=== PATIENT | female | born 1970 | race Caucasian/White ===

== ENCOUNTER → 2020-01-30 10:55 | Outpatient (BNVA) | payer OTHER, SELFPAY | PROVIDERS: PCP Internal Medicine; Visit Provider Nurse Practitioner Family | DX: I27.21 Secondary pulmonary arterial hypertension (principal); K76.6 Portal hypertension; I51.7 Cardiomegaly; I36.1 Nonrheumatic tricuspid (valve) insufficiency; R18.8 Other ascites; K74.60 Unspecified cirrhosis of liver | CPT/HCPCS: 99212 ==

== ENCOUNTER 2020-01-30 13:11 | Inpatient (IN) | payer OTHER, SELFPAY ==
[2020-01-30] VITALS (7 sets, daily range): BP systolic 102–121; BP diastolic 68–83; PULSE 86–96; RESP 16–32; TEMP 36–36.9; O2SAT 2–99; BMI 28.8
--- NOTE | 2020-01-30 13:48 | XR_ITS ---
EXAMINATION: XR CHEST CLINICAL INFORMATION: Shortness of breath. COMPARISON: 09/23/2019 chest radiographs. TECHNIQUE: Frontal view of the chest was obtained. FINDINGS: The lungs are clear. The heart is mildly enlarged. The mediastinal structures are unremarkable. XR/XR chest 1V IMPRESSION: No acute cardiopulmonary process. Mild cardiomegaly without significant change.
--- NOTE | 2020-01-30 13:48 | ECG_ITS ---
Test Reason : SOB Blood Pressure : / mmHG Vent. Rate : 090 BPM Atrial Rate : 090 BPM P-R Int : 176 ms QRS Dur : 104 ms QT Int : 410 ms P-R-T Axes : 025 090 -13 degrees QTc Int : 501 ms Normal sinus rhythm Rightward axis Nonspecific T wave abnormality Inferior leads Prolonged QT Abnormal ECG When compared with ECG of 31-DEC-2018 15:12, ST less depressed in Inferior leads Lateral leads Referred By: Sarah Coulter Electronically Signed By:IMER CHU MD
--- NOTE | 2020-01-30 13:49 | ED.GENADULT ---
HPI - General Adult General Chief complaint: Upper Respiratory Symptoms <KATHRYN Ball - Last Filed: 01/30/20 17:10> Stated complaint: sob, fluid retention <KATHRYN Ball - Last Filed: 01/30/20 17:10> Time Seen by Provider: 01/30/20 13:47 <KATHRYN Ball - Last Filed: 01/30/20 17:10> Source: patient <KATHRYN Ball - Last Filed: 01/30/20 17:10> Mode of arrival: ambulatory <KATHRYN Ball - Last Filed: 01/30/20 17:10> Limitations: no limitations <KATHRYN Ball Last Filed: 01/30/20 17:10> History of Present Illness HPI narrative: 49 y/o female with history of alcoholic cirrhosis with ascites and portal HTN, hx UGIB, hx C diff presents with from Cardiology office with worsening WEI over one month with a 23 pound weight gain. She states she had noticed she developed some mild LE swelling and significant abdominal distention. She denies increase in salt intake and states she hasn't been eating much because it is uncomfortable. She has been compliant with her lasix 40 mg BID and eplerenone 25 mg daily. She has not had any alcohol in 6 weeks. <KATHRYN Ball - Last Filed: 01/30/20 17:10> Related Data Home medications: Home Medications Medication Instructions Recorded Confirmed ambrisentan 5 mg tablet 5 mg PO DAILY 01/30/20 01/30/20 eplerenone 25 mg tablet 25 mg PO DAILY 01/30/20 01/30/20 escitalopram oxalate 10 mg tablet 10 mg PO DAILY 01/30/20 01/30/20 furosemide 40 mg tablet 40 mg PO BID 01/30/20 01/30/20 nadolol 20 mg tablet 20 mg PO DAILY 01/30/20 01/30/20 Previous Rx's Medication Instructions Recorded pantoprazole 40 mg tablet,delayed 40 mg PO DAILY #30 ea 12/30/19 release lorazepam 0.5 mg tablet 0.5 mg PO BEDTIME PRN #7 tab 01/19/20 <KATHRYN Ball Last Filed: 01/30/20 17:10> Allergies/adverse reactions: Allergies Allergy/AdvReac Type Severity Reaction Status Date / Time No Known Allergies Allergy Verified 01/30/20 16:39 [No Known Allergies*] <KATHRYN Ball - Last Filed: 01/30/20 17:10> Review of Systems Review of Systems: Constitutional: No Fever, No Chills ENT/Mouth: No sore throat, No Rhinorrhea, No Swallowing Difficulty Eyes: No Eye Pain, No Swelling, No Redness Cardiovascular: + Chest Pain, + SOB, + Orthopnea, + Edema Respiratory: No Cough, No Sputum, No Wheezing, No dyspnea Gastrointestinal: No Nausea, No Vomiting, No Diarrhea, No abdominal Pain, No Hematochezia, No Melena, +decreased appetite Genitourinary: No Dysuria, No Urinary Frequency, No Hematuria Musculoskeletal: No joint pain, No Myalgias Skin: No Skin Lesions, No rash Neuro: No Weakness, No Numbness, No Dizziness, No Headache Psych: No Anxiety/Panic, No Depression Heme/Lymph: No Bruising, No Lymphadenopathy Endocrine: No Polyuria, No Polydipsia <KATHRYN Ball - Last Filed: 01/30/20 17:10> [facility] Past Medical History Attestation statement: The following information was validated with the patient. <KATHRYN Ball - Last Filed: 01/30/20 17:10> Medical History: Medical History (Updated 01/30/20 @ 21:30 by KATHRYN Parikh) Abdominal ascites Alcoholic cirrhosis of liver Anemia Enlarged RV (right ventricle) Esophageal varices in alcoholic cirrhosis Nonrheumatic tricuspid (valve) insufficiency Pulmonary hypertensive arterial disease associated with portal hypertension <KATHRYN Ball - Last Filed: 01/30/20 17:10> Surgical History: Surgical History Hx of cardiac cath <KATHRYN Ball - Last Filed: 01/30/20 17:10> Family History Family History: Family History Father HTN (hypertension) Mother HTN (hypertension) <KATHRYN Ball - Last Filed: 01/30/20 17:10> Social History Social History: Social History Alcohol intake: former Smoking Status: Current some day smoker Smoked in Last 30 Days: Yes Use of substances other than those prescribed or required for medical reasons: No Advance Directives: Yes Advance Directives Information Provided: Yes Advance Directives on File: No <KATHRYN Ball - Last Filed: 01/30/20 17:10> Physical Exam Vital Signs: Vital Signs: Last Vital Signs Temp 98.4 F 01/30/20 21:32 Pulse 93 01/30/20 21:32 Resp 16 01/30/20 21:32 BP 110/72 01/30/20 21:32 Pulse Ox 2 L 01/30/20 21:32 Body Mass Index 28.8 Appearance: Alert. Oriented X3. No acute distress. Eyes: Pupils equal, round and reactive to light. ENT: Pharynx normal. Neck: Normal inspection. Neck supple. +JVD CVS: Normal heart rate and rhythm. distant S1/S2. Pulses normal. Respiratory: No respiratory distress. Breath sounds normal. Abdomen: Softly distended and nontender. +BS x4 Skin: Skin warm and dry. Normal skin color. Normal skin turgor. No rashes. Extremities: 1+ LE edema Neuro: Oriented X 3. No motor deficit. No sensory deficit. <KATHRYN Ball - Last Filed: 01/30/20 17:10> Vital Signs: Last Vital Signs Temp 98.4 F 01/30/20 21:32 Pulse 93 01/30/20 21:32 Resp 16 01/30/20 21:32 BP 110/72 01/30/20 21:32 Pulse Ox 2 L 01/30/20 21:32 Body Mass Index 28.8 <Soco Garber NP - Last Filed: 01/30/20 23:37> Course Course Course Narrative: 49 y/o female presenting with WEI and 23 lb weight gain over 1 month despite compliance with dual diuretics. VSS on arrival without SOB at rest. Will check CXR, labs, and abd u/s for fluid check, may be amenable to therapeutic paracentesis. <KATHRYN Ball - Last Filed: 01/30/20 17:10> Sign-out from Sarah PERALTA. Discussion with Dr.Edmund at 6:50 p.m.. Plan of care is to admit to Medicine with plan to diurese with IV Bumex. Patient does have pulmonary hypertension but no indication of tamponade. Discussion with hospitalist with plan to admit. Discussion with patient regarding plan of care, patient verbalized understanding of and agrees to plan of care to admit for further care. <Soco Garber NP - Last Filed: 01/30/20 23:37> Reevaluation(s) Reevaluation #1: Hypoxic to 89% on RA - placed on 2L NC with improvement to 98%. Bedside cardiac U/S showing pericardial effusion. No clinical signs of tamponade - will get ECHO stat as well as CTA to assess for PE. Dddimer 700's. Abd U/S showing only small ascites, no role for therapeutic paracentesis. <KATHRYN Ball - Last Filed: 01/30/20 17:10> Consultations Consultation #1: Edmund <Soco Garber NP - Last Filed: 01/30/20 23:37> Time: 18:42 <Soco Garber NP - Last Filed: 01/30/20 23:37> Consultation #2: Manuel <Soco Garber NP - Last Filed: 01/30/20 23:37> Time: 18:50 <Soco Garber NP - Last Filed: 01/30/20 23:37> Medical Decision Making Lab Data Result diagrams: : 01/30/20 14:23 01/30/20 14:23 <KATHRYN Ball - Last Filed: 01/30/20 17:10> Labs: Lab Results 01/30/20 01/30/20 01/30/20 Range/Units 14:23 14:23 14:23 WBC 4.0 L (4.8-10.8) X10*3/uL RBC 3.68 L (4.20-5.50) X10*6/uL Hgb 8.7 L (12.0-16.0) g/dl Hct 28.7 L (37-47) % MCV 78.0 L (80-98) fL MCH 23.6 L (27.0-33.0) pg MCHC 30.3 L (31.0-35.0) g/dl RDW 23.7 H (11.0-16.0) % Plt Count 101 L (160-400) X10*3/uL MPV Not Reportable Immature Gran % (Auto) 0.3 (0.0-0.4) % Neut % (Auto) 55.1 (45-73) % Lymph % (Auto) 36.0 (20-40) % [place]cd[place] % (Auto) 7.6 (2-11) % Eos % (Auto) 0.5 (0-4) % Baso % (Auto) 0.5 (0-2) % Lymph # (Auto) 1.4 (1.2-4.9) X10*3/uL [place] # (Auto) 0.3 (0.1-1.2) X10*3/uL Eos # (Auto) 0.0 (0.0-0.4) X10*3/uL Baso # (Auto) 0.0 (0.0-0.2) X10*3/uL Abs Immat Gran (auto) 0.01 (0.00-0.03) X10*3/uL Absolute Neuts (auto) 2.2 (2.0-8.3) X10*3/uL Absolute Nucleated RBC 0.000 (0.0-0.012) X10*3/uL Nucleated RBC % (auto) 0.0 (0.0-0.2) /100WBC PT (10.8-13.0) SEC INR (0.9-1.1) D-Dimer NG/ML Sodium 138 (135-145) mmol/L Potassium 2.7 L (3.3-5.1) mmol/l Chloride 97 (96-108) mmol/L Carbon Dioxide 31 H (22-29) mmol/L Anion Gap 13 (12-20) BUN 11 (9-16) mg/dL Creatinine 0.57 (0.5-1.4) mg/dL Estim Creat Clear Calc 126.3 Estimated GFR > 60 Random Glucose 113 (60-115) mg/dL Calcium 8.1 L (8.4-10.2) mg/dL Magnesium 1.2 L* (1.6-2.6) mg/dL Total Bilirubin 1.8 H (0.0-1.0) mg/dL Direct Bilirubin 0.9 H (0.0-0.5) mg/dL AST 60 H (5-31) U/L ALT 28 (0-31) U/L Alkaline Phosphatase 232 H (39-117) U/L Troponin I High Sens 8.4 (<3.5-17.0) ng/L B-Natriuretic Peptide 173 H (<100) pg/mL Total Protein 6.8 (6.5-8.0) g/dL Albumin 3.4 L (3.5-5.0) g/dL Urine Color Urine Appearance Urine pH (5.0-8.0) Ur Specific [place] (1.005-1.025) Urine Protein (NEG-TRACE) MG/DL Urine Glucose (UA) (NEG) MG/DL Urine Ketones (NEG) MG/DL Urine Blood (NEG) Urine Nitrite (NEG) Ur Leukocyte Esterase (NEG) Ethyl Alcohol mg/dL COVID-19 (KATLIN) (Negative) COVID-19 Clin Com 01/30/20 01/30/20 01/30/20 Range/Units 14:23 18:20 18:20 WBC (4.8-10.8) X10*3/uL RBC (4.20-5.50) X10*6/uL Hgb (12.0-16.0) g/dl Hct (37-47) % MCV (80-98) fL MCH (27.0-33.0) pg MCHC (31.0-35.0) g/dl RDW (11.0-16.0) % Plt Count (160-400) X10*3/uL MPV Immature Gran % (Auto) (0.0-0.4) % Neut % (Auto) (45-73) % Lymph % (Auto) (20-40) % Mcdowell % (Auto) (2-11) % Eos % (Auto) (0-4) % Baso % (Auto) (0-2) % Lymph # (Auto) (1.2-4.9) X10*3/uL [place] # (Auto) (0.1-1.2) X10*3/uL Eos # (Auto) (0.0-0.4) X10*3/uL Baso # (Auto) (0.0-0.2) X10*3/uL Abs Immat Gran (auto) (0.00-0.03) X10*3/uL Absolute Neuts (auto) (2.0-8.3) X10*3/uL Absolute Nucleated RBC (0.0-0.012) X10*3/uL Nucleated RBC % (auto) (0.0-0.2) /100WBC PT 14.0 H (10.8-13.0) SEC INR 1.2 H (0.9-1.1) D-Dimer 796 NG/ML Sodium (135-145) mmol/L Potassium (3.3-5.1) mmol/l Chloride (96-108) mmol/L Carbon Dioxide (22-29) mmol/L Anion Gap (12-20) BUN (9-16) mg/dL Creatinine (0.5-1.4) mg/dL Estim Creat Clear Calc Estimated GFR Random Glucose (60-115) mg/dL Calcium (8.4-10.2) mg/dL Magnesium (1.6-2.6) mg/dL Total Bilirubin (0.0-1.0) mg/dL Direct Bilirubin (0.0-0.5) mg/dL AST (5-31) U/L ALT (0-31) U/L Alkaline Phosphatase (39-117) U/L Troponin I High Sens (<3.5-17.0) ng/L B-Natriuretic Peptide (<100) pg/mL Total Protein (6.5-8.0) g/dL Albumin (3.5-5.0) g/dL Urine Color YELLOW Urine Appearance CLEAR Urine pH 7.0 (5.0-8.0) Ur Specific [place] <= 1.005 (1.005-1.025) Urine Protein NEG (NEG-TRACE) MG/DL Urine Glucose (UA) NEG (NEG) MG/DL Urine Ketones NEG (NEG) MG/DL Urine Blood NEG (NEG) Urine Nitrite NEG (NEG) Ur Leukocyte Esterase NEG (NEG) Ethyl Alcohol mg/dL COVID-19 (KATLIN) Negative (Negative) COVID-19 Clin Com See Note 01/30/20 01/30/20 Range/Units 18:54 18:54 WBC (4.8-10.8) X10*3/uL RBC (4.20-5.50) X10*6/uL Hgb (12.0-16.0) g/dl Hct (37-47) % MCV (80-98) fL MCH (27.0-33.0) pg MCHC (31.0-35.0) g/dl RDW (11.0-16.0) % Plt Count (160-400) X10*3/uL MPV Immature Gran % (Auto) (0.0-0.4) % Neut % (Auto) (45-73) % Lymph % (Auto) (20-40) % [place]cd[place] % (Auto) (2-11) % Eos % (Auto) (0-4) % Baso % (Auto) (0-2) % Lymph # (Auto) (1.2-4.9) X10*3/uL [place] # (Auto) (0.1-1.2) X10*3/uL Eos # (Auto) (0.0-0.4) X10*3/uL Baso # (Auto) (0.0-0.2) X10*3/uL Abs Immat Gran (auto) (0.00-0.03) X10*3/uL Absolute Neuts (auto) (2.0-8.3) X10*3/uL Absolute Nucleated RBC (0.0-0.012) X10*3/uL Nucleated RBC % (auto) (0.0-0.2) /100WBC PT (10.8-13.0) SEC INR (0.9-1.1) D-Dimer NG/ML Sodium (135-145) mmol/L Potassium (3.3-5.1) mmol/l Chloride (96-108) mmol/L Carbon Dioxide (22-29) mmol/L Anion Gap (12-20) BUN (9-16) mg/dL Creatinine (0.5-1.4) mg/dL Estim Creat Clear Calc Estimated GFR Random Glucose (60-115) mg/dL Calcium (8.4-10.2) mg/dL Magnesium (1.6-2.6) mg/dL Total Bilirubin (0.0-1.0) mg/dL Direct Bilirubin (0.0-0.5) mg/dL AST (5-31) U/L ALT (0-31) U/L Alkaline Phosphatase (39-117) U/L Troponin I High Sens 10.4 (<3.5-17.0) ng/L B-Natriuretic Peptide (<100) pg/mL Total Protein (6.5-8.0) g/dL Albumin (3.5-5.0) g/dL Urine Color Urine Appearance Urine pH (5.0-8.0) Ur Specific [place] (1.005-1.025) Urine Protein (NEG-TRACE) MG/DL Urine Glucose (UA) (NEG) MG/DL Urine Ketones (NEG) MG/DL Urine Blood (NEG) Urine Nitrite (NEG) Ur Leukocyte Esterase (NEG) Ethyl Alcohol < 10 mg/dL COVID-19 (KATLIN) (Negative) COVID-19 Clin Com <KATHRYN Ball - Last Filed: 01/30/20 17:10> Lab Results 01/30/20 01/30/20 01/30/20 Range/Units 14:23 14:23 14:23 WBC 4.0 L (4.8-10.8) X10*3/uL RBC 3.68 L (4.20-5.50) X10*6/uL Hgb 8.7 L (12.0-16.0) g/dl Hct 28.7 L (37-47) % MCV 78.0 L (80-98) fL MCH 23.6 L (27.0-33.0) pg MCHC 30.3 L (31.0-35.0) g/dl RDW 23.7 H (11.0-16.0) % Plt Count 101 L (160-400) X10*3/uL MPV Not Reportable Immature Gran % (Auto) 0.3 (0.0-0.4) % Neut % (Auto) 55.1 (45-73) % Lymph % (Auto) 36.0 (20-40) % [place] % (Auto) 7.6 (2-11) % Eos % (Auto) 0.5 (0-4) % Baso % (Auto) 0.5 (0-2) % Lymph # (Auto) 1.4 (1.2-4.9) X10*3/uL [place] # (Auto) 0.3 (0.1-1.2) X10*3/uL Eos # (Auto) 0.0 (0.0-0.4) X10*3/uL Baso # (Auto) 0.0 (0.0-0.2) X10*3/uL Abs Immat Gran (auto) 0.01 (0.00-0.03) X10*3/uL Absolute Neuts (auto) 2.2 (2.0-8.3) X10*3/uL Absolute Nucleated RBC 0.000 (0.0-0.012) X10*3/uL Nucleated RBC % (auto) 0.0 (0.0-0.2) /100WBC PT (10.8-13.0) SEC INR (0.9-1.1) D-Dimer NG/ML Sodium 138 (135-145) mmol/L Potassium 2.7 L (3.3-5.1) mmol/l Chloride 97 (96-108) mmol/L Carbon Dioxide 31 H (22-29) mmol/L Anion Gap 13 (12-20) BUN 11 (9-16) mg/dL Creatinine 0.57 (0.5-1.4) mg/dL Estim Creat Clear Calc 126.3 Estimated GFR > 60 Random Glucose 113 (60-115) mg/dL Calcium 8.1 L (8.4-10.2) mg/dL Magnesium 1.2 L* (1.6-2.6) mg/dL Total Bilirubin 1.8 H (0.0-1.0) mg/dL Direct Bilirubin 0.9 H (0.0-0.5) mg/dL AST 60 H (5-31) U/L ALT 28 (0-31) U/L Alkaline Phosphatase 232 H (39-117) U/L Troponin I High Sens 8.4 (<3.5-17.0) ng/L B-Natriuretic Peptide 173 H (<100) pg/mL Total Protein 6.8 (6.5-8.0) g/dL Albumin 3.4 L (3.5-5.0) g/dL Urine Color Urine Appearance Urine pH (5.0-8.0) Ur Specific [place] (1.005-1.025) Urine Protein (NEG-TRACE) MG/DL Urine Glucose (UA) (NEG) MG/DL Urine Ketones (NEG) MG/DL Urine Blood (NEG) Urine Nitrite (NEG) Ur Leukocyte Esterase (NEG) Ethyl Alcohol mg/dL COVID-19 (KATLIN) (Negative) COVID-19 Clin Com 01/30/20 01/30/20 01/30/20 Range/Units 14:23 18:20 18:20 WBC (4.8-10.8) X10*3/uL RBC (4.20-5.50) X10*6/uL Hgb (12.0-16.0) g/dl Hct (37-47) % MCV (80-98) fL MCH (27.0-33.0) pg MCHC (31.0-35.0) g/dl RDW (11.0-16.0) % Plt Count (160-400) X10*3/uL MPV Immature Gran % (Auto) (0.0-0.4) % Neut % (Auto) (45-73) % Lymph % (Auto) (20-40) % [place] % (Auto) (2-11) % Eos % (Auto) (0-4) % Baso % (Auto) (0-2) % Lymph # (Auto) (1.2-4.9) X10*3/uL [place] # (Auto) (0.1-1.2) X10*3/uL Eos # (Auto) (0.0-0.4) X10*3/uL Baso # (Auto) (0.0-0.2) X10*3/uL Abs Immat Gran (auto) (0.00-0.03) X10*3/uL Absolute Neuts (auto) (2.0-8.3) X10*3/uL Absolute Nucleated RBC (0.0-0.012) X10*3/uL Nucleated RBC % (auto) (0.0-0.2) /100WBC PT 14.0 H (10.8-13.0) SEC INR 1.2 H (0.9-1.1) D-Dimer 796 NG/ML Sodium (135-145) mmol/L Potassium (3.3-5.1) mmol/l Chloride (96-108) mmol/L Carbon Dioxide (22-29) mmol/L Anion Gap (12-20) BUN (9-16) mg/dL Creatinine (0.5-1.4) mg/dL Estim Creat Clear Calc Estimated GFR Random Glucose (60-115) mg/dL Calcium (8.4-10.2) mg/dL Magnesium (1.6-2.6) mg/dL Total Bilirubin (0.0-1.0) mg/dL Direct Bilirubin (0.0-0.5) mg/dL AST (5-31) U/L ALT (0-31) U/L Alkaline Phosphatase (39-117) U/L Troponin I High Sens (<3.5-17.0) ng/L B-Natriuretic Peptide (<100) pg/mL Total Protein (6.5-8.0) g/dL Albumin (3.5-5.0) g/dL Urine Color YELLOW Urine Appearance CLEAR Urine pH 7.0 (5.0-8.0) Ur Specific [place] <= 1.005 (1.005-1.025) Urine Protein NEG (NEG-TRACE) MG/DL Urine Glucose (UA) NEG (NEG) MG/DL Urine Ketones NEG (NEG) MG/DL Urine Blood NEG (NEG) Urine Nitrite NEG (NEG) Ur Leukocyte Esterase NEG (NEG) Ethyl Alcohol mg/dL COVID-19 (KATLIN) Negative (Negative) COVID-19 Clin Com See Note 01/30/20 01/30/20 Range/Units 18:54 18:54 WBC (4.8-10.8) X10*3/uL RBC (4.20-5.50) X10*6/uL Hgb (12.0-16.0) g/dl Hct (37-47) % MCV (80-98) fL MCH (27.0-33.0) pg MCHC (31.0-35.0) g/dl RDW (11.0-16.0) % Plt Count (160-400) X10*3/uL MPV Immature Gran % (Auto) (0.0-0.4) % Neut % (Auto) (45-73) % Lymph % (Auto) (20-40) % [place] % (Auto) (2-11) % Eos % (Auto) (0-4) % Baso % (Auto) (0-2) % Lymph # (Auto) (1.2-4.9) X10*3/uL [place] # (Auto) (0.1-1.2) X10*3/uL Eos # (Auto) (0.0-0.4) X10*3/uL Baso # (Auto) (0.0-0.2) X10*3/uL Abs Immat Gran (auto) (0.00-0.03) X10*3/uL Absolute Neuts (auto) (2.0-8.3) X10*3/uL Absolute Nucleated RBC (0.0-0.012) X10*3/uL Nucleated RBC % (auto) (0.0-0.2) /100WBC PT (10.8-13.0) SEC INR (0.9-1.1) D-Dimer NG/ML Sodium (135-145) mmol/L Potassium (3.3-5.1) mmol/l Chloride (96-108) mmol/L Carbon Dioxide (22-29) mmol/L Anion Gap (12-20) BUN (9-16) mg/dL Creatinine (0.5-1.4) mg/dL Estim Creat Clear Calc Estimated GFR Random Glucose (60-115) mg/dL Calcium (8.4-10.2) mg/dL Magnesium (1.6-2.6) mg/dL Total Bilirubin (0.0-1.0) mg/dL Direct Bilirubin (0.0-0.5) mg/dL AST (5-31) U/L ALT (0-31) U/L Alkaline Phosphatase (39-117) U/L Troponin I High Sens 10.4 (<3.5-17.0) ng/L B-Natriuretic Peptide (<100) pg/mL Total Protein (6.5-8.0) g/dL Albumin (3.5-5.0) g/dL Urine Color Urine Appearance Urine pH (5.0-8.0) Ur Specific [place] (1.005-1.025) Urine Protein (NEG-TRACE) MG/DL Urine Glucose (UA) (NEG) MG/DL Urine Ketones (NEG) MG/DL Urine Blood (NEG) Urine Nitrite (NEG) Ur Leukocyte Esterase (NEG) Ethyl Alcohol < 10 mg/dL COVID-19 (KATLIN) (Negative) COVID-19 Clin Com <Soco Garber NP - Last Filed: 01/30/20 23:37> ECG Data Attestation: I personally reviewed and interpreted this ECG as follows: <KATHRYN Ball - Last Filed: 01/30/20 17:10> Interpretation: normal sinus rhythm, HR 90, prolonged QTc 501 ms, <KATHRYN Ball - Last Filed: 01/30/20 17:10> Critical Care Time Critical Care Time Critical Care Time: Yes <Soco Garber NP - Last Filed: 01/30/20 23:37> Total Critical Care Time: 60 <Soco Garber NP - Last Filed: 01/30/20 23:37> Attestation: I have personally provided critical care time exclusive of time spent on separately billable procedures. Time includes review of laboratory data, radiology results, discussion with consultants, and monitoring for potential decompensation. Interventions were performed as documented. <Soco Garber NP - Last Filed: 01/30/20 23:37> Discharge Plan Discharge Clinical Impression: Acute pericardial effusion <KATHRYN Ball - Last Filed: 01/30/20 17:10> Patient Disposition: Admitted As Inpatient <KATHRYN Ball - Last Filed: 01/30/20 17:10>
--- NOTE | 2020-01-30 13:55 | US_ITS ---
EXAMINATION: US ABDOMEN LIMITED CLINICAL INFORMATION: Check for ascites. COMPARISON: Previous MR of the abdomen June 2019, paracentesis May [address] of the abdomen and pelvis December 2018 TECHNIQUE: Limited 4 quadrant abdominal ultrasound FINDINGS: There is a small amount of ascites. US/US abdomen limited IMPRESSION: Small amount of ascites.
[2020-01-30 14:31] LABS: MANUAL DIFF FLAG NO
[2020-01-30 14:32] LABS: Basophils Percent Auto 0.5 % (0-2); Eosinophils Percent Auto 0.5 % (0-4); Hematocrit 28.7 % (37-47); Hemoglobin 8.7 g/dl (12.0-16.0); Imm Gran Abs Auto 0.01 X10*3/uL (0.00-0.03); Imm Gran Pct Auto 0.3 % (0.0-0.4); Lymphocytes Absolute Auto 1.4 X10*3/uL (1.2-4.9); Mean Corpuscular HGB Conc 30.3 g/dl (31.0-35.0); Mean Corpuscular Hemoglobin 23.6 pg (27.0-33.0); Monocytes Absolute Auto 0.3 X10*3/uL (0.1-1.2); Monocytes Percent Auto 7.6 % (2-11); Neutrophils Absolute Auto 2.2 X10*3/uL (2.0-8.3); Neutrophils Percent Auto 55.1 % (45-73); Platelet Count 101 X10*3/uL (160-400); Red Blood Count 3.68 X10*6/uL (4.20-5.50); Red Cell Distribution Width 23.7 % (11.0-16.0)
[2020-01-30 14:38] LABS: INTERNATIONAL NORM RATIO 1.2 (0.9-1.1)
[2020-01-30 14:53] LABS: Blood Urea Nitrogen 11 mg/dL (9-16); Calcium 8.1 mg/dL (8.4-10.2); Creatinine Clr Calc Pharmacy 126.3; Estimated Glomerular Filt Rate > 60; Glucose Random 113 mg/dL (60-115)
[2020-01-30 15:02] LABS: B Type Natriuretic Peptide 173 pg/mL (<100)
[2020-01-30 15:07] LABS: Anion Gap 13 (12-20); Carbon Dioxide 31 mmol/L (22-29); Chloride 97 mmol/L (96-108); Potassium 2.7 mmol/l (3.3-5.1); Sodium 138 mmol/L (135-145)
--- NOTE | 2020-01-30 15:18 | CA_ITS ---
Transthoracic Echocardiogram Patient (Last, First, Middle): Samanta Nicole, Gender: Female Date of : 1970 Age: 49 Procedure Date: 01/30/2020 Procedure Type: Transthoracic Echocardiogram Location: [facility] [place] Height: 165.1 cm Weight: 78.47 kg BSA: 1.86 m2 Heart Rate: bpm BP: 109 / 78 mmHg Cash Register Operator: AMANDA Referring MD: Sarah PERALTA Kickboxing Instructor: Sander Shaffer MD Symptoms: pericardial effusion Study Quality: Fair ECG Rhythm: Sinus Conclusions: - 1. Moderate pericardial effusion without evidence of tamponade 2. Severely dilated right-sided chambers with reduced RV systolic function 3. Severely increased RV systolic pressure 4. Normal LV systolic function Findings Left Ventricle Normal left ventricular size, thickness, and systolic function. The visually estimated ejection fraction is between 60-65%. There is a flattened septum in systole consistent with right ventricular pressure overload. Spectral Doppler is indicative of an impaired relaxation filling pattern. Right Ventricle Severely increased right ventricular cavity size. There is moderately decreased right ventricular systolic function. Atria The right atrium is severely dilated. Tricuspid Valve There is severe tricuspid valve regurgitation. Severe pulmonary hypertension is present. Pericardium/Pleural There is a moderate circumferential pericardial effusion. There are no definitive echocardiographic findings of tamponade physiology. There are no definitive echocardiographic findings of constrictive physiology. Prior Study Comparison Changes noted compared to prior study dated: 09/08/2019. RV systolic pressure is further increased. Compared to prior limited echocardiogram severity of pericardial effusion is increased, without evidence of tamponade Measurements 2D Linear Measurements IVSd: 1.37 0.6-0.9/0.6-1.0 cm LVIDd: 3.89 3.9-5.3/4.2-5.9 cm LVIDd Index: 2.09 2.4-3.2/2.2-3.1 cm/m2 LVIDs: 2.34 2.0-3.6 cm LVPWd: 1.30 0.7-1.1 cm LV Mass: 232.37 67-162/88-224 g LV Mass Index: 124.93 43-95/49-115 g/m2 Mitral Valve MV Pk E: 0.68 MV PK A: 0.93 MV Decel Time: 120.00 E/A: 0.70 E'Lateral: 8.90 E'Medial: 7.06 E/E' Med: 9.60 E/E' Lat: 7.60 PHT: 35.00 MVA PHT: 6.29 Decel Luna: 5.67 Diastolic Function MV Pk E: 0.68 MV Pk A: 0.93 E/A: 0.70 E'Medial: 7.06 E/E' Med: 9.60 E' Laterial: 8.90 E/E' Lat: 7.60 Tricuspid Valve TR Pk Eugenio: 3.99 TR Pk Grad: 64.00 RA Press: 15.00 RVSP: 85.00 Updated in Other Vendor System with Status of Final Sander Shaffer MD electronically signed on 01/31/2020 10:28:42 AM with status of Final
[2020-01-30 15:30] LABS: D Dimer 796 NG/ML
--- NOTE | 2020-01-30 15:38 | CT_ITS ---
EXAMINATION: CT ANGIOGRAM OF THE CHEST WITH AND WITHOUT CONTRAST (CT PULMONARY ANGIOGRAM FOR PE) CLINICAL INFORMATION: Reason for Exam SOB, hypoxia, chest pain, elevated D-DIMER COMPARISON: Chest x-ray 01/30/2020 TECHNIQUE: Prior to contrast administration, noncontrast localization images were obtained. Subsequently, multidetector volumetric imaging was performed from the thoracic inlet to below the diaphragms following the administration of 61 mLOmnipaque 350 intravenous contrast. No contrast reaction reported Sagittal, coronal, and MIP oblique sagittal reformatted images were obtained on the CT workstation, uploaded to PACS, and reviewed. This CT examination was performed using dose optimization techniques as appropriate, variously including the following: *Automated exposure control *Adjustment of mA and/or kV according to patient size (this includes techniques or standardized protocols for targeted exams where dose is matched to indication/reason for exam; i.e. extremities or head) *Use of iterative reconstruction technique Total exam dose-length product 277 mGy-cm FINDINGS: QUALITY OF STUDY/CONTRAST BOLUS: Satisfactory. PULMONARY ARTERIES: No central or segmental pulmonary emboli. THORACIC AORTA: No aneurysm or dissection. LUNG: No focal consolidation, nodules or masses. PLEURA: No pleural effusion or pneumothorax. MEDIASTINUM: Heart size is enlarged. There is pericardial effusion. This measures about 2.5 cm transverse. No evidence of septal bowing or right heart strain. No significant lymphadenopathy. CHEST WALL/AXILLA: No axillary or internal mammary lymphadenopathy. OSSEOUS STRUCTURES: No acute or suspicious osseous abnormality. UPPER ABDOMEN: Nodular contour of the liver consistent with cirrhosis. There is abdominal ascites present. No reflux of contrast into the hepatic veins to suggest elevated right heart pressures. CT/CT angio chest PE protocol IMPRESSION: 1. No evidence of pulmonary embolism. 2. Cardiomegaly. 3. Pericardial effusion. 4. Stress of liver. 5. Abdominal ascites. VTE: negative
[2020-01-30] MEDS: Potassium Chloride ER 20 MEQ TAB.ER.PRT 60 MEQ PO (16:36)
[2020-01-30] MEDS: iohexoL 350 MG/ML 100 ML INFUS..BTL IV (17:04)
[2020-01-30 17:47] LABS: Troponin-I High Sensitivity 8.4 ng/L (<3.5-17.0)
[2020-01-30 18:36] LABS: Glucose Urine UA NEG (NEG); Leukocyte Esterase Urine NEG (NEG); Nitrite Urine NEG (NEG); Specific Gravity - Urine <= 1.005 (1.005-1.025); Urine Blood NEG (NEG); Urine Ketones NEG (NEG); Urine Protein NEG (NEG-TRACE)
[2020-01-30 18:43] LABS: Appearance Urine CLEAR; Color Urine YELLOW
[2020-01-30 18:53] LABS: COVID-19 Test Negative (Negative)
[2020-01-30 19:28] LABS: Troponin-I High Sensitivity 10.4 ng/L (<3.5-17.0)
[2020-01-30 21:07] LABS: Ethanol < 10 mg/dL
[2020-01-30 21:10] LABS: Alanine Aminotransferase 28 U/L (0-31); Albumin Level 3.4 g/dL (3.5-5.0); Alkaline Phosphatase 232 U/L (39-117); Aspartate Amino Transferase 60 U/L (5-31); Bilirubin Direct 0.9 mg/dL (0.0-0.5); Bilirubin Total 1.8 mg/dL (0.0-1.0); Magnesium 1.2 mg/dL (1.6-2.6); Total Protein 6.8 g/dL (6.5-8.0)
--- NOTE | 2020-01-30 21:23 | P.HPHOSP_ITS ---
History of Present Illness Date of Service: 01/30/20 <KATHRYN Parikh - Last Filed: 01/31/20 15:07> Chief Complaint: shortness of breath <KATHRYN Parikh - Last Filed: 01/31/20 15:07> this is a 49-year-old female with history of alcoholic liver cirrhosis, severe TR, pulmonary hypertension who presents to the emergency department with shortness of breath. She had a routine followup appointment in the Cardiology office today. She reported 25 lb weight gain, dyspnea on exertion, orthopnea. She was directed to come to the emergency department for evaluation likely admission. She reports drinking a lot of fluid in hopes of flushing everything out of her system. In the emergency department her workup revealed multiple abnormalities including potassium of 2.7, magnesium of 1.2. Chest x-ray and abdominal ultrasound were unremarkable BNP was 173, CTA revealed pericardial effusion which has been present in the past. she has a history of alcohol abuse but denies drinking any alcohol in the past 1 month. Her QTC was prolonged at 501 milliseconds. She was given oral potassium replacement in the decision was made to admit her for further management of fluid overload. <KATHRYN Parikh - Last Filed: 01/31/20 15:07> Review of Systems Review of Systems: Yes all other systems are reviewed and are negative <KATHRYN Parikh - Last Filed: 01/31/20 15:07> Cardiovascular: Cardiovascular: Denies chest pain, Reports dyspnea, Reports dyspnea on exertion and Reports orthopnea <KATHRYN Parikh - Last Filed: 01/31/20 15:07> Respiratory: Respiratory: Denies cough, Reports dyspnea and Reports dyspnea on exertion <KATHRYN Parikh - Last Filed: 01/31/20 15:07> Gastrointestinal: Gastrointestinal: Denies vomiting and Denies hematemesis <KATHRYN Parikh - Last Filed: 01/31/20 15:07> PMFSH Medical History: Medical History Abdominal ascites Alcoholic cirrhosis of liver Anemia Enlarged RV (right ventricle) Esophageal varices in alcoholic cirrhosis Nonrheumatic tricuspid (valve) insufficiency Pulmonary hypertensive arterial disease associated with portal hypertension <KATHRYN Parikh - Last Filed: 01/31/20 15:07> Functional capacity: independent ambulation <KATHRYN Parikh - Last Filed: 01/31/20 15:07> Family History: Family History Father HTN (hypertension) Mother HTN (hypertension) <KATHRYN Parikh - Last Filed: 01/31/20 15:07> Surgical History: Surgical History Hx of cardiac cath <KATHRYN Parikh - Last Filed: 01/31/20 15:07> Social History: Social History Household Members: Family Housing: House Alcohol intake: former Smoking Status: Former smoker Tobacco Type: Cigarette Advance Directives Date on File: 01/30/20 service: No Current occupational status: employed <KATHRYN Parikh - Last Filed: 01/31/20 15:07> Meds Allergies/Adverse reactions: Allergies Allergy/AdvReac Type Severity Reaction Status Date / Time No Known Allergies Allergy Verified 01/30/20 16:39 [No Known Allergies*] <KATHRYN Parikh - Last Filed: 01/31/20 15:07> Home medications: Home Medications Medication Instructions Recorded Confirmed Type ambrisentan 5 mg tablet 5 mg PO DAILY 01/30/20 01/30/20 History escitalopram oxalate 10 mg tablet 10 mg PO DAILY 01/30/20 01/30/20 History nadolol 20 mg tablet 20 mg PO DAILY 01/30/20 01/30/20 History <KATHRYN Parikh - Last Filed: 01/31/20 15:07> Physical Exam Vital Signs and Narrative: Vital Signs: Last Vital Signs Temp 98.3 F 01/30/20 16:00 Pulse 90 01/30/20 20:15 Resp 32 H 01/30/20 20:15 BP 113/73 01/30/20 20:15 Pulse Ox 98 01/30/20 20:15 Body Mass Index 28.8 <KATHRYN Parikh - Last Filed: 01/31/20 15:07> Const: Nutritional Appearance: well nourished <KATHRYN Parikh - Last Filed: 01/31/20 15:07> Orientation/consciousness: patient oriented x3 <KATHRYN Parikh - Last Filed: 01/31/20 15:07> HENMT: Head: Yes normocephalic and Yes atraumatic <KATHRYN Parikh - Last Filed: 01/31/20 15:07> Eyes: Sclerae: sclerae normal <KATHRYN Parikh - Last Filed: 01/31/20 15:07> Chest: Chest palpation & inspection: normal inspection of the chest <KATHRYN Parikh - Last Filed: 01/31/20 15:07> Resp: Effort & Inspection: normal respiratory effort and no respiratory distress <KATHRYN Parikh - Last Filed: 01/31/20 15:07> Auscultation: diminished lung sounds bilateral (bases) <KATHRYN Parikh - Last Filed: 01/31/20 15:07> Cardio: Jugular venous distension: JVD <KATHRYN Parikh - Last Filed: 01/31/20 15:07> Rate: regular rate <KATHRYN Parikh - Last Filed: 01/31/20 15:07> Rhythm: regular rhythm <KATHRYN Parikh - Last Filed: 01/31/20 15:07> GI: Palpation (GI): Soft to palpation and nontender <KATHRYN Parikh - Last Filed: 01/31/20 15:07> Skin: General skin exam: no rashes or lesions noted <KATHRYN Parikh - Last Filed: 01/31/20 15:07> Neuro: General: patient oriented x3 <KATHRYN Parikh - Last Filed: 01/31/20 15:07> Cranial nerves: Yes CN's II-XII intact bilaterally and Yes Bilaterally intact EOM present <KATHRYN Parikh - Last Filed: 01/31/20 15:07> Extrem: General: Yes normal to inspection and Yes pedal edema <KATHRYN Parikh - Last Filed: 01/31/20 15:07> Results Labs CBC and Chem 7: : 02/02/20 05:51 02/02/20 05:51 <KATHRYN Parikh - Last Filed: 01/31/20 15:07> Labs: Laboratory Results - last 24 hr 01/30/20 01/30/20 01/30/20 14:23 14:23 14:23 MCV 78.0 L MCH 23.6 L MCHC 30.3 L RDW 23.7 H Plt Count 101 L MPV Not Reportable Immature Gran % (Auto) 0.3 Neut % (Auto) 55.1 Lymph % (Auto) 36.0 [place] % (Auto) 7.6 Eos % (Auto) 0.5 Baso % (Auto) 0.5 Lymph # (Auto) 1.4 [place] # (Auto) 0.3 Eos # (Auto) 0.0 Baso # (Auto) 0.0 Abs Immat Gran (auto) 0.01 Absolute Neuts (auto) 2.2 Absolute Nucleated RBC 0.000 Nucleated RBC % (auto) 0.0 PT INR D-Dimer Anion Gap 13 Estim Creat Clear Calc 126.3 Estimated GFR > 60 Random Glucose 113 Calcium 8.1 L Magnesium 1.2 L* Total Bilirubin 1.8 H Direct Bilirubin 0.9 H AST 60 H ALT 28 Alkaline Phosphatase 232 H Troponin I High Sens 8.4 B-Natriuretic Peptide 173 H Total Protein 6.8 Albumin 3.4 L Urine Color Urine Appearance Urine pH Ur Specific [place] Urine Protein Urine Glucose (UA) Urine Ketones Urine Blood Urine Nitrite Ur Leukocyte Esterase Ethyl Alcohol COVID-19 ([facility]) COVID-19 Clin Com 01/30/20 01/30/20 01/30/20 14:23 18:20 18:20 MCV MCH MCHC RDW Plt Count MPV Immature Gran % (Auto) Neut % (Auto) Lymph % (Auto) [place] % (Auto) Eos % (Auto) Baso % (Auto) Lymph # (Auto) [place] # (Auto) Eos # (Auto) Baso # (Auto) Abs Immat Gran (auto) Absolute Neuts (auto) Absolute Nucleated RBC Nucleated RBC % (auto) PT 14.0 H INR 1.2 H D-Dimer 796 Anion Gap Estim Creat Clear Calc Estimated GFR Random Glucose Calcium Magnesium Total Bilirubin Direct Bilirubin AST ALT Alkaline Phosphatase Troponin I High Sens B-Natriuretic Peptide Total Protein Albumin Urine Color YELLOW Urine Appearance CLEAR Urine pH 7.0 Ur Specific [place] <= 1.005 Urine Protein NEG Urine Glucose (UA) NEG Urine Ketones NEG Urine Blood NEG Urine Nitrite NEG Ur Leukocyte Esterase NEG Ethyl Alcohol COVID-19 ([facility]ATLIN) Negative COVID-19 Clin Com See Note 01/30/20 01/30/20 18:54 18:54 MCV MCH MCHC RDW Plt Count MPV Immature Gran % (Auto) Neut % (Auto) Lymph % (Auto) [place] % (Auto) Eos % (Auto) Baso % (Auto) Lymph # (Auto) [place] # (Auto) Eos # (Auto) Baso # (Auto) Abs Immat Gran (auto) Absolute Neuts (auto) Absolute Nucleated RBC Nucleated RBC % (auto) PT INR D-Dimer Anion Gap Estim Creat Clear Calc Estimated GFR Random Glucose Calcium Magnesium Total Bilirubin Direct Bilirubin AST ALT Alkaline Phosphatase Troponin I High Sens 10.4 B-Natriuretic Peptide Total Protein Albumin Urine Color Urine Appearance Urine pH Ur Specific [place] Urine Protein Urine Glucose (UA) Urine Ketones Urine Blood Urine Nitrite Ur Leukocyte Esterase Ethyl Alcohol < 10 COVID-19 ([facility]LIN) COVID-19 Clin Com <KATHRYN Parikh - Last Filed: 01/31/20 15:07> Imaging Radiologist's Impressions: Impressions Chest X-Ray 01/30/20 13:48 IMPRESSION: No acute cardiopulmonary process. Mild cardiomegaly without significant change. Abdomen Ultrasound 01/30/20 13:55 IMPRESSION: Small amount of ascites. Chest CTA 01/30/20 15:38 IMPRESSION: 1. No evidence of pulmonary embolism. 2. Cardiomegaly. 3. Pericardial effusion. 4. Stress of liver. 5. Abdominal ascites. VTE: negative <KATHRYN Parikh - Last Filed: 01/31/20 15:07> Assessment and Plan (1) Hypokalemia: Status: Acute <KATHRYN Parikh - Last Filed: 01/31/20 15:07> (2) Acute pericardial effusion: Status: Inactive <KATHRYN Parikh - Last Filed: 01/31/20 15:07> (3) Nonrheumatic tricuspid (valve) insufficiency: Status: Acute <KATHRYN Parikh - Last Filed: 01/31/20 15:07> (4) Cirrhosis: Status: Acute <KATHRYN Parikh - Last Filed: 01/31/20 15:07> This is a 49-year-old female with a history of alcoholic liver cirrhosis with associated varices, pulmonary hypertension, severe TR sent from Cardiology Clinic for fluid overload fluid overload in the setting of right heart failure, liver cirrhosis, severe TR, pulmonary hypertension known pericardial effusion -iS& OS, fluid restriction -iv bumex -cardiology consult -eplerenone is non formulary and will need to be brought from home liver cirrhosis with varices LFTs near baseline. INR 1.2 continue nadolol electrolyte abnormalities prolonged QT - tele monitoring - replace and follow pulmonary hypertensio ambristentan is NF - will need to be brought from home h/o etoh abuse denies etoh use in past month no evidence of etoh withdrawal at this time. etoh level negative anemia h/h at baseline mood SSRI on hold for prolonged qt dvt ppx - boots <KATHRYN Parikh - Last Filed: 01/31/20 15:07>
[2020-01-30] MEDS: Magnesium Sulfate/H2O 2 GM/50 ML PIGGYBACK IV (21:37)
[2020-01-30] MEDS: Bumetanide 1 MG/4 ML VIAL IVPUSH (21:38)
--- NOTE | 2020-01-30 23:09 | PC.NURSE ---
Report given and patient is ready for transport to floor.
[2020-01-30] MEDS: Potassium Chloride/H20 10 MEQ/100 ML PIGGYBACK 100 MEQ IV (23:44)
[2020-01-30] MEDS: 0.9 % Sodium Chloride Flush 3 ML SYRINGE IVFLUSH (23:45)
[2020-01-31] MEDS: LORazepam 0.5 MG TABLET PO ×2 (00:22→22:24)
[2020-01-31 00:50] VITALS: BMI 28.4
[2020-01-31] MEDS: Potassium Chloride/H20 10 MEQ/100 ML PIGGYBACK 100 MEQ IV (01:50)
[2020-01-31 03:15] VITALS: PULSE 82; RESP 19; TEMP 36.1; O2SAT 95
--- NOTE | 2020-01-31 05:12 | P.EN_ITS ---
Event Note Date of Service: 01/31/20 Event Note: patient seen and examined independently. I agree with ALICIA note assessment and plan. Patient is a 49-year-old female with history of right- sided heart failure due to arterial pulmonary hypertension who presents to the hospital with abdominal distension, and swelling all over her body. patient was discussed with Cardiology, patient will be placed on Bumex IV b.i.d., echocardiograms ordered and cardiology is consulted
[2020-01-31 05:18] VITALS: BMI 28.4
[2020-01-31] MEDS: Omeprazole 20 MG CAPSULE.DR PO (05:30)
[2020-01-31 05:36] LABS: Basophils Percent Auto 0.5 % (0-2); Eosinophils Absolute Auto 0.1 X10*3/uL (0.0-0.4); Eosinophils Percent Auto 1.7 % (0-4); Hematocrit 27.2 % (37-47); Hemoglobin 8.1 g/dl (12.0-16.0); Lymphocytes Absolute Auto 1.5 X10*3/uL (1.2-4.9); Lymphocytes Percent Auto 37.9 % (20-40); MANUAL DIFF FLAG SCAN; Mean Corpuscular HGB Conc 29.8 g/dl (31.0-35.0); Mean Corpuscular Hemoglobin 23.1 pg (27.0-33.0); Mean Corpuscular Volume 77.5 fL (80-98); Monocytes Absolute Auto 0.4 X10*3/uL (0.1-1.2); Neutrophils Percent Auto 49.9 % (45-73); PLT ABN DIST 1; Red Blood Count 3.51 X10*6/uL (4.20-5.50); Red Cell Distribution Width 23.7 % (11.0-16.0); SCAN SMEAR FLAG 1
[2020-01-31 05:59] LABS: Platelet Count 78 X10*3/uL (160-400)
[2020-01-31 06:00] LABS: Anion Gap 12 (12-20); Blood Urea Nitrogen 10 mg/dL (9-16); Calcium 7.8 mg/dL (8.4-10.2); Carbon Dioxide 28 mmol/L (22-29); Chloride 98 mmol/L (96-108); Creatinine Clr Calc Pharmacy 127.8; Estimated Glomerular Filt Rate > 60; Glucose Random 103 mg/dL (60-115); Magnesium 1.7 mg/dL (1.6-2.6); Potassium 3.3 mmol/l (3.3-5.1); SLIDE REVIEW VERIFIED; Sodium 135 mmol/L (135-145)
[2020-01-31 06:02] LABS: B Type Natriuretic Peptide 123 pg/mL (<100)
[2020-01-31 07:31] VITALS: BP 118/76; PULSE 86; RESP 20; TEMP 36.3; O2SAT 95
[2020-01-31 09:00] VITALS: BP 118/76; PULSE 86
[2020-01-31] MEDS: nadoloL 20 MG TABLET PO (09:00)
[2020-01-31] MEDS: Bumetanide 1 MG/4 ML VIAL IVPUSH (09:00)
[2020-01-31] MEDS: 0.9 % Sodium Chloride Flush 3 ML SYRINGE IVFLUSH ×2 (09:01→21:08)
--- NOTE | 2020-01-31 10:49 | P.PNIM_ITS ---
Subjective Subjective Date of Service: 01/31/20 Interval History: some improvement in abd pain, but not putting out too much urine Cardiovascular Cardiovascular: Reports no additional cardiovascular complaints Respiratory Respiratory: Reports no additional respiratory complaints Physical Exam Vital Signs: Vital Signs: Last Vital Signs Temp 97.3 F 01/31/20 07:31 Pulse 86 01/31/20 09:00 Resp 20 01/31/20 07:31 BP 118/76 01/31/20 09:00 Pulse Ox 95 01/31/20 07:31 Body Mass Index 28.4 General: AO X 3, no acute distress Resp: CTA bilateral CVS: S1,S2,RRR, le edema GI: soft, non tender, non distended Neuro: motor grossly intact Psych: appropriate affect Objective Data Current Medications Generic Name Dose Route Start Last Admin Trade Name Freq PRN Reason Stop Dose Admin Bumetanide 1 mg 01/30/20 21:30 01/31/20 09:00 Bumetanide 1 Mg/4 Ml Vial IVPUSH 1 mg BID [facility] Administration Protocol Lorazepam 0.5 mg 01/30/20 23:14 01/31/20 00:22 Lorazepam 0.5 Mg Tablet PO 0.5 mg BEDTIME PRN Administration anxiety Nadolol 20 mg 01/31/20 09:00 01/31/20 09:00 Nadolol 20 Mg Tablet PO 20 mg DAILY [facility] Administration Protocol Non-Formulary Medication 5 mg 01/31/20 09:00 Ambrisentan PO DAILY [facility] Non-Formulary Medication 25 mg 01/31/20 09:00 Eplerenone PO DAILY [facility] Omeprazole 20 mg 01/31/20 06:30 01/31/20 05:30 Omeprazole 20 Mg Capsule. PO 20 mg DAILY@0630 [facility] Administration Pharmacy Consult 1 each 01/30/20 21:41 Consult Rx Perform Med Rec MISCELLANE ONCE PRN Consult order Sodium Chloride 3 ml 01/31/20 00:00 01/31/20 09:01 0.9 % Sodium Chloride Flush 3 Ml Syringe IVFLUSH 3 ml QSHIFT [facility] Administration Labs CBC & Chem 7: 01/31/20 05:10 01/31/20 05:10 Assessment and Plan (1) Hypokalemia: Status: Acute (2) Acute pericardial effusion: Status: Acute (3) Nonrheumatic tricuspid (valve) insufficiency: Status: Acute (4) Cirrhosis: Status: Acute Assessment and Plan: 49-year-old female with a history of alcoholic liver cirrhosis with associated varices, pulmonary hypertension, severe TR sent from Cardiology Clinic for fluid overload fluid overload in the setting of liver cirrhosis, severe TR, pulmonary hypertension known pericardial effusion change to bumex drip cardiology consult continue nadolol electrolyte abnormalities prolonged QT - tele monitoring - replace and follow pulmonary hypertension ambristentan is NF - will need to be brought from home h/o etoh abuse denies etoh use in past month no evidence of etoh withdrawal at this time. etoh level negative anemia h/h at baseline mood SSRI on hold for prolonged qt dvt ppx - boots
[2020-01-31 11:10] VITALS: BP 103/76; PULSE 85; RESP 20; TEMP 36.2; O2SAT 91
--- NOTE | 2020-01-31 12:46 | PM.CNCAR ---
History of Present Illness History of Present Illness Date of Consult: January 31, 2020 Consult reason: congestive heart failure Chief complaint: Fluid overload Narrative: Thank you for inviting us the consult on Joseph for right heart failure and concern for pericardial effusion. She has 49-year-old woman with prior history of cirrhosis and portal hypertension subsequently complicated by developing pulmonary hypertension secondary to hypertension and eventually right heart failure with significant right ventricular enlargement. She was diuresed as outpatient with Lasix and Aldactone and was doing adequately. About a month and a half ago she then and relapsed and started drinking alcohol. She then started noticing that she was getting more short of breath and a belly was getting distended with leg edema. She then continued to gain weight and as per she has gained about 23 lb at home with abdominal distension worsening shortness of breath. She then came to the Cardiology office and was referred to the emergency room for admission. In the emergency room echocardiogram shows further enlargement of the right ventricle with moderate pericardial effusion without evidence of tamponade. Her BNP actually is in the 100 range. She was given IV diuretics with some diuresis but says continues to be short of breath with minimal exertion.she is very emotional about it. She has seen Dr. Luis for pulmonary hypertension and was started on ambrisentan but was able to only get this medication last week and has been started to take it since last week. She denies any lightheadedness, syncope, palpitations. She does complain of chest pressure. Denies any bleeding issues. Review of Systems Constitutional: Constitutional: Denies chills, Reports fatigue, Denies fever(s), Denies night sweats and Reports weight gain Eyes: Eyes: Reports no additional eye complaints ENT: Reports system reviewed and no additional complaints, except as documented Cardiovascular: Cardiovascular: Reports Abdominal Distension, Reports chest pain (Pressure in the chest), Reports leg edema, Denies palpitations, Reports dyspnea and Reports dyspnea on exertion Respiratory: Respiratory: Denies chest congestion, Denies cough, Denies excessive phlegm production, Reports dyspnea and Reports dyspnea on exertion Gastrointestinal: Gastrointestinal: Reports no additional gastrointestinal complaints Musculoskeletal: Musculoskeletal: Reports no additional musculoskeletal complaints Neurologic: Reports system reviewed and no additional complaints, except as documented Psychiatric: Psychiatric: Reports anxiety Endocrine: Endocrine: Reports fatigue and Denies palpitations Hematologic/Lymphatic: Hematologic/Lymphatic: Reports no additional hematologic/lymphatic complaints Allergic/Immunologic: Allergic/Immunologic: Reports no additional allergic/immunologic complaints [facility] Past Medical History Medical History Abdominal ascites Alcoholic cirrhosis of liver Anemia Enlarged RV (right ventricle) Esophageal varices in alcoholic cirrhosis Nonrheumatic tricuspid (valve) insufficiency Pulmonary hypertensive arterial disease associated with portal hypertension Functional capacity: independent ambulation Family History Family History Father HTN (hypertension) Mother HTN (hypertension) Surgical History Surgical History Hx of cardiac cath Social History Social History Household Members: Family Housing: House Do you presently have visiting nurse or other home services: No Alcohol intake: former Smoking Status: Former smoker Tobacco Type: Cigarette Smoked in Last 30 Days: Yes Use of substances other than those prescribed or required for medical reasons: No Currently Displaying Signs/Symptoms of Drug Intoxication Withdrawal: No Advance Directives: Yes Advance Directives Information Provided: Yes Advance Directives on File: No Advance Directives Date on File: 01/30/20 Do you have thoughts of harming others: None Do you have a plan to hurt others: No Plan Recently lost weight without trying: No Meds Allergies Allergy/AdvReac Type Severity Reaction Status Date / Time No Known Allergies Allergy Verified 01/30/20 16:39 [No Known Allergies*] Home Medications Medication Instructions Recorded Confirmed Type ambrisentan 5 mg tablet 5 mg PO DAILY 01/30/20 01/30/20 History eplerenone 25 mg tablet 25 mg PO DAILY 01/30/20 01/30/20 History escitalopram oxalate 10 mg tablet 10 mg PO DAILY 01/30/20 01/30/20 History furosemide 40 mg tablet 40 mg PO BID 01/30/20 01/30/20 History nadolol 20 mg tablet 20 mg PO DAILY 01/30/20 01/30/20 History Physical Exam Vital Signs: Vital Signs: Last Vital Signs Temp 97.2 F 01/31/20 11:10 Pulse 85 01/31/20 11:10 Resp 20 01/31/20 11:10 BP 103/76 01/31/20 11:10 Pulse Ox 91 L 01/31/20 11:10 Body Mass Index 28.4 Const: General: cooperative, no acute distress, alert and awake Nutritional Appearance: overweight Orientation/consciousness: patient oriented x3 HENMT: Head: Yes normal to inspection, Yes normocephalic and Yes atraumatic Neck: Neck: Yes trachea midline, Yes supple and Yes JVD (Prominent V-wave with mildly elevated JVD in semi reclining position) Chest: Chest palpation & inspection: normal inspection of the chest Resp: Effort & Inspection: normal respiratory effort Cardio: Palpation: abnormal PMI displaced PMI and heave (RV heave) Rate: regular rate Rhythm: regular rhythm Heart sounds: S1 normal heart sound present and Other heart sounds present (Loud S2) Peripheral pulses: Peripheral pulses 2+ throughout GI: Inspection: Yes distended Auscultation: normal bowel sounds Skin: General skin exam: no rashes or lesions noted, elasticity normal and turgor normal Neuro: General: patient oriented x3 and no focal motor deficits Extrem: General: No clubbing, No cyanosis and Yes pedal edema Psych: Mental Status: mental status grossly normal Affect: Anxious affect present Results Labs and Meds Result diagrams: 01/31/20 05:10 01/31/20 05:10 Lab results: Laboratory Results - last 24 hr 01/30/20 01/30/20 01/30/20 14:23 14:23 14:23 WBC 4.0 L RBC 3.68 L Hgb 8.7 L Hct 28.7 L MCV 78.0 L MCH 23.6 L MCHC 30.3 L RDW 23.7 H Plt Count 101 L MPV Not Reportable Immature Gran % (Auto) 0.3 Neut % (Auto) 55.1 Lymph % (Auto) 36.0 [place] % (Auto) 7.6 Eos % (Auto) 0.5 Baso % (Auto) 0.5 Lymph # (Auto) 1.4 [place] # (Auto) 0.3 Eos # (Auto) 0.0 Baso # (Auto) 0.0 Abs Immat Gran (auto) 0.01 Absolute Neuts (auto) 2.2 Absolute Nucleated RBC 0.000 Nucleated RBC % (auto) 0.0 Smear Tech's Comments PT INR D-Dimer Sodium 138 Potassium 2.7 L Chloride 97 Carbon Dioxide 31 H Anion Gap 13 BUN 11 Creatinine 0.57 Estim Creat Clear Calc 126.3 Estimated GFR > 60 Random Glucose 113 Calcium 8.1 L Magnesium 1.2 L* Total Bilirubin 1.8 H Direct Bilirubin 0.9 H AST 60 H ALT 28 Alkaline Phosphatase 232 H Troponin I High Sens 8.4 B-Natriuretic Peptide 173 H Total Protein 6.8 Albumin 3.4 L Urine Color Urine Appearance Urine pH Ur Specific [place] Urine Protein Urine Glucose (UA) Urine Ketones Urine Blood Urine Nitrite Ur Leukocyte Esterase Ethyl Alcohol COVID-19 ([facility]ATLIN) COVID-19 Clin Com 01/30/20 01/30/20 01/30/20 14:23 18:20 18:20 WBC RBC Hgb Hct MCV MCH MCHC RDW Plt Count MPV Immature Gran % (Auto) Neut % (Auto) Lymph % (Auto) [place] % (Auto) Eos % (Auto) Baso % (Auto) Lymph # (Auto) [place] # (Auto) Eos # (Auto) Baso # (Auto) Abs Immat Gran (auto) Absolute Neuts (auto) Absolute Nucleated RBC Nucleated RBC % (auto) Smear Tech's Comments PT 14.0 H INR 1.2 H D-Dimer 796 Sodium Potassium Chloride Carbon Dioxide Anion Gap BUN Creatinine Estim Creat Clear Calc Estimated GFR Random Glucose Calcium Magnesium Total Bilirubin Direct Bilirubin AST ALT Alkaline Phosphatase Troponin I High Sens B-Natriuretic Peptide Total Protein Albumin Urine Color YELLOW Urine Appearance CLEAR Urine pH 7.0 Ur Specific [place] <= 1.005 Urine Protein NEG Urine Glucose (UA) NEG Urine Ketones NEG Urine Blood NEG Urine Nitrite NEG Ur Leukocyte Esterase NEG Ethyl Alcohol COVID-19 (KATLIN) Negative COVID-19 [employer] Com See Note 01/30/20 01/30/20 01/31/20 18:54 18:54 05:10 WBC RBC Hgb Hct MCV MCH MCHC RDW Plt Count MPV Immature Gran % (Auto) Neut % (Auto) Lymph % (Auto) [place] % (Auto) Eos % (Auto) Baso % (Auto) Lymph # (Auto) [place] # (Auto) Eos # (Auto) Baso # (Auto) Abs Immat Gran (auto) Absolute Neuts (auto) Absolute Nucleated RBC Nucleated RBC % (auto) Smear Tech's Comments PT INR D-Dimer Sodium Potassium Chloride Carbon Dioxide Anion Gap BUN Creatinine Estim Creat Clear Calc Estimated GFR Random Glucose Calcium Magnesium 1.7 Total Bilirubin Direct Bilirubin AST ALT Alkaline Phosphatase Troponin I High Sens 10.4 B-Natriuretic Peptide Total Protein Albumin Urine Color Urine Appearance Urine pH Ur Specific [place] Urine Protein Urine Glucose (UA) Urine Ketones Urine Blood Urine Nitrite Ur Leukocyte Esterase Ethyl Alcohol < 10 COVID-19 ([facility]ATLIN) COVID-19 Clin Com 01/31/20 01/31/20 01/31/20 05:10 05:10 05:10 WBC 4.0 L RBC 3.51 L Hgb 8.1 L Hct 27.2 L MCV 77.5 L MCH 23.1 L MCHC 29.8 L RDW 23.7 H Plt Count 78 L MPV Not Reportable Immature Gran % (Auto) 0.0 Neut % (Auto) 49.9 Lymph % (Auto) 37.9 [place] % (Auto) 10.0 Eos % (Auto) 1.7 Baso % (Auto) 0.5 Lymph # (Auto) 1.5 [place] # (Auto) 0.4 Eos # (Auto) 0.1 Baso # (Auto) 0.0 Abs Immat Gran (auto) 0.00 Absolute Neuts (auto) 2.0 Absolute Nucleated RBC 0.000 Nucleated RBC % (auto) 0.0 Smear Tech's Comments VERIFIED PT INR D-Dimer Sodium 135 Potassium 3.3 D Chloride 98 Carbon Dioxide 28 Anion Gap 12 BUN 10 Creatinine 0.56 Estim Creat Clear Calc 127.8 Estimated GFR > 60 Random Glucose 103 Calcium 7.8 L Magnesium Total Bilirubin Direct Bilirubin AST ALT Alkaline Phosphatase Troponin I High Sens B-Natriuretic Peptide 123 H Total Protein Albumin Urine Color Urine Appearance Urine pH Ur Specific [place] Urine Protein Urine Glucose (UA) Urine Ketones Urine Blood Urine Nitrite Ur Leukocyte Esterase Ethyl Alcohol COVID-19 ([facility]ATLIN) COVID-19 Clin Com Echo Conclusions: - 1. Moderate pericardial effusion without evidence of tamponade 2. Severely dilated right-sided chambers with reduced RV systolic function 3. Severely increased RV systolic pressure 4. Normal LV systolic function EKG shows normal sinus rhythm with rightward axis Assessment and Plan (1) Pericardial effusion: Status: Acute Pericardial effusion secondary to right heart failure. This usually carries a poor prognosis. There is no tamponade physiology at current time. No need for pericardial drainage. Continue to monitor clinically. (2) Right heart failure due to pulmonary hypertension: Status: Acute Progressive right heart failure symptoms with further enlargement of the right ventricular patient with prior severe pulmonary hypertension. By echocardiogram there appears to be sequential increasing right ventricular size, responsible for a lot of her symptoms with progressive shortness of breath. Clinically today does not appear to be significantly hypervolemic. However will give her IV Bumex for further D congestion to improve RV size and reduce pericardial constraint. Strict intake and output chart needs to be pursued. She is currently getting pulmonary hypertension therapy as outpatient, only recently started. Can hold off on this therapy for 1 day, hopefully can be discharged home tomorrow. Resume pulmonary hypertension disease modifying therapy starting tomorrow when she is home. As outpatient may require consultation in [place] for further management of her pulmonary hypertension may require continuous IV therapy with prostacyclins. Prognosis is guarded and long-term prognosis appears to be poor. She is recommended to completely avoid and abstain from alcohol as outpatient. Also fluid restriction should be pursued. Strict intake and output chart. Trend BMP and BNP. Continue eplerenone own therapy. Continue nadolol therapy Will follow with the patient. Greater than 40 minutes was spent in managing her complex care. (3) Pulmonary hypertensive arterial disease associated with portal hypertension: Status: Acute See above (4) Enlarged RV (right ventricle): Status: Acute See above (5) Nonrheumatic tricuspid (valve) insufficiency: Status: Acute Secondary to significant RV enlargement. No specific intervention but decongestive therapy. (6) Cirrhosis: Status: Acute Procedures Abscess I/D Date of Service: 01/31/20
[2020-01-31] MEDS: Bumetanide 25 MG in Container,Empty 0 ML IVCONT (13:16)
[2020-01-31] MEDS: Potassium Chloride ER 20 MEQ TAB.ER.PRT PO (13:28)
[2020-01-31] MEDS: Magnesium Oxide 400 MG TABLET 800 MG PO (13:28)
--- NOTE | 2020-01-31 13:38 | MHC.CM.PN ---
PT REPORTS SHE LIVES AT HOME WITH HER SON, DAUGHTER AND GRAND CHILD. PT IS INDEPENDENT WITH ALL CARE AND MOBILITY, SHE DENIES USING ANY DME AND HAS NO SERVICES PT REPORTS HE HAS A HCP COMPLETED ALREADY NAMING HER DAUGHTER HER AGENT. PT CONFIRMS VENANCIO WEEKS HER PCP. PTS CURRENT DC PLAN IS HOME WITH NO SERVICES PT WILL ARRANGE TRANSPORTATION AT DC
[2020-01-31 15:21] VITALS: BP 99/73; PULSE 80; RESP 18; TEMP 36.4; O2SAT 90
[2020-01-31 20:00] VITALS: BP 101/77; PULSE 81; TEMP 36.2; O2SAT 99
[2020-02-01] VITALS (9 sets, daily range): BP systolic 93–105; BP diastolic 42–77; PULSE 73–85; RESP 18–20; TEMP 36.4–37.1; O2SAT 9–96; BMI 28.0
[2020-02-01] MEDS: Omeprazole 20 MG CAPSULE.DR PO (05:05)
[2020-02-01 07:23] LABS: MANUAL DIFF FLAG NO
[2020-02-01 07:49] LABS: Basophils Percent Auto 0.6 % (0-2); Eosinophils Absolute Auto 0.1 X10*3/uL (0.0-0.4); Eosinophils Percent Auto 1.5 % (0-4); Imm Gran Abs Auto 0.01 X10*3/uL (0.00-0.03); Imm Gran Pct Auto 0.3 % (0.0-0.4); Lymphocytes Absolute Auto 1.5 X10*3/uL (1.2-4.9); Lymphocytes Percent Auto 45.2 % (20-40); Mean Corpuscular Hemoglobin 23.3 pg (27.0-33.0); Mean Corpuscular Volume 77.7 fL (80-98); Monocytes Absolute Auto 0.4 X10*3/uL (0.1-1.2); Monocytes Percent Auto 10.8 % (2-11); Neutrophils Absolute Auto 1.4 X10*3/uL (2.0-8.3); Neutrophils Percent Auto 41.6 % (45-73); Platelet Count 105 X10*3/uL (160-400); Red Blood Count 3.86 X10*6/uL (4.20-5.50); Red Cell Distribution Width 24.1 % (11.0-16.0); White Blood Count 3.3 X10*3/uL (4.8-10.8)
[2020-02-01] MEDS: nadoloL 20 MG TABLET PO (08:07)
[2020-02-01 08:13] LABS: Anion Gap 14 (12-20); Blood Urea Nitrogen 9 mg/dL (9-16); Calcium 7.8 mg/dL (8.4-10.2); Carbon Dioxide 30 mmol/L (22-29); Chloride 98 mmol/L (96-108); Creatinine Clr Calc Pharmacy 116.5; Estimated Glomerular Filt Rate > 60; Glucose Fasting 87 mg/dL (60-99); Potassium 2.7 mmol/l (3.3-5.1); Sodium 139 mmol/L (135-145)
[2020-02-01 08:42] LABS: Magnesium 1.3 mg/dL (1.6-2.6)
[2020-02-01] MEDS: Potassium Chloride Packet 20 MEQ PACKET 40 MEQ PO (08:50)
[2020-02-01] MEDS: Potassium Chloride/H20 10 MEQ/100 ML PIGGYBACK 100 MEQ IV ×4 (08:57→15:41)
[2020-02-01] MEDS: Magnesium Oxide 400 MG TABLET 800 MG PO (09:16)
[2020-02-01] MEDS: Magnesium Sulfate/H2O 2 GM/50 ML PIGGYBACK IV (09:17)
--- NOTE | 2020-02-01 09:26 | P.CONPL_ITS ---
History of Present Illness History of Present Illness Consult date: 02/01/20 Requesting physician: Anam Kidd Reason for consult: pulmonary hypertension Chief complaint: Fluid overload Narrative: 49-year-old lady with underlying history of alcoholic liver cirrhosis, severe tricuspid regurgitation with underlying port pulmonary hypertension under care of Dr. Luis recently started on ambrisentan admitted on 01/30/2020 from [facility] office secondary to worsening dyspnea and fluid retention secondary to excessive p.o. fluid intake. Patient has been started on IV diuresis with significant improvement in her dyspnea. Today she states that she is essentially at her baseline. Review of Systems Constitutional: Constitutional: Denies malaise and Reports weakness Cardiovascular: Cardiovascular: Denies chest pain, Reports dyspnea, Reports dyspnea on exertion and Reports orthopnea Respiratory: Respiratory: Reports dyspnea, Reports dyspnea on exertion and Denies wheezing Gastrointestinal: Gastrointestinal: Denies constipation and Denies diarrhea Genitourinary: Genitourinary: Denies urinary incontinence and Denies urinary urgency Musculoskeletal: Musculoskeletal: Denies muscle cramps and Denies numbness Integumentary/Breasts: Skin/Breast: Denies rash Neurologic: Reports system reviewed and no additional complaints, except as documented, Denies focal weakness, Denies numbness and Reports weakness Psychiatric: Psychiatric: Reports depression Endocrine: Endocrine: Denies cold intolerance and Denies heat intolerance Hematologic/Lymphatic: Hematologic/Lymphatic: Denies easy bleeding and Denies easy bruising Allergic/Immunologic: Allergic/Immunologic: Denies wheezing PMFSH Past Medical History Medical History Abdominal ascites Alcoholic cirrhosis of liver Anemia Enlarged RV (right ventricle) Esophageal varices in alcoholic cirrhosis Nonrheumatic tricuspid (valve) insufficiency Pulmonary hypertensive arterial disease associated with portal hypertension Functional capacity: independent ambulation Family History Family History Father HTN (hypertension) Mother HTN (hypertension) Surgical History Surgical History Hx of cardiac cath Social History Social History Household Members: Family Housing: House Do you presently have visiting nurse or other home services: No Alcohol intake: former Smoking Status: Former smoker Tobacco Type: Cigarette Smoked in Last 30 Days: Yes Use of substances other than those prescribed or required for medical reasons: No Currently Displaying Signs/Symptoms of Drug Intoxication Withdrawal: No Advance Directives: Yes Advance Directives Information Provided: Yes Advance Directives on File: No Advance Directives Date on File: 01/30/20 Do you have thoughts of harming others: None Do you have a plan to hurt others: No Plan Recently lost weight without trying: No service: No Current occupational status: employed Meds Allergies Allergy/AdvReac Type Severity Reaction Status Date / Time No Known Allergies Allergy Verified 01/30/20 16:39 [No Known Allergies*] Home Medications Medication Instructions Recorded Confirmed Type ambrisentan 5 mg tablet 5 mg PO DAILY 01/30/20 01/30/20 History eplerenone 25 mg tablet 25 mg PO DAILY 01/30/20 01/30/20 History escitalopram oxalate 10 mg tablet 10 mg PO DAILY 01/30/20 01/30/20 History furosemide 40 mg tablet 40 mg PO BID 01/30/20 01/30/20 History nadolol 20 mg tablet 20 mg PO DAILY 01/30/20 01/30/20 History Physical Exam Vital Signs: Vital Signs: Last Vital Signs Temp 98.7 F 02/01/20 07:37 Pulse 81 02/01/20 08:07 Resp 20 02/01/20 07:37 BP 105/75 02/01/20 08:07 Pulse Ox 90 L 02/01/20 07:37 Body Mass Index 28.0 Const: General: no acute distress, alert and awake Eyes: Sclerae: sclerae normal EOM: EOMs intact bilaterally Neck: Neck: Yes no lymphadenopathy, Yes trachea midline and Yes supple Resp: Effort & Inspection: normal respiratory effort and no respiratory distress Auscultation: clear to auscultation bilaterally Cardio: Rate: regular rate Rhythm: regular rhythm Heart sounds: no gallops, no murmurs and no rubs GI: Palpation (GI): Soft to palpation and Other GI palpation findings present ( Nontender) Auscultation: normal bowel sounds Extrem: General: No clubbing, No cyanosis and Yes edema ( Trace bilateral) Results Laboratory Findings CBC and BMP: 02/01/20 06:28 02/01/20 06:28 ABG, PT/INR, D-dimer: PT/INR, D-dimer PT 14.0 SEC (10.8-13.0) H 01/30/20 14:23 INR 1.2 (0.9-1.1) H 01/30/20 14:23 D-Dimer 796 NG/ML 01/30/20 14:23 Abnormal lab findings: Abnormal Labs 01/30/20 01/30/20 01/30/20 14:23 14:23 14:23 WBC 4.0 L RBC 3.68 L Hgb 8.7 L Hct 28.7 L MCV 78.0 L MCH 23.6 L MCHC 30.3 L RDW 23.7 H Plt Count 101 L Neut % (Auto) Lymph % (Auto) Absolute Neuts (auto) PT INR Potassium 2.7 L Carbon Dioxide 31 H Calcium 8.1 L Magnesium 1.2 L* Total Bilirubin 1.8 H Direct Bilirubin 0.9 H AST 60 H Alkaline Phosphatase 232 H B-Natriuretic Peptide 173 H Albumin 3.4 L 01/30/20 01/31/20 01/31/20 14:23 05:10 05:10 WBC 4.0 L RBC 3.51 L Hgb 8.1 L Hct 27.2 L MCV 77.5 L MCH 23.1 L MCHC 29.8 L RDW 23.7 H Plt Count 78 L Neut % (Auto) Lymph % (Auto) Absolute Neuts (auto) PT 14.0 H INR 1.2 H Potassium Carbon Dioxide Calcium Magnesium Total Bilirubin Direct Bilirubin AST Alkaline Phosphatase B-Natriuretic Peptide 123 H Albumin 01/31/20 02/01/20 02/01/20 05:10 06:28 06:28 WBC 3.3 L RBC 3.86 L Hgb 9.0 L Hct 30.0 L MCV 77.7 L MCH 23.3 L MCHC 30.0 L RDW 24.1 H Plt Count 105 L D Neut % (Auto) 41.6 L Lymph % (Auto) 45.2 H Absolute Neuts (auto) 1.4 L PT INR Potassium 2.7 L Carbon Dioxide 30 H Calcium 7.8 L 7.8 L Magnesium 1.3 L* Total Bilirubin Direct Bilirubin AST Alkaline Phosphatase B-Natriuretic Peptide Albumin Assessment and Plan (1) Pulmonary hypertensive arterial disease associated with portal hypertension: Status: Acute Impression: 49-year-old lady with underlying liver cirrhosis related report pulmonary hypertension admitted secondary to worsening dyspnea secondary to increase p.o. fluid intake, now significantly improved with IV diuresis. Recommendations: Continue IV diuresis. Continue to monitor and replete electrolytes as necessary. Restart ambrisentan as available. (2) Right heart failure due to pulmonary hypertension: Status: Acute Procedures Abscess I/D Date of Service: 02/01/20
--- NOTE | 2020-02-01 10:49 | HO.PM.IMPN ---
Subjective Subjective Date of Service: 02/01/20 Interval History: much improved Cardiovascular Cardiovascular: Reports no additional cardiovascular complaints Respiratory Respiratory: Reports no additional respiratory complaints Physical Exam Vital Signs: Vital Signs: Last Vital Signs Temp 98.7 F 02/01/20 07:37 Pulse 81 02/01/20 08:07 Resp 20 02/01/20 07:37 BP 105/75 02/01/20 08:07 Pulse Ox 90 L 02/01/20 07:37 Body Mass Index 28.0 General: AO X 3, no acute distress Resp: CTA bilateral CVS: S1,S2,RRR, le edema GI: soft, non tender, non distended Neuro: motor grossly intact Psych: appropriate affect Objective Data Current Medications Generic Name Dose Route Start Last Admin Trade Name Freq PRN Reason Stop Dose Admin Bumetanide 2 mg 02/01/20 17:00 Bumetanide 1 Mg Tablet PO BID@0800,1700 [facility] Protocol Potassium Chloride 10 meq in 100 mls @ 100 mls/hr 02/01/20 09:00 02/01/20 10:07 IV 02/01/20 12:59 100 mls/hr Q1H [facility] Administration Lorazepam 0.5 mg 01/30/20 23:14 01/31/20 22:24 Lorazepam 0.5 Mg Tablet PO 0.5 mg BEDTIME PRN Administration anxiety Nadolol 20 mg 01/31/20 09:00 02/01/20 08:07 Nadolol 20 Mg Tablet PO 20 mg DAILY [facility] Administration Protocol Non-Formulary Medication 5 mg 01/31/20 09:00 Ambrisentan PO DAILY [facility] Non-Formulary Medication 25 mg 01/31/20 09:00 Eplerenone PO DAILY [facility] Omeprazole 20 mg 01/31/20 06:30 02/01/20 05:05 Omeprazole 20 Mg Capsule. PO 20 mg DAILY@0630 [facility] Administration Pharmacy Consult 1 each 01/30/20 21:41 Consult Rx Perform Med Rec MISCELLANE ONCE PRN Consult order Sodium Chloride 3 ml 01/31/20 00:00 02/01/20 08:09 0.9 % Sodium Chloride Flush 3 Ml Syringe IVFLUSH Not Given QSHIFT [facility] Labs CBC & Chem 7: 02/01/20 06:28 02/01/20 06:28 Assessment and Plan (1) Hypokalemia: Status: Acute (2) Acute pericardial effusion: Status: Inactive (3) Nonrheumatic tricuspid (valve) insufficiency: Status: Acute (4) Cirrhosis: Status: Acute Assessment and Plan: 49-year-old female with a history of alcoholic liver cirrhosis with associated varices, pulmonary hypertension, severe TR sent from Cardiology Clinic for fluid overload fluid overload in the setting of liver cirrhosis, severe TR, pulmonary hypertension known pericardial effusion diuresing well, change to bumex 2mg po bid cardiology following continue nadolol hypokalemia and hypomagnesemia replace and monitor pulmonary hypertension ambristentan is NF - will need to be brought from home h/o etoh abuse denies etoh use in past month no evidence of etoh withdrawal at this time. etoh level negative anemia h/h at baseline mood SSRI on hold for prolonged qt dvt ppx - boots
--- NOTE | 2020-02-01 11:25 | P.PNCA_ITS ---
Subjective Subjective Principal diagnosis: right heart failure, pulmonary hypertension Interval history: patient feeling a lot better and shortness of breath much improved. She has diuresed well. Her Bumex drip was discontinued this morning. no palpitations or chest pressure today. Leg edema is improved. Abdominal distention is improved. Her magnesium and potassium is noted to be low Review of Systems Constitutional: Reports no additional constitutional complaints Cardiovascular: Denies chest pain, Denies pedal edema, Denies palpitations and Reports dyspnea Respiratory: Reports hemoptysis, Reports excessive phlegm production and Reports dyspnea Gastrointestinal: Reports no additional gastrointestinal complaints Genitourinary: Reports no additional female genitourinary complaints Musculoskeletal: Denies numbness Reports system reviewed and no additional complaints, except as documented, Denies focal weakness and Denies numbness Endocrine: Denies palpitations Hematologic/Lymphatic: Reports no additional hematologic/lymphatic complaints Allergic/Immunologic: Reports no additional allergic/immunologic complaints Physical Exam Vital Signs: Last Vital Signs Temp 98.7 F 02/01/20 07:37 Pulse 81 02/01/20 08:07 Resp 20 02/01/20 07:37 BP 105/75 02/01/20 08:07 Pulse Ox 90 L 02/01/20 07:37 Body Mass Index 28.0 Const General: cooperative, no acute distress, well developed, alert and awake Nutritional Appearance: overweight Orientation/consciousness: patient oriented x3 Limitations: no limitations HENMT Head: Yes normal to inspection, Yes normocephalic and Yes atraumatic Eyes General: appearance normal, both eyes and all related structures Neck Neck: Yes trachea midline, Yes supple and Yes no JVD ( prominent V-waves) Chest Chest palpation & inspection: normal inspection of the chest Resp Effort & Inspection: normal respiratory effort Auscultation: clear to auscultation bilaterally Cardio Palpation: abnormal PMI displaced PMI and heave ( right ventricular) Rate: regular rate Rhythm: regular rhythm Heart sounds: S1 normal heart sound present and S2 normal heart sound present ( loud P2) Peripheral pulses: Peripheral pulses 2+ throughout GI Auscultation: normal bowel sounds Skin General skin exam: no rashes or lesions noted Neuro General: patient oriented x3 Extrem General: Yes no clubbing, cyanosis or edema Psych Appearance: grossly normal Affect: Anxious affect present Results Labs and Meds Result diagrams: 02/01/20 06:28 02/01/20 06:28 Lab results: Laboratory Results - last 24 hr 02/01/20 02/01/20 06:28 06:28 WBC 3.3 L RBC 3.86 L Hgb 9.0 L Hct 30.0 L MCV 77.7 L MCH 23.3 L MCHC 30.0 L RDW 24.1 H Plt Count 105 L D MPV Not Reportable Immature Gran % (Auto) 0.3 Neut % (Auto) 41.6 L Lymph % (Auto) 45.2 H [place] % (Auto) 10.8 Eos % (Auto) 1.5 Baso % (Auto) 0.6 Lymph # (Auto) 1.5 [place] # (Auto) 0.4 Eos # (Auto) 0.1 Baso # (Auto) 0.0 Abs Immat Gran (auto) 0.01 Absolute Neuts (auto) 1.4 L Absolute Nucleated RBC 0.000 Nucleated RBC % (auto) 0.0 Sodium 139 Potassium 2.7 L Chloride 98 Carbon Dioxide 30 H Anion Gap 14 BUN 9 Creatinine 0.61 Estim Creat Clear Calc 116.5 Estimated GFR > 60 Fasting Glucose 87 Calcium 7.8 L Magnesium 1.3 L* Progress Note: A&P Assessment and plan (1) Pericardial effusion: Status: Acute Assessment and Plan: pericardial effusion moderate without tamponade. Will follow with echocardiogram in 2 weeks time to assess for improvement in pericardial effusion. No other interventions required at this time. (2) Right heart failure due to pulmonary hypertension: Status: Acute Assessment and Plan: Right heart failure secondary to pulmonary hypertension secondary to portal pulmonary hypertension with underlying cirrhosis. Fluid status is much improved. Symptoms have significantly improved diuresis. Switch to p.o. Bumex 2 mg b.i.d. as outpatient. Continue eplerenone own. Continue definitive treatment for pulmonary hypertension with ambrisentan. I think she will benefit with referral to [facility] for further more aggressive pulmonary hypertension management. Will discuss with Dr. Luis says outpatient. Replace magnesium and potassium aggressively. Consider discharge tomorrow. Will follow up as ou tpatient 2 weeks Fall Risk Details Current Medications: Current Medications Generic Name Dose Route Start Last Admin Trade Name Freq PRN Reason Stop Dose Admin Bumetanide 2 mg 02/01/20 17:00 Bumetanide 1 Mg Tablet PO BID@0800,1700 [facility] Protocol Potassium Chloride 10 meq in 100 mls @ 100 mls/hr 02/01/20 09:00 02/01/20 11:14 IV 02/01/20 12:59 100 mls/hr Q1H HARPREET Administration Lorazepam 0.5 mg 01/30/20 23:14 01/31/20 22:24 Lorazepam 0.5 Mg Tablet PO 0.5 mg BEDTIME PRN Administration anxiety Nadolol 20 mg 01/31/20 09:00 02/01/20 08:07 Nadolol 20 Mg Tablet PO 20 mg DAILY [facility] Administration Protocol Non-Formulary Medication 5 mg 01/31/20 09:00 Ambrisentan PO DAILY HARPRE[facility] Non-Formulary Medication 25 mg 01/31/20 09:00 Eplerenone PO DAILY HARPREET Omeprazole 20 mg 01/31/20 06:30 02/01/20 05:05 Omeprazole 20 Mg Capsule. PO 20 mg DAILY@0630 [facility] Administration Pharmacy Consult 1 each 01/30/20 21:41 Consult Rx Perform Med Rec MISCELLANE ONCE PRN Consult order Sodium Chloride 3 ml 01/31/20 00:00 02/01/20 08:09 0.9 % Sodium Chloride Flush 3 Ml Syringe IVFLUSH Not Given QSHIFT [facility] Time Spent With Patient Time: Total time spent is greater than 50% in coordination of care (as documented) at patient's floor/unit and/or counseling patient: Time with patient: 15 - 24 minutes Procedures Abscess I/D Date of Service: 02/01/20
--- NOTE | 2020-02-01 17:39 | PC.NURSE ---
Pt c/o of burning when IV k+ running, attempted to slow rate, hang with kvo of NS, and new IV. Pt still continuing of pain/burning for 4th bag of k+, saying it is unbearable. K+ stopped, notified, ok to stop k+
[2020-02-01] MEDS: LORazepam 0.5 MG TABLET PO (22:17)
[2020-02-02] MEDS: 0.9 % Sodium Chloride Flush 3 ML SYRINGE IVFLUSH ×2 (00:06→09:01)
[2020-02-02 03:43] VITALS: BP 108/69; PULSE 82; RESP 18; TEMP 36.6; O2SAT 93
[2020-02-02 06:00] VITALS: BMI 27.8
[2020-02-02] MEDS: Omeprazole 20 MG CAPSULE.DR PO (06:01)
[2020-02-02 06:54] LABS: Basophils Percent Auto 0.7 % (0-2); MANUAL DIFF FLAG SCAN; SCAN SMEAR FLAG 1
[2020-02-02 06:56] LABS: Eosinophils Absolute Auto 0.1 X10*3/uL (0.0-0.4); Eosinophils Percent Auto 1.6 % (0-4); Hematocrit 30.9 % (37-47); Imm Gran Abs Auto 0.01 X10*3/uL (0.00-0.03); Imm Gran Pct Auto 0.2 % (0.0-0.4); Lymphocytes Percent Auto 44.4 % (20-40); Mean Corpuscular HGB Conc 29.1 g/dl (31.0-35.0); Mean Corpuscular Hemoglobin 23.3 pg (27.0-33.0); Mean Corpuscular Volume 79.8 fL (80-98); Monocytes Absolute Auto 0.5 X10*3/uL (0.1-1.2); Neutrophils Absolute Auto 1.9 X10*3/uL (2.0-8.3); Neutrophils Percent Auto 42.1 % (45-73); Platelet Count 126 X10*3/uL (160-400); Red Blood Count 3.87 X10*6/uL (4.20-5.50); Red Cell Distribution Width 25.3 % (11.0-16.0); White Blood Count 4.5 X10*3/uL (4.8-10.8)
[2020-02-02 07:17] LABS: PLT ABN DIST 1
[2020-02-02 07:35] LABS: Anion Gap 16 (12-20); Blood Urea Nitrogen 13 mg/dL (9-16); Calcium 8.2 mg/dL (8.4-10.2); Carbon Dioxide 28 mmol/L (22-29); Chloride 98 mmol/L (96-108); Creatinine Clr Calc Pharmacy 110.7; Estimated Glomerular Filt Rate > 60; Glucose Fasting 97 mg/dL (60-99); Magnesium 1.9 mg/dL (1.6-2.6); Potassium 3.7 mmol/l (3.3-5.1); Sodium 138 mmol/L (135-145)
[2020-02-02 08:00] VITALS: BP 110/81; PULSE 86; RESP 18; TEMP 36.3; O2SAT 100
[2020-02-02 08:04] LABS: SLIDE REVIEW VERIFIED
[2020-02-02 09:00] VITALS: BP 110/81; PULSE 86
[2020-02-02] MEDS: nadoloL 20 MG TABLET PO (09:00)
[2020-02-02] MEDS: Bumetanide 1 MG TABLET 2 MG PO (09:01)
--- NOTE | 2020-02-02 10:28 | PM.DS ---
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: Status: Acute (4) Cirrhosis: Status: Acute (5) Hypokalemia: Status: Acute DS: Medications Discharge Medications Home Medications: Home Medications Medication Instructions Recorded Confirmed ambrisentan 5 mg tablet 5 mg PO DAILY 01/30/20 01/30/20 eplerenone 25 mg tablet 25 mg PO DAILY 01/30/20 01/30/20 escitalopram oxalate 10 mg tablet 10 mg PO DAILY 01/30/20 01/30/20 nadolol 20 mg tablet 20 mg PO DAILY 01/30/20 01/30/20 Previous Rx's Medication Instructions Recorded pantoprazole 40 mg tablet,delayed 40 mg PO DAILY #30 ea 12/30/19 release lorazepam 0.5 mg tablet 0.5 mg PO BEDTIME PRN #7 tab 01/19/20 bumetanide 2 mg PO BID@0800,1700 #120 tab 02/02/20 DS: Summary Hospital Course Hospital Course: Patient was admitted for acute on chronic diastolic CHF with right-sided heart failure and pulmonary hypertension and pericardial effusion due to alcoholic cirrhosis with portal pulmonary Syndrome. she was diuresed and began to feel much better. Her Lasix has been discontinued and she will be started on Bumex 2 mg p.o. b.i.d.. She is going to be following with Pulmonary, Cardiology, and Gastroenterology. She will be discharged home. Time Spent with Patient Time attestation: Total time spent providing and/or coordinating discharge services: Physical Exam Vital Signs: Vital Signs: Last Vital Signs Temp 97.4 F 02/02/20 08:00 Pulse 86 02/02/20 09:00 Resp 18 02/02/20 08:00 BP 110/81 02/02/20 09:00 Pulse Ox 100 02/02/20 08:00 Body Mass Index 27.8 General: AO X 3, no acute distress Resp: CTA bilateral CVS: S1,S2,RRR GI: soft, non tender, non distended Neuro: motor grossly intact Psych: appropriate affect DS: Data Data Completed and Pending Labs on day of discharge: 01/30/20 13:48 ECG 12 lead EKG Stat EKG Documentation DIRECTED XR chest 1V Stat 01/30/20 13:55 US abdomen limited Stat 01/30/20 14:23 B Type Natriuretic Peptide Stat Basic Metabolic Panel Stat Complete Blood Count Auto Diff Stat D Dimer Stat Liver Panel Stat Magnesium Stat Prothrombin Time INR Stat Troponin-I High Sensitivity Stat 01/30/20 15:11 Potassium Chloride ER [Klor-con] 60 meq PO ONCE ONE 01/30/20 15:18 CA echo limited Routine 01/30/20 15:22 Add Laboratory Test Stat 01/30/20 15:38 CT angio chest PE protocol Stat 01/30/20 16:54 Add Laboratory Test Stat 01/30/20 17:04 iohexoL 350 MG/ML [Omnipaque 350 MG/ML] 100 ml IV ONCE ONE 01/30/20 17:57 ED Diet DAILY 01/30/20 18:20 COVID-19 ID NOW (Beautified) Stat UA CC w/rflx Micro + Cult Stat 01/30/20 18:54 Ethanol Stat Troponin-I High Sensitivity Stat 01/30/20 20:53 Add Laboratory Test Stat Add Laboratory Test Stat 01/30/20 21:05 Transfer Order Routine 01/30/20 21:16 Magnesium Sulfate/H2O 2 gm in 50 ml IV ONCE 01/30/20 21:30 Bumetanide [Bumex] 1 mg IVPUSH BID 01/30/20 23:14 Potassium Chloride/H20 10 meq in 100 ml IV Q1H 01/30/20 23:14 Intake and Output QSHIFTE 01/31/20 05:10 B Type Natriuretic Peptide Routine Basic Metabolic Panel DAILY@0600 Complete Blood Count Auto Diff DAILY@0600 Magnesium Routine SLIDE REVIEW Routine 01/31/20 12:00 Container,Empty 0 ml Bumetanide [Bumex] 25 mg IVCONT 0.5 mg/hr 01/31/20 12:49 Potassium Chloride ER [Klor-con] 20 meq PO ONCE ONE 01/31/20 12:50 Magnesium Oxide [Mag-Ox] 800 mg PO ONCE ONE 02/01/20 06:28 BMP [Basic Metabolic Panel Fasting] Routine Complete Blood Count Auto Diff Routine Magnesium Routine 02/01/20 08:18 Potassium Chloride Packet [Klor-Con Packet] 40 meq PO ONCE ONE 02/01/20 08:19 Add Laboratory Test Routine 02/01/20 08:49 Magnesium Oxide [Mag-Ox] 800 mg PO ONCE ONE Magnesium Sulfate/H2O 2 gm in 50 ml IV ONCE 02/01/20 09:00 Potassium Chloride/H20 10 meq in 100 ml IV Q1H 02/02/20 05:51 BMP [Basic Metabolic Panel Fasting] Routine Complete Blood Count Auto Diff Routine Magnesium Routine SLIDE REVIEW Routine Laboratory Last Values WBC 4.5 X10*3/uL (4.8-10.8) L 02/02/20 05:51 RBC 3.87 X10*6/uL (4.20-5.50) L 02/02/20 05:51 Hgb 9.0 g/dl (12.0-16.0) L 02/02/20 05:51 Hct 30.9 % (37-47) L 02/02/20 05:51 MCV 79.8 fL (80-98) L 02/02/20 05:51 MCH 23.3 pg (27.0-33.0) L 02/02/20 05:51 MCHC 29.1 g/dl (31.0-35.0) L 02/02/20 05:51 RDW 25.3 % (11.0-16.0) H 02/02/20 05:51 Plt Count 126 X10*3/uL (160-400) L 02/02/20 05:51 MPV Not Reportable 02/02/20 05:51 Immature Gran % (Auto) 0.2 % (0.0-0.4) 02/02/20 05:51 Neut % (Auto) 42.1 % (45-73) L 02/02/20 05:51 Lymph % (Auto) 44.4 % (20-40) H 02/02/20 05:51 [place] % (Auto) 11.0 % (2-11) 02/02/20 05:51 Eos % (Auto) 1.6 % (0-4) 02/02/20 05:51 Baso % (Auto) 0.7 % (0-2) 02/02/20 05:51 Lymph # (Auto) 2.0 X10*3/uL (1.2-4.9) 02/02/20 05:51 [place] # (Auto) 0.5 X10*3/uL (0.1-1.2) 02/02/20 05:51 Eos # (Auto) 0.1 X10*3/uL (0.0-0.4) 02/02/20 05:51 Baso # (Auto) 0.0 X10*3/uL (0.0-0.2) 02/02/20 05:51 Abs Immat Gran (auto) 0.01 X10*3/uL (0.00-0.03) 02/02/20 05:51 Absolute Neuts (auto) 1.9 X10*3/uL (2.0-8.3) L 02/02/20 05:51 Absolute Nucleated RBC 0.000 X10*3/uL (0.0-0.012) 02/02/20 05:51 Nucleated RBC % (auto) 0.0 /100WBC (0.0-0.2) 02/02/20 05:51 Smear Tech's Comments VERIFIED 02/02/20 05:51 PT 14.0 SEC (10.8-13.0) H 01/30/20 14:23 INR 1.2 (0.9-1.1) H 01/30/20 14:23 D-Dimer 796 NG/ML 01/30/20 14:23 Sodium 138 mmol/L (135-145) 02/02/20 05:51 Potassium 3.7 mmol/l (3.3-5.1) D 02/02/20 05:51 Chloride 98 mmol/L (96-108) 02/02/20 05:51 Carbon Dioxide 28 mmol/L (22-29) 02/02/20 05:51 Anion Gap 16 (12-20) 02/02/20 05:51 BUN 13 mg/dL (9-16) 02/02/20 05:51 Creatinine 0.64 mg/dL (0.5-1.4) 02/02/20 05:51 Estim Creat Clear Calc 110.7 02/02/20 05:51 Estimated GFR > 60 02/02/20 05:51 Random Glucose 103 mg/dL (60-115) 01/31/20 05:10 Fasting Glucose 97 mg/dL (60-99) 02/02/20 05:51 Calcium 8.2 mg/dL (8.4-10.2) L 02/02/20 05:51 Magnesium 1.9 mg/dL (1.6-2.6) 02/02/20 05:51 Total Bilirubin 1.8 mg/dL (0.0-1.0) H 01/30/20 14:23 Direct Bilirubin 0.9 mg/dL (0.0-0.5) H 01/30/20 14:23 AST 60 U/L (5-31) H 01/30/20 14:23 ALT 28 U/L (0-31) 01/30/20 14:23 Alkaline Phosphatase 232 U/L (39-117) H 01/30/20 14:23 Troponin I High Sens 10.4 ng/L (<3.5-17.0) 01/30/20 18:54 B-Natriuretic Peptide 123 pg/mL (<100) H 01/31/20 05:10 Total Protein 6.8 g/dL (6.5-8.0) 01/30/20 14:23 Albumin 3.4 g/dL (3.5-5.0) L 01/30/20 14:23 Urine Color YELLOW 01/30/20 18:20 Urine Appearance CLEAR 01/30/20 18:20 Urine pH 7.0 (5.0-8.0) 01/30/20 18:20 Ur Specific [place] <= 1.005 (1.005-1.025) 01/30/20 18:20 Urine Protein NEG MG/DL (NEG-TRACE) 01/30/20 18:20 Urine Glucose (UA) NEG MG/DL (NEG) 01/30/20 18:20 Urine Ketones NEG MG/DL (NEG) 01/30/20 18:20 Urine Blood NEG (NEG) 01/30/20 18:20 Urine Nitrite NEG (NEG) 01/30/20 18:20 Ur Leukocyte Esterase NEG (NEG) 01/30/20 18:20 Ethyl Alcohol < 10 mg/dL 01/30/20 18:54 COVID-19 (KATLIN) Negative (Negative) 01/30/20 18:20 COVID-19 Clin Com See Note 01/30/20 18:20 Discharge Plan Discharge Patient Disposition: Home, Self-Care Referrals: Myrtle Lackey MD [Primary Care Provider] - Discharge Medications: New bumetanide 1 mg Tablet 2 mg PO BID@0800,1700 Qty: 120 RF: 0 Continued pantoprazole 40 mg tablet,delayed release (DR/EC) 40 mg PO DAILY Qty: 30 RF: 5 lorazepam 0.5 mg tablet 0.5 mg PO BEDTIME PRN (Reason: anxiety) Qty: 7 RF: 0 nadolol 20 mg tablet 20 mg PO DAILY RF: 0 ambrisentan 5 mg tablet 5 mg PO DAILY RF: 0 eplerenone 25 mg tablet 25 mg PO DAILY RF: 0 escitalopram oxalate 10 mg tablet 10 mg PO DAILY RF: 0 Discontinued furosemide 40 mg tablet 40 mg PO BID RF: 0 Discharge Orders: Discharge Order (Routine); Ordered 02/02/20 Ordered By: Anam Kidd Activity on Discharge: As tolerated Visit Report Forms: Patient Portal Discharge page Care Plan Goals: avoid hospitalization Health Concerns: chf, pulm htn, cirrhosis Plan of Treatment: change lasix to bumex 2mg twice daily, follow up with cardiology and pulmonary and GI
--- NOTE | 2020-02-02 11:10 | MHC.CM.PN ---
Patient has been medically cleared for dc to home today, no services.
== END 2020-02-02 11:49 | disposition home or self-care (01) | DRG 207 ==
LOC: HO.ED 17:10 → HO.IMC 22:48
PROVIDERS: Physician Assistant; Physician Assistant Medical; Admitting Provider Internal Medicine; Emergency Provider Emergency Medicine; PCP Internal Medicine; Visit Provider Internal Medicine
DX: I30.9 Acute pericarditis, unspecified (principal); I50.33 Acute on chronic diastolic (congestive) heart failure; I27.20 Pulmonary hypertension, unspecified; K76.6 Portal hypertension; I27.29 Other secondary pulmonary hypertension; I36.1 Nonrheumatic tricuspid (valve) insufficiency; E87.6 Hypokalemia; I50.811 Acute right heart failure; F10.11 Alcohol abuse, in remission; K70.30 Alcoholic cirrhosis of liver without ascites; D64.9 Anemia, unspecified; Z20.828 Contact with and (suspected) exposure to other viral communicable diseases; Z87.891 Personal history of nicotine dependence; Z79.899 Other long term (current) drug therapy
CPT/HCPCS: 36415; 71045; 71275; 76705; 80048; 80076; 80320; 81003; 83735; 83880; 84484; 85025; 85379; 85610; 87635; 93005; 93308; 96365; 96366; 99285; 99291; J3475; Q9967

== ENCOUNTER → 2020-03-15 11:02 | Outpatient (BNVA) | payer OTHER, SELFPAY | PROVIDERS: PCP Internal Medicine; Visit Provider Internal Medicine Cardiovascular Disease | DX: I27.29 Other secondary pulmonary hypertension (principal); I50.810 Right heart failure, unspecified; I27.21 Secondary pulmonary arterial hypertension; K76.6 Portal hypertension; I51.7 Cardiomegaly; I36.1 Nonrheumatic tricuspid (valve) insufficiency; I31.3 Pericardial effusion (noninflammatory) | CPT/HCPCS: 99212 ==

== ENCOUNTER → 2020-03-16 07:27 | Outpatient (REF) | payer OTHER, SELFPAY ==
--- NOTE | 2020-03-16 07:33 | CA_ITS ---
Transthoracic Echocardiogram Patient (Last, First, Middle): Samanta Nicole, Gender: Female Date of : 1970 Age: 49 Procedure Date: 03/16/2020 Procedure Type: Transthoracic Echocardiogram Location: OP Height: 167.64 cm Weight: 77.11 kg BSA: 1.87 m2 Heart Rate: bpm BP: 108 / 72 mmHg Safety Engineer Pressure Vessels: Referring MD: Sander Shaffer MD Symptoms: I31.3 - Pericardial effusion (noninflammatory) Study Quality: Good Conclusions: - Severely increased right ventricular cavity size. There is normal right ventricular systolic function. - There is severe tricuspid valve regurgitation. - The right ventricular systolic pressure is 47 mmHg. Mild to moderate pulmonary hypertension is present. - There is a small circumferential pericardial effusion. Findings Left Ventricle There is a flattened septum in diastole ( D shaped left ventricle) consistent with right ventricular volume overload and a flattened septum in systole consistent with right ventricular pressure overload. Right Ventricle Severely increased right ventricular cavity size. There is normal right ventricular systolic function. TAPSE 2.96 cm. Tricuspid Valve There is severe tricuspid valve regurgitation. The right ventricular systolic pressure is 47 mmHg. Mild to moderate pulmonary hypertension is present. Tricuspid leaflets do not seem to coapt. Septal leaflet is restricted. Venous The inferior vena cava is mildly dilated and collapses greater than 50% with inspiration. Pericardium/Pleural There is a small circumferential pericardial effusion. There are no definitive echocardiographic findings of tamponade physiology. Prior Study Comparison Changes noted compared to prior study dated: 01/30/2020. RVSP improved. Measurements Tricuspid Valve TR Pk Eugenio: 3.12 TR Pk Grad: 39.00 RA Press: 8.00 RVSP: 47.00 Updated in Other Vendor System with Status of Final Martínez Flores MD electronically signed on 03/16/2020 12:06:58 PM with status of Final
== END ==
LOC: HO.CARD 07:27
PROVIDERS: Visit Provider Internal Medicine Cardiovascular Disease
DX: I31.3 Pericardial effusion (noninflammatory) (principal); I27.29 Other secondary pulmonary hypertension; I50.810 Right heart failure, unspecified
CPT/HCPCS: 93308

== ENCOUNTER 2020-03-22 13:17 | Emergency (ER) | payer OTHER, SELFPAY | END 2020-03-22 15:14 | disposition left against medical advice (07) | PROVIDERS: Emergency Provider Emergency Medicine; PCP Internal Medicine | DX: M25.519 Pain in unspecified shoulder (principal) ==

== ENCOUNTER → 2020-04-08 11:26 | Outpatient (BNVA) | payer OTHER, SELFPAY | PROVIDERS: PCP Internal Medicine; Visit Provider Hospitalist ==

== ENCOUNTER → 2020-04-26 10:51 | Outpatient (BNVA) | payer OTHER, SELFPAY | PROVIDERS: PCP Internal Medicine; Visit Provider Internal Medicine Cardiovascular Disease | DX: I27.29 Other secondary pulmonary hypertension (principal); I50.810 Right heart failure, unspecified; K76.6 Portal hypertension; I51.7 Cardiomegaly | CPT/HCPCS: 99212 ==

== ENCOUNTER → 2020-05-24 10:35 | Outpatient (BNVA) | payer OTHER, SELFPAY | PROVIDERS: PCP Internal Medicine; Visit Provider Hospitalist | DX: K70.30 Alcoholic cirrhosis of liver without ascites (principal); K76.6 Portal hypertension | CPT/HCPCS: 99212 ==

== ENCOUNTER 2020-07-22 15:08 | Outpatient (REF) | payer OTHER, SELFPAY ==
[2020-07-22 15:53] LABS: Imm Gran Abs Auto 0.01 X10*3/uL (0.00-0.03); Imm Gran Pct Auto 0.3 % (0.0-0.4); MANUAL DIFF FLAG SCAN; Mean Corpuscular HGB Conc 31.2 g/dl (31.0-35.0); Mean Corpuscular Hemoglobin 27.6 pg (27.0-33.0); SCAN SMEAR FLAG 1
[2020-07-22 15:54] LABS: Basophils Percent Auto 0.9 % (0-2); Eosinophils Percent Auto 0.9 % (0-4); Hematocrit 37.5 % (37-47); Hemoglobin 11.7 g/dl (12.0-16.0); Lymphocytes Absolute Auto 0.8 X10*3/uL (1.2-4.9); Lymphocytes Percent Auto 25.9 % (20-40); Mean Corpuscular Volume 88.4 fL (80-98); Monocytes Absolute Auto 0.3 X10*3/uL (0.1-1.2); Monocytes Percent Auto 9.8 % (2-11); Neutrophils Percent Auto 62.2 % (45-73); Red Blood Count 4.24 X10*6/uL (4.20-5.50); Red Cell Distribution Width 23.3 % (11.0-16.0); White Blood Count 3.2 X10*3/uL (4.8-10.8)
[2020-07-22 15:55] LABS: PLT ABN DIST 1
[2020-07-22 16:14] LABS: Alanine Aminotransferase 172 U/L (0-31); Albumin Level 4.1 g/dL (3.5-5.0); Alkaline Phosphatase 387 U/L (39-117); Anion Gap 14 (12-20); Aspartate Amino Transferase 310 U/L (5-31); Bilirubin Direct 1.8 mg/dL (0.0-0.5); Bilirubin Total 3.2 mg/dL (0.0-1.0); Blood Urea Nitrogen 8 mg/dL (9-16); Calcium 9.3 mg/dL (8.4-10.2); Carbon Dioxide 32 mmol/L (22-29); Chloride 98 mmol/L (96-108); Estimated Glomerular Filt Rate > 60; Glucose Random 103 mg/dL (60-115); Potassium 3.1 mmol/L (3.3-5.1); Sodium 141 mmol/L (135-145); Total Protein 7.9 g/dL (6.5-8.0)
[2020-07-22 16:15] LABS: Platelet Count 83 X10*3/uL (160-400); SLIDE REVIEW VERIFIED
[2020-07-22 16:16] LABS: B Type Natriuretic Peptide 110 pg/mL (<100)
[2020-07-22 16:51] LABS: Erythrocyte Sedimentation Rate 46 MM/HR (0-20)
== END 2020-07-22 15:09 | disposition home or self-care (01) ==
LOC: HO.LAB 15:08
PROVIDERS: PCP Internal Medicine; Visit Provider Hospitalist
DX: K76.6 Portal hypertension (principal)
CPT/HCPCS: 36415; 80048; 80076; 83880; 85025; 85652

== ENCOUNTER → 2020-07-29 10:36 | Outpatient (BNVA) | payer OTHER, SELFPAY | PROVIDERS: PCP Internal Medicine; Visit Provider Nurse Practitioner Family ==

== ENCOUNTER → 2020-08-20 15:06 | Outpatient (BNVA) | payer OTHER, SELFPAY | PROVIDERS: PCP Internal Medicine; Visit Provider Hospitalist | DX: K76.6 Portal hypertension (principal); K70.30 Alcoholic cirrhosis of liver without ascites; I27.21 Secondary pulmonary arterial hypertension | CPT/HCPCS: 99212 ==

== ENCOUNTER 2020-09-30 15:17 | Emergency (ER) | payer OTHER, SELFPAY ==
[2020-09-30 15:20] VITALS: BP 138/88; PULSE 97; RESP 18; TEMP 37; O2SAT 96; BMI 27.4
[2020-09-30 15:53] LABS: Hematocrit 37.3 % (37-47); Hemoglobin 11.8 g/dl (12.0-16.0); Mean Corpuscular HGB Conc 31.6 g/dl (31.0-35.0); Mean Corpuscular Hemoglobin 25.7 pg (27.0-33.0); Mean Corpuscular Volume 81.3 fL (80-98); Red Blood Count 4.59 X10*6/uL (4.20-5.50); Red Cell Distribution Width 20.1 % (11.0-16.0); White Blood Count 8.2 X10*3/uL (4.8-10.8)
[2020-09-30 15:54] LABS: Platelet Count 61 X10*3/uL (160-400)
[2020-09-30 16:17] VITALS: PULSE 101; RESP 22; O2SAT 95
--- NOTE | 2020-09-30 16:19 | PC.NURSE ---
very large hematoma and open wound on right side of tongue. suzeuymeghann is swollen but airway is patent still though voice is slightly muffled. pt is able to handle secretions. states she bit her tongue around 7am. denies sz activity and LOC.
--- NOTE | 2020-09-30 16:19 | ED.GENADULT ---
HPI - General Adult General Chief complaint: General Medical Stated complaint: Tongue swelling Time Seen by Provider: 09/30/20 15:24 Source: patient Mode of arrival: ambulatory Limitations: no limitations History of Present Illness HPI narrative: 50-year-old female presents with tongue swelling after she accidentally hit the side of her tongue. Her tongue is bruised and has a hematoma to the right side. She states is difficult to move her tongue but she is able to swallow secretions. She does not report any seizure disorder, trauma or abuse, states that her teeth are not aligned properly and that she bites her tongue often. Onset (ago): hour(s) (Within an hour of arrival) Location: mouth Radiation: non-radiation Severity: moderate Severity scale (1-10): 6 Quality: aching Pain Consistency: constant Relieving factors: none Exacerbating factors: eating and movement Associated symptoms: denies other symptoms Treatments prior to arrival: none Related Data Home Medications Medication Instructions Recorded Confirmed nadolol 20 mg tablet 20 mg PO DAILY 01/30/20 09/16/20 bumetanide 1 mg tablet 2 mg PO DAILY tab 07/29/20 09/16/20 Previous Rx's Medication Instructions Recorded escitalopram oxalate 10 mg tablet 10 mg PO DAILY #30 tab 05/17/20 ambrisentan 5 mg tablet 10 mg PO DAILY #60 tab 05/24/20 pantoprazole 40 mg tablet,delayed 40 mg PO DAILY #30 ea 08/09/20 release lorazepam 0.5 mg tablet 0.25 mg PO DAILY PRN #10 tab 08/31/20 eplerenone 25 mg tablet 25 mg PO DAILY #30 tab 09/15/20 sulfacetamide sodium 10 % eye drops 2 drp OPHTHALMIC (EYE) Q4H #15 ml 09/16/20 Allergies Allergy/AdvReac Type Severity Reaction Status Date / Time No Known Allergies Allergy Verified 09/16/20 08:36 [No Known Allergies*] Review of Systems Review of Systems: Constitutional: No Fever, No Chills ENT/Mouth: Positive tongue pain and swelling, No Ear Pain, No Hoarseness, No sore throat Eyes: No Eye Pain, No Swelling, No Redness, No Foreign Body Cardiovascular: No Chest Pain, No SOB Respiratory: No Cough, No Dyspnea Gastrointestinal: No Nausea, No Vomiting, No Diarrhea, No abdominal Pain Genitourinary: No Dysuria, No Hematuria Musculoskeletal: No joint pain, No Myalgias, No Joint Swelling Skin: No Skin lacerations, No rash Neuro: No Weakness, No Numbness, No Paresthesias, No Loss of Consciousness, No Dizziness, No Headache Psych: No Anxiety/Panic, No Depression Heme/Lymph: no easy bruising, no Lymphadenopathy Endocrine: No Polyuria, No Polydipsia Yes all other systems are reviewed and are negative [facility] Past Medical History Attestation statement: The following information was validated with the patient. 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 Surgical History Hx of cardiac cath Family History Family History Father HTN (hypertension) Mother HTN (hypertension) Social History Social History Household Members: Family Housing: House Do you presently have visiting nurse or other home services: No Alcohol intake: former Advance Directives: No Advance Directives Information Provided: No Advance Directives Date on File: 01/30/20 Patient : No service: No Current occupational status: employed Physical Exam Vital Signs: Vital Signs: Last Vital Signs Temp 98.6 F 09/30/20 15:20 Pulse 101 H 09/30/20 16:17 Resp 22 H 09/30/20 16:17 BP 138/88 09/30/20 15:20 Pulse Ox 95 09/30/20 16:17 Body Mass Index 27.4 Appearance: Alert. Oriented X3. Mild distress. Eyes: Pupils equal, round and reactive to light. ENT: Tongue visibly swollen to the right side with hematoma, multiple tooth robison to the right lateral tongue, no indication of through and through bite, no bleeding at this time. Able to swallow secretions. Neck: Normal inspection. Neck supple. CVS: Normal heart rate and rhythm. Pulses normal. Respiratory: No respiratory distress. Breath sounds normal. Abdomen: Soft and nontender. Skin: Skin warm and dry. Normal skin color. Normal skin turgor. Extremities: No lower extremity edema. Neuro: No motor deficit. No sensory deficit. Course Course Course Narrative: 50-year-old female presents with a hematoma to the right side of her tongue. She does have a history of biting her tongue quite often because of the size of her mouth. She does have mouth guards however was not wearing at the time of the bite. She is able to manage secretions, has no tracheal stridor. Plan of care is to discharge home with ice, popsicles, follow-up with ENT. Thank you for choosing this emergency department for evaluation. Please follow-up with primary care physician as needed. Return to the emergency department for any new, concerning, or worsening symptoms. Medical Decision Making Differential Diagnosis Differential Diagnosis: Tongue hematoma, wet tongue laceration Medical Records Medical records reviewed: Yes I reviewed the patient's medical records. Lab Data Lab results reviewed: Yes I reviewed the patient's lab results. Result diagrams: 09/30/20 15:41 09/30/20 15:41 Labs: Lab Results 09/30/20 09/30/20 Range/Units 15:41 15:41 WBC 8.2 (4.8-10.8) X10*3/uL RBC 4.59 (4.20-5.50) X10*6/uL Hgb 11.8 L (12.0-16.0) g/dl Hct 37.3 (37-47) % MCV 81.3 (80-98) fL MCH 25.7 L (27.0-33.0) pg MCHC 31.6 (31.0-35.0) g/dl RDW 20.1 H (11.0-16.0) % Plt Count 61 L D (160-400) X10*3/uL MPV TNP Absolute Nucleated RBC 0.000 (0.0-0.012) X10*3/uL Nucleated RBC % (auto) 0.0 (0.0-0.2) /100WBC Sodium Cancelled Potassium Cancelled Chloride Cancelled Carbon Dioxide Cancelled Anion Gap Cancelled BUN Cancelled Creatinine Cancelled Estim Creat Clear Calc Cancelled Estimated GFR Cancelled Random Glucose Cancelled Calcium Cancelled Discharge Plan Discharge Clinical Impression: Hematoma Patient Disposition: Home, Self-Care Instructions: Hematoma (ED) Additional Instructions: You were evaluated for swelling of the tongue after biting it. You have a large hematoma on your tongue. Please use ice, popsicles, and cold beverage to subside the pain and swelling. You may consider following up with ENT at [facility]. You may also consider following up with primary care in the next day or 2. Please eat soft foods at mild temperatures. Do not use Motrin or ibuprofen. Use Tylenol as needed for pain management Thank you for choosing this emergency department for evaluation. Please follow-up with primary care physician as needed. Return to the emergency department for any new, concerning, or worsening symptoms. Prescriptions: No Action escitalopram oxalate 10 mg tablet 10 mg PO DAILY Qty: 30 RF: 3 pantoprazole 40 mg tablet,delayed release (DR/EC) 40 mg PO DAILY Qty: 30 RF: 5 lorazepam 0.5 mg tablet 0.25 mg PO DAILY PRN (Reason: anxiety) Qty: 10 RF: 0 eplerenone 25 mg tablet 25 mg PO DAILY Qty: 30 RF: 2 sulfacetamide sodium 10 % drops 2 drp ophthalmic (eye) Q4H Qty: 15 RF: 1 ambrisentan 5 mg tablet 10 mg PO DAILY Qty: 60 RF: 11 nadolol 20 mg tablet 20 mg PO DAILY RF: 0 bumetanide 1 mg tablet 2 mg PO DAILY RF: 0 Referrals: Parag Lassiter [Physician] - 2 days (Tongue hematoma) Interventions: ED Discharge Assessment Last Done: 09/30/20 16:50 Discharge Date/Time: 09/30/20 16:52
== END 2020-09-30 16:52 | disposition home or self-care (01) ==
PROVIDERS: Emergency Provider Internal Medicine; PCP Internal Medicine
DX: S00.532A Contusion of oral cavity, initial encounter (principal); W22.8XXA Striking against or struck by other objects, initial encounter; Y93.9 Activity, unspecified; Y92.9 Unspecified place or not applicable; Y99.9 Unspecified external cause status
CPT/HCPCS: 36415; 80048; 85027; 99283; 99284

== ENCOUNTER → 2020-10-01 07:26 | Outpatient (REF) | payer OTHER, SELFPAY ==
--- NOTE | 2020-10-01 07:29 | CA_ITS ---
Transthoracic Echocardiogram Patient (Last, First, Middle): Samanta Nicole, Gender: Female Date of : 1970 Age: 50 Procedure Date: 10/01/2020 Procedure Type: Transthoracic Echocardiogram Location: OP Height: 167.64 cm Weight: 77.11 kg BSA: 1.87 m2 Heart Rate: bpm BP: 120 / 80 mmHg [employer] Principal: ELISA Referring MD: Yovana Charles SALES CORRESPONDENCE CLERKWili Symptoms: I27.29 - Other secondary pulmonary hypertension Conclusions: - Normal left ventricular size and systolic function. There is moderately increased left ventricular wall thickness. The visually estimated ejection fraction is between 60-65%. - Severely increased right ventricular cavity size. There is mildly decreased right ventricular systolic function. - The left atrium is normal in size. The right atrium is severely dilated. - There is mild tricuspid valve regurgitation. Normal right atrial pressure. Moderate to severe pulmonary hypertension is present. Findings Left Ventricle Normal left ventricular size and systolic function. There is moderately increased left ventricular wall thickness. The visually estimated ejection fraction is between 60-65%. There is no evidence of regional wall motion abnormalities. Diastolic function is normal for age. Right Ventricle Severely increased right ventricular cavity size. There is mildly decreased right ventricular systolic function. Atria The left atrium is normal in size. The right atrium is severely dilated. Aortic Valve There is a normal trileaflet aortic valve. There is no aortic valve stenosis. There is no aortic valve regurgitation. Mitral Valve Normal mitral valve structure and function. There is no mitral valve regurgitation. There is no mitral valve stenosis. Pulmonic Valve The pulmonic valve is likely normal. Tricuspid Valve The tricuspid valve was not well visualized. There is mild tricuspid valve regurgitation. Normal right atrial pressure. Moderate to severe pulmonary hypertension is present. Great Vessels There is mild dilatation of the ascending aorta measuring 3.30 cm. The visualized portions of the pulmonary artery and branches are normal. Venous The inferior vena cava is normal in size and collapses greater than 50% with inspiration. Pericardium/Pleural There is no evidence of pericardial effusion. Prior Study Comparison Significant changes compared to prior study dated: 03/16/2020. Severely increased right ventricular cavity size. There is mildly decreased right ventricular systolic function. The right atrium is severely dilated. Measurements M-Mode Liner Measurements Normals - Women/Men IVSd: 1.69 0.6-0.9/0.6-1.0 cm LVIDd: 3.65 3.9-5.3/4.2-5.9 cm LVIDd Index: 1.95 1.9-3.2 cm/m2 LVIDs: 2.34 2.0-3.8 cm LVPWd: 1.54 0.6-0.9/0.6-1.0 cm LV Mass: 288.11 67-162/88-224g LV Mass Index: 154.07 43-95/49-115 g/m2 M-Mode Volumes LV EDV: 56.30 LV ESV: 18.90 2D Linear Measurements IVSd: 1.43 0.6-0.9/0.6-1.0 cm LVIDd: 3.90 3.9-5.3/4.2-5.9 cm LVIDd Index: 2.09 2.4-3.2/2.2-3.1 cm/m2 LVIDs: 2.72 2.0-3.6 cm LVPWd: 1.24 0.7-1.1 cm Ao Root: 3.10 2.1-3.5 cm LA Diam: 3.00 2.7-3.8/3.0-4.0 cm LAIDs Index: 1.60 1.5-2.3 cm/m2 LV Mass: 233.25 67-162/88-224 g LV Mass Index: 124.73 43-95/49-115 g/m2 LVOT Diam: 2.10 3.0+(-)1.3 cm 2D Systolic Function EF 4C: 81.60 >55% M-Mode Systolic Function FS: 35.90 27-47/25-43% Mitral Valve MV Pk E: 0.60 MV PK A: 0.85 MV Decel Time: 92.00 E/A: 0.70 E'Lateral: 7.94 E'Medial: 6.20 E/E' Med: 9.70 E/E' Lat: 7.60 PHT: 27.00 MVA PHT: 8.15 Decel [place]: 6.51 Aortic Valve AoV Pk Eugenio: 1.43 AoV Pk Grad: 8.00 LVOT LVOT Pk Eugenio: 1.42 LVOT Mn Eugenio: 0.84 LVOT VTI: 0.22 LVOT Pk Grad: 8.00 LVOT Mn Grad: 4.00 LVOT Diam: 2.10 LVOT Area: 3.46 Diastolic Function MV Pk E: 0.60 MV Pk A: 0.85 E/A: 0.70 E'Medial: 6.20 E/E' Med: 9.70 E' Laterial: 7.94 E/E' Lat: 7.60 Right Ventricle TAPSE (mm): 1.85 Tricuspid Valve TR Pk Eugenio: 3.60 TR Pk Grad: 52.00 RA Press: 3.00 RVSP: 55.00 Great Vessels Aorta Ao Root-2D: 3.10 2.0-3.7 cm Ao Asc: 3.30 2.1-3.4 cm Updated in Other Vendor System with Status of Final Jevon Elliott MD electronically signed on 10/03/2020 10:20:07 PM with status of Final
== END ==
LOC: HO.CARD 07:26
PROVIDERS: Visit Provider Nurse Practitioner Family
DX: I27.29 Other secondary pulmonary hypertension (principal); I50.810 Right heart failure, unspecified
CPT/HCPCS: 93306

== ENCOUNTER → 2020-11-30 12:26 | Outpatient (BNVA) | payer OTHER, SELFPAY | PROVIDERS: PCP Internal Medicine; Visit Provider Internal Medicine Cardiovascular Disease | DX: I27.29 Other secondary pulmonary hypertension (principal); I50.810 Right heart failure, unspecified; K76.6 Portal hypertension | CPT/HCPCS: 99212 ==

== ENCOUNTER → 2020-12-14 14:50 | Outpatient (BNVA) | payer OTHER, SELFPAY | PROVIDERS: PCP Internal Medicine; Visit Provider Hospitalist | DX: K76.6 Portal hypertension (principal); I27.21 Secondary pulmonary arterial hypertension; K70.30 Alcoholic cirrhosis of liver without ascites; F10.10 Alcohol abuse, uncomplicated | CPT/HCPCS: 99212 ==

== ENCOUNTER 2021-02-15 13:27 | Outpatient (REF) | payer OTHER, SELFPAY ==
[2021-02-15 14:49] LABS: B Type Natriuretic Peptide 17 pg/mL (<100)
[2021-02-15 14:50] LABS: Anion Gap 13 (12-20); Blood Urea Nitrogen 8 mg/dL (9-16); Calcium 8.9 mg/dL (8.4-10.2); Carbon Dioxide 32 mmol/L (22-29); Chloride 94 mmol/L (96-108); Estimated Glomerular Filt Rate > 60; Glucose Random 98 mg/dL (60-115); Potassium 2.7 mmol/L (3.3-5.1); Sodium 136 mmol/L (135-145)
== END 2021-02-15 13:28 | disposition home or self-care (01) ==
LOC: HO.LAB 13:27
PROVIDERS: PCP Internal Medicine; Referring Provider Internal Medicine; Visit Provider Internal Medicine Cardiovascular Disease
DX: I27.29 Other secondary pulmonary hypertension (principal); I50.810 Right heart failure, unspecified; Z79.899 Other long term (current) drug therapy
CPT/HCPCS: 36415; 80048; 83880; 99212

== ENCOUNTER 2021-02-18 22:48 | Emergency (ER) | payer OTHER, SELFPAY ==
--- NOTE | ~2021-02-18 | XR_ITS ---
EXAMINATION: XR FOOT, RIGHT CLINICAL INFORMATION: Fall. Pain. COMPARISON: None TECHNIQUE: 3 views of the right foot. FINDINGS: The bones and soft tissues are normal. No fracture. Alignment is anatomic. Joint spaces are maintained. XR/XR foot RT min 3V IMPRESSION: Normal right foot.
[2021-02-18 22:54] VITALS: BP 126/88; PULSE 88; O2SAT 96
[2021-02-18 23:03] VITALS: BP 94/58; PULSE 81; RESP 20; TEMP 36.8; O2SAT 94; BMI 26.6
--- NOTE | 2021-02-18 23:24 | PC.NURSE ---
XRay at bedside.
--- NOTE | 2021-02-18 23:27 | ED.LOWEXIN ---
HPI - Extremity Injury (Lower) General Chief Complaint: Extremity Injury, Lower Time Seen by Provider: 02/18/21 23:04 Source: patient Mode of arrival: ambulatory Limitations: no limitations History of Present Illness HPI Narrative: Apparently patient tripped on a pillow rolled her right foot inverts complaining of pain on the lateral aspect of the dorsum of the right foot is slight swelling no bony deformity no other injuries Related Data Home Medications Medication Instructions Recorded Confirmed nadolol 20 mg tablet 20 mg PO DAILY 01/30/20 02/15/21 bumetanide 1 mg tablet 2 mg PO DAILY tab 02/15/21 02/15/21 Previous Rx's Medication Instructions Recorded ambrisentan 5 mg tablet 10 mg PO DAILY #60 tab 05/24/20 pantoprazole 40 mg tablet,delayed 40 mg PO DAILY #30 ea 08/09/20 release escitalopram oxalate 10 mg tablet 10 mg PO DAILY #30 tab 10/20/20 eplerenone 25 mg tablet 25 mg PO DAILY #30 tab 01/05/21 lorazepam 0.5 mg tablet 0.25 mg PO DAILY PRN #10 tab 02/16/21 potassium chloride 20 mEq 20 meq PO BID 60 Days #120 tab 02/16/21 tablet,extended release tramadol 50 mg tablet 50 mg PO Q6H PRN #20 tab 02/18/21 trazodone 50 mg tablet 50 mg PO BEDTIME PRN #10 tab 02/18/21 Allergies Allergy/AdvReac Type Severity Reaction Status Date / Time No Known Allergies Allergy Verified 02/18/21 23:02 [No Known Allergies*] Review of Systems Review of Systems: Yes all other systems are reviewed and are negative PMFSH Past Medical History Medical History Alcohol abuse Alcoholic cirrhosis of liver Anemia Anxiety disorder Esophageal varices in alcoholic cirrhosis Nonrheumatic tricuspid (valve) insufficiency Portopulmonary hypertension Pulmonary hypertensive arterial disease associated with portal hypertension Surgical History Hx of cardiac cath Family History Family History Father HTN (hypertension) Mother HTN (hypertension) Social History Social History Household Members: Family Housing: House Do you presently have visiting nurse or other home services: No Alcohol intake: former Patient Tobacco Use Status: Current someday Tobacco user Tobacco use type: Cigarette Cigarette Packs Per Day: 1 Cigarettes Per Day: 3 Years Smoked: 30 years Advance Directives: Yes Advance Directives on File: Yes Advance Directives Date on File: 01/30/20 Patient : No service: No Current occupational status: employed Physical Exam Vital Signs: Vital Signs: Last Vital Signs Temp 98.2 F 02/18/21 23:03 Pulse 81 02/18/21 23:03 Resp 20 02/18/21 23:03 BP 94/58 L 02/18/21 23:03 Pulse Ox 94 02/18/21 23:03 BMI result Body Mass Index 26.6 Const: General: comfortable and no acute distress HENMT: Head: Yes normocephalic and Yes atraumatic Neck: Neck: Yes full ROM and Yes supple Extrem: Ankle/foot/toe images: 1. Soft tissue tenderness and swelling no bony deformity neurovascular intact Discharge Plan Discharge Clinical Impression: Sprain of foot, right Qualifiers: Encounter type: initial encounter Qualified Code(s): S93.601A - Unspecified sprain of right foot, initial encounter Patient Disposition: Home, Self-Care Instructions: Foot Sprain (ED) Additional Instructions: rest at home Pain medication as prescribed Use crutches for ambulation Prescriptions: New tramadol 50 mg tablet 50 mg PO Q6H PRN (Reason: pain) Qty: 20 RF: 0 No Action pantoprazole 40 mg tablet,delayed release (DR/EC) 40 mg PO DAILY Qty: 30 RF: 5 escitalopram oxalate 10 mg tablet 10 mg PO DAILY Qty: 30 RF: 3 eplerenone 25 mg tablet 25 mg PO DAILY Qty: 30 RF: 5 potassium chloride 20 mEq tablet extended release 20 meq PO BID 60 Days Qty: 120 RF: 1 lorazepam 0.5 mg tablet 0.25 mg PO DAILY PRN (Reason: anxiety) Qty: 10 RF: 0 trazodone 50 mg tablet 50 mg PO BEDTIME PRN (Reason: sleep) Qty: 10 RF: 0 ambrisentan 5 mg tablet 10 mg PO DAILY Qty: 60 RF: 11 nadolol 20 mg tablet 20 mg PO DAILY RF: 0 bumetanide 1 mg tablet 2 mg PO DAILY RF: 0 Stand Alone Forms: Work/School Release Interventions: ED Discharge Assessment Last Done: 02/19/21 00:14 Discharge Date/Time: 02/19/21 00:15 Print Language: Luxembourgish
[2021-02-18] MEDS: oxyCODONE HCl Immed Release 5 MG TABLET 10 MG PO (23:59)
--- NOTE | 2021-02-19 00:14 | PC.NURSE ---
medical laboratory technologist at bedside for amy wrap and crutches.
== END 2021-02-19 00:15 | disposition home or self-care (01) ==
PROVIDERS: Emergency Provider Internal Medicine; PCP Internal Medicine
DX: S93.601A Unspecified sprain of right foot, initial encounter (principal); X50.1XXA Overexertion from prolonged static or awkward postures, initial encounter; Y93.9 Activity, unspecified; Y92.9 Unspecified place or not applicable; Y99.9 Unspecified external cause status
CPT/HCPCS: 73630; 99283

== ENCOUNTER 2021-02-24 11:06 | Outpatient (REF) | payer OTHER, SELFPAY ==
[2021-02-24 12:04] LABS: MANUAL DIFF FLAG NO
[2021-02-24 12:22] LABS: Basophils Percent Auto 0.5 % (0-2); Eosinophils Percent Auto 0.5 % (0-4); Hematocrit 37.5 % (37.0-47.0); Hemoglobin 11.7 g/dl (12.0-16.0); Imm Gran Abs Auto 0.01 X10*3/uL (0.00-0.03); Imm Gran Pct Auto 0.3 % (0.0-0.4); Lymphocytes Absolute Auto 0.8 X10*3/uL (1.2-4.9); Lymphocytes Percent Auto 21.1 % (20-40); Mean Corpuscular HGB Conc 31.2 g/dl (31.0-35.0); Mean Corpuscular Hemoglobin 27.6 pg (27.0-33.0); Mean Corpuscular Volume 88.4 fL (80.0-98.0); Mean Platelet Volume 11.4 fL (9.4-12.3); Monocytes Absolute Auto 0.4 X10*3/uL (0.1-1.2); Monocytes Percent Auto 11.8 % (2-11); Neutrophils Absolute Auto 2.5 x10*3/uL (2.0-8.3); Neutrophils Percent Auto 65.8 % (45-73); Platelet Count 158 X10*3/uL (160-400); Red Blood Count 4.24 X10*6/uL (4.20-5.50); Red Cell Distribution Width 20.9 % (11.0-16.0); White Blood Count 3.7 X10*3/uL (4.8-10.8)
[2021-02-24 12:40] LABS: Alanine Aminotransferase 51 U/L (0-31); Albumin Level 3.8 g/dL (3.5-5.0); Alkaline Phosphatase 181 U/L (39-117); Anion Gap 13 (12-20); Aspartate Amino Transferase 56 U/L (5-31); Bilirubin Direct 0.5 mg/dL (0.0-0.5); Bilirubin Total 0.8 mg/dL (0.0-1.0); Blood Urea Nitrogen 12 mg/dL (9-16); Calcium 9.5 mg/dL (8.4-10.2); Carbon Dioxide 24 mmol/L (22-29); Chloride 107 mmol/L (96-108); Estimated Glomerular Filt Rate > 60; Glucose Random 91 mg/dL (60-115); Potassium 3.8 mmol/L (3.3-5.1); Sodium 140 mmol/L (135-145); Total Protein 7.5 g/dL (6.5-8.0)
== END 2021-02-24 11:07 | disposition home or self-care (01) ==
LOC: HO.LAB 11:06
PROVIDERS: Hospitalist; PCP Internal Medicine; Visit Provider Internal Medicine Cardiovascular Disease
DX: K76.6 Portal hypertension (principal); I27.21 Secondary pulmonary arterial hypertension; K70.31 Alcoholic cirrhosis of liver with ascites; E87.6 Hypokalemia; F10.21 Alcohol dependence, in remission; F17.210 Nicotine dependence, cigarettes, uncomplicated; Z98.890 Other specified postprocedural states
CPT/HCPCS: 36415; 80048; 80076; 85025; 99212

== ENCOUNTER 2021-04-13 16:19 | Inpatient (IN) | payer OTHER, SELFPAY ==
[2021-04-13] VITALS (17 sets, daily range): BP systolic 124–143; BP diastolic 78–97; PULSE 87–128; RESP 18–32; TEMP 36.1–38; O2SAT 92–98; BMI 29.3
--- NOTE | ~2021-04-13 | US_ITS ---
EXAMINATION: US ABDOMEN COMPLETE CLINICAL INFORMATION: Cirrhosis. Elevated LFTs. COMPARISON: MR abdomen dated from 07/11/2019. TECHNIQUE: Real-time imaging of the abdominal viscera. FINDINGS: PANCREAS: The visualized head is within normal limits. The body and tail are obscured by overlying bowel gas. ABDOMINAL AORTA: The proximal segment is normal in caliber. Other segments are obscured by overlying bowel gas. INFERIOR VENA CAVA: Visualized portions are normal. LIVER: Enlarged liver measuring up to 22.2 cm with heterogeneous parenchyma and nodular contour in keeping with history of cirrhosis. No focal abnormalities are identified. No biliary ductal dilatation. GALLBLADDER: Cholelithiasis without wall thickening nor pericholecystic free fluid. No gallbladder wall polyps. COMMON BILE DUCT: Not visualized due to shadowing from overlying bowel gas. RIGHT KIDNEY: Normal. No hydronephrosis. No renal calculi or focal parenchymal lesions. The kidney measures 12.0 cm in maximum dimension. LEFT KIDNEY: Normal. No hydronephrosis. No renal calculi or focal parenchymal lesions. The kidney measures 12.2 cm in maximum dimension. SPLEEN: Normal. The spleen measures 12.0 cm in maximum dimension. FREE FLUID: None. US/US abdomen complete IMPRESSION: Cirrhotic liver morphology with hepatomegaly. Ultrasound have decreased sensitivity for the detection of focal liver lesions in the setting of cirrhosis, and further correlation with a CT or MR of the abdomen could be obtained for evaluation of HCC or other focal liver abnormalities. Cholelithiasis. No sonographic evidence of acute cholecystitis.
--- NOTE | ~2021-04-13 | XR_ITS ---
EXAMINATION: XR CHEST CLINICAL INFORMATION: Chest pain. COMPARISON: 01/30/2020 chest radiograph. TECHNIQUE: Frontal view of the chest was obtained. FINDINGS: No significant abnormality is noted involving the heart, lungs, mediastinum, bony thorax or soft tissues. XR/XR chest 1V IMPRESSION: No acute cardiopulmonary process. Interval decrease in cardiac size.
--- NOTE | 2021-04-13 16:34 | ED_ITS ---
HPI - General Adult General Chief complaint: General Medical Stated complaint: Vomiting blood Time Seen by Provider: 04/13/21 16:34 Source: patient Mode of arrival: ambulatory Limitations: no limitations History of Present Illness HPI narrative: Patient's history of ETOH abuse with liver cirrhosis with history of variceal bleed in 2018 status post banding history of hypertension bulimia, right-sided heart failure with associated pulmonary hypertension and tricuspid valve regurgitation was doing okay since 2018 with off and on alcohol use for last 2 months patient been drinking heavily and been vomiting fresh blood since morning today patient said that she had copious bleeding vomited about 2 bags of vomitus back since morning feels anxious and stressed out vitals on arrival was pulse rate 123 blood pressure 129/89 patient had a last drink yesterday Related Data Home Medications Medication Instructions Recorded Confirmed nadolol 20 mg tablet 20 mg PO DAILY 01/30/20 04/13/21 bumetanide 1 mg tablet 2 mg PO DAILY tab 02/15/21 04/13/21 Previous Rx's Medication Instructions Recorded eplerenone 25 mg tablet 25 mg PO DAILY #30 tab 01/05/21 potassium chloride 20 mEq 20 meq PO BID 60 Days #120 tab 02/16/21 tablet,extended release escitalopram oxalate 10 mg tablet 10 mg PO DAILY #30 tab 03/02/21 pantoprazole 40 mg tablet,delayed 40 mg PO DAILY #30 tab 03/05/21 release lorazepam 0.5 mg tablet 0.25 mg PO DAILY PRN #10 tab 03/10/21 ambrisentan 10 mg tablet 10 mg PO DAILY 30 Days #30 tab 03/21/21 Allergies Allergy/AdvReac Type Severity Reaction Status Date / Time No Known Allergies Allergy Verified 03/05/21 13:29 [No Known Allergies*] Review of Systems Verdana 4l Review of Systems: Yes all other systems are reviewed and Verdana 4d are negative PMFSH Past Medical History Medical History Alcohol abuse Alcoholic cirrhosis of liver Anemia Anxiety disorder Esophageal varices in alcoholic cirrhosis Nonrheumatic tricuspid (valve) insufficiency Portopulmonary hypertension Pulmonary hypertensive arterial disease associated with portal hypertension Surgical History Hx of cardiac cath Family History Family History Father HTN (hypertension) Mother HTN (hypertension) Social History Social History Household Members: Family Housing: House Do you presently have visiting nurse or other home services: No Alcohol intake: former Patient Tobacco Use Status: Current someday Tobacco user Tobacco use type: Cigarette Cigarette Packs Per Day: 1 Cigarettes Per Day: 3 Years Smoked: 30 years Currently Displaying Signs/Symptoms of Drug Intoxication Withdrawal: No Advance Directives: Yes Advance Directives on File: Yes Advance Directives Date on File: 01/30/20 Patient : No service: No Current occupational status: employed Physical Exam Verdana 4l Vital Signs: Verdana 4d Verdana 4d Vital Signs: Verdana 4d Verdana 4Bd Last Vital Signs Verdana 4d Fleet Salesperson New 4d Fleet Salesperson New 4d Temp 100.4 F 04/13/21 23:00 Fleet Salesperson New 4d Pulse 107 H 04/13/21 23:00 Fleet Salesperson New 4d Resp 21 H 04/13/21 23:00 BP 143/95 H 04/13/21 23:00 Pulse Ox 97 04/13/21 23:00 Appearance: Alert. Oriented X3. Anxious Eyes: No pallor or icterus ENT: Pharynx normal. Oral Mucosa moist Neck: Normal inspection. Neck supple. CVS: Normal heart rate and rhythm. Pulses normal. Respiratory: No respiratory distress. Equal air entry bilateral, no wheezing/rales/rhonchi Abdomen: Soft with mild epigastric tenderness. Bowel sounds are present, no mass palpable, no CVA tenderness Skin: Skin warm and dry. Normal skin color. Normal skin turgor. Extremities: No lower extremity edema. No calf tenderness Neuro: Oriented X 3. No motor deficit. Course Reevaluation(s) Reevaluation #1: Case discussed Dr. Mikhail MARTINEZ will take the patient to OR for endoscopy Time: 16:57 Medical Decision Making MDM Narrative Medical decision making narrative: Patient with esophageal varices with upper GI bleed stable vitals at this time with tachycardia lab workup showed hemoglobin of 11.1 with hematocrit of 33.[place] [address] Mikhail MARTINEZ take her to OR for endoscopy for likely variceal bleed. Patient also has hypokalemia and hypomagnesemia which been replaced. Patient received 80 mg of Protonix and started on the Protonix drip Lab Data Lab results reviewed: Yes I reviewed the patient's lab results. Result diagrams: 04/13/21 21:10 04/13/21 21:10 Labs: Lab Results 04/13/21 04/13/21 04/13/21 Range/Units 16:51 16:51 16:51 WBC 2.6 L (4.8-10.8) X10*3/uL RBC 3.98 L (4.20-5.50) X10*6/uL Hgb 11.1 L (12.0-16.0) g/dl Hct 33.8 L (37.0-47.0) % MCV 84.9 (80.0-98.0) fL MCH 27.9 (27.0-33.0) pg MCHC 32.8 (31.0-35.0) g/dl RDW 20.1 H (11.0-16.0) % Plt Count 53 L D (160-400) X10*3/uL MPV TNP Immature Gran % (Auto) 1.1 H (0.0-0.4) % Neut % (Auto) 75.2 H (45-73) % Lymph % (Auto) 17.2 L (20-40) % Izard % (Auto) 6.5 (2-11) % Eos % (Auto) 0.0 (0-4) % Baso % (Auto) 0.0 (0-2) % Lymph # (Auto) 0.5 L (1.2-4.9) X10*3/uL [place] # (Auto) 0.2 (0.1-1.2) X10*3/uL Eos # (Auto) 0.0 (0.0-0.4) X10*3/uL Baso # (Auto) 0.0 (0.0-0.2) X10*3/uL Abs Immat Gran (auto) 0.03 (0.00-0.03) X10*3/uL Absolute Neuts (auto) 2.0 (2.0-8.3) x10*3/uL Absolute Nucleated RBC 0.020 H (0.0-0.012) X10*3/uL Nucleated RBC % (auto) 0.8 H (0.0-0.2) /100WBC PT 13.2 H (9.9-13.0) SEC INR 1.2 H (0.9-1.1) APTT 32.1 (24.1-38.0) SEC Sodium (135-145) mmol/L Potassium (3.3-5.1) mmol/L Chloride (96-108) mmol/L Carbon Dioxide (22-29) mmol/L Anion Gap (12-20) BUN (9-16) mg/dL Creatinine (0.5-1.4) mg/dL Estim Creat Clear Calc Estimated GFR Random Glucose (60-115) mg/dL Calcium (8.4-10.2) mg/dL Magnesium (1.6-2.6) mg/dL Total Bilirubin (0.0-1.0) mg/dL AST (5-31) U/L ALT (0-31) U/L Alkaline Phosphatase (39-117) U/L Total Protein (6.5-8.0) g/dL Albumin (3.5-5.0) g/dL Lipase (8-78) U/L COVID-19 (KATLIN) (Negative) COVID-19 Clin Com Blood Type Antibody Screen Crossmatch 04/13/21 04/13/21 04/13/21 Range/Units 16:51 17:04 17:04 WBC (4.8-10.8) X10*3/uL RBC (4.20-5.50) X10*6/uL Hgb (12.0-16.0) g/dl Hct (37.0-47.0) % MCV (80.0-98.0) fL MCH (27.0-33.0) pg MCHC (31.0-35.0) g/dl RDW (11.0-16.0) % Plt Count (160-400) X10*3/uL MPV Immature Gran % (Auto) (0.0-0.4) % Neut % (Auto) (45-73) % Lymph % (Auto) (20-40) % [place] % (Auto) (2-11) % Eos % (Auto) (0-4) % Baso % (Auto) (0-2) % Lymph # (Auto) (1.2-4.9) X10*3/uL [place] # (Auto) (0.1-1.2) X10*3/uL Eos # (Auto) (0.0-0.4) X10*3/uL Baso # (Auto) (0.0-0.2) X10*3/uL Abs Immat Gran (auto) (0.00-0.03) X10*3/uL Absolute Neuts (auto) (2.0-8.3) x10*3/uL Absolute Nucleated RBC (0.0-0.012) X10*3/uL Nucleated RBC % (auto) (0.0-0.2) /100WBC PT (9.9-13.0) SEC INR (0.9-1.1) APTT (24.1-38.0) SEC Sodium 139 (135-145) mmol/L Potassium 3.0 L D (3.3-5.1) mmol/L Chloride 99 (96-108) mmol/L Carbon Dioxide 20 L (22-29) mmol/L Anion Gap 23 H (12-20) BUN 10 (9-16) mg/dL Creatinine 0.56 (0.5-1.4) mg/dL Estim Creat Clear Calc TNP Estimated GFR > 60 Random Glucose 169 H (60-115) mg/dL Calcium 7.8 L D (8.4-10.2) mg/dL Magnesium 1.2 L* (1.6-2.6) mg/dL Total Bilirubin 2.3 H (0.0-1.0) mg/dL AST 807 H (5-31) U/L ALT 216 H (0-31) U/L Alkaline Phosphatase 514 H D (39-117) U/L Total Protein 7.0 (6.5-8.0) g/dL Albumin 3.2 L (3.5-5.0) g/dL Lipase 32 (8-78) U/L COVID-19 (KATLIN) Negative (Negative) COVID-19 Clin Com See Note Blood Type A Positive Antibody Screen NEGATIVE Crossmatch See Detail Discharge Plan Discharge Clinical Impression: Acute upper gastrointestinal bleeding, Esophageal varices in alcoholic cirrhosis Patient Disposition: Admitted As Inpatient Discharge Date/Time: 04/13/21 20:01
[2021-04-13 16:55] LABS: MANUAL DIFF FLAG NO
--- NOTE | 2021-04-13 17:00 | ECG_ITS ---
Test Reason : VOMITTING BLOOD Blood Pressure : / mmHG Vent. Rate : 117 BPM Atrial Rate : 117 BPM P-R Int : 132 ms QRS Dur : 088 ms QT Int : 408 ms P-R-T Axes : 064 081 -09 degrees QTc Int : 569 ms Sinus tachycardia Cannot rule out Inferior infarct (cited on or before 13-APR-2021) Diffuse ST T wave changes probably s/o of ischemia or RV strain Prolonged QT Abnormal ECG When compared with ECG of 30-JAN-2020 14:07, No significant change was found Referred By: Raúl Freedman Electronically Signed By:VAN NOVA MD
[2021-04-13 17:04] LABS: Hematocrit 33.8 % (37.0-47.0); Hemoglobin 11.1 g/dl (12.0-16.0); Imm Gran Abs Auto 0.03 X10*3/uL (0.00-0.03); Imm Gran Pct Auto 1.1 % (0.0-0.4); Lymphocytes Absolute Auto 0.5 X10*3/uL (1.2-4.9); Lymphocytes Percent Auto 17.2 % (20-40); Mean Corpuscular HGB Conc 32.8 g/dl (31.0-35.0); Mean Corpuscular Hemoglobin 27.9 pg (27.0-33.0); Mean Corpuscular Volume 84.9 fL (80.0-98.0); Monocytes Absolute Auto 0.2 X10*3/uL (0.1-1.2); Monocytes Percent Auto 6.5 % (2-11); NRBC Pct Auto 0.8 /100WBC (0.0-0.2); Neutrophils Percent Auto 75.2 % (45-73); Platelet Count 53 X10*3/uL (160-400); Red Blood Count 3.98 X10*6/uL (4.20-5.50); Red Cell Distribution Width 20.1 % (11.0-16.0); White Blood Count 2.6 X10*3/uL (4.8-10.8)
[2021-04-13] MEDS: 0.9 % Sodium Chloride 1,000 ML 999 ML IV (17:05)
[2021-04-13 17:06] LABS: INTERNATIONAL NORM RATIO 1.2 (0.9-1.1); Prothrombin Time 13.2 SEC (9.9-13.0)
[2021-04-13] MEDS: Pantoprazole Sodium 40 MG/10 ML VIAL 80 MG IVPUSH (17:06)
[2021-04-13] MEDS: LORazepam 2 MG/ML VIAL 1 MG IVPUSH (17:06)
[2021-04-13] MEDS: ondansetron HCL 4 MG/2 ML VIAL IVPUSH (17:06)
[2021-04-13 17:09] LABS: Partial Thromboplastin Time 32.1 SEC (24.1-38.0)
[2021-04-13 17:19] LABS: Alanine Aminotransferase 216 U/L (0-31); Albumin Level 3.2 g/dL (3.5-5.0); Alkaline Phosphatase 514 U/L (39-117); Anion Gap 23 (12-20); Aspartate Amino Transferase 807 U/L (5-31); Bilirubin Total 2.3 mg/dL (0.0-1.0); Blood Urea Nitrogen 10 mg/dL (9-16); Calcium 7.8 mg/dL (8.4-10.2); Carbon Dioxide 20 mmol/L (22-29); Chloride 99 mmol/L (96-108); Estimated Glomerular Filt Rate > 60; Glucose Random 169 mg/dL (60-115); Lipase 32 U/L (8-78); Magnesium 1.2 mg/dL (1.6-2.6); Sodium 139 mmol/L (135-145)
--- NOTE | 2021-04-13 17:21 | HO.ANESPROP2 ---
[facility] Active Problems Active Problems: All Active Problems (Updated 03/05/21 @ 11:03 by Anthony Loredo PA-C) Sprain of ligament of right ankle (Acute) Alcohol abuse (Acute) Conjunctivitis (Acute) Anxiety disorder (Acute) Alcoholic cirrhosis of liver (Acute) Esophageal varices in alcoholic cirrhosis (Acute) Portopulmonary hypertension (Acute) Right heart failure due to pulmonary hypertension (Acute) Pulmonary hypertensive arterial disease associated with portal hypertension (Acute) Enlarged RV (right ventricle) (Acute) Nonrheumatic tricuspid (valve) insufficiency (Acute) Cirrhosis (Acute) Past Medical History Medical History Alcohol abuse Alcoholic cirrhosis of liver Anemia Anxiety disorder Esophageal varices in alcoholic cirrhosis Nonrheumatic tricuspid (valve) insufficiency Portopulmonary hypertension Pulmonary hypertensive arterial disease associated with portal hypertension Functional capacity: independent ambulation Patient : No Family History Family History Father HTN (hypertension) Mother HTN (hypertension) Family history of problems with anesthesia: No Surgical History Surgical History Hx of cardiac cath History of Problems with Anesthesia: No Social History Social History Household Members: Family Housing: House Do you presently have visiting nurse or other home services: No Alcohol intake: former Patient Tobacco Use Status: Current someday Tobacco user Tobacco use type: Cigarette Cigarette Packs Per Day: 1 Cigarettes Per Day: 3 Years Smoked: 30 years Advance Directives: Yes Advance Directives on File: Yes Advance Directives Date on File: 01/30/20 service: No Current occupational status: employed Meds Allergies Allergy/AdvReac Type Severity Reaction Status Date / Time No Known Allergies Allergy Verified 03/05/21 13:29 [No Known Allergies*] Active Medications: Current Medications Sodium Chloride (Ns) 1,000 mls @ 999 mls/hr IV .Q1H1M ONE Stop: 04/13/21 17:38 Last Admin: 04/13/21 17:05 Dose: 999 mls/hr Documented by: Pantoprazole Sodium 80 mg/ (Sodium Chloride) 100 mls @ 10 mls/hr IV .Q10H HARPREET Home Medications Medication Instructions Recorded Confirmed Last Taken Type nadolol 20 mg tablet 20 mg PO DAILY 01/30/20 03/05/21 01/30/20 History bumetanide 1 mg tablet 2 mg PO DAILY tab 02/15/21 03/05/21 Unknown History Exam Exam Date and Time: April 13, 2021 1721 Pertinent Lab Results Pertinent Lab Results: Laboratory Tests 04/13/21 04/13/21 04/13/21 16:51 16:51 16:51 WBC 2.6 L RBC 3.98 L Hgb 11.1 L Hct 33.8 L MCV 84.9 MCH 27.9 MCHC 32.8 RDW 20.1 H Plt Count 53 L D MPV TNP Immature Gran % (Auto) 1.1 H Neut % (Auto) 75.2 H Lymph % (Auto) 17.2 L Garrett % (Auto) 6.5 Eos % (Auto) 0.0 Baso % (Auto) 0.0 Lymph # (Auto) 0.5 L Garrett # (Auto) 0.2 Eos # (Auto) 0.0 Baso # (Auto) 0.0 Abs Immat Gran (auto) 0.03 Absolute Neuts (auto) 2.0 Absolute Nucleated RBC 0.020 H Nucleated RBC % (auto) 0.8 H PT 13.2 H INR 1.2 H APTT 32.1 Sodium Potassium Chloride Carbon Dioxide Anion Gap BUN Creatinine Estim Creat Clear Calc Estimated GFR Random Glucose Calcium Magnesium Total Bilirubin AST ALT Alkaline Phosphatase Total Protein Albumin Lipase 04/13/21 16:51 WBC RBC Hgb Hct MCV MCH MCHC RDW Plt Count MPV Immature Gran % (Auto) Neut % (Auto) Lymph % (Auto) Garrett % (Auto) Eos % (Auto) Baso % (Auto) Lymph # (Auto) Garrett # (Auto) Eos # (Auto) Baso # (Auto) Abs Immat Gran (auto) Absolute Neuts (auto) Absolute Nucleated RBC Nucleated RBC % (auto) PT INR APTT Sodium 139 Potassium 3.0 L D Chloride 99 Carbon Dioxide 20 L Anion Gap 23 H BUN 10 Creatinine 0.56 Estim Creat Clear Calc TNP Estimated GFR > 60 Random Glucose 169 H Calcium 7.8 L D Magnesium 1.2 L* Total Bilirubin 2.3 H AST 807 H ALT 216 H Alkaline Phosphatase 514 H D Total Protein 7.0 Albumin 3.2 L Lipase 32 Assessment and Plan Final Anesthetic Review Family History of Problems with Anesthesia: No History of Problems with Anesthesia: No
[2021-04-13 17:26] LABS: COVID-19 Test Negative (Negative)
[2021-04-13] MEDS: Pantoprazole Sodium 80 MG in 0.9 % Sodium Chloride 80 ML 10 MG IV (17:43)
--- NOTE | 2021-04-13 17:47 | MHC.SHP ---
Pre-Procedural Eval Section A Date of Service: 04/13/21 The patient is an INPATIENT: Yes Changes since office visit: No Cold of Flu in the past 2 weeks, No New Medical Problems, No Changes in Medication and No Patient answered all questions The History & Physical has been completed within 30 days and I have reviewed it.: Yes Section B Chief Complaint: Vomiting blood Allergies: Allergies Allergy/AdvReac Type Severity Reaction Status Date / Time No Known Allergies Allergy Verified 03/05/21 13:29 [No Known Allergies*] Plan I have reviewed the history and physical and performed a pertinent physical examination on my patient. No changes have occurred unless specified.
[2021-04-13] MEDS: Magnesium Sulfate/H2O 2 GM/50 ML PIGGYBACK IV (18:01)
[2021-04-13] MEDS: Potassium Chloride/H20 10 MEQ/100 ML PIGGYBACK 100 MEQ IV ×2 (18:01→22:54)
--- NOTE | 2021-04-13 18:51 | P.CONAN_ITS ---
[facility] Active Problems Active Problems: All Active Problems (Updated 04/13/21 @ 17:50 by Raúl Freedman MD) Acute upper gastrointestinal bleeding (Acute) Sprain of ligament of right ankle (Acute) Alcohol abuse (Acute) Conjunctivitis (Acute) Anxiety disorder (Acute) Alcoholic cirrhosis of liver (Acute) Esophageal varices in alcoholic cirrhosis (Acute) Portopulmonary hypertension (Acute) Right heart failure due to pulmonary hypertension (Acute) Pulmonary hypertensive arterial disease associated with portal hypertension (Acute) Enlarged RV (right ventricle) (Acute) Nonrheumatic tricuspid (valve) insufficiency (Acute) Cirrhosis (Acute) Past Medical History Medical History Alcohol abuse Alcoholic cirrhosis of liver Anemia Anxiety disorder Esophageal varices in alcoholic cirrhosis Nonrheumatic tricuspid (valve) insufficiency Portopulmonary hypertension Pulmonary hypertensive arterial disease associated with portal hypertension Functional capacity: independent ambulation Patient : No Family History Family History Father HTN (hypertension) Mother HTN (hypertension) Family history of problems with anesthesia: No Surgical History Surgical History Hx of cardiac cath History of Problems with Anesthesia: No Social History Social History Household Members: Family Housing: House Do you presently have visiting nurse or other home services: No Alcohol intake: former Patient Tobacco Use Status: Current someday Tobacco user Tobacco use type: Cigarette Cigarette Packs Per Day: 1 Cigarettes Per Day: 3 Years Smoked: 30 years Advance Directives: Yes Advance Directives on File: Yes Advance Directives Date on File: 01/30/20 Patient : No service: No Current occupational status: employed Meds Allergies Allergy/AdvReac Type Severity Reaction Status Date / Time No Known Allergies Allergy Verified 03/05/21 13:29 [No Known Allergies*] Active Medications: Current Medications Pantoprazole Sodium 80 mg/ (Sodium Chloride) 100 mls @ 10 mls/hr IV .Q10H HARPREET Last Admin: 04/13/21 17:43 Dose: 8 mg/hr, 10 mls/hr Documented by: Potassium Chloride () 10 meq in 100 mls @ 100 mls/hr IV Q1H HARPREET Stop: 04/13/21 19:29 Last Admin: 04/13/21 18:01 Dose: 100 mls/hr Documented by: Home Medications Medication Instructions Recorded Confirmed Last Taken Type nadolol 20 mg 20 mg PO DAILY 01/30/20 03/05/21 01/30/20 History tablet bumetanide 1 mg 2 mg PO DAILY 02/15/21 03/05/21 Unknown History tablet tab Exam Exam Date and Time: April 13, 2021 185 Pertinent Lab Results Pertinent Lab Results: Laboratory Tests 04/13/21 04/13/21 04/13/21 16:51 16:51 16:51 WBC 2.6 L RBC 3.98 L Hgb 11.1 L Hct 33.8 L MCV 84.9 MCH 27.9 MCHC 32.8 RDW 20.1 H Plt Count 53 L D MPV TNP Immature Gran % (Auto) 1.1 H Neut % (Auto) 75.2 H Lymph % (Auto) 17.2 L [place] % (Auto) 6.5 Eos % (Auto) 0.0 Baso % (Auto) 0.0 Lymph # (Auto) 0.5 L [place] # (Auto) 0.2 Eos # (Auto) 0.0 Baso # (Auto) 0.0 Abs Immat Gran (auto) 0.03 Absolute Neuts (auto) 2.0 Absolute Nucleated RBC 0.020 H Nucleated RBC % (auto) 0.8 H PT 13.2 H INR 1.2 H APTT 32.1 Sodium Potassium Chloride Carbon Dioxide Anion Gap BUN Creatinine Estim Creat Clear Calc Estimated GFR Random Glucose Calcium Magnesium Total Bilirubin AST ALT Alkaline Phosphatase Total Protein Albumin Lipase COVID-19 (KATLIN) COVID-19 Clin Com Blood Type Antibody Screen Crossmatch 04/13/21 04/13/21 04/13/21 16:51 17:04 17:04 WBC RBC Hgb Hct MCV MCH MCHC RDW Plt Count MPV Immature Gran % (Auto) Neut % (Auto) Lymph % (Auto) [place] % (Auto) Eos % (Auto) Baso % (Auto) Lymph # (Auto) [place] # (Auto) Eos # (Auto) Baso # (Auto) Abs Immat Gran (auto) Absolute Neuts (auto) Absolute Nucleated RBC Nucleated RBC % (auto) PT INR APTT Sodium 139 Potassium 3.0 L D Chloride 99 Carbon Dioxide 20 L Anion Gap 23 H BUN 10 Creatinine 0.56 Estim Creat Clear Calc TNP Estimated GFR > 60 Random Glucose 169 H Calcium 7.8 L D Magnesium 1.2 L* Total Bilirubin 2.3 H AST 807 H ALT 216 H Alkaline Phosphatase 514 H D Total Protein 7.0 Albumin 3.2 L Lipase 32 COVID-19 (KATLIN) Negative COVID-19 Clin Com See Note Blood Type A Positive Antibody Screen NEGATIVE Crossmatch See Detail Airway Mallampati Class: III TM Dist: >3cm Neck ROM: Full Heart: tachycardic Lungs: CTA Assessment and Plan Final Anesthetic Review Family History of Problems with Anesthesia: No History of Problems with Anesthesia: No ASA Class: III and Emergency Final Preanesthetic Review: Meds/Allgs Chart Reviewed, Consent Obtained/Reviewed and Anes Risks/Benef Reviewed Patient Risk: High Procedure Risk: Low Anesthetic Plan Anesthetic Plan: GA Disposition: Standard PACU
--- NOTE | 2021-04-13 18:58 | PC.NURSE ---
pt taken to or for endo at 1601
--- NOTE | 2021-04-13 19:21 | P.BOP_ITS ---
Brief Operative Note Date of Service: 04/13/21 Pre-op diagnosis: UGIB Procedure: EGD with banding of esophageal varices Surgeon: Krishna Elizondo Anesthesia: GETA Was an Boat Motor Mechanic used for this Procedure?: No Estimated blood loss (mL): 0 Pathology: none sent Condition: stable Disposition: PACU
--- NOTE | 2021-04-13 19:24 | PM.EVENT ---
Event Note Date of Service: 04/13/21 Event Note: GI EGD note dictated 4 chains of grade 2-3 esophageal varices with SRH but no active bleeding, banded x6. old blood and clot in stomach, PHG without bleeding but no gastric varices nl duodenum rec: octreotide x 48-72 hrs iv ppi pantoprazole 40 mg bid, doesn't need cont. infusion. clear liquids ok for now. US abdomen tomorrow for f/u of elevated lfts. blood products as her clinical course dictates.
[2021-04-13 21:17] LABS: Imm Gran Abs Auto 0.02 X10*3/uL (0.00-0.03); Imm Gran Pct Auto 0.6 % (0.0-0.4); Lymphocytes Absolute Auto 0.4 X10*3/uL (1.2-4.9); MANUAL DIFF FLAG SCAN; SCAN SMEAR FLAG 1
[2021-04-13 21:19] LABS: Hemoglobin 9.7 g/dl (12.0-16.0); Lymphocytes Percent Auto 11.4 % (20-40); Mean Corpuscular HGB Conc 32.3 g/dl (31.0-35.0); Mean Corpuscular Hemoglobin 27.7 pg (27.0-33.0); Mean Corpuscular Volume 85.7 fL (80.0-98.0); Monocytes Absolute Auto 0.2 X10*3/uL (0.1-1.2); Monocytes Percent Auto 6.2 % (2-11); Neutrophils Absolute Auto 2.5 x10*3/uL (2.0-8.3); Neutrophils Percent Auto 81.8 % (45-73); Red Cell Distribution Width 20.2 % (11.0-16.0); White Blood Count 3.1 X10*3/uL (4.8-10.8)
[2021-04-13 21:20] LABS: PLT ABN DIST 1; Platelet Count 52 X10*3/uL (160-400)
[2021-04-13 21:25] LABS: INTERNATIONAL NORM RATIO 1.2 (0.9-1.1); Prothrombin Time 13.3 SEC (9.9-13.0)
[2021-04-13] MEDS: Metoprolol Tartrate 5 MG/5 ML VIAL 2.5 MG IVPUSH (21:26)
[2021-04-13 21:28] LABS: Partial Thromboplastin Time 31.9 SEC (24.1-38.0)
[2021-04-13] MEDS: Thiamine HCL 100 MG in 0.9 % Sodium Chloride 100 ML 202 MG IV (21:31)
[2021-04-13] MEDS: LORazepam 2 MG/ML VIAL 0.5 MG IVPUSH (21:34)
[2021-04-13 21:35] LABS: SLIDE REVIEW VERIFIED
[2021-04-13 21:36] LABS: Alanine Aminotransferase 215 U/L (0-31); Albumin Level 2.9 g/dL (3.5-5.0); Alkaline Phosphatase 461 U/L (39-117); Anion Gap 21 (12-20); Aspartate Amino Transferase 788 U/L (5-31); Bilirubin Total 2.9 mg/dL (0.0-1.0); Blood Urea Nitrogen 13 mg/dL (9-16); Calcium 7.4 mg/dL (8.4-10.2); Carbon Dioxide 22 mmol/L (22-29); Chloride 102 mmol/L (96-108); Estimated Glomerular Filt Rate > 60; Glucose Random 177 mg/dL (60-115); Sodium 142 mmol/L (135-145); Total Protein 6.4 g/dL (6.5-8.0)
--- NOTE | 2021-04-13 23:28 | P.HPCC_ITS ---
History of Present Illness Date of Service: 04/13/21 Attending physician on admission: Cornel Lerner Chief Complaint: Status post endoscopy for reported GI bleed HPI: ?50-year-old female with underlying history of alcohol abuse who states had been sober for several months but recurred on drinking and drinks about a pt of vodka daily, last drink being about 24 hours ago, history of variceal bleeding in 2018 status post banding, history of right-sided heart failure with associated pulmonary hypertension and tricuspid valve regurgitation, presents to us after having an endoscopy due to hematemesis times 3 large amounts prior to arrival to the emergency room.? At the time the patient was hemodynamically stable however her heart rate was 123 otherwise a blood pressure was normal.? No witness bleeding was noted in the ER.? Given her history, GI was consulted and Dr. Elizondo to the patient for upper endoscopy which revealed EGD revealed 4 changes of grade 2-3 esophageal viruses with S are age but no active bleeding, banded x6.? Old blood and clot in the stomach, pH EG without bleeding but no gastric varices.? Normal duodenum.? The workup in the emergency room revealed white count 2.6 an H&H of 11.1 and 33.8 respectively with platelet count of 52,000, INR 1.2, potassium 3.0, creatinine 0.57, AST of 807, ALT of 215, albumin 2.9, COVID negative. ROS:? Denies headache, no visual changes, lightheadedness or dizziness, no history of seizures or strokes, no history of eye or ear problems, no sore throat, cough or sputum production, denies shortness of breath, denies chest pain, palpitations, no coronary disease, pulmonary disease, no hemoptysis, denies kidney problems, no dysuria, hematuria, no leg swelling, no history of DV T or PE.? She has no travel and has not been contact with anybody with? COVID.? All other review of systems negative. Past Medical History:? As above Past Surgical History: ? Right arm tendon surgery Endoscopy with esophageal varices banding Family history: Non Contributory Social History: drinks alcohol as above stated, random smoker, denies drugs. CODE STATUS: FULL CODE Allergies: NKDA Home Medications: See Med Rec PHYSICAL EXAM: VS: ?134/82, heart rate 120, respirations 18, O2 sat 99% on 2 L nasal cannula, temperature 98.5?. General:? Alert oriented x3 no acute distress.? Speaking full sentences.? Speech is well articulated, thought process is coherent.? Following all commands. Skin:? Intact, no lesions, edema, erythema, clubbing or cyanosis.? No ulcers. HEENT:? Head is normocephalic, atraumatic, pupils equal round reactive to light accommodation bilaterally.? Slightly icteric eyes, Extraocular movements appear intact.? Buccal mucosa is moist, Neck is supple without lymphadenopathy. Cardiac:? Clear S1-S2, no murmurs rubs or gallops. Pulmonary:? Clear to auscultation, no wheezes, rales or rhonchi. Abdomen:? Protuberant, positive bowel sounds in all 4 quadrants.? Soft, nontender, no rebound or guarding.? No caput medusa noted. Musculoskeletal:? Moving all 4 extremities upon request a major joints, there is no crepitus or tenderness.? The strength is 5/5 bilaterally and throughout all 4 extremities.? There is no leg edema , no calf tenderness , no leg asymmetry.? Gait not assessed at this point. Neurologic:? As above, cranial nerves 2-12 are grossly intact.? No focal deficits noted. Motor strength as above.? Vascular:? 2+ pulses upper and lower extremities distally. SIGNIFICANT LABORATORY DATA: as above REVIEW OF IMAGES: US ABDOMEN IMPRESSION: Cirrhotic liver morphology with hepatomegaly. Ultrasound have decreased sensitivity for the detection of focal liver lesions in the setting of cirrhosis, and further correlation with a CT or MR of the abdomen could be obtained for evaluation of HCC or other focal liver abnormalities. ? Cholelithiasis. No sonographic evidence of acute cholecystitis. EKG REVIEW: ?Sinus tachycardia 117 beats per minute; no ST elevations or depressions.? QTC 569.? No comparison available. ? ASSESSMENT AND PLAN: 1. Reported hematemesis without active GI bleed 2. History of esophageal varices 3. Pancytopenia due to alcohol abuse 4. Normocytic anemia likely of chronic disease 5. Acute hypokalemia 6. History of alcohol abuse without signs of acute withdrawal 7. Alcoholic liver cirrhosis and transaminitis 8. Hypoalbuminemia After EGD patient was transferred to the ICU for observation which was recommended for about 8 hours after the procedure, will repeat laboratories and monitor H&H closely, repeat coagulation profile, the patient did receive 1 pack of platelets.? Thus recommended by Dr. Elizondo, the patient will be placed on of 2 tried drip for 48-72 hours along with IV PPI b.i.d., for now I am p.o. but could resume p.o. medications tomorrow, she will need thiamine, folic acid, multivitamin.? Gentle IV fluids or oral hydration as the patient does have a history of CHF. Will replete potassium and check magnesium and phosphorus as the patient is likely to suffer from refeeding syndrome. She did have an ultrasound with the above-mentioned findings, the patient may or may not need CT versus MR of the abdomen, we should discuss this with the purse framer again. If the patient is stable in the morning, will transfer her to a regular floor. GI PROPHYLAXIS:? As above DVT PROPHYLAXIS:? Pneumatic stockings only Critical care time used for critical evaluation of this patient, diagnosis, treatment and coordination of care, review her records and documentation TOTAL CRITICAL CARE TIME 60 MIN . Patient's care was discussed in detail with Dr. Lerner.? He is aware of all the above as well as the plan of care for this patient. [facility] Past Medical History Medical History Alcohol abuse Alcoholic cirrhosis of liver Anemia Anxiety disorder Esophageal varices in alcoholic cirrhosis Nonrheumatic tricuspid (valve) insufficiency Portopulmonary hypertension Pulmonary hypertensive arterial disease associated with portal hypertension Functional capacity: independent ambulation Family History Family History Father HTN (hypertension) Mother HTN (hypertension) Surgical History Surgical History Hx of cardiac cath Social History Social History Household Members: Family Housing: House Do you presently have visiting nurse or other home services: No Alcohol intake: former Patient Tobacco Use Status: Current someday Tobacco user Tobacco use type: Cigarette Cigarette Packs Per Day: 1 Cigarettes Per Day: 3 Years Smoked: 30 years Currently Displaying Signs/Symptoms of Drug Intoxication Withdrawal: No Advance Directives: Yes Advance Directives on File: Yes Advance Directives Date on File: 01/30/20 Patient : No service: No Current occupational status: employed Meds Allergies Allergy/AdvReac Type Severity Reaction Status Date / Time No Known Allergies Allergy Verified 03/05/21 13:29 [No Known Allergies*] Active Medications: Current Medications Fentanyl (Fentanyl Citrate/Pf 100 Mcg/2 Ml Vial) 25 mcg IVPUSH Q5M PRN; Protocol PRN Reason: Pain, Moderate (Pain Scale 4-6 Fentanyl (Fentanyl Citrate/Pf 100 Mcg/2 Ml Vial) 25 mcg IVPUSH Q5M PRN; Protocol PRN Reason: Pain, Moderate (Pain Scale 4-6 Pantoprazole Sodium 80 mg/ (Sodium Chloride) 100 mls @ 10 mls/hr IV .Q10H HARPREET Last Admin: 04/13/21 17:43 Dose: 8 mg/hr, 10 mls/hr Documented by: Home Medications Medication Instructions Recorded Confirmed Last Taken Type nadolol 20 mg 20 mg PO DAILY 01/30/20 04/13/21 01/30/20 History tablet bumetanide 1 mg 2 mg PO DAILY 02/15/21 04/13/21 Unknown History tablet tab Physical Exam Verdana 4l Vital Signs: Verdana 4d Verdana 4d Vital Signs: Verdana 4d Verdana 4Bd Last Vital Signs Verdana 4d Patient Services Coordinator New 4d Patient Services Coordinator New 4d Temp 98.5 F 04/13/21 21:16 Patient Services Coordinator New 4d Pulse 118 H 04/13/21 22:00 Patient Services Coordinator New 4d Resp 28 H 04/13/21 22:00 BP 143/95 H 04/13/21 22:00 Pulse Ox 93 04/13/21 22:00 BMI result Body Mass Index 29.3 Results Labs CBC and Chem 7: 04/14/21 20:15 04/14/21 05:16 Labs: Laboratory Results - last 24 hr 04/13/21 04/13/21 04/13/21 16:51 16:51 16:51 Hgb 11.1 L Hct 33.8 L MCV 84.9 MCH 27.9 MCHC 32.8 RDW 20.1 H Plt Count 53 L D MPV TNP Immature Gran % (Auto) 1.1 H Neut % (Auto) 75.2 H Lymph % (Auto) 17.2 L [place] % (Auto) 6.5 Eos % (Auto) 0.0 Baso % (Auto) 0.0 Lymph # (Auto) 0.5 L [place] # (Auto) 0.2 Eos # (Auto) 0.0 Baso # (Auto) 0.0 Abs Immat Gran (auto) 0.03 Absolute Neuts (auto) 2.0 Absolute Nucleated RBC 0.020 H Nucleated RBC % (auto) 0.8 H Smear Tech's Comments PT 13.2 H INR 1.2 H APTT 32.1 Anion Gap Estim Creat Clear Calc Estimated GFR Random Glucose Calcium Magnesium Total Bilirubin AST ALT Alkaline Phosphatase Total Protein Albumin Lipase COVID-19 (KATLIN) COVID-19 Clin Com Blood Type Antibody Screen Crossmatch 04/13/21 04/13/21 04/13/21 16:51 17:04 17:04 Hgb Hct MCV MCH MCHC RDW Plt Count MPV Immature Gran % (Auto) Neut % (Auto) Lymph % (Auto) [place] % (Auto) Eos % (Auto) Baso % (Auto) Lymph # (Auto) [place] # (Auto) Eos # (Auto) Baso # (Auto) Abs Immat Gran (auto) Absolute Neuts (auto) Absolute Nucleated RBC Nucleated RBC % (auto) Smear Tech's Comments PT INR APTT Anion Gap 23 H Estim Creat Clear Calc TNP Estimated GFR > 60 Random Glucose 169 H Calcium 7.8 L D Magnesium 1.2 L* Total Bilirubin 2.3 H AST 807 H ALT 216 H Alkaline Phosphatase 514 H D Total Protein 7.0 Albumin 3.2 L Lipase 32 COVID-19 (KATLIN) Negative COVID-19 Clin Com See Note Blood Type A Positive Antibody Screen NEGATIVE Crossmatch See Detail 04/13/21 04/13/21 04/13/21 21:10 21:10 21:10 Hgb 9.7 L Hct 30.0 L MCV 85.7 MCH 27.7 MCHC 32.3 RDW 20.2 H Plt Count 52 L MPV TNP Immature Gran % (Auto) 0.6 H Neut % (Auto) 81.8 H Lymph % (Auto) 11.4 L [place] % (Auto) 6.2 Eos % (Auto) 0.0 Baso % (Auto) 0.0 Lymph # (Auto) 0.4 L [place] # (Auto) 0.2 Eos # (Auto) 0.0 Baso # (Auto) 0.0 Abs Immat Gran (auto) 0.02 Absolute Neuts (auto) 2.5 Absolute Nucleated RBC 0.000 Nucleated RBC % (auto) 0.0 Smear Tech's Comments VERIFIED PT 13.3 H INR 1.2 H APTT 31.9 Anion Gap 21 H Estim Creat Clear Calc TNP Estimated GFR > 60 Random Glucose 177 H Calcium 7.4 L Magnesium Total Bilirubin 2.9 H AST 788 H ALT 215 H Alkaline Phosphatase 461 H Total Protein 6.4 L Albumin 2.9 L Lipase COVID-19 (KATLIN) COVID-19 Clin Com Blood Type Antibody Screen Crossmatch Imaging Radiologist's Impressions: Impressions Abdomen Ultrasound 04/13/21 22:25 IMPRESSION: Cirrhotic liver morphology with hepatomegaly. Ultrasound have decreased sensitivity for the detection of focal liver lesions in the setting of cirrhosis, and further correlation with a CT or MR of the abdomen could be obtained for evaluation of HCC or other focal liver abnormalities. Cholelithiasis. No sonographic evidence of acute cholecystitis.
[2021-04-13 23:50] LABS: Magnesium 1.7 mg/dL (1.6-2.6); Phosphorus 4.4 mg/dL (2.7-4.5)
[2021-04-13] MEDS: Octreotide Acetate 500 MCG in 0.9 % Sodium Chloride 500 ML 50.1 MCG IVCONT (23:59)
[2021-04-14] VITALS (34 sets, daily range): BP systolic 92–133; BP diastolic 60–92; PULSE 24–117; RESP 16–27; TEMP 36.5–37.2; O2SAT 90–100
[2021-04-14] MEDS: Potassium Chloride/H20 40 MEQ/100 ML PIGGYBACK 25 MEQ IV (00:04)
--- NOTE | 2021-04-14 00:26 | PC.NURSE ---
CARE ASSUMED 23:15...AWAKE...ALERT..ORIENTED X3...REMAINS ANXIOUS...ICU PA AWARE...OOB TO BEDSIDE COMMODE..PASSED 2 LIQUIED BLACK STOOLS...DENIES NAUSEA...PROTONIX DRIP 8 MG/HR AT HS...DRIP D/C'D AND CHANDED TO IVP BID...STARTED SANDOSTATIN 50 MCG/HR...KCL 40 MEQ IV INFUSING OVER 4 HOURS PER MAR..SINUS TACH HR 100'S-110'S..BP STABLE
[2021-04-14] MEDS: Melatonin 3 MG TABLET 6 MG PO (02:00)
--- NOTE | 2021-04-14 02:52 | CONS_ITS ---
DATE OF SERVICE: 04/13/2021 REFERRING PHYSICIAN: Hermelindo Jones MD REASON FOR CONSULTATION: Hematemesis. HISTORY OF PRESENT ILLNESS: The patient is a pleasant 50-year-old woman who presented to the emergency room today with complaints of hematemesis. She has a history of alcohol abuse with complications including esophageal varices and ascites and has previously undergone upper endoscopy with variceal banding. Her last endoscopy was in December 2018 with nonbleeding varices. She was banded in 2018. Followup endoscopy after that showed nonbleeding varices. She has had intermittent periods of sobriety and resumed drinking approximately 2 months ago, stating a pint of alcohol on a daily basis. She had been nauseous over the past week with general malaise, fatigue, and some low-grade fevers and took a home COVID test, which was negative. Today, she reports being nauseous in the morning and beginning later this morning, developed nausea with vomiting and vomited approximately 2 emesis bag fulls of dark red blood, which became bright red in color. She has had black diarrhea today as well. She presented to the emergency room where she also reportedly vomited about 250 cc of bloody material. In the emergency department, she had stable blood pressure and was tachycardic to 122. Lab work was obtained showing a hematocrit of 33.8, down from her previous hematocrit of 37.5 on February 24. She was given IV Protonix and fluids. Other chemistries have shown elevation of her liver function tests and some hypokalemia as well as hypomagnesemia, which are being repleted. Her platelet count on initial evaluation was low at 53. She has had thrombocytopenia in the past. Her coagulation studies showed an INR of 1.2. She reports no recent history of substance use other than alcohol. She states that she has been compliant with her medication therapy. She denies recent use of acetaminophen. PAST MEDICAL HISTORY: 1. Alcohol abuse with alcoholic hepatitis, variceal bleeding, and ascites. 2. Right-sided heart failure with pulmonary hypertension and tricuspid valve regurgitation. 3. History of C diff infection. 4. Gallstones. 5. Remote history of bulimia. 6. Hypertension. CURRENT MEDICATIONS: Her current medication list is reviewed in the chart. She has not been taking NSAIDs and states compliance with her prescribed medications. ALLERGIES: THERE ARE NONE REPORTED. FAMILY HISTORY: This is reviewed with the patient and is noncontributory. SOCIAL HISTORY: She does have a history of tobacco use in the past, but not recently. Alcohol use is a pint a day with her last drink being yesterday. REVIEW OF SYSTEMS: SKIN: No pruritus. HEENT: Negative. CARDIOPULMONARY: No shortness of breath or chest pain. GASTROINTESTINAL: As above. GENITOURINARY: Negative. NEUROPSYCHIATRIC: Negative. PHYSICAL EXAMINATION: GENERAL: Shows a pleasant female. VITAL SIGNS: Reviewed in electronic medical record. SKIN: Pale. HEENT: Shows no scleral icterus. NECK: Without lymphadenopathy or thyromegaly. CHEST: Chest wall shows a few spider angioma. LUNGS: Clear with decreased breath sounds. HEART: Shows a regular rate and rhythm. S1, S2. No murmur. ABDOMEN: Soft without focal masses. There does not appear to be any ascites. There is no tenderness. EXTREMITIES: Show trace edema. Green erythema is present LABORATORY DATA: Reviewed. COVID-19 testing is negative. IMPRESSION: 1. Upper gastrointestinal bleeding. 2. Alcohol abuse with elevated liver function tests. We discussed the differential diagnosis for her upper GI bleeding, which includes varices, portal hypertensive gastropathy, peptic ulcer disease, MW tear, and erosive esophagitis. I have recommended upper endoscopy done acutely tonight. I have discussed risks and benefits of the procedure with her. She understands and agrees to proceed. With respect to her liver function tests, these are elevated significantly more than would normally be expected with alcoholic hepatitis alone. It is possible her recent flu-like symptoms in the past week could have caused an atypical viral hepatitis. She denies substance ingestion. I would recommend monitoring these and obtaining ultrasound imaging for further evaluation. Thank you for asking me to see her. I will follow her in the hospital with you. MD JILLIAN Burns/CHARISSE / [id number] MANJINDER
--- NOTE | 2021-04-14 02:54 | PC.NURSE ---
Pt to ICU at 2030 in no acute distress. She was alert and oriented x3. Denied pain. She was anxious. Monitor showed ST, rate 110's-120's. Bp 129/93. Afebrile. Received Ativan 0.5 mg IV x1 with some effect. Pt OOB to bedside commode to void and to pass liquid dark brown/black stool. Labs drawn and reviewed by Moises PERALTA. New IV inserted left wrist and another right lower arm, Pt received platelet transfusion without ill effect. Also received metoprolol 2.5 mg iv for tachycardia which brought HR down to 100.
--- NOTE | 2021-04-14 04:13 | OP_ITS ---
SURGEON: Krishna Elizondo MD INDICATIONS: Upper GI bleeding. PREOPERATIVE DIAGNOSIS: POSTOPERATIVE DIAGNOSIS: PROCEDURE PERFORMED: Upper endoscopy with banding of esophageal varices. ESTIMATED BLOOD LOSS: COMPLICATIONS: ANESTHESIA: ASSISTANTS: SPECIMENS: MEDICATIONS: General anesthesia. PROCEDURE DESCRIPTION: A history and physical were performed. The risks and benefits of the procedure were explained to the patient and informed consent was obtained. The patient was placed in the left lateral decubitus position. The Olympus video gastroscope was introduced into the esophagus, stomach, and duodenum. Examination was performed and the scope was removed. She tolerated the procedure well and was returned to recovery room in stable condition. FINDINGS: Esophagus: The esophagus showed 4 chains of grade 2 to 3 varices extending from the EG junction at 42 cm up to about 30 cm. There was no active bleeding. However, several varices showed red kristy robison consistent with recent hemorrhage. Stomach: The stomach showed a large amount of liquid and clotted blood, approximately 1 L of liquid blood was suctioned from the patient. Simethicone was instilled to decrease foaming. A large amount of clot was present in the fundus, which limited the examination. No active site for bleeding was identified in the stomach. There were changes of portal hypertensive gastropathy. No gastric varices were identified on retroflexed view. Duodenum: The bulb and second portion showed no bleeding site. The endoscope was removed from the patient and the banding attachment was applied. A total of 6 bands were placed in good position over the distal esophagus with no active bleeding at the termination of the procedure. IMPRESSION: Upper gastrointestinal bleed, status post esophageal varices with banding. RECOMMENDATIONS: 1. Continue proton pump inhibitor. 2. Octreotide infusion for 48 hours minimum. 3. Clear liquids as tolerated. 4. Monitor hematocrit and transfuse as needed. MD JILLIAN Burns/CHARISSE / [id number]
[2021-04-14] MEDS: Albumin Human 25 % 100 ML IV ×2 (05:41→06:40)
[2021-04-14] MEDS: Pantoprazole Sodium 40 MG/10 ML VIAL IVPUSH ×2 (05:41→17:42)
[2021-04-14 05:43] LABS: Imm Gran Abs Auto 0.01 X10*3/uL (0.00-0.03); PLT ABN DIST 1; SCAN SMEAR FLAG 1
[2021-04-14 05:45] LABS: Hematocrit 25.7 % (37.0-47.0); Hemoglobin 8.1 g/dl (12.0-16.0); Imm Gran Pct Auto 0.9 % (0.0-0.4); Lymphocytes Absolute Auto 0.2 X10*3/uL (1.2-4.9); Lymphocytes Percent Auto 19.7 % (20-40); MANUAL DIFF FLAG SCAN; Mean Corpuscular HGB Conc 31.5 g/dl (31.0-35.0); Mean Corpuscular Hemoglobin 27.4 pg (27.0-33.0); Mean Corpuscular Volume 86.8 fL (80.0-98.0); Monocytes Absolute Auto 0.2 X10*3/uL (0.1-1.2); Monocytes Percent Auto 12.8 % (2-11); NRBC Pct Auto 1.7 /100WBC (0.0-0.2); Neutrophils Absolute Auto 0.8 x10*3/uL (2.0-8.3); Neutrophils Percent Auto 66.6 % (45-73); Red Blood Count 2.96 X10*6/uL (4.20-5.50); Red Cell Distribution Width 20.1 % (11.0-16.0)
[2021-04-14 05:47] LABS: Platelet Count 21 X10*3/uL (160-400)
[2021-04-14 05:48] LABS: White Blood Count 1.2 X10*3/uL (4.8-10.8)
[2021-04-14 06:02] LABS: SLIDE REVIEW VERIFIED
[2021-04-14 06:15] LABS: Alanine Aminotransferase 193 U/L (0-31); Albumin Level 2.9 g/dL (3.5-5.0); Alkaline Phosphatase 381 U/L (39-117); Anion Gap 14 (12-20); Aspartate Amino Transferase 726 U/L (5-31); Blood Urea Nitrogen 14 mg/dL (9-16); Calcium 7.2 mg/dL (8.4-10.2); Carbon Dioxide 26 mmol/L (22-29); Chloride 98 mmol/L (96-108); Creatinine Clr Calc Pharmacy 121.2; Estimated Glomerular Filt Rate > 60; Glucose Random 266 mg/dL (60-115); Potassium 3.8 mmol/L (3.3-5.1); Sodium 134 mmol/L (135-145); Total Protein 6.1 g/dL (6.5-8.0)
--- NOTE | 2021-04-14 06:17 | PC.NURSE ---
CARE ASSUMED 23:15...AWAKE..ALERT..ORIENTED X3...INTERMITTANTLY ANXIOUS BUT CO-OPERATIVE...OOB MULTIPLE TIMES TO BEDSIDE COMMODE...PASSING LIQUIED BLACK STOOLS..ICU PA AWARE....PROTONIX DRIP D/C'D..CHANGED TO PROTONIX IVP BID..STARTED SANDOSTATIN 50 MCG/HR...KCL INFUSED PER MAR...ALBUMEN INFUSING PER MAR...TAKING CLEAR LIQUIEDS W/O DISTRESS...MELATONIN GIVEN FOR C/O INABILITY TO SLEEP..CURRENTLY DOZING..
--- NOTE | 2021-04-14 06:54 | HO.POSTANES ---
Post Anesthesia Evaluation Post Anesthesia Evaluation Vital Signs: Vital Signs Temp Pulse Resp BP Pulse Ox 04/14/21 05:56 90 24 H 110/70 100 04/14/21 05:00 99 F 107 H 27 H 110/70 97 04/14/21 04:00 106 H 23 H 112/74 99 04/14/21 03:00 98.6 F 108 H 24 H 107/70 96 04/14/21 02:00 108 H 24 H 131/86 90 L 04/14/21 00:55 117 H 23 H 133/92 H 92 04/14/21 00:00 24 L 24 H 133/92 H 96 04/13/21 23:00 100.4 F 107 H 21 H 143/95 H 97 04/13/21 22:00 118 H 28 H 143/95 H 93 04/13/21 21:30 104 H 24 H 134/82 98 04/13/21 21:16 98.5 F 120 H 18 134/82 04/13/21 21:02 98.7 F 120 H 24 H 129/93 H 04/13/21 21:00 118 H 32 H 129/93 H 92 04/13/21 20:49 98.9 F 121 H 29 H 95 04/13/21 20:30 118 H 20 132/80 95 04/13/21 20:15 97.4 F 123 H 20 125/83 94 04/13/21 20:00 127 H 124/80 94 04/13/21 19:50 120 H 22 H 142/97 H 94 04/13/21 19:45 126 H 21 H 133/80 97 04/13/21 19:40 122 H 22 H 130/78 97 04/13/21 19:35 128 H 20 133/84 96 04/13/21 19:30 97.0 F 120 H 24 H 137/82 93 04/13/21 19:10 97.4 F 121 H 22 H 95 Anesthesia: General Mental Status: Awake Pain Control: Satisfactory Nausea/Vomiting: None Hydration: Adequate Anesthesia-Related Issues: No Anes. Related Issues
[2021-04-14] MEDS: Multivitamin TABLET 1 TAB PO (08:51)
[2021-04-14] MEDS: Folic Acid 1 MG TABLET PO (08:51)
[2021-04-14] MEDS: Thiamine HCL 100 MG TABLET PO (08:51)
[2021-04-14] MEDS: Octreotide Acetate 500 MCG in 0.9 % Sodium Chloride 500 ML 50.1 MCG IVCONT ×2 (09:09→19:47)
--- NOTE | 2021-04-14 12:55 | P.PNGI_ITS ---
Subjective Subjective Date of Service: 04/14/21 Interval History: feels anxious no vomiting passing black stool Critical Care Time (minutes): 0 Physical Exam Verdana 4l Vital Signs: Verdana 4d Verdana 4d Vital Signs: Verdana 4d Verdana 4Bd Last Vital Signs Verdana 4d Epoxy Specialist New 4d Epoxy Specialist New 4d Temp 98.7 F 04/14/21 12:00 Epoxy Specialist New 4d Pulse 92 04/14/21 12:00 Epoxy Specialist New 4d Resp 24 H 04/14/21 12:00 BP 133/76 04/14/21 12:00 Pulse Ox 95 04/14/21 12:00 BMI result Body Mass Index 30.0 Const: Other: no acute distress Resp: Other: lungs are clear Cardio: Other: s1, s2 regular GI: Other: abdomen is soft and not tender Skin: Other: pale Extrem: Other: no asterixis or tremor Objective Data Labs CBC & Chem 7: 04/14/21 05:16 04/14/21 05:16 Procedures Date of Service Date of Service: 04/14/21 Progress Note: A&P Assessment and plan (1) Acute upper gastrointestinal bleeding: Status: Acute Assessment and Plan: appears to be doing reasonably well following EGD and banding for presumed variceal bleeding. vital signs are stable, and she has required 1 unit of prbcs for a drop in hct from 33 to 26. f/u hct is pending. she has received plts for significant thrombocytopenia. Rec: cont octreotide, follow hct supportive care. Fall Risk Details Current Medications: Current Medications Fentanyl (Fentanyl Citrate/Pf 100 Mcg/2 Ml Vial) 25 mcg IVPUSH Q5M PRN; Protocol PRN Reason: Pain, Moderate (Pain Scale 4-6 Fentanyl (Fentanyl Citrate/Pf 100 Mcg/2 Ml Vial) 25 mcg IVPUSH Q5M PRN; Protocol PRN Reason: Pain, Moderate (Pain Scale 4-6 Folic Acid (Folic Acid 1 Mg Tablet) 1 mg PO DAILY [facility] Last Admin: 04/14/21 08:51 Dose: 1 mg Documented by: Octreotide Acetate 500 mcg/ (Sodium Chloride) 501 mls @ 50.1 mls/hr IVCONT .Q10H [facility] Last Admin: 04/14/21 09:09 Dose: 50 mcg/hr, 50.1 mls/hr Documented by: Lorazepam (Lorazepam 0.5 Mg Tablet) 0.5 mg PO Q8H PRN PRN Reason: Anxiety Melatonin (Melatonin 3 Mg Tablet) 6 mg PO BEDTIME PRN PRN Reason: Sleep Last Admin: 04/14/21 02:00 Dose: 6 mg Documented by: Multivitamins/Vitamin C (Multivitamin Tablet) 1 tab PO DAILY [facility] Last Admin: 04/14/21 08:51 Dose: 1 tab Documented by: Pantoprazole Sodium (Pantoprazole Sodium 40 Mg/10 Ml Vial) 40 mg IVPUSH BID@0630,1630 [facility] Last Admin: 04/14/21 05:41 Dose: 40 mg Documented by: Thiamine HCl (Thiamine Hcl 100 Mg Tablet) 100 mg PO DAILY [facility] Last Admin: 04/14/21 08:51 Dose: 100 mg Documented by: Time Spent With Patient Time: Total time spent is greater than 50% in coordination of care (as documented) at patient's floor/unit and/or counseling patient: Time with patient: 15 - 24 minutes Quality Stroke Does the patient have a stroke diagnosis?: No VTE Prior VTE?: No VTE Risk Level:: Medical - low VTE Device Contraindication: N/A - Device Ordered VTE Drug Contraindication: Treatment Not Indicated
[2021-04-14] MEDS: PHENobarbitaL sodium 65 MG/ML VIAL 130 MG IVPUSH ×2 (13:24→16:29)
[2021-04-14 13:53] LABS: Hematocrit 26.2 % (37.0-47.0); Hemoglobin 8.3 g/dl (12.0-16.0); Mean Corpuscular HGB Conc 31.7 g/dl (31.0-35.0); Mean Corpuscular Hemoglobin 27.7 pg (27.0-33.0); Mean Corpuscular Volume 87.3 fL (80.0-98.0); Red Cell Distribution Width 19.4 % (11.0-16.0)
[2021-04-14 13:54] LABS: White Blood Count 1.5 X10*3/uL (4.8-10.8)
[2021-04-14 13:55] LABS: Platelet Count 19 X10*3/uL (160-400)
--- NOTE | 2021-04-14 15:31 | MHC.CM.PN ---
Met with pt briefly to discuss d/c planning; Pt states she is independent with ADL's, works, drives, has no services needs and will return to home when medically stable. Her dtr can transport or she will call a friend. CM to reapproach when pt is more conversant if needed for more detailed assessment information.
[2021-04-14 20:17] LABS: Cancel Lactic Acid Canceled
[2021-04-14 20:24] LABS: Hemoglobin 7.9 g/dl (12.0-16.0)
[2021-04-14 20:26] LABS: Hematocrit 24.3 % (37.0-47.0); Mean Corpuscular HGB Conc 32.5 g/dl (31.0-35.0); Mean Corpuscular Hemoglobin 28.1 pg (27.0-33.0); Mean Corpuscular Volume 86.5 fL (80.0-98.0); Red Blood Count 2.81 X10*6/uL (4.20-5.50); Red Cell Distribution Width 19.8 % (11.0-16.0)
[2021-04-14 20:31] LABS: INTERNATIONAL NORM RATIO 1.2 (0.9-1.1)
[2021-04-14 20:36] LABS: White Blood Count 1.2 X10*3/uL (4.8-10.8)
[2021-04-14 20:41] LABS: PLT ABN DIST 1; Platelet Count 17 X10*3/uL (160-400)
--- NOTE | 2021-04-14 22:59 | P.PNCC_ITS ---
Subjective Subjective Date of Service: 04/14/21 Interval History: 50-year-old female with underlying history of alcohol abuse who states had been sober for several months but recurred on drinking and drinks about a pt of vodka daily, last drink being about 24 hours ago, history of variceal bleeding in 2018 status post banding, history of right-sided heart failure with associated pulmonary hypertension and tricuspid valve regurgitation, presents to us after having an endoscopy due to hematemesis times 3 large amounts prior to arrival to the emergency room.? At the time the patient was hemodynamically stable however her heart rate was 123 otherwise a blood pressure was normal.? No witness bleeding was noted in the ER.? GI was consulted and Dr. Elizondo to the patient for upper endoscopy which revealed 4 changes of grade 2-3 esophageal varices with SRH but no active bleeding, banded x6.? Old blood and clot in the stomach without bleeding but no gastric varices.?Normal duodenum.?The workup in the emergency room revealed white count 2.6 an H&H of 11.1 and 33.8 respectively with platelet count of 52,000, INR 1.2, potassium 3.0, creatinine 0.57, AST of 807, ALT of 215, albumin 2.9, COVID negative. Today the patient feels much better, denies abdominal pain, does have some n ausea but has not vomited.? Denies any melena in fact she has not had a bowel movement today.? Denies any fever or chills. She has been tolerating clear liquids without a problem.? Patient did get tra nsfuse packed red blood cells and platelets today. Critical Care Time (minutes): 45 Comment: PHYSICAL EXAM: VS: ?100/67, heart rate 72, respirations 18, O2 sat 97% on 2 L nasal cannula, temperature 98.5?. General:? Alert oriented x3 no acute distress.? Skin:? Intact, no lesions, edema, erythema, clubbing or cyanosis.? No ulcers. Cardiac:? Clear S1-S2, no murmurs rubs or gallops. Pulmonary:? Clear to auscultation, no wheezes, rales or rhonchi. Abdomen:? Protuberant, positive bowel sounds in all 4 quadrants.? Soft, nontender Musculoskeletal:? Moving all 4 extremities upon request a major joints, there is no crepitus or tenderness.? Neurologic:? As above, no focal deficits Vascular:?2+ pulses upper and lower extremities distally. ? SIGNIFICANT LABORATORY?DATA:?Most recent labs shows white count 1.2, hemoglobin 7.8, hematocrit 24.3, platelet count 20022, INR 1.2, sodium 134, potassium 3.8, clubbing dioxide 26, BUN 14, creatinine 0.60, random glucose 266.? SAT 726, ALT 193, alk-phos 381, total bilirubin 2.0, albumin 2.9. ? ASSESSMENT AND PLAN: 1.??? Upper GI bleed status post EGD and banding 2.??? History of esophageal varices 3.??? Pancytopenia due to alcohol abuse 4.??? Normocytic anemia likely of chronic disease 5.??? Acute hypokalemia 6.??? History of alcohol abuse without signs of acute withdrawal 7.??? Alcoholic liver cirrhosis and transaminitis ? 8.??? Hypoalbuminemia At this point will continue with supportive care, patient will continue with Octeotride for total off 72 hours, if her H&H continues to decrease then the patient will undergo a scope again but not at this time, we appreciate Dr. Elizondo its input.? The patient does not show any signs of withdrawal at this point, she does have some nausea and will give her Reglan for it. Repeat labs in the morning and at midnite tonight. GIP: Octeotride and PPI DVT: prophylaxis pneumatic stockings only. ? Physical Exam Verdana 4l Vital Signs: Verdana 4d Verdana 4d Vital Signs: Verdana 4d Verdana 4Bd Last Vital Signs Verdana 4d Straight Edger New 4d Straight Edger New 4d Temp 98.0 F 04/14/21 15:00 Straight Edger New 4d Pulse 72 04/14/21 22:00 Straight Edger New 4d Resp 18 04/14/21 22:00 BP 100/67 04/14/21 22:00 Pulse Ox 97 04/14/21 22:00 Oxygen Flow Rate 3 04/14/21 19:31 BMI result Body Mass Index 30.0 Objective Data Labs CBC & Chem 7: 04/14/21 20:15 04/14/21 05:16 Labs: Laboratory Results - last 24 hr 04/13/21 04/13/21 04/14/21 17:04 21:10 05:16 WBC 1.2 L RBC 2.96 L Hgb 8.1 L Hct 25.7 L MCV 86.8 MCH 27.4 MCHC 31.5 RDW 20.1 H Plt Count 21 L D MPV TNP Immature Gran % (Auto) 0.9 H Neut % (Auto) 66.6 Lymph % (Auto) 19.7 L [place] % (Auto) 12.8 H Eos % (Auto) 0.0 Baso % (Auto) 0.0 Lymph # (Auto) 0.2 L [place] # (Auto) 0.2 Eos # (Auto) 0.0 Baso # (Auto) 0.0 Abs Immat Gran (auto) 0.01 Absolute Neuts (auto) 0.8 L Absolute Nucleated RBC 0.020 H Nucleated RBC % (auto) 1.7 H Smear Tech's Comments VERIFIED Smear Path Review SEE NOTE PT INR Sodium Potassium Chloride Carbon Dioxide Anion Gap BUN Creatinine Estim Creat Clear Calc Estimated GFR Random Glucose Calcium Phosphorus 4.4 Magnesium 1.7 Total Bilirubin AST ALT Alkaline Phosphatase Total Protein Albumin Blood Type A Positive Antibody Screen NEGATIVE Crossmatch See Detail 04/14/21 04/14/21 04/14/21 05:16 12:02 20:15 WBC 1.5 L 1.2 L RBC 3.00 L 2.81 L Hgb 8.3 L 7.9 L Hct 26.2 L 24.3 L MCV 87.3 86.5 MCH 27.7 28.1 MCHC 31.7 32.5 RDW 19.4 H 19.8 H Plt Count 19 L* 17 L* MPV Not Reportable Not Reportable Immature Gran % (Auto) Neut % (Auto) Lymph % (Auto) [place] % (Auto) Eos % (Auto) Baso % (Auto) Lymph # (Auto) [place] # (Auto) Eos # (Auto) Baso # (Auto) Abs Immat Gran (auto) Absolute Neuts (auto) Absolute Nucleated RBC 0.030 H 0.000 Nucleated RBC % (auto) 2.0 H 0.0 Smear Tech's Comments Smear Path Review PT INR Sodium 134 L Potassium 3.8 D Chloride 98 Carbon Dioxide 26 Anion Gap 14 BUN 14 Creatinine 0.60 Estim Creat Clear Calc 121.2 Estimated GFR > 60 Random Glucose 266 H Calcium 7.2 L Phosphorus Magnesium Total Bilirubin 2.0 H AST 726 H ALT 193 H Alkaline Phosphatase 381 H Total Protein 6.1 L Albumin 2.9 L Blood Type Antibody Screen Crossmatch 04/14/21 20:15 WBC RBC Hgb Hct MCV MCH MCHC RDW Plt Count MPV Immature Gran % (Auto) Neut % (Auto) Lymph % (Auto) [place] % (Auto) Eos % (Auto) Baso % (Auto) Lymph # (Auto) [place] # (Auto) Eos # (Auto) Baso # (Auto) Abs Immat Gran (auto) Absolute Neuts (auto) Absolute Nucleated RBC Nucleated RBC % (auto) Smear Tech's Comments Smear Path Review PT 14.0 H INR 1.2 H Sodium Potassium Chloride Carbon Dioxide Anion Gap BUN Creatinine Estim Creat Clear Calc Estimated GFR Random Glucose Calcium Phosphorus Magnesium Total Bilirubin AST ALT Alkaline Phosphatase Total Protein Albumin Blood Type Antibody Screen Crossmatch Quality Stroke Does the patient have a stroke diagnosis?: No VTE Prior VTE?: No VTE Risk Level:: Medical - low VTE Device Contraindication: N/A - Device Ordered VTE Drug Contraindication: Treatment Not Indicated
[2021-04-14] MEDS: Metoclopramide HCl 10 MG/2 ML VIAL 5 MG IVPUSH (23:01)
[2021-04-15] VITALS (14 sets, daily range): BP systolic 108–132; BP diastolic 67–99; PULSE 67–88; RESP 14–22; TEMP 36.5–36.9; O2SAT 91–100; BMI 32.5
[2021-04-15 01:23] LABS: Hematocrit 28.7 % (37.0-47.0); Mean Corpuscular HGB Conc 31.4 g/dl (31.0-35.0); Mean Corpuscular Hemoglobin 27.5 pg (27.0-33.0); Mean Corpuscular Volume 87.8 fL (80.0-98.0); Red Blood Count 3.27 X10*6/uL (4.20-5.50); Red Cell Distribution Width 20.2 % (11.0-16.0); White Blood Count 1.2 X10*3/uL (4.8-10.8)
[2021-04-15 01:26] LABS: PLT ABN DIST 1; Platelet Count 18 X10*3/uL (160-400)
[2021-04-15] MEDS: Metoclopramide HCl 10 MG/2 ML VIAL 5 MG IVPUSH ×3 (03:42→19:42)
[2021-04-15 05:53] LABS: Imm Gran Abs Auto 0.01 X10*3/uL (0.00-0.03); Imm Gran Pct Auto 0.9 % (0.0-0.4); Lymphocytes Absolute Auto 0.4 X10*3/uL (1.2-4.9); MANUAL DIFF FLAG SCAN; Mean Corpuscular Hemoglobin 27.7 pg (27.0-33.0); PLT ABN DIST 1; PLT CLUMP 1; Red Blood Count 2.89 X10*6/uL (4.20-5.50); Red Cell Distribution Width 20.5 % (11.0-16.0); SCAN SMEAR FLAG 1
[2021-04-15 05:55] LABS: Hematocrit 25.5 % (37.0-47.0); Lymphocytes Percent Auto 30.7 % (20-40); Mean Corpuscular HGB Conc 31.4 g/dl (31.0-35.0); Mean Corpuscular Volume 88.2 fL (80.0-98.0); Monocytes Absolute Auto 0.1 X10*3/uL (0.1-1.2); NRBC Pct Auto 1.8 /100WBC (0.0-0.2); Neutrophils Absolute Auto 0.7 x10*3/uL (2.0-8.3); Neutrophils Percent Auto 61.4 % (45-73)
[2021-04-15 06:06] LABS: Platelet Count 15 X10*3/uL (160-400); White Blood Count 1.1 X10*3/uL (4.8-10.8)
[2021-04-15 06:15] LABS: Alanine Aminotransferase 194 U/L (0-31); Alkaline Phosphatase 286 U/L (39-117); Anion Gap 12 (12-20); Aspartate Amino Transferase 858 U/L (5-31); Bilirubin Total 2.9 mg/dL (0.0-1.0); Blood Urea Nitrogen 7 mg/dL (9-16); Calcium 7.3 mg/dL (8.4-10.2); Carbon Dioxide 27 mmol/L (22-29); Chloride 104 mmol/L (96-108); Creatinine Clr Calc Pharmacy 137.3; Estimated Glomerular Filt Rate > 60; Glucose Random 113 mg/dL (60-115); Potassium 3.3 mmol/L (3.3-5.1); SLIDE REVIEW VERIFIED; Sodium 140 mmol/L (135-145); Total Protein 5.9 g/dL (6.5-8.0)
[2021-04-15] MEDS: Pantoprazole Sodium 40 MG/10 ML VIAL IVPUSH ×2 (06:28→17:17)
[2021-04-15] MEDS: Octreotide Acetate 500 MCG in 0.9 % Sodium Chloride 500 ML 50.1 MCG IVCONT ×2 (06:28→18:26)
[2021-04-15 08:39] LABS: HBS Num1 15.72 mIU/mL (0-7.99); HBc Num1 0.11 S/CO (0.00-0.79); HBsAGNum1 0.22 S/CO (0.00-0.99); Hepatitis A Antibody IgM 0.18 Index (0-0.79); Hepatitis B Core Antibody Nonreactive (Nonreactive); Hepatitis B Surface Antigen Negative (Negative); ~HepC Num1 0.24 S/CO (0.00-0.79); ~Hepatitis A Antibody IgM Nonreactive (Nonreactive); ~Hepatitis B Surface Antibody REACTIVE (Nonreactive); ~Hepatitis C Antibody Nonreactive (Nonreactive)
[2021-04-15] MEDS: Thiamine HCL 100 MG TABLET PO (08:42)
[2021-04-15] MEDS: Multivitamin TABLET 1 TAB PO (08:42)
[2021-04-15] MEDS: PHENobarbitaL sodium 65 MG/ML VIAL 130 MG IVPUSH ×2 (08:42→14:44)
[2021-04-15] MEDS: Folic Acid 1 MG TABLET PO (08:42)
--- NOTE | 2021-04-15 10:02 | P.PNIM_ITS ---
Subjective Subjective Date of Service: 04/15/21 Interval History: the patient was seen and evaluated this morning Laying in bed, feels better today Still complaining of nausea but able to tolerate diet Denies any fever, chills or chest pain No reported other overnight events. Systemic review: No fever, chills but reports generalized weakness No chest pain, palpitation No shortness of breath or coughing No abdominal pain, but still having nausea No urinary symptoms No any rash or wounds Physical Exam Verdana 4l Vital Signs: Verdana 4d Verdana 4d Vital Signs: Verdana 4d Verdana 4Bd Last Vital Signs Verdana 4d Vice President Network Development New 4d Vice President [employer] Development New 4d Temp 98.4 F 04/15/21 08:00 Vice President Network Development New 4d Pulse 71 04/15/21 09:00 Vice President Network Development New 4d Resp 22 H 04/15/21 09:00 BP 114/76 04/15/21 09:00 Pulse Ox 98 04/15/21 09:00 Oxygen Flow Rate 3 04/14/21 19:31 BMI result Body Mass Index 32.5 Const: Other: Constitutional : Alert, oriented, not in distress Neck : Normal inspection, Supple Cardiovascular : RRR, S1 S2, no lower extremity edema Respiratory : Good bilateral air entry, no crackles, wheezes or rhonchi Gastrointestinal: soft, lax, Normal bowel sounds, Non tender Skin : Warm, Dry Neurological : Alert & oriented x3, No focal deficit Objective Data Active Medications Fentanyl (Fentanyl Citrate/Pf 100 Mcg/2 Ml Vial) 25 mcg IVPUSH Q5M PRN; Protocol PRN Reason: Pain, Moderate (Pain Scale 4-6 Fentanyl (Fentanyl Citrate/Pf 100 Mcg/2 Ml Vial) 25 mcg IVPUSH Q5M PRN; Protocol PRN Reason: Pain, Moderate (Pain Scale 4-6 Folic Acid (Folic Acid 1 Mg Tablet) 1 mg PO DAILY [facility] Last Admin: 04/15/21 08:42 Dose: 1 mg Documented by: RACHEL Octreotide Acetate 500 mcg/ (Sodium Chloride) 501 mls @ 50.1 mls/hr IVCONT .Q10H [facility] Last Admin: 04/15/21 06:28 Dose: 50 mcg/hr, 50.1 mls/hr Documented by: JAROD Lorazepam (Lorazepam 0.5 Mg Tablet) 0.5 mg PO Q8H PRN PRN Reason: Anxiety Melatonin (Melatonin 3 Mg Tablet) 6 mg PO BEDTIME PRN PRN Reason: Sleep Last Admin: 04/14/21 02:00 Dose: 6 mg Documented by: RAMON Metoclopramide HCl (Metoclopramide Hcl 10 Mg/2 Ml Vial) 5 mg IVPUSH Q8H PRN PRN Reason: Nausea and Vomiting Last Admin: 04/15/21 03:42 Dose: 5 mg Documented by: JAROD Multivitamins/Vitamin C (Multivitamin Tablet) 1 tab PO DAILY [facility] Last Admin: 04/15/21 08:42 Dose: 1 tab Documented by: RACHEL Pantoprazole Sodium (Pantoprazole Sodium 40 Mg/10 Ml Vial) 40 mg IVPUSH BID@0630,1630 [facility] Last Admin: 04/15/21 06:28 Dose: 40 mg Documented by: JAROD Phenobarbital Sodium (Phenobarbital Sodium 65 Mg/Ml Vial) 130 mg IVPUSH Q20M PRN PRN Reason: Withdrawal Last Admin: 04/15/21 08:42 Dose: 130 mg Documented by: RACHEL Thiamine HCl (Thiamine Hcl 100 Mg Tablet) 100 mg PO DAILY [facility] Last Admin: 04/15/21 08:42 Dose: 100 mg Documented by: RACHEL Labs CBC & Chem 7: 04/15/21 05:20 04/15/21 05:20 Labs: Laboratory Results - last 24 hr 04/13/21 04/14/21 04/14/21 17:04 12:02 20:15 MCV 87.3 86.5 MCH 27.7 28.1 MCHC 31.7 32.5 RDW 19.4 H 19.8 H Plt Count 19 L* 17 L* MPV Not Reportable Not Reportable Immature Gran % (Auto) Neut % (Auto) Lymph % (Auto) [place] % (Auto) Eos % (Auto) Baso % (Auto) Lymph # (Auto) [place] # (Auto) Eos # (Auto) Baso # (Auto) Abs Immat Gran (auto) Absolute Neuts (auto) Absolute Nucleated RBC 0.030 H 0.000 Nucleated RBC % (auto) 2.0 H 0.0 Smear Tech's Comments PT INR Anion Gap Estim Creat Clear Calc Estimated GFR Random Glucose Calcium Total Bilirubin AST ALT Alkaline Phosphatase Total Protein Albumin Hepatitis A IgM Ab Hep Bs Antigen Hep Bs Antibody Hep B Core Total Ab Hepatitis C Ab (EIA) Blood Type A Positive Antibody Screen NEGATIVE Crossmatch See Detail 04/14/21 04/15/21 04/15/21 20:15 01:00 05:20 MCV 87.8 88.2 MCH 27.5 27.7 MCHC 31.4 31.4 RDW 20.2 H 20.5 H Plt Count 18 L* 15 L* MPV TNP TNP Immature Gran % (Auto) 0.9 H Neut % (Auto) 61.4 Lymph % (Auto) 30.7 [place] % (Auto) 7.0 Eos % (Auto) 0.0 Baso % (Auto) 0.0 Lymph # (Auto) 0.4 L [place] # (Auto) 0.1 Eos # (Auto) 0.0 Baso # (Auto) 0.0 Abs Immat Gran (auto) 0.01 Absolute Neuts (auto) 0.7 L Absolute Nucleated RBC 0.000 0.020 H Nucleated RBC % (auto) 0.0 1.8 H Smear Tech's Comments VERIFIED PT 14.0 H INR 1.2 H Anion Gap Estim Creat Clear Calc Estimated GFR Random Glucose Calcium Total Bilirubin AST ALT Alkaline Phosphatase Total Protein Albumin Hepatitis A IgM Ab Hep Bs Antigen Hep Bs Antibody Hep B Core Total Ab Hepatitis C Ab (EIA) Blood Type Antibody Screen Crossmatch 04/15/21 04/15/21 05:20 05:20 MCV MCH MCHC RDW Plt Count MPV Immature Gran % (Auto) Neut % (Auto) Lymph % (Auto) [place] % (Auto) Eos % (Auto) Baso % (Auto) Lymph # (Auto) [place] # (Auto) Eos # (Auto) Baso # (Auto) Abs Immat Gran (auto) Absolute Neuts (auto) Absolute Nucleated RBC Nucleated RBC % (auto) Smear Tech's Comments PT INR Anion Gap 12 Estim Creat Clear Calc 137.3 Estimated GFR > 60 Random Glucose 113 Calcium 7.3 L Total Bilirubin 2.9 H AST 858 H ALT 194 H Alkaline Phosphatase 286 H D Total Protein 5.9 L Albumin 3.0 L Hepatitis A IgM Ab Nonreactive Hep Bs Antigen Negative Hep Bs Antibody REACTIVE Hep B Core Total Ab Nonreactive Hepatitis C Ab (EIA) Nonreactive Blood Type Antibody Screen Crossmatch Assessment and Plan (1) Acute upper gastrointestinal bleeding: Status: Acute (2) Alcohol abuse: Status: Acute (3) Alcoholic cirrhosis of liver: Status: Acute (4) Esophageal varices in alcoholic cirrhosis: Status: Acute (5) Pancytopenia: Status: Acute (6) Normocytic anemia: Status: Acute Plan A 50 years old lady with PMH of alcohol abuse, pulmonary hypertension, alcoholic liver disease with variceal bleeding, GERD among others who presented to the hospital with hematemesis. Had urgent endoscopy done and the patient was monitored in ICU afterward. Hematemesis Secondary to his facial paresis bleeding Stable after endoscopy, banded x6, no active bleeding Continue octreotide for total of 48 hours continue IV ppi Advanced diet as tolerated GI input appreciated To get care team involved Pancytopenia Secondary [place] [id number], no active bleeding Monitor for the need of transfusion Acute blood loss anemia Normocytic anemia Secondary to alcoholism, GI bleed Received 2 units of blood with improvement to around 8 now Monitor for need of transfusion Alcoholic liver disease Transaminitis remains elevated Ultrasound showing evidence of cirrhosis with hepatomegaly continue to monitor LFT Alcohol abuse and withdrawal get care team evaluation CO protocol, not scoring too high Use phenobarbital for withdrawal symptoms DVT PPX Early ambulation, SCDs Quality Stroke Does the patient have a stroke diagnosis?: No VTE Prior VTE?: No VTE Risk Level:: Medical - low VTE Device Contraindication: N/A - Device Ordered VTE Drug Contraindication: Treatment Not Indicated
--- NOTE | 2021-04-15 12:49 | P.PNGI_ITS ---
Subjective Subjective Date of Service: 04/15/21 Interval History: some nausea no melena less anxious today Critical Care Time (minutes): 0 Physical Exam Verdana 4l Vital Signs: Verdana 4d Verdana 4d Vital Signs: Verdana 4d Verdana 4Bd Last Vital Signs Verdana 4d Bus And Trolley Inspecting Dispatcher New 4d Bus And Trolley Inspecting Dispatcher New 4d Temp 98.5 F 04/15/21 12:00 Bus And Trolley Inspecting Dispatcher New 4d Pulse 79 04/15/21 12:00 Bus And Trolley Inspecting Dispatcher New 4d Resp 21 H 04/15/21 12:00 BP 114/90 H 04/15/21 12:00 Pulse Ox 96 04/15/21 12:00 Oxygen Flow Rate 3 04/14/21 19:31 BMI result Body Mass Index 32.5 Const: General: comfortable GI: Other: abdomen is soft and nontender Skin: Other: pale Objective Data Labs CBC & Chem 7: 04/15/21 05:20 04/15/21 05:20 Procedures Date of Service Date of Service: 04/15/21 Progress Note: A&P Assessment and plan (1) Acute upper gastrointestinal bleeding: Status: Acute Assessment and Plan: bleeding appears to have stopped pancytopenia with significant thrombocytopenia, (?heme eval) lfts still elevated with no evidence for acute viral hepatitis, may have some component of passive congestion given pul htn and valvular disease. continue clears today, advance diet when nausea improves continue octreotide, follow hct and lfts Dr Christina huang over weekend. Fall Risk Details Current Medications: Current Medications Fentanyl (Fentanyl Citrate/Pf 100 Mcg/2 Ml Vial) 25 mcg IVPUSH Q5M PRN; Protocol PRN Reason: Pain, Moderate (Pain Scale 4-6 Fentanyl (Fentanyl Citrate/Pf 100 Mcg/2 Ml Vial) 25 mcg IVPUSH Q5M PRN; Protocol PRN Reason: Pain, Moderate (Pain Scale 4-6 Folic Acid (Folic Acid 1 Mg Tablet) 1 mg PO DAILY [facility] Last Admin: 04/15/21 08:42 Dose: 1 mg Documented by: Octreotide Acetate 500 mcg/ (Sodium Chloride) 501 mls @ 50.1 mls/hr IVCONT .Q10H [facility] Last Admin: 04/15/21 06:28 Dose: 50 mcg/hr, 50.1 mls/hr Documented by: Lorazepam (Lorazepam 0.5 Mg Tablet) 0.5 mg PO Q8H PRN PRN Reason: Anxiety Melatonin (Melatonin 3 Mg Tablet) 6 mg PO BEDTIME PRN PRN Reason: Sleep Last Admin: 04/14/21 02:00 Dose: 6 mg Documented by: Metoclopramide HCl (Metoclopramide Hcl 10 Mg/2 Ml Vial) 5 mg IVPUSH Q8H PRN PRN Reason: Nausea and Vomiting Last Admin: 04/15/21 03:42 Dose: 5 mg Documented by: Multivitamins/Vitamin C (Multivitamin Tablet) 1 tab PO DAILY [facility] Last Admin: 04/15/21 08:42 Dose: 1 tab Documented by: Pantoprazole Sodium (Pantoprazole Sodium 40 Mg/10 Ml Vial) 40 mg IVPUSH BID@0630,1630 [facility] Last Admin: 04/15/21 06:28 Dose: 40 mg Documented by: Phenobarbital Sodium (Phenobarbital Sodium 65 Mg/Ml Vial) 130 mg IVPUSH Q20M PRN PRN Reason: Withdrawal Last Admin: 04/15/21 08:42 Dose: 130 mg Documented by: Thiamine HCl (Thiamine Hcl 100 Mg Tablet) 100 mg PO DAILY [facility] Last Admin: 04/15/21 08:42 Dose: 100 mg Documented by: Time Spent With Patient Time: Total time spent is greater than 50% in coordination of care (as documented) at patient's floor/unit and/or counseling patient: Time with patient: 15 - 24 minutes Quality Stroke Does the patient have a stroke diagnosis?: No VTE Prior VTE?: No VTE Risk Level:: Medical - low VTE Device Contraindication: N/A - Device Ordered VTE Drug Contraindication: Treatment Not Indicated
[2021-04-15] MEDS: LORazepam 0.5 MG TABLET PO (21:14)
[2021-04-16] VITALS (9 sets, daily range): BP systolic 122–164; BP diastolic 68–91; PULSE 79–115; RESP 16–22; TEMP 36.3–37.7; O2SAT 90–99
[2021-04-16] MEDS: Octreotide Acetate 500 MCG in 0.9 % Sodium Chloride 500 ML 50.1 MCG IVCONT (03:53)
[2021-04-16] MEDS: Pantoprazole Sodium 40 MG/10 ML VIAL IVPUSH (06:11)
[2021-04-16 08:33] LABS: Hematocrit 27.2 % (37.0-47.0); Hemoglobin 8.7 g/dl (12.0-16.0); Mean Corpuscular Volume 87.5 fL (80.0-98.0); Red Blood Count 3.11 X10*6/uL (4.20-5.50); Red Cell Distribution Width 20.8 % (11.0-16.0)
[2021-04-16 08:34] LABS: White Blood Count 1.3 X10*3/uL (4.8-10.8)
[2021-04-16 08:38] LABS: NRBC Pct Auto 3.1 /100WBC (0.0-0.2)
[2021-04-16 08:40] LABS: Platelet Count 18 X10*3/uL (160-400)
[2021-04-16 08:58] LABS: Alanine Aminotransferase 171 U/L (0-31); Albumin Level 3.1 g/dL (3.5-5.0); Alkaline Phosphatase 290 U/L (39-117); Anion Gap 12 (12-20); Aspartate Amino Transferase 583 U/L (5-31); Bilirubin Direct 2.6 mg/dL (0.0-0.5); Bilirubin Total 3.7 mg/dL (0.0-1.0); Blood Urea Nitrogen 4 mg/dL (9-16); Calcium 7.5 mg/dL (8.4-10.2); Carbon Dioxide 25 mmol/L (22-29); Chloride 103 mmol/L (96-108); Estimated Glomerular Filt Rate > 60; Glucose Random 99 mg/dL (60-115); Potassium 2.9 mmol/L (3.3-5.1); Sodium 138 mmol/L (135-145); Total Protein 6.1 g/dL (6.5-8.0)
[2021-04-16] MEDS: Folic Acid 1 MG TABLET PO (09:10)
[2021-04-16] MEDS: Multivitamin TABLET 1 TAB PO (09:10)
[2021-04-16] MEDS: Thiamine HCL 100 MG TABLET PO (09:10)
[2021-04-16] MEDS: LORazepam 0.5 MG TABLET PO (09:13)
[2021-04-16] MEDS: Sucralfate 1 GM TABLET PO ×2 (10:38→16:26)
[2021-04-16] MEDS: PHENobarbitaL sodium 130 MG/ML VIAL 230 MG IM (10:38)
--- NOTE | 2021-04-16 11:52 | P.PNIM_ITS ---
Subjective Subjective Date of Service: 04/16/21 Interval History: the patient was seen and evaluated this morning Laying in bed, feels better overall Nausea improved but feeling little bit anxious Does not like the clear liquid No reported other overnight events. Systemic review: No fever, chills but reports generalized weakness and tremors No chest pain, palpitation No shortness of breath or coughing No abdominal pain, but still having nausea No urinary symptoms No any rash or wounds Physical Exam Verdana 4l Vital Signs: Verdana 4d Verdana 4d Vital Signs: Verdana 4d Verdana 4Bd Last Vital Signs Verdana 4d Director Client New 4d Director Client New 4d Temp 97.4 F 04/16/21 08:00 Director Client New 4d Pulse 88 04/16/21 08:00 Director Client New 4d Resp 20 04/16/21 08:00 BP 132/85 04/16/21 08:00 Pulse Ox 92 04/16/21 08:00 Oxygen Flow Rate 3 04/14/21 19:31 BMI result Body Mass Index 32.5 Const: Other: Constitutional : Alert, oriented, mildly anxious and having tremors Neck : Normal inspection, Supple Cardiovascular : RRR, S1 S2, no lower extremity edema Respiratory : Good bilateral air entry, no crackles, wheezes or rhonchi Gastrointestinal: soft, lax, Normal bowel sounds, Non tender Skin : Warm, Dry Neurological : Alert & oriented x3, No focal deficit Objective Data Active Medications Folic Acid (Folic Acid 1 Mg Tablet) 1 mg PO DAILY [facility] Last Admin: 04/16/21 09:10 Dose: 1 mg Documented by: BEATRIZ Medication (No Benzodiazepines) 1 each MISCELLANE DAILY [facility] Melatonin (Melatonin 3 Mg Tablet) 6 mg PO BEDTIME PRN PRN Reason: Sleep Last Admin: 04/14/21 02:00 Dose: 6 mg Documented by: RAMON Metoclopramide HCl (Metoclopramide Hcl 10 Mg/2 Ml Vial) 5 mg IVPUSH Q8H PRN PRN Reason: Nausea and Vomiting Last Admin: 04/15/21 19:42 Dose: 5 mg Documented by: ZAID Multivitamins/Vitamin C (Multivitamin Tablet) 1 tab PO DAILY [facility] Last Admin: 04/16/21 09:10 Dose: 1 tab Documented by: BEATRIZ Omeprazole (Omeprazole 40 Mg Capsule.) 40 mg PO BID@0630,1630 [facility] Phenobarbital (Phenobarbital 15 Mg Tablet) 45 mg PO BID [facility]; Protocol Stop: 04/18/21 09:01 Phenobarbital (Phenobarbital 30 Mg Tablet) 30 mg PO BID [facility]; Protocol Stop: 04/20/21 09:01 Phenobarbital (Phenobarbital 30 Mg Tablet) 30 mg PO DAILY [facility]; Protocol Stop: 04/22/21 09:01 Phenobarbital Sodium (Phenobarbital Sodium 130 Mg/Ml Vial) 170 mg IM Q3H [facility]; Protocol Stop: 04/16/21 16:01 Sucralfate (Sucralfate 1 Gm Tablet) 1 gm PO BIDAC [facility] Last Admin: 04/16/21 10:38 Dose: 1 gm Documented by: BEATRIZ Thiamine HCl (Thiamine Hcl 100 Mg Tablet) 100 mg PO DAILY [facility] Last Admin: 04/16/21 09:10 Dose: 100 mg Documented by: BEATRIZ Labs CBC & Chem 7: 04/16/21 08:18 04/16/21 08:18 Labs: Laboratory Results - last 24 hr 04/16/21 04/16/21 08:18 08:18 MCV 87.5 MCH 28.0 MCHC 32.0 RDW 20.8 H Plt Count 18 L* MPV Not Reportable Absolute Nucleated RBC 0.040 H Nucleated RBC % (auto) 3.1 H Anion Gap 12 Estim Creat Clear Calc 140.0 Estimated GFR > 60 Random Glucose 99 Calcium 7.5 L Total Bilirubin 3.7 H Direct Bilirubin 2.6 H AST 583 H ALT 171 H Alkaline Phosphatase 290 H Total Protein 6.1 L Albumin 3.1 L Assessment and Plan (1) Pancytopenia: Status: Acute (2) Normocytic anemia: Status: Acute (3) Acute upper gastrointestinal bleeding: Status: Acute (4) Alcohol withdrawal: Status: Acute Plan A 50 years old lady with PMH of alcohol abuse, pulmonary hypertension, alcoholic liver disease with variceal bleeding, GERD among others who presented to the hospital with hematemesis. Had urgent endoscopy done and the patient was monitored in ICU afterward. Hematemesis Secondary to his facial paresis bleeding Stable after endoscopy, banded x6, no active bleeding Finished octreotide for total of 48 hours Change IV PPI to p.o. omeprazole Advanced diet as tolerated GI input appreciated To get care team involved [place]ancytopenia Secondary [place] [id number], no active bleeding Hematology input appreciated, to transfuse platelets Monitor for the need of transfusion Acute blood loss anemia Normocytic anemia Secondary to alcoholism, GI bleed Received 2 units of blood with improvement to around 8 now Monitor for need of transfusion Alcoholic liver disease Transaminitis improving Ultrasound showing evidence of cirrhosis with hepatomegaly continue to monitor LFT Alcohol abuse and withdrawal get care team evaluation Start phenobarbital protocol DVT PPX Early ambulation, SCDs Quality Stroke Does the patient have a stroke diagnosis?: No VTE Prior VTE?: No VTE Risk Level:: Medical - low VTE Device Contraindication: N/A - Device Ordered VTE Drug Contraindication: Treatment Not Indicated
--- NOTE | 2021-04-16 12:45 | MHC.RECOVSUP ---
Recovery Support note: Patient is a 50 year old Wallisian speaking female who [place] [facility] due to [place]/v/d and frequent alcohol use. This instructional writer met with patient in [id number] to discuss alcohol use and recovery supports. Patient states that she does not want to drink anymore and she acknowledges the negative effects alcohol has had on her health. Patient reports periods of 3-4 months of sobriety and has found AA meetings to be a helpful support. Patient reports things were going really well and that she was spending a lot of time with her grandchildren. Patient cannot identify a cause as to why she relapses. Discussed outpatient recovery supports with patient and she was very receptive. Patient expressed interest in IOP and outpatient therapy. Therapy referral to [facility] completed. Patient accepted information on AA meetings and reports she plans to start attended meetings again. Patient states her daughter is very supported and is willing to bring her to meetings. Discussed recovery coaching and [facility] [place]. Patient reports she was previously on naltrexone six years ago and cannot recall if it was helpful. Discussed medications for alcohol use disorder and provided patient with information on nalrexone/ Vivitrol and the [facility] Patient reports no questions at this time. CC will contact patient directly for intake.
[2021-04-16] MEDS: Potassium Chloride ER 20 MEQ TAB.ER.PRT 40 MEQ PO (13:16)
[2021-04-16] MEDS: PHENobarbitaL sodium 130 MG/ML VIAL 170 MG IM ×2 (13:38→16:38)
--- NOTE | 2021-04-16 16:02 | PC.NURSE ---
Pt finished infusion of plt at 1530 now 1550 shaking with chills tepp 99.8 her 115 bp 164/89. Dr craig made aware. tylenol and benadryl ordered
[2021-04-16] MEDS: diphenhydrAMINE HCL 25 MG TABLET PO (16:25)
[2021-04-16] MEDS: Omeprazole 40 MG CAPSULE.DR PO (16:25)
[2021-04-16] MEDS: Acetaminophen 325 MG TABLET 650 MG PO (16:25)
[2021-04-16] MEDS: PHENobarbitaL 15 MG TABLET 45 MG PO (20:34)
--- NOTE | 2021-04-16 20:38 | PM.HEMONCCN ---
Subjective - Subjective Chief complaint: pancytopenia Consult date: 04/16/21 Primary Care Provider: Unknown Physician HPI - Consult Narrative Reason for consult: pancytopenia Narrative: Samanta Nicole is a 50 year old female admitted to [facility] with a variceal bleed and history of alcoholic cirrhosis of the liver and pancytopenia. The bleeding has resolved. Review of Systems - Constitutional Reports anorexia - ENT Reports system reviewed and no additional complaints, except as documented - Cardiovascular Reports rapid, pounding, or irregular heartbeat - Respiratory Reports other - Gastrointestinal Reports abdominal pain, Reports vomiting blood - [facility]itour[facility] Medical History: Medical History (Last Reviewed 04/13/21 @ 17:22 by Naheed Mallory MD) Alcohol abuse Alcoholic cirrhosis of liver Anemia Anxiety disorder Esophageal varices in alcoholic cirrhosis Nonrheumatic tricuspid (valve) insufficiency Portopulmonary hypertension Pulmonary hypertensive arterial disease associated with portal hypertension Functional capacity: independent ambulation Family History: Family History (Last Reviewed 04/13/21 @ 17:22 by Naheed Mallory MD) Father HTN (hypertension) Mother HTN (hypertension) Surgical History: Surgical History (Last Reviewed 04/13/21 @ 17:23 by Naheed Mallory MD) Hx of cardiac cath Social History: Social History (Last Reviewed 04/13/21 @ 18:52 by Naheed Mallory MD) Living Situation History: Household Members: Family Housing: House Do you presently have visiting nurse or other home services: No Alcohol History Details: Currently Displaying Signs/Symptoms of Alcohol Withdrawal: No Tobacco History: Patient Tobacco Use Status: Current someday Tobacco Tobacco use type: Cigarette Cigarette Packs Per Day: 1 Cigarettes Per Day: 3 Years Smoked: 30 years Substance Use History: Currently Displaying Signs/Symptoms of Drug Intoxication Withdrawal: No Advance Directives: Advance Directives: Yes Advance Directives on File: Yes Advance Directives Date on File: 01/30/20 Nutrition Assessment: Patient : No Occupation Assessmet: service: No Current occupational status: employed Home Medications and Allergies Current Medications: Current Medications Acetaminophen (Acetaminophen 325 Mg Tablet) 650 mg PO Q6H PRN PRN Reason: Pain, Mild (Pain Scale 1-3) Last Admin: 04/16/21 16:25 Dose: 650 mg Documented by: Folic Acid (Folic Acid 1 Mg Tablet) 1 mg PO DAILY [facility] Last Admin: 04/16/21 09:10 Dose: 1 mg Documented by: Medication (No Benzodiazepines) 1 each MISCELLANE DAILY [facility] Melatonin (Melatonin 3 Mg Tablet) 6 mg PO BEDTIME PRN PRN Reason: Sleep Last Admin: 04/14/21 02:00 Dose: 6 mg Documented by: Metoclopramide HCl (Metoclopramide Hcl 10 Mg/2 Ml Vial) 5 mg IVPUSH Q8H PRN PRN Reason: Nausea and Vomiting Last Admin: 04/15/21 19:42 Dose: 5 mg Documented by: Multivitamins/Vitamin C (Multivitamin Tablet) 1 tab PO DAILY [facility] Last Admin: 04/16/21 09:10 Dose: 1 tab Documented by: Omeprazole (Omeprazole 40 Mg Capsule.Dr) 40 mg PO BID@0630,1630 [facility] Last Admin: 04/16/21 16:25 Dose: 40 mg Documented by: Phenobarbital (Phenobarbital 15 Mg Tablet) 45 mg PO BID [facility]; Protocol Stop: 04/18/21 09:01 Last Admin: 04/16/21 20:34 Dose: 45 mg Documented by: Phenobarbital (Phenobarbital 30 Mg Tablet) 30 mg PO BID [facility]; Protocol Stop: 04/20/21 09:01 Phenobarbital (Phenobarbital 30 Mg Tablet) 30 mg PO DAILY [facility]; Protocol Stop: 04/22/21 09:01 Sucralfate (Sucralfate 1 Gm Tablet) 1 gm PO BIDAC [facility] Last Admin: 04/16/21 16:26 Dose: 1 gm Documented by: Thiamine HCl (Thiamine Hcl 100 Mg Tablet) 100 mg PO DAILY [facility] Last Admin: 04/16/21 09:10 Dose: 100 mg Documented by: Home Medications Medication Instructions Recorded Confirmed Type nadolol 20 mg tablet 20 mg PO DAILY 01/30/20 04/13/21 History bumetanide 1 mg tablet 2 mg PO DAILY tab 02/15/21 04/13/21 History Allergies Allergy/AdvReac Type Severity Reaction Status Date / Time No Known Allergies Allergy Verified 03/05/21 13:29 [No Known Allergies*] Physical Exam Vital signs: Vital Signs Temp 97.5 F 04/16/21 19:04 Pulse 99 04/16/21 19:04 Resp 20 04/16/21 19:04 BP 133/68 04/16/21 19:04 Pulse Ox 90 L 04/16/21 19:04 Intake & Output 04/16/21 04/16/21 04/17/21 06:59 18:59 06:59 Intake Total 713.445 / 1214.445 930.185 / 1088.000 157.815 / 1088.000 Balance 713.445 / 1064.445 930.185 / 1088.000 157.815 / 1088.000 Intake: Intake, Oral Amount 240 / 240 Intake (Blood Product) Amount 337 / 337 Plt Aph Pas Pathreduced(E8341) 337 / 337 Unit [id number] Intake, Other Amount 250 / 250 Plt Aph Pas Pathreduced(E8341) 250 / 250 Unit [id number] Intake, IV Amount 473.445 / 974.445 343.185 / 501.000 157.815 / 501.000 Octreotide Acetate 500 mcg In 0 473.445 / 974.445 343.185 / 501.000 157.815 / 501.000 .9 % Sodium Chloride 500 ml @ 50 MCG/HR 50.1 mls/hr IVCONT . Q10H [facility] Rx#:[id number] Other: Dinner % Eaten 100% Number of Unmeasured Voids 2 3 Urine Bathroom Bathroom Urine Color Yellow Weight 88.6 kg - Constitutional Present: no acute distress - Routine HEENT Exam Head: Present: atraumatic ENT: Present: normal exam - Routine Respiratory Exam Present: decreased breath sounds - Routine Cardiovascular Exam Cardiovascular: Present: RRR - Routine Abdominal Exam Present: diminished bowel sounds - Routine Skin Exam Present: intact - Routine Neurological Exam Present: alert Hem/Onc Consult Result - Labs CBC & Chem 7: 04/16/21 08:18 04/16/21 08:18 Labs: Short CBC 04/16/21 Range/Units 08:18 WBC 1.3 L (4.8-10.8) X10*3/uL Hgb 8.7 L (12.0-16.0) g/dl Hct 27.2 L (37.0-47.0) % Plt Count 18 L* (160-400) X10*3/uL BMP 04/16/21 08:18 Sodium 138 Potassium 2.9 L Chloride 103 Carbon Dioxide 25 BUN 4 L Creatinine 0.54 Calcium 7.5 L Liver Function 04/16/21 Range/Units 08:18 Total Bilirubin 3.7 H (0.0-1.0) mg/dL Direct Bilirubin 2.6 H (0.0-0.5) mg/dL AST 583 H (5-31) U/L ALT 171 H (0-31) U/L Alkaline Phosphatase 290 H (39-117) U/L Albumin 3.1 L (3.5-5.0) g/dL Assessment and Plan Patient Active problem list reviewed?: Yes (1) Pancytopenia Start date: 04/16/21 Status: Acute Assessment and plan: Very likely this is ethanol induced marrow suppression. The spleen is not very much enlarged. suggest one pheresis unit of platelets today and kleep hgb at nine. will follow. - Time Spent With Patient Time Spent with Patient (in minutes): 20
[2021-04-17] VITALS (9 sets, daily range): BP systolic 99–151; BP diastolic 61–92; PULSE 58–114; RESP 16–20; TEMP 36.1–37.1; O2SAT 94–99
--- NOTE | 2021-04-17 | ECG_ITS ---
Test Reason : CP Blood Pressure : / mmHG Vent. Rate : 104 BPM Atrial Rate : 104 BPM P-R Int : 176 ms QRS Dur : 112 ms QT Int : 390 ms P-R-T Axes : -01 074 -56 degrees QTc Int : 512 ms Artifact in tracing Sinus tachycardia ST and T wave changes, possible ischemia Possible recent anterior ME Abnormal ECG When compared with ECG of 13-APR-2021 17:09, anterior ST-T changes more prominent. Referred By: Lisa Jackson Electronically Signed By:BISHOP PARK
[2021-04-17 06:37] LABS: Hematocrit 31.2 % (37.0-47.0); Hemoglobin 9.8 g/dl (12.0-16.0); Mean Corpuscular HGB Conc 31.4 g/dl (31.0-35.0); Mean Corpuscular Hemoglobin 27.8 pg (27.0-33.0)
[2021-04-17 06:39] LABS: Mean Corpuscular Volume 88.6 fL (80.0-98.0); Red Blood Count 3.52 X10*6/uL (4.20-5.50); Red Cell Distribution Width 22.3 % (11.0-16.0)
[2021-04-17 07:06] LABS: White Blood Count 1.3 X10*3/uL (4.8-10.8)
[2021-04-17 07:07] LABS: NRBC Pct Auto 1.6 /100WBC (0.0-0.2); PLT ABN DIST 1; Platelet Count 26 X10*3/uL (160-400)
[2021-04-17 07:18] LABS: Anion Gap 12 (12-20); Blood Urea Nitrogen 5 mg/dL (9-16); Calcium 7.9 mg/dL (8.4-10.2); Carbon Dioxide 25 mmol/L (22-29); Chloride 106 mmol/L (96-108); Creatinine Clr Calc Pharmacy 142.6; Estimated Glomerular Filt Rate > 60; Glucose Random 84 mg/dL (60-115); Sodium 140 mmol/L (135-145)
[2021-04-17] MEDS: Sucralfate 1 GM TABLET PO ×2 (08:30→15:40)
[2021-04-17] MEDS: Folic Acid 1 MG TABLET PO (08:30)
[2021-04-17] MEDS: Omeprazole 40 MG CAPSULE.DR PO ×2 (08:30→15:40)
[2021-04-17] MEDS: Multivitamin TABLET 1 TAB PO (08:30)
[2021-04-17] MEDS: PHENobarbitaL 15 MG TABLET 45 MG PO ×2 (08:30→21:07)
[2021-04-17] MEDS: Thiamine HCL 100 MG TABLET PO (08:30)
[2021-04-17] MEDS: Potassium Chloride ER 20 MEQ TAB.ER.PRT 40 MEQ PO (09:21)
[2021-04-17] MEDS: Metoclopramide HCl 10 MG/2 ML VIAL 5 MG IVPUSH ×3 (12:48→21:07)
--- NOTE | 2021-04-17 13:43 | P.PNIM_ITS ---
Subjective Subjective Date of Service: 04/17/21 Interval History: the patient was seen and evaluated this morning Laying in bed, feels better overall Still having nausea and withdrawal symptoms Tolerating diet No reported other overnight events. Systemic review: No fever, chills but reports generalized weakness and tremors No chest pain, palpitation No shortness of breath or coughing No abdominal pain, but still having nausea No urinary symptoms No any rash or wounds Physical Exam Verdana 4l Vital Signs: Verdana 4d Verdana 4d Vital Signs: Verdana 4d Verdana 4Bd Last Vital Signs Verdana 4d Boat Designer New 4d Boat Designer New 4d Temp 98.2 F 04/17/21 12:00 Boat Designer New 4d Pulse 102 H 04/17/21 12:00 Boat Designer New 4d Resp 18 04/17/21 12:00 BP 103/71 04/17/21 12:00 Pulse Ox 97 04/17/21 12:00 Oxygen Flow Rate 3 04/14/21 19:31 BMI result Body Mass Index 32.5 Const: Other: Constitutional : Alert, oriented, mildly anxious and having tremors Neck : Normal inspection, Supple Cardiovascular : RRR, S1 S2, no lower extremity edema Respiratory : Good bilateral air entry, no crackles, wheezes or rhonchi Gastrointestinal: soft, lax, Normal bowel sounds, Non tender Skin : Warm, Dry Neurological : Alert & oriented x3, No focal deficit Objective Data Active Medications Acetaminophen (Acetaminophen 325 Mg Tablet) 650 mg PO Q6H PRN PRN Reason: Pain, Mild (Pain Scale 1-3) Last Admin: 04/16/21 16:25 Dose: 650 mg Documented by: FATUMA Folic Acid (Folic Acid 1 Mg Tablet) 1 mg PO DAILY [facility] Last Admin: 04/17/21 08:30 Dose: 1 mg Documented by: BEATRIZ Medication (No Benzodiazepines) 1 each MISCELLANE DAILY [facility] Melatonin (Melatonin 3 Mg Tablet) 6 mg PO BEDTIME PRN PRN Reason: Sleep Last Admin: 04/14/21 02:00 Dose: 6 mg Documented by: RAMON Metoclopramide HCl (Metoclopramide Hcl 10 Mg/2 Ml Vial) 5 mg IVPUSH QIDACHS [facility] Last Admin: 04/17/21 12:48 Dose: 5 mg Documented by: BEATRIZ Multivitamins/Vitamin C (Multivitamin Tablet) 1 tab PO DAILY [facility] Last Admin: 04/17/21 08:30 Dose: 1 tab Documented by: BEATRIZ Omeprazole (Omeprazole 40 Mg Capsule.) 40 mg PO BID@0630,1630 [facility] Last Admin: 04/17/21 08:30 Dose: 40 mg Documented by: BEATRIZ Phenobarbital (Phenobarbital 15 Mg Tablet) 45 mg PO BID [facility]; Protocol Stop: 04/18/21 09:01 Last Admin: 04/17/21 08:30 Dose: 45 mg Documented by: BEATRIZ Phenobarbital (Phenobarbital 30 Mg Tablet) 30 mg PO BID [facility]; Protocol Stop: 04/20/21 09:01 Phenobarbital (Phenobarbital 30 Mg Tablet) 30 mg PO DAILY [facility]; Protocol Stop: 04/22/21 09:01 Sucralfate (Sucralfate 1 Gm Tablet) 1 gm PO BIDAC [facility] Last Admin: 04/17/21 08:30 Dose: 1 gm Documented by: BEATRIZ Thiamine HCl (Thiamine Hcl 100 Mg Tablet) 100 mg PO DAILY [facility] Last Admin: 04/17/21 08:30 Dose: 100 mg Documented by: BEATRIZ Labs CBC & Chem 7: 04/17/21 05:24 04/17/21 05:24 Labs: Laboratory Results - last 24 hr 04/13/21 04/17/21 04/17/21 17:04 05:24 05:24 MCV 88.6 MCH 27.8 MCHC 31.4 RDW 22.3 H Plt Count 26 L D MPV Not Reportable Absolute Nucleated RBC 0.020 H Nucleated RBC % (auto) 1.6 H Anion Gap 12 Estim Creat Clear Calc 142.6 Estimated GFR > 60 Random Glucose 84 Calcium 7.9 L Blood Type A Positive Antibody Screen NEGATIVE Crossmatch See Detail Assessment and Plan (1) Alcohol withdrawal: Status: Acute (2) Normocytic anemia: Status: Acute (3) Pancytopenia: Status: Acute (4) Acute upper gastrointestinal bleeding: Status: Acute (5) Hypokalemia: Status: Acute Plan A 50 years old lady with PMH of alcohol abuse, pulmonary hypertension, alcoholic liver disease with variceal bleeding, GERD among others who presented to the hospital with hematemesis. Had urgent endoscopy done and the patient was mo nitored in ICU afterward. Hematemesis Secondary to his Variceal bleeding Stable after endoscopy, banded x6, no active bleeding Finished octreotide for total of 48 hours Change IV PPI to p.o. omeprazole Advanced diet as tolerated GI input appreciated care team involved , Therapy referral to [facility] completed. Patient accepted information on AA meetings and reports she plans to start attended meetings again Pancytopenia Secondary to her goal is most likely Platelets of improved to 21,000 one thousand after transfusion, no active bleeding Hematology input appreciated, to transfuse platelets Monitor for the need of transfusion Acute blood loss anemia Normocytic anemia Secondary to alcoholism, GI bleed Received 2 units of blood with improvement to around 8 now Monitor for need of transfusion Hypokalemia Replacement given Follow BMP Alcoholic liver disease Transaminitis improving Ultrasound showing evidence of cirrhosis with hepatomegaly continue to monitor LFT Alcohol abuse and withdrawal get care team evaluation Start phenobarbital protocol DVT PPX Early ambulation, SCDs Quality Stroke Does the patient have a stroke diagnosis?: No VTE Prior VTE?: No VTE Risk Level:: Medical - low VTE Device Contraindication: N/A - Device Ordered VTE Drug Contraindication: Treatment Not Indicated
--- NOTE | 2021-04-17 16:06 | ECG_ITS ---
Test Reason : chest pain Blood Pressure : / mmHG Vent. Rate : 105 BPM Atrial Rate : 105 BPM P-R Int : 184 ms QRS Dur : 098 ms QT Int : 368 ms P-R-T Axes : -25 096 -50 degrees QTc Int : 486 ms Sinus tachycardia Rightward axis Cannot rule out Inferior infarct , age undetermined T wave abnormality, consider anterolateral ischemia Abnormal ECG No significant changes when compared with the previous EKG of same day Referred By: Lisa Jackson Electronically Signed By:BISHOP PARK
[2021-04-17 16:43] LABS: Troponin-I High Sensitivity 37.7 ng/L (<3.5-17.0)
--- NOTE | 2021-04-17 17:52 | PM.EVENT ---
Event Note Date of Service: 04/17/21 Event Note: CTSP secondary to chest retrosternal chest pressure; VS stable. EKG done inf/lat TWI. Trop/CXR negative. Discussed with DR Shaffer (His pt) . [place] right heart strain secondary to volume(PRBCsx3/PLT x3/volume repletion). Recommended Bumex IV. Given.
[2021-04-17] MEDS: Bumetanide 1 MG/4 ML VIAL 0.5 MG IVPUSH (18:15)
[2021-04-18 03:49] VITALS: BP 122/77; PULSE 107; RESP 18; TEMP 37.3; O2SAT 100
[2021-04-18 04:14] LABS: Folate > 20.0 ng/mL (> or = 4.0); Vitamin B12 > 2000 pg/mL (200-900)
[2021-04-18] MEDS: Omeprazole 40 MG CAPSULE.DR PO (05:53)
[2021-04-18 06:00] LABS: Red Cell Distribution Width 22.3 % (11.0-16.0)
[2021-04-18 06:01] LABS: Hematocrit 30.5 % (37.0-47.0); Mean Corpuscular HGB Conc 32.8 g/dl (31.0-35.0); Mean Corpuscular Hemoglobin 28.3 pg (27.0-33.0); Mean Corpuscular Volume 86.4 fL (80.0-98.0); Red Blood Count 3.53 X10*6/uL (4.20-5.50)
[2021-04-18 06:21] LABS: NRBC Pct Auto 2.8 /100WBC (0.0-0.2); PLT ABN DIST 1; Platelet Count 27 X10*3/uL (160-400); White Blood Count 1.5 X10*3/uL (4.8-10.8)
[2021-04-18 06:57] VITALS: BP 107/72; PULSE 96; RESP 18; TEMP 36.6; O2SAT 96
[2021-04-18] MEDS: Metoclopramide HCl 10 MG/2 ML VIAL 5 MG IVPUSH ×2 (08:37→11:38)
[2021-04-18] MEDS: Multivitamin TABLET 1 TAB PO (08:38)
[2021-04-18] MEDS: PHENobarbitaL 15 MG TABLET 45 MG PO (08:38)
[2021-04-18] MEDS: Sucralfate 1 GM TABLET PO (08:38)
[2021-04-18] MEDS: Thiamine HCL 100 MG TABLET PO (08:38)
[2021-04-18] MEDS: Folic Acid 1 MG TABLET PO (08:38)
[2021-04-18 09:26] LABS: Anion Gap 11 (12-20); Blood Urea Nitrogen 5 mg/dL (9-16); Calcium 8.5 mg/dL (8.4-10.2); Carbon Dioxide 25 mmol/L (22-29); Chloride 102 mmol/L (96-108); Creatinine Clr Calc Pharmacy 135.1; Estimated Glomerular Filt Rate > 60; Glucose Random 87 mg/dL (60-115); Potassium 3.1 mmol/L (3.3-5.1); Sodium 135 mmol/L (135-145)
[2021-04-18 09:29] LABS: Troponin-I High Sensitivity 38.4 ng/L (<3.5-17.0)
[2021-04-18 10:55] VITALS: BP 123/76; PULSE 110; RESP 18; TEMP 36; O2SAT 96
[2021-04-18] MEDS: Potassium Chloride ER 20 MEQ TAB.ER.PRT 40 MEQ PO (11:36)
[2021-04-18] MEDS: Bumetanide 1 MG/4 ML VIAL 0.5 MG IVPUSH (11:37)
--- NOTE | 2021-04-18 11:50 | MHC.CM.PN ---
pt dcd home no skilled servceis ordered by
--- NOTE | 2021-04-18 12:23 | P.DS_ITS ---
DS: Providers Provider Date of Service: 04/18/21 Date of admission: 04/13/21 19:02 Primary care physician: Unknown Physician Consults: 04/14/21 16:35 Consult to Infectious Diseases Routine Consulting Provider: Bina Raza Reason for consultation: Neutropenia Has provider been notified: Yes 04/15/21 10:35 Consult to Care Team Routine Comment: Reason for consultation: eval and rec, alcoholism 04/16/21 08:08 Consult to Hematology / Oncology Routine Consulting Provider: Yusuf Dykes Reason for consultation: Pancytopenia, for your kind eval DS: Diagnosis Discharge Diagnosis (1) Alcohol withdrawal: Status: Acute (2) Normocytic anemia: Status: Acute (3) Pancytopenia: Status: Acute (4) Acute upper gastrointestinal bleeding: Status: Acute (5) Hypokalemia: Status: Acute (6) Acute on chronic blood loss anemia: Status: Acute (7) Hematemesis: Status: Acute (8) Esophageal varices in alcoholic cirrhosis: Status: Acute DS: Summary Hospital Course Hospital Course: Admission note HPI 50-year-old female with underlying history of alcohol abuse who states had been sober for several months but recurred on drinking and drinks about a pt of vodka daily, last drink being about 24 hours ago, history of variceal bleeding in 2018 status post banding, history of right-sided heart failure with associated pulmonary hypertension and tricuspid valve regurgitation, presents to us after having an endoscopy due to hematemesis times 3 large amounts prior to arrival to the emergency room.? At the time the patient was hemodynamically stable however her heart rate was 123 otherwise a blood pressure was normal.? No witness bleeding was noted in the ER.? Given her history, GI was consulted and Dr. Elizondo to the patient for upper endoscopy which revealed EGD revealed 4 changes of grade 2-3 esophageal viruses with S are age but no active bleeding, banded x6.? Old blood and clot in the stomach, pH EG without bleeding but no gastric varices.? Normal duodenum.? The workup in the emergency room revealed white count 2.6 an H&H of 11.1 and 33.8 respectively with platelet count of 52,000, INR 1.2, potassium 3.0, creatinine 0.57, AST of 807, ALT of 215, albumin 2.9, COVID negative. Hospital course The patient was admitted to ICU for observation after endoscopy showed changes of grade 2-3 esophageal viruses with S are age but no active bleeding, banded x6. The patient was started on IV PPI drip and IV octreotide with fair response as she received total of 3 units of blood along 2 units of platelets for pancytopenia. Maintained her blood level around 9 from baseline of 11. Followed by Dr. Elizondo during the hospital stay as her advanced diet and she was able as tolerated. Developed alcohol withdrawal and was treated with phenobarbital with fair response. care team involved , Therapy referral to [facility] completed. Patient accepted information on AA meetings and reports she plans to start attended meetings again She was evaluated as well for Pancytopenia which was believed to be Secondary to her alcohol abuse. Platelets of improved to 21,000 one thousand after total of 3 transfusion. Will need to follow-up as outpatient with PCP and repeat CBC. Started on supplement of multivitamins, folic acid and thiamine. Noted to have Hypokalemia. Replacement given with good response. At time of presentation her LFTs were noted to be elevated secondary to liver disease. Ultrasound showing evidence of cirrhosis with hepatomegaly. Transaminitis started to improve and numbers go down during the hospital stay. Start multivitamins, folic acid and thiamine Increase pantoprazole to 40 mg twice Daily To follow-up with gastroenterology Dr. Elizondo as outpatient To follow-up with PCP for evaluation of low blood counts. To repeat blood test in 1 week. Time Spent with Patient Time attestation: Total time spent providing and/or coordinating discharge services: Discharge coordination time: Greater than 30 minutes Quality: Stroke Does the patient have a stroke diagnosis?: No Physical Exam Verdana 4l Vital Signs: Verdana 4d Verdana 4d Vital Signs: Verdana 4d Verdana 4Bd Last Vital Signs Verdana 4d Cannery Tender Engineer New 4d Cannery Tender Engineer New 4d Temp 96.8 F 04/18/21 10:55 Cannery Tender Engineer New 4d Pulse 110 H 04/18/21 10:55 Cannery Tender Engineer New 4d Resp 18 04/18/21 10:55 BP 123/76 04/18/21 10:55 Pulse Ox 96 04/18/21 10:55 Oxygen Flow Rate 3 04/14/21 19:31 BMI result Body Mass Index 32.5 Const: Other: Constitutional : Alert, oriented, mildly anxious and having tremors Neck : Normal inspection, Supple Cardiovascular : RRR, S1 S2, no lower extremity edema Respiratory : Good bilateral air entry, no crackles, wheezes or rhonchi Gastrointestinal: soft, lax, Normal bowel sounds, Non tender Skin : Warm, Dry Neurological : Alert & oriented x3, No focal deficit DS: Data Data Completed and Pending Labs on day of discharge: Laboratory Results - last 24 hr 04/16/21 04/17/21 04/18/21 08:18 16:19 05:22 WBC 1.5 L RBC 3.53 L Hgb 10.0 L Hct 30.5 L MCV 86.4 MCH 28.3 MCHC 32.8 RDW 22.3 H Plt Count 27 L MPV Not Reportable Absolute Nucleated RBC 0.040 H Nucleated RBC % (auto) 2.8 H Sodium Potassium Chloride Carbon Dioxide Anion Gap BUN Creatinine Estim Creat Clear Calc Estimated GFR Random Glucose Calcium Troponin I High Sens 37.7 H Vitamin B12 > 2000 H Folate > 20.0 04/18/21 04/18/21 08:08 08:08 WBC RBC Hgb Hct MCV MCH MCHC RDW Plt Count MPV Absolute Nucleated RBC Nucleated RBC % (auto) Sodium 135 Potassium 3.1 L Chloride 102 Carbon Dioxide 25 Anion Gap 11 L BUN 5 L Creatinine 0.56 Estim Creat Clear Calc 135.1 Estimated GFR > 60 Random Glucose 87 Calcium 8.5 D Troponin I High Sens 38.4 H Vitamin B12 Folate Discharge Plan Discharge Patient Disposition: Home, Self-Care Discharge Diagnosis: Upper gastrointestinal bleeding Alcohol abuse and withdrawal Referrals: Physician,Unknown J [Primary Care Provider] - 1 Week Discharge Medications: New multivitamin [Daily-Rodney] Tablet 1 tab PO DAILY 30 Days Qty: 30 0RF folic acid 1 mg Tablet 1 mg PO DAILY 30 Days Qty: 30 0RF thiamine mononitrate (vit B1) 100 mg Tablet 100 mg PO DAILY 30 Days Qty: 30 0RF Continued eplerenone 25 mg tablet 25 mg PO DAILY Qty: 30 5RF potassium chloride 20 mEq tablet extended release 20 meq PO BID 60 Days Qty: 120 1RF escitalopram oxalate 10 mg tablet 10 mg PO DAILY Qty: 30 3RF lorazepam 0.5 mg tablet 0.25 mg PO DAILY PRN (Reason: anxiety) Qty: 10 0RF ambrisentan 10 mg tablet 10 mg PO DAILY 30 Days Qty: 30 6RF nadolol 20 mg tablet 20 mg PO DAILY 0RF bumetanide 1 mg tablet 2 mg PO DAILY 0RF Protocol: Hold for SBP< HOLD for SBP < : 90 Changed pantoprazole 40 mg tablet,delayed release (DR/EC) 40 mg PO BID Qty: 60 2RF Discharge Orders: Discharge Order (Routine); Ordered 04/18/21 Ordered By: Rafael Drake Activity on Discharge: As tolerated Stand Alone Forms: Patient Portal Discharge page Other Ambulatory Orders: Complete Blood Count no Diff (Routine) Timeframe: 1 Week Facility: [facility] - Location: Laboratory Ordered By: Rafael Drake Care Plan Goals: Read below Health Concerns: Read below Plan of Treatment: Read below Assessment: You were admitted to the hospital for evaluation of vomiting blood. Had an urgent endoscopy done and admitted to ICU as you were noticed to have bleeding varices in your esophagus. Six bandages were placed with good control of the bleeding. Treated with IV pantoprazole and octreotide. You received total of 3 units of blood and 3 units of platelets. Seen by baccarat dealer who believe your low platelets and white blood cells are result of alcohol consumption. Treated for alcohol withdrawal with phenobarbital protocol with good response. Start multivitamins, folic acid and thiamine Increase pantoprazole to 40 mg twice Daily To follow-up with gastroenterology Dr. Elizondo as outpatient To follow-up with PCP for evaluation of low blood counts. To repeat blood test in 1 week. Discharge Date/Time: 04/18/21 15:00
[2021-04-18] MEDS: Magnesium Hydrox/Alum Hydrox 30 ML ORAL.SUSP PO (12:58)
[2021-04-18] MEDS: Morphine Sulfate 2 MG/ML CARTRIDGE IVPUSH (12:58)
== END 2021-04-18 15:00 | disposition home or self-care (01) | DRG 280 ==
LOC: HO.ED 17:10 → HO.EDOVER 19:54 → HO.ICU 19:55 → HO.IMC 04-15 14:31
PROVIDERS: Internal Medicine Gastroenterology; Physician Assistant Medical; Admitting Provider Anesthesiology; Emergency Provider Internal Medicine; Visit Provider Student in an Organized Health Care Education/Training Program
PROC: 0DJ08ZZ Inspection of Upper Intestinal Tract, Via Natural or Artificial Opening Endoscopic (ICD-10-PCS; CPT 43235; principal; 2021-04-13 18:10)
DX: K70.30 Alcoholic cirrhosis of liver without ascites (principal); I85.11 Secondary esophageal varices with bleeding; D61.818 Other pancytopenia; F17.210 Nicotine dependence, cigarettes, uncomplicated; E83.42 Hypomagnesemia; F10.139 Alcohol abuse with withdrawal, unspecified; E87.6 Hypokalemia; D62 Acute posthemorrhagic anemia; D63.8 Anemia in other chronic diseases classified elsewhere; Z20.822 Contact with and (suspected) exposure to COVID-19; Z71.6 Tobacco abuse counseling; Z79.899 Other long term (current) drug therapy
CPT/HCPCS: 36415; 71045; 76700; 80048; 80053; 80076; 82607; 82746; 83690; 83735; 84100; 84484; 85025; 85027; 85610; 85730; 86704; 86706; 86709; 86803; 86850; 86900; 86901; 86923; 87340; 87635; 93005; 96361; 96365; 96366; 96375; 99283; 99285; J0171; J2060; J2250; J2270; J2354; J2370; J2405; J2560; J2765; J3010; J3411; J3475; P9016; P9035; P9047; P9073; Q0163

== ENCOUNTER → 2021-04-29 09:04 | Outpatient (BNVA) | payer OTHER, SELFPAY | PROVIDERS: PCP Internal Medicine; Visit Provider Hospitalist ==

== ENCOUNTER 2021-05-05 05:15 | Inpatient (IN) | payer OTHER, SELFPAY ==
[2021-05-05] VITALS (9 sets, daily range): BP systolic 95–119; BP diastolic 55–74; PULSE 98–115; RESP 18–32; TEMP 36.4–37.7; O2SAT 86–98; BMI 28.3
--- NOTE | ~2021-05-05 | US_ITS ---
EXAMINATION: US ABDOMEN LIMITED CLINICAL INFORMATION: Abdominal distention. Check for ascites.. COMPARISON: None TECHNIQUE: Real-time imaging of 4 quadrant abdominal viscera. FINDINGS: There is moderate ascites seen throughout the abdomen and the 4 quadrants. US/US abdomen limited IMPRESSION: Moderate ascites.
--- NOTE | ~2021-05-05 | CT_ITS ---
EXAMINATION: CT ABDOMEN AND PELVIS WITHOUT CONTRAST CLINICAL INFORMATION: Abdominal discomfort, liver cirrhosis and SOB COMPARISON: None TECHNIQUE: Multidetector volumetric imaging was performed from the superior aspect of the liver through the pubic symphysis. Sagittal and coronal reformatted images were obtained on the technologist's workstation. This CT examination was performed using dose optimization techniques as appropriate, variously including the following: *Automated exposure control *Adjustment of mA and/or kV according to patient size (this includes techniques or standardized protocols for targeted exams where dose is matched to indication/reason for exam; i.e. extremities or head) *Use of iterative reconstruction technique DLP: 657 mGy-cm FINDINGS: LUNG BASES: The visualized lung bases are unremarkable. LIVER, GALLBLADDER, AND BILIARY TREE: The liver has lobulated surface. Borderline enlarged measuring 21 cm and heterogeneous. There is moderate perihepatic ascites. There are several radiopaque dependent gallstones. Fluid surrounds the gallbladder as well. PANCREAS: Unremarkable. SPLEEN: The spleen is enlarged measuring 18.23 cm in length. ADRENAL GLANDS: Unremarkable. KIDNEYS AND URETERS: The kidneys are normal in size, shape, and attenuation. No hydronephrosis, hydroureter, or calculi seen. No perinephric stranding. BLADDER: Unremarkable. GASTROINTESTINAL TRACT: There is scattered stool and gas seen throughout the colon without significant distention. The small bowel loops are unremarkable. There is no free air. There is moderate free fluid. ABDOMINAL WALL: No significant hernia is appreciated. LYMPH NODES: Normal. VASCULAR: Unremarkable. PELVIC VISCERA: The uterus is anteverted. There is no adnexal solid mass seen. There is moderate free fluid in the pelvis. OSSEOUS STRUCTURES: No lytic or sclerotic process seen. CT/CT abdomen pelvis wo con IMPRESSION: Cirrhosis with diffuse ascites. Cholelithiasis. None Fleischner guidelines were followed.
--- NOTE | ~2021-05-05 | CT_ITS ---
EXAMINATION: CT CHEST, ABDOMEN AND PELVIS WITH CONTRAST CLINICAL INFORMATION: Cough. Sepsis. Hypotension. COMPARISON: MRI abdomen 05/06/2021. CT scan chest, abdomen pelvis 05/05/2021. Chest x-ray 05/10/2021 TECHNIQUE: Multidetector volumetric CT imaging of the chest, abdomen and pelvis was obtained after the administration of 50 mL of intravenous Ultravist without immediate adverse reactions. [This CT examination was performed using dose optimization techniques as appropriate, variously including the following: *Automated exposure control *Adjustment of mA and/or kV according to patient size (this includes techniques or standardized protocols for targeted exams where dose is matched to indication/reason for exam; i.e. extremities or head) *Use of iterative reconstruction technique] DLP: 1008 mGy-cm. FINDINGS: CT CHEST: Lungs: Small volume of linear dependent atelectasis at both lung bases. No focal dense consolidation. Central bronchial airways are open. No suspicious lung lesion. Mediastinum: Central port catheter tip at caval atrial junction. No mediastinal mass or significant lymphadenopathy. The heart size is normal. There is no pericardial effusion. Thyroid is unremarkable. Pleura: There is no pleural effusion. No pleural mass or thickening. Axilla: No lymphadenopathy. CT ABDOMEN AND PELVIS: Liver, Gallbladder and Biliary Tree: Nodular contour of liver consistent with cirrhosis. No focal liver lesion. No intrahepatic bile duct dilatation. Several small calcified gallstones at the neck of the gallbladder. Gallbladder is mildly distended but no gallbladder wall thickening evident. There is no dilatation of the biliary tree. No calcified gallstone in the bile duct. Pancreas: No acute change of the pancreas. No mass. No pancreatic duct dilatation. Spleen: Spleen is enlarged. Spleen measures 18 cm superior inferior. Adrenal Glands: Adrenal glands are normal in size. No focal mass. Kidneys and Ureters: The kidneys are normal in size, shape, and attenuation. No hydronephrosis, hydroureter, or calculi seen. No perinephric stranding. Bladder: Dumont catheter within the bladder. Gastrointestinal Tract: The small and large bowel are unremarkable. Moderate volume of stool in colon. The appendix is nonvisualized. Mesentery: There is a small to moderate volume of abdominal ascites. No free air. No abscess. Abdominal Wall: No significant hernia is appreciated. Lymph Nodes: No significant lymphadenopathy. Vascular: Small volume of vascular wall calcifications of the aorta. No aneurysm of aorta. Pelvic Viscera: Uterus is anteverted. There is no adnexal abnormality. Osseous Structures: Unremarkable. CT/CT abdomen pelvis wo con IMPRESSION: 1. CT chest. No acute abnormality CT of chest. 2. CT scan abdomen pelvis. Small to moderate volume of abdominal ascites. Cirrhosis of liver. Splenomegaly. Cholelithiasis. Dumont catheter in bladder.
--- NOTE | ~2021-05-05 | US_ITS ---
EXAMINATION: ABDOMINAL DOPPLER ULTRASOUND CLINICAL INFORMATION: Hepatic cirrhosis with pain. Question portal vein thrombosis. COMPARISON: Abdominal ultrasound April 13, [address] scan of December 27, 2018 TECHNIQUE: Real-time ultrasound and Doppler techniques (integrating B-mode 2D vascular images, Doppler spectral analysis and color flow Doppler imaging) were utilized to interrogate the visceral vessels FINDINGS: On the provided imaging the portal vein appears to be occluded. The main, right, and left hepatic arteries appear to be patent with a tortuous main hepatic artery and peak soft velocity of 146 cm a second. The hepatic veins are patent and appear unremarkable with normal waveform and direction. The inferior vena cava appears unremarkable. Splenomegaly is present with a span of approximately 14.5 cm. The splenic vein appears to be patent in the splenic hilum however no flow is discernible at the portal splenic confluence. There is ascites present. No definite varices appreciated. US/US duplex arterial venous comp IMPRESSION: Portal vein occlusion. Splenomegaly. Ascites.
--- NOTE | ~2021-05-05 | CT_ITS ---
EXAMINATION: CT CHEST WITHOUT CONTRAST CLINICAL INFORMATION: Shortness of breath and abdominal pain COMPARISON: January 30, 2020 TECHNIQUE: Multidetector volumetric CT imaging of the chest was done. Axial MIP volume rendering provided. Sagittal and coronal reformatted images were obtained. This CT examination was performed using dose optimization techniques as appropriate, variously including the following: *Automated exposure control *Adjustment of mA and/or kV according to patient size (this includes techniques or standardized protocols for targeted exams where dose is matched to indication/reason for exam; i.e. extremities or head) *Use of iterative reconstruction technique DLP: 228.64 mGy-cm FINDINGS: There are limitations due to large amount of breathing artifact. LUNGS: Central airways are patent. No bronchiectasis. No significant emphysematous changes appreciated however there is motion artifact present. There is atelectatic change seen in both lower lobes. There is linear scarring or atelectasis noted within the lingula and right middle lobe. No suspicious lung lesions identified. MEDIASTINUM: Visualized thyroid gland appears unremarkable. Heart normal size. No pericardial effusion. Main pulmonary artery is prominent at 3.8 cm in diameter with no thoracic aortic aneurysm appreciated and ascending thoracic aorta measuring up to 3.8 cm in diameter. No mediastinal or hilar lymphadenopathy. No coronary artery calcification appreciated.. PLEURA: There is a small left pleural effusion. AXILLA: No lymphadenopathy. UPPER ABDOMEN: There is ascites present. The liver has a lobular contour with the appearance of cirrhosis. There is noted to be hepatosplenomegaly on the abdominal CT from earlier today.. OSSEOUS STRUCTURES: There is a 1.6 x 0.9 cm mixed lytic and sclerotic lesion within the right scapula without destructive features which is well-circumscribed without expansion with benign appearance. No suspicious destructive bony lesion identified. There is mild scoliosis of the thoracic spine convex right. CT/CT chest wo con IMPRESSION: Small left pleural effusion with bibasilar atelectasis. Findings consistent with hepatic cirrhosis with hepatosplenomegaly and lobular contour to the liver with ascites. Fleischner guidelines were followed.
--- NOTE | ~2021-05-05 | XR_ITS ---
EXAMINATION: XR CHEST CLINICAL INFORMATION: Shortness of breath COMPARISON: 04/17/2021 TECHNIQUE: Frontal view of the chest was obtained. FINDINGS: Low lung volumes. Left basilar subsegmental atelectasis. No parenchymal consolidation. No pleural effusion. No pneumothorax. Cardiomediastinal silhouette and pulmonary vascularity are within normal limits. No acute osseous abnormalities. XR/XR chest 1V IMPRESSION: No acute findings
--- NOTE | ~2021-05-05 | US_ITS ---
EXAMINATION: ULTRASOUND-GUIDED PARACENTESIS. CLINICAL INFORMATION: Ascites. Rule out SBP COMPARISON: None TECHNIQUE: Following explaining ultrasound-guided paracentesis procedure, benefits and risk, a written consent was obtained. Patient was placed supine on ultrasound stretcher and preliminary ultrasound imaging was obtained through the entire abdomen. An optimal site was selected along the right midabdomen and marked. The marked site was cleaned and draped in usual sterile manner. 1% lidocaine was injected at puncture site. Through a small skin incision a 4 [place] Yueh needle was advanced through the skin into the peritoneal space. After observing fluid return, stylet was withdrawn and catheter connected to vacuum bottle via connecting cannula. After obtaining all fluid and observing no more fluid return, catheter was withdrawn and complete hemostasis was achieved at puncture site. Sterile dressing applied postprocedure. FINDINGS: There is moderate free fluid seen in the pelvis. Successful ultrasound-guided paracentesis performed with 1.1 L of fluid drained from right lower quadrant. US/US paracentesis abd w/image IMPRESSION: Successful ultrasound-guided paracentesis performed with 1.1 L of fluid drained from the right lower quadrant.
--- NOTE | ~2021-05-05 | XR_ITS ---
EXAMINATION: XR CHEST CLINICAL INFORMATION: Right IJ placement. COMPARISON: Chest radiograph done earlier today at 2:50 PM. TECHNIQUE: AP view of the chest was obtained. FINDINGS: Right IJ CVC terminates at the level of the cavoatrial junction. EKG wires overlie the chest. Stable prominence of the cardiomediastinal silhouette including fullness of the left pulmonary hilum. Low lung volumes with similar linear-like opacities in the left lower lobe, likely representing subsegmental atelectasis. No new focal airspace opacities, pleural effusions or pneumothorax. No acute osseous abnormalities. Upper abdomen appears within normal limits. XR/XR chest 1V IMPRESSION: Satisfactory positioning of right IJ CVC without evidence of postprocedural pneumothorax.
--- NOTE | ~2021-05-05 | MR_ITS ---
EXAMINATION: MR ABDOMEN WITHOUT AND WITH CONTRAST CLINICAL INFORMATION: Cirrhosis. Rule out portal vein thrombus. COMPARISON: Previous CT and ultrasound of the abdomen May 05, 2021 TECHNIQUE: MR abdomen was performed without and with use of 8 mL intravenous Gadavist gadolinium contrast. Postcontrast images are performed in multiphase dynamic sequences. Imaging was performed in 3 planes. FINDINGS: LUNG BASES: The visualized lung bases are unremarkable. LIVER, GALLBLADDER, AND BILIARY TREE: The liver is cirrhotic. No focal liver lesion is seen. The gallbladder is contracted. There is are also a gallstone in the gallbladder. There is no intra-axial hepatic biliary duct dilatation. The hepatic veins are patent. The main, right and left portal veins are patent. The splenic vein and portal splenic confluence is patent. There is a small amount of ascites. The hepatic veins and IVC are patent. PANCREAS: Unremarkable. SPLEEN: Enlarged and measures 17 cm in length. ADRENAL GLANDS: Normal. KIDNEYS AND URETERS: The kidneys are normal in size, shape, and enhance symmetrically. No hydronephrosis. No perinephric stranding. GASTROINTESTINAL TRACT: No bowel obstruction. Small amount of ascites. ABDOMINAL WALL: No significant hernia is appreciated. LYMPH NODES: No lymphadenopathy. VASCULAR: Unremarkable. OSSEOUS STRUCTURES: Marrow signal normal. MR/MR abdomen wo/w con IMPRESSION: Cirrhotic-appearing liver. The main portal vein appears patent by MRI. Enlarged spleen. Small amount of ascites.
--- NOTE | ~2021-05-05 | XR_ITS ---
EXAMINATION: XR CHEST CLINICAL INFORMATION: Cough and shortness of breath COMPARISON: Previous chest x-rays most recent 05/05/2021 TECHNIQUE: Frontal view of the chest was obtained. FINDINGS: The lung volumes are low. The cardiac and mediastinal contours are stable. The left pulmonary hilum appears slightly prominent but unchanged from prior exams. There is atelectasis at the left lung base. The lungs are otherwise clear. There is no pleural effusion or pneumothorax. Bony structures are unremarkable. XR/XR chest 1V IMPRESSION: Low lung volumes and atelectasis at the left lung base.
--- NOTE | 2021-05-05 05:34 | ECG_ITS ---
Test Reason : SOB Blood Pressure : / mmHG Vent. Rate : 109 BPM Atrial Rate : 000 BPM P-R Int : 000 ms QRS Dur : 094 ms QT Int : 504 ms P-R-T Axes : 000 069 021 degrees QTc Int : 678 ms Sinus tachycardia Tall R waves in V1-V2 may suggeset RV enlargement T-wave inversion in Anterior leads suggestive of ischemia or RV strain Cannot rule out Inferior infarct (cited on or before 17-APR-2021) Prolonged QT Abnormal ECG When compared with ECG of 17-APR-2021 16:01, Nonspecific T wave abnormality has replaced inverted T waves in Inferior leads QT has lengthened Referred By: Kirsten Lewis Electronically Signed By:VAN NOVA MD
--- NOTE | 2021-05-05 06:03 | PC.NURSE ---
Pt attached to monitor and franz cannula, vitals as charted, endorses ongoing dyspnea. PIV placed via US, labs and COVID swab collected and sent.
[2021-05-05 06:05] LABS: COVID-19 Test Negative (Negative); IDNOW Serial# 55D5AD1C
[2021-05-05 06:05] LABS: MANUAL DIFF FLAG NO
[2021-05-05 06:12] LABS: Basophils Percent Auto 0.2 % (0-2); Hematocrit 27.2 % (37.0-47.0); Hemoglobin 8.8 g/dl (12.0-16.0); INTERNATIONAL NORM RATIO 1.7 (0.9-1.1); Imm Gran Abs Auto 0.09 X10*3/uL (0.00-0.03); Imm Gran Pct Auto 0.8 % (0.0-0.4); Lymphocytes Absolute Auto 0.8 X10*3/uL (1.2-4.9); Lymphocytes Percent Auto 6.9 % (20-40); Mean Corpuscular HGB Conc 32.4 g/dl (31.0-35.0); Mean Corpuscular Hemoglobin 27.7 pg (27.0-33.0); Mean Corpuscular Volume 85.5 fL (80.0-98.0); Monocytes Absolute Auto 0.9 X10*3/uL (0.1-1.2); NRBC Pct Auto 0.2 /100WBC (0.0-0.2); Neutrophils Absolute Auto 9.3 x10*3/uL (2.0-8.3); Neutrophils Percent Auto 84.1 % (45-73); Platelet Count 111 X10*3/uL (160-400); Red Blood Count 3.18 X10*6/uL (4.20-5.50); Red Cell Distribution Width 22.2 % (11.0-16.0)
[2021-05-05 06:19] LABS: Lactic Acid 1.8 mmol/L (0.5-2.0)
[2021-05-05 06:21] LABS: Ethanol < 10 mg/dL
[2021-05-05 06:29] LABS: B Type Natriuretic Peptide 55 pg/mL (<100); Troponin-I High Sensitivity 5.9 ng/L (<3.5-17.0)
--- NOTE | 2021-05-05 06:30 | ED_ITS ---
HPI - SOB/Dyspnea General Chief Complaint: Dyspnea Stated Complaint: Sob Time Seen by Provider: 05/05/21 05:34 Source: patient Mode of arrival: ambulatory History of Present Illness HPI Narrative: 50-year-old female who presents with increasing shortness of breath for 2 weeks and noted pain to her left side that has not been associated with hematochezia or melena nor has it been associated with hematemesis. Patient states that approximately 2 weeks ago she had banding of esophageal varices. Patient states that she has felt unwell since that time and has been short of breath since discharge. She did attempt to contact her unmanned equipment operator who had some concerns that patient may have had an aspiration pneumonia and she was started on antibiotics, but patient states she has had no relief of the shortness of breath. Patient denies any recent alcohol use. Patient denies that she is experienced weight gain or increased size in abdominal girth and states that her last paracentesis was 4 years ago. Related Data Home Medications Medication Instructions Recorded Confirmed nadolol 20 mg tablet 20 mg PO DAILY 01/30/20 04/13/21 bumetanide 1 mg tablet 2 mg PO DAILY tab 02/15/21 04/13/21 Previous Rx's Medication Instructions Recorded eplerenone 25 mg tablet 25 mg PO DAILY #30 tab 01/05/21 potassium chloride 20 mEq 20 meq PO BID 60 Days #120 tab 02/16/21 tablet,extended release escitalopram oxalate 10 mg tablet 10 mg PO DAILY #30 tab 03/02/21 lorazepam 0.5 mg tablet 0.25 mg PO DAILY PRN #10 tab 03/10/21 ambrisentan 10 mg tablet 10 mg PO DAILY 30 Days #30 tab 03/21/21 folic acid 1 mg tablet 1 mg PO DAILY 30 Days #30 tab 04/18/21 multivitamin (Daily-Rodney) 1 tab PO DAILY 30 Days #30 tab 04/18/21 pantoprazole 40 mg tablet,delayed 40 mg PO BID #60 tab 04/18/21 release thiamine mononitrate (vit B1) 100 100 mg PO DAILY 30 Days #30 tab 04/18/21 mg tablet amoxicillin 875 mg-potassium 1 tab PO BID 10 Days #20 tab 04/26/21 clavulanate 125 mg tablet sucralfate 1 gram tablet (Carafate) 1 g PO BID 30 Days #60 tab 04/29/21 Allergies Allergy/AdvReac Type Severity Reaction Status Date / Time No Known Allergies Allergy Verified 05/05/21 05:32 [No Known Allergies*] Review of Systems Review of Systems: Pertinent positives and negatives as stated in HPI 10 point review of systems is otherwise negative. [facility] Past Medical History Source: nursing notes reviewed Medical History Abdominal pain Alcohol abuse Alcoholic cirrhosis of liver Anemia Anxiety disorder Esophageal varices in alcoholic cirrhosis Nonrheumatic tricuspid (valve) insufficiency Pancytopenia Portopulmonary hypertension Pulmonary hypertensive arterial disease associated with portal hypertension Surgical History Hx of cardiac cath Family History Family History Father HTN (hypertension) Mother HTN (hypertension) Social History Social History Household Members: Family Housing: House Do you presently have visiting nurse or other home services: No Alcohol intake: current Alcohol intake frequency: former alcohol drinker Patient Tobacco Use Status: Former Tobacco user Tobacco use type: Cigarette Cigarette Packs Per Day: 1 Years Smoked: 30 years Use of substances other than those prescribed or required for medical reasons: No Advance Directives: No Advance Directives Date on File: 01/30/20 service: No Current occupational status: employed Physical Exam Vital Signs: Vital Signs: Last Vital Signs Temp 99.4 F 05/05/21 06:57 Pulse 100 05/05/21 06:57 Resp 24 H 05/05/21 06:57 BP 104/61 05/05/21 06:57 Pulse Ox 97 05/05/21 06:57 BMI result Body Mass Index 28.3 VITAL SIGNS: Reviewed. GENERAL: Well developed, well nourished, in moderate to severe distress. HEAD: Normocephalic/atraumatic EYES: PERRLA, EOMI with scleral icterus noted OROPHARYNX: no oral lesions noted, posterior pharynx clear room, dry mucosa NECK: Supple, no adenopathy LUNGS: Bibasilar decrease in breath sounds, tachypnea is present, patient is sitting upright but able to complete entire sentence, she currently has supplemental oxygen in place due to 86% O2 sat on room air. CARDIOVASCULAR: Sinus tachycardia without noted murmurs, no JVD or lower extremity edema. ABDOMEN: Soft, tenderness at left side without rebound, distended without fluid wave. MUSCULOSKELETAL: No tenderness, deformities, or effusions noted on gross inspection. EXTREMITIES: No cyanosis, clubbing or edema. SKIN: Inspection of the skin reveals no rashes, but obvious jaundice NEUROLOGIC: Alert and oriented x 4. Strength and sensation to light touch were grossly intact x 4. Course Course Course Narrative: 50-year-old female with history and clinical presentation concerning for possible decompensated pulmonary hypertension, portal vein thrombosis given acute worsening of LFTs, and the possibility of SBP for which patient received empiric antibiotics. Low concern for GIB as patient denies. Will proceed with dry CT scans and complete ABD US with dopplers. Patient remains hemodynamically stable and is breathing mor comfortably on nasal cannula. Sign out given to Dr Martell. MDM - SOB/Dyspnea Lab Data Result diagrams: 05/05/21 05:57 05/05/21 05:57 Labs: Lab Results 05/05/21 05/05/21 05/05/21 Range/Units 05:47 05:57 05:57 WBC 11.0 H (4.8-10.8) X10*3/uL RBC 3.18 L (4.20-5.50) X10*6/uL Hgb 8.8 L (12.0-16.0) g/dl Hct 27.2 L (37.0-47.0) % MCV 85.5 (80.0-98.0) fL MCH 27.7 (27.0-33.0) pg MCHC 32.4 (31.0-35.0) g/dl RDW 22.2 H (11.0-16.0) % Plt Count 111 L D (160-400) X10*3/uL MPV TNP Immature Gran % (Auto) 0.8 H (0.0-0.4) % Neut % (Auto) 84.1 H (45-73) % Lymph % (Auto) 6.9 L (20-40) % Smith % (Auto) 8.0 (2-11) % Eos % (Auto) 0.0 (0-4) % Baso % (Auto) 0.2 (0-2) % Lymph # (Auto) 0.8 L (1.2-4.9) X10*3/uL Smith # (Auto) 0.9 (0.1-1.2) X10*3/uL Eos # (Auto) 0.0 (0.0-0.4) X10*3/uL Baso # (Auto) 0.0 (0.0-0.2) X10*3/uL Abs Immat Gran (auto) 0.09 H (0.00-0.03) X10*3/uL Absolute Neuts (auto) 9.3 H (2.0-8.3) x10*3/uL Absolute Nucleated RBC 0.020 H (0.0-0.012) X10*3/uL Nucleated RBC % (auto) 0.2 (0.0-0.2) /100WBC PT 19.0 H (9.9-13.0) SEC INR 1.7 H (0.9-1.1) Sodium (135-145) mmol/L Potassium (3.3-5.1) mmol/L Chloride (96-108) mmol/L Carbon Dioxide (22-29) mmol/L Anion Gap (12-20) BUN (9-16) mg/dL Creatinine (0.5-1.4) mg/dL Estim Creat Clear Calc Estimated GFR Random Glucose (60-115) mg/dL Lactic Acid (0.5-2.0) mmol/L Calcium (8.4-10.2) mg/dL Magnesium (1.6-2.6) mg/dL Total Bilirubin (0.0-1.0) mg/dL AST (5-31) U/L ALT (0-31) U/L Alkaline Phosphatase (39-117) U/L Troponin I High Sens (<3.5-17.0) ng/L B-Natriuretic Peptide (<100) pg/mL Total Protein (6.5-8.0) g/dL Albumin (3.5-5.0) g/dL Lipase (8-78) U/L Ethyl Alcohol mg/dL COVID-19 (KATLIN) Negative (Negative) COVID-19 Clin Com See Note 05/05/21 05/05/21 05/05/21 Range/Units 05:57 05:57 05:57 WBC (4.8-10.8) X10*3/uL RBC (4.20-5.50) X10*6/uL Hgb (12.0-16.0) g/dl Hct (37.0-47.0) % MCV (80.0-98.0) fL MCH (27.0-33.0) pg MCHC (31.0-35.0) g/dl RDW (11.0-16.0) % Plt Count (160-400) X10*3/uL MPV Immature Gran % (Auto) (0.0-0.4) % Neut % (Auto) (45-73) % Lymph % (Auto) (20-40) % Smith % (Auto) (2-11) % Eos % (Auto) (0-4) % Baso % (Auto) (0-2) % Lymph # (Auto) (1.2-4.9) X10*3/uL Smith # (Auto) (0.1-1.2) X10*3/uL Eos # (Auto) (0.0-0.4) X10*3/uL Baso # (Auto) (0.0-0.2) X10*3/uL Abs Immat Gran (auto) (0.00-0.03) X10*3/uL Absolute Neuts (auto) (2.0-8.3) x10*3/uL Absolute Nucleated RBC (0.0-0.012) X10*3/uL Nucleated RBC % (auto) (0.0-0.2) /100WBC PT (9.9-13.0) SEC INR (0.9-1.1) Sodium 127 L (135-145) mmol/L Potassium 2.8 L (3.3-5.1) mmol/L Chloride 88 L (96-108) mmol/L Carbon Dioxide 24 (22-29) mmol/L Anion Gap 16 (12-20) BUN 10 D (9-16) mg/dL Creatinine 0.67 (0.5-1.4) mg/dL Estim Creat Clear Calc 105.4 Estimated GFR > 60 Random Glucose 106 (60-115) mg/dL Lactic Acid 1.8 (0.5-2.0) mmol/L Calcium 7.8 L D (8.4-10.2) mg/dL Magnesium 1.2 L* (1.6-2.6) mg/dL Total Bilirubin 8.1 H (0.0-1.0) mg/dL AST 194 H (5-31) U/L ALT 48 H (0-31) U/L Alkaline Phosphatase 250 H (39-117) U/L Troponin I High Sens 5.9 D (<3.5-17.0) ng/L B-Natriuretic Peptide 55 (<100) pg/mL Total Protein 7.1 (6.5-8.0) g/dL Albumin 3.0 L (3.5-5.0) g/dL Lipase 65 (8-78) U/L Ethyl Alcohol mg/dL COVID-19 (KATLIN) (Negative) COVID-19 Clin Com 05/05/21 Range/Units 05:57 WBC (4.8-10.8) X10*3/uL RBC (4.20-5.50) X10*6/uL Hgb (12.0-16.0) g/dl Hct (37.0-47.0) % MCV (80.0-98.0) fL MCH (27.0-33.0) pg MCHC (31.0-35.0) g/dl RDW (11.0-16.0) % Plt Count (160-400) X10*3/uL MPV Immature Gran % (Auto) (0.0-0.4) % Neut % (Auto) (45-73) % Lymph % (Auto) (20-40) % Smith % (Auto) (2-11) % Eos % (Auto) (0-4) % Baso % (Auto) (0-2) % Lymph # (Auto) (1.2-4.9) X10*3/uL Smith # (Auto) (0.1-1.2) X10*3/uL Eos # (Auto) (0.0-0.4) X10*3/uL Baso # (Auto) (0.0-0.2) X10*3/uL Abs Immat Gran (auto) (0.00-0.03) X10*3/uL Absolute Neuts (auto) (2.0-8.3) x10*3/uL Absolute Nucleated RBC (0.0-0.012) X10*3/uL Nucleated RBC % (auto) (0.0-0.2) /100WBC PT (9.9-13.0) SEC INR (0.9-1.1) Sodium (135-145) mmol/L Potassium (3.3-5.1) mmol/L Chloride (96-108) mmol/L Carbon Dioxide (22-29) mmol/L Anion Gap (12-20) BUN (9-16) mg/dL Creatinine (0.5-1.4) mg/dL Estim Creat Clear Calc Estimated GFR Random Glucose (60-115) mg/dL Lactic Acid (0.5-2.0) mmol/L Calcium (8.4-10.2) mg/dL Magnesium (1.6-2.6) mg/dL Total Bilirubin (0.0-1.0) mg/dL AST (5-31) U/L ALT (0-31) U/L Alkaline Phosphatase (39-117) U/L Troponin I High Sens (<3.5-17.0) ng/L B-Natriuretic Peptide (<100) pg/mL Total Protein (6.5-8.0) g/dL Albumin (3.5-5.0) g/dL Lipase (8-78) U/L Ethyl Alcohol < 10 mg/dL COVID-19 (KATLIN) (Negative) COVID-19 Clin Com ECG Data Attestation: I personally reviewed and interpreted this ECG as follows: Prior ECG tracings: available for review Interpretation: Sinus tachycardia, HR-109, no STEMI, prolonged QT Critical Care Time Critical Care Time Critical Care Time: Yes Total Critical Care Time: 30 Attestation: I personally attest to this time spent taking care of the patient. Discharge Plan Discharge Clinical Impression: Alcoholic cirrhosis, Shortness of breath, Hypomagnesemia, Abdominal pain, Hypokalemia Patient Disposition: Still a Patient Prescriptions: No Action eplerenone 25 mg tablet 25 mg PO DAILY Qty: 30 5RF potassium chloride 20 mEq tablet extended release 20 meq PO BID 60 Days Qty: 120 1RF escitalopram oxalate 10 mg tablet 10 mg PO DAILY Qty: 30 3RF lorazepam 0.5 mg tablet 0.25 mg PO DAILY PRN (Reason: anxiety) Qty: 10 0RF ambrisentan 10 mg tablet 10 mg PO DAILY 30 Days Qty: 30 6RF amoxicillin-pot clavulanate 875-125 mg tablet 1 tab PO BID 10 Days Qty: 20 0RF multivitamin [Daily-Rodney] Tablet 1 tab PO DAILY 30 Days Qty: 30 0RF folic acid 1 mg Tablet 1 mg PO DAILY 30 Days Qty: 30 0RF thiamine mononitrate (vit B1) 100 mg Tablet 100 mg PO DAILY 30 Days Qty: 30 0RF pantoprazole 40 mg tablet,delayed release (DR/EC) 40 mg PO BID Qty: 60 2RF nadolol 20 mg tablet 20 mg PO DAILY 0RF bumetanide 1 mg tablet 2 mg PO DAILY 0RF Protocol: Hold for SBP< HOLD for SBP < : 90 sucralfate [Carafate] 1 gram tablet 1 g PO BID 30 Days Qty: 60 0RF
[2021-05-05 06:35] LABS: Alanine Aminotransferase 48 U/L (0-31); Alkaline Phosphatase 250 U/L (39-117); Anion Gap 16 (12-20); Aspartate Amino Transferase 194 U/L (5-31); Bilirubin Total 8.1 mg/dL (0.0-1.0); Blood Urea Nitrogen 10 mg/dL (9-16); Calcium 7.8 mg/dL (8.4-10.2); Carbon Dioxide 24 mmol/L (22-29); Chloride 88 mmol/L (96-108); Creatinine Clr Calc Pharmacy 105.4; Estimated Glomerular Filt Rate > 60; Glucose Random 106 mg/dL (60-115); Lipase 65 U/L (8-78); Magnesium 1.2 mg/dL (1.6-2.6); Potassium 2.8 mmol/L (3.3-5.1); Sodium 127 mmol/L (135-145); Total Protein 7.1 g/dL (6.5-8.0)
[2021-05-05] MEDS: Magnesium Sulfate/H2O 2 GM/50 ML PIGGYBACK IV ×2 (06:38→18:27)
[2021-05-05] MEDS: cefTRIAXone sodium 2 GM in 0.9 % Sodium Chloride 50 ML IV (07:06)
[2021-05-05] MEDS: Potassium Chloride/H20 10 MEQ/100 ML PIGGYBACK 100 MEQ IV ×2 (08:08→09:15)
[2021-05-05] MEDS: 0.9 % Sodium Chloride 500 ML 999 ML IV (08:09)
--- NOTE | 2021-05-05 11:18 | PHA.MEDREC ---
MED REC COMPLETE, NO ISUES Pharmacy Consult ? Medication Reconciliation Pharmacy has completed the medication reconciliation.
[2021-05-05] MEDS: Lidocaine HCl 1 % MPF 5 ML VIAL SUBCUT (16:14)
[2021-05-05 16:38] LABS: MN% 32.2 %; PMN% 67.8 %; WBC Peritoneal Fluid 4.786 X10*3/uL
[2021-05-05 16:39] LABS: Lactate Dehydrogenase 309 U/L (122-220)
[2021-05-05 16:41] LABS: RBC Peritoneal Fluid < 0.002 X10*6/uL
--- NOTE | 2021-05-05 16:42 | PM.IMHP ---
History of Present Illness Date of Service: 05/05/21 Chief Complaint: abdominal pain, sob 50-year-old female with alcoholic liver cirrhosis complicated by bleeding varices which recently required admssion and banding, she claims she has been sobber for at least one month and presents today complaining of who presents with increasing shortness of breath for 2 weeks and pain to her left sided abdominal area pain with no nausea, vomitting, diarrhea or blood in stool. Essentially says she has not been feeling well since she was discharged at the end of march and states that she has not been drinking alcohol. She has no fever. Work with doppler US of abdomen shows portal vein occlusion, ascietes and underwent paracentesis of 1.1 liters. There is no sign of infection. Review of Systems Review of Systems: Gen: no fever Resp: no sob, no cough CV: no chest, no WEI, no leg edema GI: No n/v, +abd pain Neuro: No confusion Yes all other systems are reviewed and are negative [facility] Medical History Abdominal pain Alcohol abuse Alcoholic cirrhosis of liver Anemia Anxiety disorder Esophageal varices in alcoholic cirrhosis Nonrheumatic tricuspid (valve) insufficiency Pancytopenia Portopulmonary hypertension Pulmonary hypertensive arterial disease associated with portal hypertension Family History Father HTN (hypertension) Mother HTN (hypertension) Surgical History Hx of cardiac cath Social History Household Members: Family Housing: House Do you presently have visiting nurse or other home services: No Alcohol intake: current Alcohol intake frequency: former alcohol drinker Patient Tobacco Use Status: Former Tobacco user Tobacco use type: Cigarette Cigarette Packs Per Day: 1 Years Smoked: 30 years Use of substances other than those prescribed or required for medical reasons: No Advance Directives: No Advance Directives Date on File: 01/30/20 service: No Current occupational status: employed Meds Allergies Allergy/AdvReac Type Severity Reaction Status Date / Time No Known Allergies Allergy Verified 05/05/21 05:32 [No Known Allergies*] Active Medications: Current Medications Pharmacy Consult (Consult Rx Perform Med Rec) 1 each MISCELLANE ONCE PRN PRN Reason: Consult order Home Medications Medication Instructions Recorded Confirmed Last Taken Type nadolol 20 mg tablet 20 mg PO DAILY 01/30/20 05/05/21 01/30/20 History bumetanide 1 mg tablet 2 mg PO DAILY PRN tab 02/15/21 05/05/21 Unknown History pantoprazole 40 mg tablet,delayed 40 mg PO DAILY 05/05/21 05/05/21 Unknown History release potassium chloride 20 mEq 20 meq PO DAILY 05/05/21 05/05/21 Unknown History tablet,extended release Physical Exam Vital Signs and Narrative: Vital Signs: Last Vital Signs Temp 98.2 F 05/05/21 16:26 Pulse 102 H 05/05/21 16:26 Resp 26 H 05/05/21 16:26 BP 108/61 05/05/21 16:26 Pulse Ox 98 05/05/21 16:26 BMI result Body Mass Index 28.3 Const: Other: Constitutional: Alert, in no distress Mental Status: Oriented to person, place and time. Eyes: Pupils are equal, round and reactive to light. Sclear icteris Ear, Nose and Throat: Oropharynx clear, mucous membranes moist. Ears and nose without deformities. Trachea midline. Respiratory: Clear to auscultation. No wheezing, rales or rhonchi. Cardiovascular: S1 S2 regular. No murmurs, rubs or gallops. Gastrointestinal: Abdomen soft, non-tender, non-distended. Normal bowel sounds.? Neurologic: Cranial nerves II-XII grossly intact. No focal neurological deficits. Moves all extremities spontaneously.? Skin: No rashes or lesions.? Musculoskeletal: No cyanosis or clubbing. Psychiatric: Normal mood and affect? Results Labs CBC and Chem 7: 05/06/21 06:31 05/06/21 06:31 Imaging Radiologist's Impressions: Impressions Chest X-Ray 05/05/21 06:19 IMPRESSION: No acute findings Abdomen/Pelvis CT 05/05/21 08:18 IMPRESSION: Cirrhosis with diffuse ascites. Cholelithiasis. None Fleischner guidelines were followed. Chest CT 05/05/21 08:18 IMPRESSION: Small left pleural effusion with bibasilar atelectasis. Findings consistent with hepatic cirrhosis with hepatosplenomegaly and lobular contour to the liver with ascites. Fleischner guidelines were followed. Doppler Study Ultrasound 05/05/21 10:03 IMPRESSION: Portal vein occlusion. Splenomegaly. Ascites. Abdomen Ultrasound 05/05/21 10:07 IMPRESSION: Moderate ascites. Paracentesis Ultrasound 05/05/21 16:00 IMPRESSION: Successful ultrasound-guided paracentesis performed with 1.1 L of fluid drained from the right lower quadrant. Assessment and Plan (1) Portal vein thrombosis: Status: Acute (2) Alcoholic cirrhosis: Status: Acute (3) Hypomagnesemia: Status: Acute (4) Abdominal pain: Status: Acute (5) Hypokalemia: Status: Acute (6) Cirrhosis: Qualifiers: Hepatic cirrhosis type: alcoholic cirrhosis Ascites presence: without ascites Qualified Code(s): K70.30 - Alcoholic cirrhosis of liver without ascites Status: Acute Plan 50/F with chronic alcoholic liver cirrhosis, esophageal varices with recent banding here with abdominal pain and foudn to have the following #Portal vein thrombosis (PVT)--Hold of anticoagulation for now, GI consult, Dr. Vasquez advises no anticoagulation at the moment given recent history of variceaal bleed, high INR and signficant anemia.. #Hyponatremia--likely from hypervolemia from cirrhosis and ascites and quite possibly alcohol use -Fluid restriction and reassess in the morning and if not improving or worse will give NS #Anemia of chronic disease--H/H is stable and has no active bleed, monitor H/H closely #Cirrhosis of liver with ascietes s/p paracentesis of 1.1 L..medical management with diuretics and Nadolol #Coagulopathy INR 1.7, monitor, hold of Vitamin K in light of PVT #Hypomagnesemia--Replete with IV and recheck tomorrow #HyOkalemia--Replace along with mag replacement and recheck in the morning DVT: avoid chemical DVT prophylaxis in lighf of anemia, high INR Quality Stroke Does the patient have a stroke diagnosis?: No VTE Prior VTE?: No VTE Risk Level:: Medical - low VTE Device Contraindication: N/A - Device Ordered VTE Drug Contraindication: Treatment Not Tolerated (anemia, high iNR, and recent gi bleed)
[2021-05-05 17:49] LABS: BF Shift QC OK YES; Lymphocyte Peritoneal Fl 5 %; Man Diluent Bkgrd OK YES; Monocytes Peritoneal Fl 23 %; Neutrophils Peritoneal Fluid 68 %
[2021-05-05 17:50] LABS: Other Peritioneal Fl 4 %
[2021-05-05 19:23] LABS: Anion Gap 14 (12-20); Carbon Dioxide 25 mmol/L (22-29); Chloride 92 mmol/L (96-108); Magnesium 1.5 mg/dL (1.6-2.6); Potassium 2.8 mmol/L (3.3-5.1); Sodium 128 mmol/L (135-145)
[2021-05-05] MEDS: LORazepam 0.5 MG TABLET 0.25 MG PO (20:16)
[2021-05-05] MEDS: Sucralfate 1 GM TABLET PO (20:17)
--- NOTE | 2021-05-05 20:21 | PC.NURSE ---
Assumed care of pt from main ED. Pt alert and oriented, sitting upright in bed, vitals as charted. Medicated per MAR. Given tissues and warm blanket, call light at hand, denies further needs. Awaiting inpatient bed assignment
--- NOTE | 2021-05-06 00:15 | PM.EVENT ---
Event Note Date of Service: 05/06/21 Event Note: GI-Consult received. Will see patient in AM. Chart reviewed. It looks like she has SBP based on the cell count of her ascites with 4,786 WBC's with 68% neutrophils........for a neutrophil count of > 3300. That could explain her presentation with elevated LFT's and higher PT/INR. I spoke with Dr. Argueta and antibiotics will be started. I will also order some F/U labs to reassess her liver function, an AFP level, and a MRI of the abdomen re: the possible portal vein thrombosis seen on the U/S so as to R/O a hepatoma. Thanks
[2021-05-06] MEDS: Benzonatate 100 MG CAPSULE PO (00:16)
[2021-05-06] MEDS: cefTRIAXone sodium 1 GM in 0.9 % Sodium Chloride 50 ML IV ×2 (00:27→22:17)
--- NOTE | 2021-05-06 05:21 | PM.EVENT ---
Event Note Date of Service: 05/06/21 Event Note: Bacteremia/?SBP: Patient returned fluid has elevated WBC concern for SBP. Patient on ceftriaxone. Blood cultures growing GPC-pending final results
[2021-05-06] MEDS: Omeprazole 20 MG CAPSULE.DR PO (06:24)
[2021-05-06 06:32] VITALS: BP 102/63; PULSE 101; RESP 19; O2SAT 95
[2021-05-06 06:45] LABS: Red Blood Count 2.73 X10*6/uL (4.20-5.50)
[2021-05-06 06:46] LABS: Hematocrit 23.5 % (37.0-47.0); Hemoglobin 7.6 g/dl (12.0-16.0); Mean Corpuscular HGB Conc 32.3 g/dl (31.0-35.0); Mean Corpuscular Hemoglobin 27.8 pg (27.0-33.0); Mean Corpuscular Volume 86.1 fL (80.0-98.0); Platelet Count 100 X10*3/uL (160-400); Red Cell Distribution Width 22.2 % (11.0-16.0); White Blood Count 8.3 X10*3/uL (4.8-10.8)
[2021-05-06 06:47] LABS: Ammonia 49 umol/L (13-55)
[2021-05-06 06:48] LABS: PLT ABN DIST 1
[2021-05-06 07:02] LABS: INTERNATIONAL NORM RATIO 1.5 (0.9-1.1); Prothrombin Time 16.7 SEC (9.9-13.0)
[2021-05-06 07:18] LABS: Anion Gap 13 (12-20); Blood Urea Nitrogen 11 mg/dL (9-16); Calcium 7.6 mg/dL (8.4-10.2); Carbon Dioxide 25 mmol/L (22-29); Chloride 90 mmol/L (96-108); Creatinine Clr Calc Pharmacy 123.9; Estimated Glomerular Filt Rate > 60; Glucose Random 99 mg/dL (60-115); Potassium 3.1 mmol/L (3.3-5.1); Sodium 125 mmol/L (135-145)
[2021-05-06 07:22] LABS: Alanine Aminotransferase 38 U/L (0-31); Albumin Level 2.7 g/dL (3.5-5.0); Alkaline Phosphatase 217 U/L (39-117); Aspartate Amino Transferase 139 U/L (5-31); Bilirubin Direct 5.3 mg/dL (0.0-0.5); Bilirubin Total 7.4 mg/dL (0.0-1.0); Total Protein 6.5 g/dL (6.5-8.0)
[2021-05-06 07:39] LABS: Total Protein Peritoneal Fluid 1.5
[2021-05-06 07:40] LABS: Glucose Peritoneal Fluid 93; LDH Peritoneal Fluid 121
--- NOTE | 2021-05-06 07:47 | P.PNIM_ITS ---
Subjective Subjective Date of Service: 05/07/21 Interval History: f/u on portal vein thrombosis and electrolytes abnormalities in setting of cirrhosis of liver Review of Systems Gen: no fever Resp: no sob, no cough CV: no chest, no WEI, no leg edema GI: No n/v, no abd pain Neuro: No confusion Physical Exam Vital Signs: Vital Signs: Last Vital Signs Temp 98 F 05/05/21 20:15 Pulse 101 H 05/06/21 06:32 Resp 19 05/06/21 06:32 BP 102/63 05/06/21 06:32 Pulse Ox 95 05/06/21 06:32 BMI result Body Mass Index 28.3 Const: Other: General: AO X 3, no acute distress eye--sclear icteris Resp: CTA bilateral CVS: S1,S2,RRR GI: +BS, NT, no distention Skin: No rash Neuro: motor grossly intact Psych: appropriate affect Objective Data Active Medications Benzonatate (Benzonatate 100 Mg Capsule) 100 mg PO TID PRN PRN Reason: Cough Last Admin: 05/06/21 00:16 Dose: 100 mg Documented by: VERONICA Bumetanide (Bumetanide 1 Mg Tablet) 2 mg PO DAILY PRN; Protocol PRN Reason: SWELLING Escitalopram Oxalate (Escitalopram Oxalate 10 Mg Tablet) 10 mg PO DAILY [facility] Folic Acid (Folic Acid 1 Mg Tablet) 1 mg PO DAILY [facility] Ceftriaxone Sodium 1 gm/ (Sodium Chloride) 50 mls @ 100 mls/hr IV Q24H [facility] Lorazepam (Lorazepam 0.5 Mg Tablet) 0.25 mg PO DAILY PRN PRN Reason: anxiety Last Admin: 05/05/21 20:16 Dose: 0.25 mg Documented by: VERONICA Comments: Melatonin (Melatonin 3 Mg Tablet) 6 mg PO BEDTIME PRN PRN Reason: Insomnia Morphine Sulfate (Morphine Sulfate 2 Mg/Ml Cartridge) 2 mg IVPUSH Q4H PRN; Protocol PRN Reason: Pain, Severe (Pain Scale 7-10) Multivitamins/Vitamin C (Multivitamin Tablet) 1 tab PO DAILY [facility] Nadolol (Nadolol 20 Mg Tablet) 20 mg PO DAILY [facility]; Protocol Non-Formulary Medication (Ambrisentan) 10 mg PO DAILY [facility] Non-Formulary Medication (Eplerenone) 25 mg PO DAILY [facility] Omeprazole (Omeprazole 20 Mg Capsule.) 20 mg PO DAILY@0630 [facility] Last Admin: 05/06/21 06:24 Dose: 20 mg Documented by: VERONICA Pharmacy Consult (Consult Rx Perform Med Rec) 1 each MISCELLANE ONCE PRN PRN Reason: Consult order Potassium Chloride (Potassium Chloride Er 20 Meq Tab.Er.Prt) 20 meq PO DAILY [facility] Sodium Chloride (0.9 % Sodium Chloride Flush 3 Ml Syringe) 3 ml IVFLUSH QSHIFT [facility] Last Admin: 05/06/21 00:07 Dose: Not Given Documented by: VERONICA Non-Admin Reason: Med Not Available Sucralfate (Sucralfate 1 Gm Tablet) 1 gm PO BID [facility] Last Admin: 05/05/21 20:17 Dose: 1 gm Documented by: VERONICA Thiamine HCl (Thiamine Hcl 100 Mg Tablet) 100 mg PO DAILY [facility] Labs CBC & Chem 7: 05/06/21 20:12 05/06/21 06:31 Labs: Laboratory Results - last 24 hr 05/05/21 05/05/21 05/05/21 05:57 15:30 15:30 MCV MCH MCHC RDW Plt Count MPV Absolute Nucleated RBC Nucleated RBC % (auto) PT INR Anion Gap Estim Creat Clear Calc Estimated GFR Random Glucose Calcium Magnesium Total Bilirubin Direct Bilirubin AST ALT Alkaline Phosphatase Ammonia Lactate Dehydrogenase 309 H Total Protein Albumin Peritoneal WBC 4.786 Peritoneal RBC < 0.002 Periton Neutrophils 68 Periton Lymphocytes 5 Peritoneal Monocytes 23 Peritoneal Other Cells 4 Peritoneal Tot Protein 1.5 Peritoneal LDH 121 Peritoneal Glucose 93 05/05/21 05/06/21 05/06/21 17:44 06:29 06:30 MCV MCH MCHC RDW Plt Count MPV Absolute Nucleated RBC Nucleated RBC % (auto) PT 16.7 H INR 1.5 H Anion Gap 14 Estim Creat Clear Calc Estimated GFR Random Glucose Calcium Magnesium 1.5 L Total Bilirubin Direct Bilirubin AST ALT Alkaline Phosphatase Ammonia 49 Lactate Dehydrogenase Total Protein Albumin Peritoneal WBC Peritoneal RBC Periton Neutrophils Periton Lymphocytes Peritoneal Monocytes Peritoneal Other Cells Peritoneal Tot Protein Peritoneal LDH Peritoneal Glucose 05/06/21 05/06/21 05/06/21 06:31 06:31 06:31 MCV 86.1 MCH 27.8 MCHC 32.3 RDW 22.2 H Plt Count 100 L MPV Not Reportable Absolute Nucleated RBC 0.000 Nucleated RBC % (auto) 0.0 PT INR Anion Gap 13 Estim Creat Clear Calc 123.9 Estimated GFR > 60 Random Glucose 99 Calcium 7.6 L Magnesium Total Bilirubin 7.4 H Direct Bilirubin 5.3 H AST 139 H ALT 38 H Alkaline Phosphatase 217 H Ammonia Lactate Dehydrogenase Total Protein 6.5 Albumin 2.7 L Peritoneal WBC Peritoneal RBC Periton Neutrophils Periton Lymphocytes Peritoneal Monocytes Peritoneal Other Cells Peritoneal Tot Protein Peritoneal LDH Peritoneal Glucose Microbiology Microbiology Results: Microbiology 05/05/21 05:57 Blood Culture - Preliminary Blood - Venous Prelim: GPC Gram Stain only Assessment and Plan (1) Liver cirrhosis: Status: Acute (2) Hypokalemia: Status: Acute (3) Hyponatremia: Status: Acute (4) Portal vein thrombosis: Status: Acute Plan 50/F with chronic alcoholic liver cirrhosis, esophageal varices with recent banding here with abdominal pain and foudn to have the following #Portal vein thrombosis (PVT)--Hold of anticoagulation for now, GI consult, Dr. Vasquez advises no anticoagulation at the moment given recent history of variceaal bleed, high INR and signficant anemia.. #Hyponatremia--likely from hypervolemia from cirrhosis and ascites and quite possibly alcohol use, worse -continue Fluid restriction, Nephrology consult, may need NS #Anemia of chronic disease--recent variceal bleed, H/H is slightly down today -monitor, avoid heparin, lovenox, ASA #Cirrhosis of liver with ascietes s/p paracentesis of 1.1 L..medical management with diuretics and Nadolol #Coagulopathy INR 1.5, monitor, hold of Vitamin K in light of PVT #Hypomagnesemia--Repleted and improved to 1.5, repeat today #HyOkalemia--repleted, 3.1 today, additional 40 meq today, reheck tomorrow DVT: avoid chemical DVT prophylaxis in lighf of anemia, high INR Quality Stroke Does the patient have a stroke diagnosis?: No VTE Prior VTE?: No VTE Risk Level:: Medical - low VTE Device Contraindication: N/A - Device Ordered VTE Drug Contraindication: Treatment Not Tolerated (anemia, high iNR, and recent gi bleed)
[2021-05-06 08:04] LABS: Magnesium 1.8 mg/dL (1.6-2.6)
[2021-05-06] MEDS: Sucralfate 1 GM TABLET PO ×2 (08:10→21:48)
[2021-05-06] MEDS: Folic Acid 1 MG TABLET PO (08:10)
[2021-05-06] MEDS: Potassium Chloride ER 20 MEQ TAB.ER.PRT PO (08:10)
[2021-05-06] MEDS: Multivitamin TABLET 1 TAB PO (08:10)
[2021-05-06] MEDS: nadoloL 20 MG TABLET PO (08:10)
[2021-05-06] MEDS: 0.9 % Sodium Chloride Flush 3 ML SYRINGE IVFLUSH ×2 (08:11→22:18)
[2021-05-06] MEDS: Thiamine HCL 100 MG TABLET PO (08:11)
[2021-05-06] MEDS: Escitalopram Oxalate 10 MG TABLET PO (08:11)
[2021-05-06 08:17] VITALS: BP 111/57; PULSE 102; RESP 22; O2SAT 98
[2021-05-06] MEDS: Potassium Chloride Packet 20 MEQ PACKET 40 MEQ PO (09:04)
--- NOTE | 2021-05-06 09:40 | CONS_ITS ---
DATE OF SERVICE: 05/06/2021 REASON FOR CONSULTATION: Cirrhosis and ascites. HISTORY OF PRESENT ILLNESS: The patient is a 50-year-old female, well known to me with an unfortunate longstanding history of alcohol abuse and associated cirrhosis on that basis. She has had complications including ascites and esophageal variceal bleeds including most recently as of March, in which Dr. Elizondo performed a banding procedure emergently during upper GI bleeding when she was admitted in the ICU. Prior to the admission in March, she was still actively drinking but reports sobriety since that time over the past 2 or 3 weeks. Since being home from the hospital, she has been eating somewhat minimally, but has not noticed any further episodes of bleeding. However, she has been having some left-sided back and abdominal pain. She denies any definitive fevers nor chills. She denies any melena nor hematochezia. She has not been using any NSAIDs at home. She has quit smoking and again has remained abstinent from alcohol since her discharge at the end of March. Since being admitted here overnight, she did undergo a paracentesis in which the cell count appears consistent with spontaneous bacterial peritonitis, and she has been started on IV antibiotics. She did have an abdominal ultrasound which describes the possibility of portal vein thrombosis as well. MEDICATIONS: At home had included bumetanide, eplerenone, Lexapro, folic acid, lorazepam, nadolol, pantoprazole, sucralfate, and supplements. Her medications in the hospital are as listed in the chart. PAST MEDICAL HISTORY: Cirrhosis in relation to alcohol abuse with complications including ascites, variceal bleeding, and some associated cardiac issues for which she is followed by Dr. Shaffer. She has associated right-sided heart failure and associated pulmonary hypertension with tricuspid valve regurgitation. Previous imaging studies have been negative for liver mass and negative for portal vein thrombosis. As far as I can see, she has not had previous spontaneous bacterial peritonitis. She did have an episode of C difficile infection in 2019. She does have history of hypertension as well. There is no reported history of diabetes, stroke, nor ID. SOCIAL HISTORY: Alcohol and tobacco as above. She is single. FAMILY HISTORY: Noncontributory. REVIEW OF SYSTEMS: CONSTITUTIONAL: In general, she has been feeling poorly at home. Her appetite has been diminished. CARDIAC: No chest pain. PULMONARY: No coughing or hemoptysis. GI: As above. PHYSICAL EXAMINATION: GENERAL: The patient is alert and in no distress. SKIN: Warm and dry. She does have spider angiomata on her chest. Icteric sclerae. ABDOMEN: Distended with ascites. There is some mild diffuse tenderness. There is no palpable mass. EXTREMITIES: With bilateral pretibial edema. NEUROLOGIC: She is alert and oriented and speaks normally but does have some mild asterixis on her exam. LABORATORY DATA: Her ascites fluid from yesterday afternoon had 4700 white blood cells with 60% neutrophils. A blood culture from yesterday is preliminarily positive for gram-positive cocci. The other blood culture has no growth. White blood cell count on admission was 11.0, compared to leukopenia when she was in the hospital in March. Hemoglobin 8.8, platelets 111,000. PT 19.0 with INR 1.7. Sodium 128, potassium 2.8, chloride 92, CO2 25. BUN 11, creatinine 0.6. Total bilirubin 7.4, direct bilirubin 5.3, AST 139, ALT 38, alkaline phosphatase 217, ammonia level 49, albumin 2.7. Alpha fetoprotein levels pending. Her abdominal ultrasound from yesterday describes moderate ascites with what appears to be an occluded portal vein with patent hepatic arteries and hepatic veins, as well as an unremarkable inferior vena cava. There was splenomegaly. There was no sign of liver mass. Abdominal CT without contrast describes her cirrhosis and ascites, as well as gallstones, but without any sign of liver mass. There was splenomegaly. The GI tract appeared unremarkable. The vascular exam is described as unremarkable. IMPRESSION: Based on the patient's laboratories it does appear that she has a component of spontaneous bacterial peritonitis. She may have a component of portal vein thrombosis based on the Doppler ultrasound, and I have ordered a MRI for further evaluation of that as well as to rule out any component of liver mass that may be contributing to it. She has not shown any evidence of recurrent GI bleeding. She does have some mild asterixis on her exam. The ammonia level is normal. At this point, I will continue supportive care. I will continue her antibiotics intravenously. I would follow electrolytes carefully in regard to the hyponatremia and hold any diuretics as needed until that resolves. I would avoid all anticoagulants even if the portal vein thrombosis is confirmed given her recent variceal bleeding. I would continue her PPI and beta good. As I have discussed with her on numerous occasions the merino thing going forward will be that of long-term sobriety. This has all been discussed with her in detail. Thank you for the consultation. MD CHEVY Law/CHARISSE / [id number] MTDPatrick
--- NOTE | 2021-05-06 11:24 | PC.NURSE ---
Pt A&Ox3, Lungs diminished throughout due to pt's inability to take a deep breath. Pt on 4L NC, off to ambulate to the BR, upon return O2 checked on Room air, 87%, placed back on 4L NC at this time. Pt denies any pain, states it is just hard to take a deep breath from her large tight abd. Call sheldon within reach, will continue to monitor.
--- NOTE | 2021-05-06 14:53 | MHC.CM.PN ---
Met with patient in regards to discharge planning. Patient lives with the father of her children & 2 children, ambulates independently and had no services prior to coming to the hospital. PCP Verified. HCP completed, signed and witnessed. Original given to patient. Copy placed in chart. Patient has not received any Covid vaccines. Patient's daughter will transport patient when medically stable. Continue to monitor for d/c needs.
--- NOTE | 2021-05-06 15:37 | P.PNNP_ITS ---
Subjective Subjective Date of Service: 05/06/21 Principal diagnosis: seen and examined Interval history: f/u on portal vein thrombosis and electrolytes abnormalities in setting of cirrhosis of liver Physical Exam 2 Vital Signs: Vital Signs: Last Vital Signs Temp 98 F 05/05/21 20:15 Pulse 102 H 05/06/21 08:17 Resp 22 H 05/06/21 08:17 BP 111/57 L 05/06/21 08:17 Pulse Ox 98 05/06/21 08:17 BMI result Body Mass Index 28.3 Objective Data Labs CBC & Chem 7: 05/06/21 06:31 05/06/21 06:31 Labs: Laboratory Results - last 24 hr 05/05/21 05/05/21 05/05/21 05:57 15:30 15:30 WBC RBC Hgb Hct MCV MCH MCHC RDW Plt Count MPV Absolute Nucleated RBC Nucleated RBC % (auto) PT INR Sodium Potassium Chloride Carbon Dioxide Anion Gap BUN Creatinine Estim Creat Clear Calc Estimated GFR Random Glucose Calcium Magnesium Total Bilirubin Direct Bilirubin AST ALT Alkaline Phosphatase Ammonia Lactate Dehydrogenase 309 H Total Protein Albumin Peritoneal WBC 4.786 Peritoneal RBC < 0.002 Periton Neutrophils 68 Periton Lymphocytes 5 Peritoneal Monocytes 23 Peritoneal Other Cells 4 Peritoneal Tot Protein 1.5 Peritoneal LDH 121 Peritoneal Glucose 93 05/05/21 05/06/21 05/06/21 17:44 06:29 06:30 WBC RBC Hgb Hct MCV MCH MCHC RDW Plt Count MPV Absolute Nucleated RBC Nucleated RBC % (auto) PT 16.7 H INR 1.5 H Sodium 128 L Potassium 2.8 L Chloride 92 L Carbon Dioxide 25 Anion Gap 14 BUN Creatinine Estim Creat Clear Calc Estimated GFR Random Glucose Calcium Magnesium 1.5 L Total Bilirubin Direct Bilirubin AST ALT Alkaline Phosphatase Ammonia 49 Lactate Dehydrogenase Total Protein Albumin Peritoneal WBC Peritoneal RBC Periton Neutrophils Periton Lymphocytes Peritoneal Monocytes Peritoneal Other Cells Peritoneal Tot Protein Peritoneal LDH Peritoneal Glucose 05/06/21 05/06/21 05/06/21 06:31 06:31 06:31 WBC 8.3 RBC 2.73 L Hgb 7.6 L Hct 23.5 L MCV 86.1 MCH 27.8 MCHC 32.3 RDW 22.2 H Plt Count 100 L MPV Not Reportable Absolute Nucleated RBC 0.000 Nucleated RBC % (auto) 0.0 PT INR Sodium 125 L Potassium 3.1 L Chloride 90 L Carbon Dioxide 25 Anion Gap 13 BUN 11 Creatinine 0.57 Estim Creat Clear Calc 123.9 Estimated GFR > 60 Random Glucose 99 Calcium 7.6 L Magnesium 1.8 Total Bilirubin 7.4 H Direct Bilirubin 5.3 H AST 139 H ALT 38 H Alkaline Phosphatase 217 H Ammonia Lactate Dehydrogenase Total Protein 6.5 Albumin 2.7 L Peritoneal WBC Peritoneal RBC Periton Neutrophils Periton Lymphocytes Peritoneal Monocytes Peritoneal Other Cells Peritoneal Tot Protein Peritoneal LDH Peritoneal Glucose Microbiology Microbiology Results: Microbiology 05/05/21 05:57 Blood - Venous Blood Culture - Preliminary No growth after 24 hours. 05/05/21 05:57 Blood - Venous Blood Culture - Preliminary Prelim: GPC Gram Stain only Procedures Date of Service Date of Service: 05/06/21 Assessment & Plan Assessment and plan (1) Hyponatremia: Status: Acute (2) Hypokalemia: Status: Acute (3) Liver cirrhosis: Status: Acute Plan most likely hypotonic hypervolemic hyponatremia hepatic physiology in the setting of liver cirrhosis combination of poor solute excretion and excessive free water intake exacerbating hyponatremia REC U and Sosm Reema fluid restriction hold off IVF hold loop diuretics follow kidney function and electrolytes Thank you Time Spent With Patient Time: Total time spent is greater than 50% in coordination of care (as documented) at patient's floor/unit and/or counseling patient: Progress Note: Quality Stroke Does the patient have a stroke diagnosis?: No
[2021-05-06 16:58] LABS: Osmolality, Serum 263 mosm/kg (281-305)
[2021-05-06 19:28] VITALS: BP 82/52; PULSE 96; RESP 18; TEMP 36.6; O2SAT 98
[2021-05-06 19:48] VITALS: BP 86/60
[2021-05-06] MEDS: 0.9 % Sodium Chloride 500 ML 250 ML IV (20:16)
[2021-05-06 20:18] LABS: MANUAL DIFF FLAG NO
[2021-05-06 20:20] LABS: Imm Gran Abs Auto 0.07 X10*3/uL (0.00-0.03); Imm Gran Pct Auto 0.9 % (0.0-0.4); Mean Corpuscular Volume 87.5 fL (80.0-98.0); SCAN SMEAR FLAG 1
[2021-05-06 20:21] LABS: Basophils Percent Auto 0.3 % (0-2); Hemoglobin 7.3 g/dl (12.0-16.0); Lymphocytes Absolute Auto 0.6 X10*3/uL (1.2-4.9); Lymphocytes Percent Auto 7.7 % (20-40); Mean Corpuscular HGB Conc 31.7 g/dl (31.0-35.0); Mean Corpuscular Hemoglobin 27.8 pg (27.0-33.0); Monocytes Absolute Auto 0.6 X10*3/uL (0.1-1.2); Monocytes Percent Auto 7.5 % (2-11); Neutrophils Absolute Auto 6.5 x10*3/uL (2.0-8.3); Neutrophils Percent Auto 83.6 % (45-73); Red Blood Count 2.63 X10*6/uL (4.20-5.50); Red Cell Distribution Width 22.6 % (11.0-16.0); White Blood Count 7.8 X10*3/uL (4.8-10.8)
[2021-05-06 20:28] LABS: PLT ABN DIST 1
[2021-05-06 20:31] LABS: Platelet Count 108 X10*3/uL (160-400)
[2021-05-06 22:20] VITALS: BP 91/58
[2021-05-06] MEDS: LORazepam 0.5 MG TABLET 0.25 MG PO (22:32)
[2021-05-07] VITALS (8 sets, daily range): BP systolic 84–104; BP diastolic 54–66; PULSE 72–97; RESP 16–20; TEMP 34.3–36.9; O2SAT 94–98
[2021-05-07] MEDS: Morphine Sulfate 2 MG/ML CARTRIDGE IVPUSH ×3 (00:16→16:52)
--- NOTE | 2021-05-07 00:47 | PC.NURSE ---
05/06/212014 B/P 86/60 notified.NS 250cc/hr IV x 500cc ordered and given.B/P after bolus /58.Pt asymptomatic.
[2021-05-07] MEDS: Omeprazole 20 MG CAPSULE.DR PO (06:09)
[2021-05-07] MEDS: Potassium Chloride ER 20 MEQ TAB.ER.PRT PO (08:48)
[2021-05-07] MEDS: Sucralfate 1 GM TABLET PO ×2 (08:49→21:10)
[2021-05-07] MEDS: Thiamine HCL 100 MG TABLET PO (08:49)
[2021-05-07] MEDS: Escitalopram Oxalate 10 MG TABLET PO (08:49)
[2021-05-07] MEDS: Folic Acid 1 MG TABLET PO (08:49)
[2021-05-07] MEDS: Multivitamin TABLET 1 TAB PO (08:49)
[2021-05-07] MEDS: 0.9 % Sodium Chloride Flush 3 ML SYRINGE IVFLUSH ×3 (08:49→21:10)
[2021-05-07] MEDS: nadoloL 20 MG TABLET PO (09:40)
--- NOTE | 2021-05-07 09:56 | HO.PM.IMPN ---
Subjective Subjective Date of Service: 05/07/21 Interval History: f/u on portal vein thrombosis, SBP and electrolytes abnormalities in setting of cirrhosis of liver--she still has abdominal pain. Review of Systems Gen: no fever Resp: no sob, no cough CV: no chest, no WEI, no leg edema GI: No n/v, no abd pain Neuro: No confusion Physical Exam Vital Signs: Vital Signs: Last Vital Signs Temp 97.5 F 05/07/21 07:26 Pulse 88 05/07/21 07:26 Resp 18 05/07/21 07:26 BP 92/54 L 05/07/21 09:09 Pulse Ox 96 05/07/21 07:26 BMI result Body Mass Index 28.3 Const: Other: General: AO X 3, no acute distress eye--sclear icteris Resp: CTA bilateral CVS: S1,S2,RRR GI: +BS, NT, no distention Skin: No rash Neuro: motor grossly intact Psych: appropriate affect Objective Data Active Medications Benzonatate (Benzonatate 100 Mg Capsule) 100 mg PO TID PRN PRN Reason: Cough Last Admin: 05/06/21 00:16 Dose: 100 mg Documented by: VERONICA Bumetanide (Bumetanide 1 Mg Tablet) 2 mg PO DAILY PRN; Protocol PRN Reason: SWELLING Escitalopram Oxalate (Escitalopram Oxalate 10 Mg Tablet) 10 mg PO DAILY [facility] Last Admin: 05/07/21 08:49 Dose: 10 mg Documented by: DANNY Folic Acid (Folic Acid 1 Mg Tablet) 1 mg PO DAILY [facility] Last Admin: 05/07/21 08:49 Dose: 1 mg Documented by: DANNY Ceftriaxone Sodium 1 gm/ (Sodium Chloride) 50 mls @ 100 mls/hr IV Q24H [facility] Last Infusion: 05/06/21 22:48 Dose: 0 mls/hr Documented by: ANGELICA Lorazepam (Lorazepam 0.5 Mg Tablet) 0.25 mg PO DAILY PRN PRN Reason: anxiety Last Admin: 05/06/21 22:32 Dose: 0.25 mg Documented by: ANGELICA Melatonin (Melatonin 3 Mg Tablet) 6 mg PO BEDTIME PRN PRN Reason: Insomnia Morphine Sulfate (Morphine Sulfate 2 Mg/Ml Cartridge) 2 mg IVPUSH Q4H PRN; Protocol PRN Reason: Pain, Severe (Pain Scale 7-10) Last Admin: 05/07/21 08:57 Dose: 2 mg Documented by: DANNY Multivitamins/Vitamin C (Multivitamin Tablet) 1 tab PO DAILY [facility] Last Admin: 05/07/21 08:49 Dose: 1 tab Documented by: DANNY Nadolol (Nadolol 20 Mg Tablet) 20 mg PO DAILY [facility]; Protocol Last Admin: 05/07/21 09:40 Dose: 20 mg Documented by: DANNY Non-Formulary Medication (Ambrisentan) 10 mg PO DAILY [facility] Non-Formulary Medication (Eplerenone) 25 mg PO DAILY [facility] Omeprazole (Omeprazole 20 Mg Capsule.Dr) 20 mg PO DAILY@0630 [facility] Last Admin: 05/07/21 06:09 Dose: 20 mg Documented by: ANGELICA Pharmacy Consult (Consult Rx Perform Med Rec) 1 each MISCELLANE ONCE PRN PRN Reason: Consult order Potassium Chloride (Potassium Chloride Er 20 Meq Tab.Er.Prt) 20 meq PO DAILY [facility] Last Admin: 05/07/21 08:48 Dose: 20 meq Documented by: DANNY Sodium Chloride (0.9 % Sodium Chloride Flush 3 Ml Syringe) 3 ml IVFLUSH QSHIFT [facility] Last Admin: 05/07/21 08:49 Dose: 3 ml Documented by: DANNY Sucralfate (Sucralfate 1 Gm Tablet) 1 gm PO BID [facility] Last Admin: 05/07/21 08:49 Dose: 1 gm Documented by: DANNY Thiamine HCl (Thiamine Hcl 100 Mg Tablet) 100 mg PO DAILY [facility] Last Admin: 05/07/21 08:49 Dose: 100 mg Documented by: DANNY Labs CBC & Chem 7: 05/07/21 10:12 05/06/21 06:31 Labs: Laboratory Results - last 24 hr 05/06/21 05/06/21 16:26 20:12 MCV 87.5 MCH 27.8 MCHC 31.7 RDW 22.6 H Plt Count 108 L MPV Not Reportable Immature Gran % (Auto) 0.9 H Neut % (Auto) 83.6 H Lymph % (Auto) 7.7 L Gilliam % (Auto) 7.5 Eos % (Auto) 0.0 Baso % (Auto) 0.3 Lymph # (Auto) 0.6 L Gilliam # (Auto) 0.6 Eos # (Auto) 0.0 Baso # (Auto) 0.0 Abs Immat Gran (auto) 0.07 H Absolute Neuts (auto) 6.5 Absolute Nucleated RBC 0.000 Nucleated RBC % (auto) 0.0 Osmolality 263 L Microbiology Microbiology Results: Microbiology 05/05/21 05:57 Blood Culture - Final Blood - Venous Coag negative Staphylococcus 05/05/21 05:57 Blood Culture - Preliminary Blood - Venous No growth after 48 hours. Assessment and Plan (1) Liver cirrhosis: Status: Acute (2) Hypokalemia: Status: Acute (3) Hyponatremia: Status: Acute (4) Portal vein thrombosis: Status: Acute Plan 50/F with chronic alcoholic liver cirrhosis, esophageal varices with recent banding here with abdominal pain and foudn to have the following #? Portal vein thrombosis (PVT) on US but not seen on MRI. No indication for anticoagulation #SBP--continue ceftriaxone #Hyponatremia--likely from hypervolemia from cirrhosis and ascites and quite possibly alcohol use, worse -continue Fluid restriction, Nephrology consult,recommend fluid restriction-1500 cc/day, she drinks lots of water she said. #Anemia of chronic disease--recent variceal bleed, H/H is slightly down today -monitor, avoid heparin, lovenox, ASA #Cirrhosis of liver with ascietes s/p paracentesis of 1.1 L..medical management with diuretics and Nadolol #Coagulopathy INR 1.5, monitor, hold of Vitamin K in light of PVT #Hypomagnesemia--Repleted and improved to 1.5, repeat today #HyOkalemia--repleted, 3.1 today, additional 40 meq today, reheck today DVT: avoid chemical DVT prophylaxis in lighf of anemia, high INR Quality Stroke Does the patient have a stroke diagnosis?: No VTE Prior VTE?: No VTE Risk Level:: Medical - low VTE Device Contraindication: N/A - Device Ordered VTE Drug Contraindication: Treatment Not Tolerated (anemia, high iNR, and recent gi bleed)
[2021-05-07 10:28] LABS: Hematocrit 22.8 % (37.0-47.0); Hemoglobin 7.2 g/dl (12.0-16.0); Mean Corpuscular HGB Conc 31.6 g/dl (31.0-35.0); Mean Corpuscular Hemoglobin 27.8 pg (27.0-33.0); Platelet Count 98 X10*3/uL (160-400); Red Blood Count 2.59 X10*6/uL (4.20-5.50); Red Cell Distribution Width 22.4 % (11.0-16.0); White Blood Count 6.6 X10*3/uL (4.8-10.8)
[2021-05-07 10:45] LABS: Alanine Aminotransferase 37 U/L (0-31); Albumin Level 2.6 g/dL (3.5-5.0); Alkaline Phosphatase 214 U/L (39-117); Anion Gap 15 (12-20); Aspartate Amino Transferase 173 U/L (5-31); Bilirubin Direct 4.7 mg/dL (0.0-0.5); Bilirubin Total 6.6 mg/dL (0.0-1.0); Blood Urea Nitrogen 12 mg/dL (9-16); Calcium 7.7 mg/dL (8.4-10.2); Carbon Dioxide 22 mmol/L (22-29); Chloride 94 mmol/L (96-108); Creatinine Clr Calc Pharmacy 119.7; Estimated Glomerular Filt Rate > 60; Glucose Random 129 mg/dL (60-115); Magnesium 1.7 mg/dL (1.6-2.6); Potassium 3.7 mmol/L (3.3-5.1); Sodium 127 mmol/L (135-145); Total Protein 6.2 g/dL (6.5-8.0)
--- NOTE | 2021-05-07 13:19 | PM.PNNEP ---
Subjective Subjective Date of Service: 05/07/21 Principal diagnosis: seen and examined Interval history: f/u on portal vein thrombosis, SBP and electrolytes abnormalities in setting of cirrhosis of liver--she still has abdominal pain. Physical Exam Vital Signs: Vital Signs: Last Vital Signs Temp 96.9 F 05/07/21 12:00 Pulse 91 05/07/21 12:00 Resp 20 05/07/21 12:00 BP 84/57 L 05/07/21 12:00 Pulse Ox 95 05/07/21 12:00 BMI result Body Mass Index 28.3 Const: General: alert and awake; No acute distress HENMT: Head: Yes normocephalic and Yes atraumatic Neck: Neck: Yes supple Resp: Auscultation: clear to auscultation bilaterally Cardio: Heart sounds: S1 normal heart sound present and S2 normal heart sound present GI: Palpation (GI): Soft to palpation and nontender Extrem: General: No edema Objective Data Labs CBC & Chem 7: 05/07/21 10:12 05/07/21 10:12 Labs: Laboratory Results - last 24 hr 05/06/21 05/06/21 05/07/21 16:26 20:12 10:12 WBC 7.8 6.6 RBC 2.63 L 2.59 L Hgb 7.3 L 7.2 L Hct 23.0 L 22.8 L MCV 87.5 88.0 MCH 27.8 27.8 MCHC 31.7 31.6 RDW 22.6 H 22.4 H Plt Count 108 L 98 L MPV Not Reportable Not Reportable Immature Gran % (Auto) 0.9 H Neut % (Auto) 83.6 H Lymph % (Auto) 7.7 L [place] % (Auto) 7.5 Eos % (Auto) 0.0 Baso % (Auto) 0.3 Lymph # (Auto) 0.6 L [place] # (Auto) 0.6 Eos # (Auto) 0.0 Baso # (Auto) 0.0 Abs Immat Gran (auto) 0.07 H Absolute Neuts (auto) 6.5 Absolute Nucleated RBC 0.000 0.000 Nucleated RBC % (auto) 0.0 0.0 Sodium Potassium Chloride Carbon Dioxide Anion Gap BUN Creatinine Estim Creat Clear Calc Estimated GFR Random Glucose Osmolality 263 L Calcium Magnesium Total Bilirubin Direct Bilirubin AST ALT Alkaline Phosphatase Total Protein Albumin Blood Type Antibody Screen 05/07/21 05/07/21 10:12 10:12 WBC RBC Hgb Hct MCV MCH MCHC RDW Plt Count MPV Immature Gran % (Auto) Neut % (Auto) Lymph % (Auto) [place] % (Auto) Eos % (Auto) Baso % (Auto) Lymph # (Auto) [place] # (Auto) Eos # (Auto) Baso # (Auto) Abs Immat Gran (auto) Absolute Neuts (auto) Absolute Nucleated RBC Nucleated RBC % (auto) Sodium 127 L Potassium 3.7 Chloride 94 L Carbon Dioxide 22 Anion Gap 15 BUN 12 Creatinine 0.59 Estim Creat Clear Calc 119.7 Estimated GFR > 60 Random Glucose 129 H Osmolality Calcium 7.7 L Magnesium 1.7 Total Bilirubin 6.6 H Direct Bilirubin 4.7 H AST 173 H ALT 37 H Alkaline Phosphatase 214 H Total Protein 6.2 L Albumin 2.6 L Blood Type A Positive Antibody Screen NEGATIVE Microbiology Microbiology Results: Microbiology 05/05/21 05:57 Blood - Venous Blood Culture - Final Coag negative Staphylococcus 05/05/21 05:57 Blood - Venous Blood Culture - Preliminary No growth after 48 hours. Procedures Date of Service Date of Service: 05/07/21 Assessment & Plan Assessment and plan (1) Hyponatremia: Status: Acute (2) Hypokalemia: Status: Acute (3) Liver cirrhosis: Status: Acute Plan Sna better potassium normalized hypotonic hypervolemic hyponatremia hepatic physiology in the setting of liver cirrhosis combination of poor solute excretion and excessive free water intake exacerbating hyponatremia REC await U and Reema fluid restriction no IVF hold loop diuretics follow kidney function and electrolytes Time Spent With Patient Time: Total time spent is greater than 50% in coordination of care (as documented) at patient's floor/unit and/or counseling patient: Progress Note: Quality Stroke Does the patient have a stroke diagnosis?: No
[2021-05-07] MEDS: 0.9 % Sodium Chloride 500 ML IV (15:04)
[2021-05-07] MEDS: cefTRIAXone sodium 1 GM in 0.9 % Sodium Chloride 50 ML IV (21:10)
[2021-05-08] VITALS (8 sets, daily range): BP systolic 82–107; BP diastolic 54–65; PULSE 88–114; RESP 15–18; TEMP 35.4–37.3; O2SAT 91–97
[2021-05-08] MEDS: traMADoL HCL 50 MG TABLET 25 MG PO (04:10)
[2021-05-08] MEDS: Omeprazole 20 MG CAPSULE.DR PO (06:15)
[2021-05-08] MEDS: Folic Acid 1 MG TABLET PO (07:47)
[2021-05-08] MEDS: 0.9 % Sodium Chloride Flush 3 ML SYRINGE IVFLUSH ×3 (07:47→20:12)
[2021-05-08] MEDS: Multivitamin TABLET 1 TAB PO (07:48)
[2021-05-08] MEDS: Escitalopram Oxalate 10 MG TABLET PO (07:48)
[2021-05-08] MEDS: Thiamine HCL 100 MG TABLET PO (07:48)
[2021-05-08] MEDS: Sucralfate 1 GM TABLET PO ×2 (07:49→20:11)
[2021-05-08] MEDS: Potassium Chloride ER 20 MEQ TAB.ER.PRT PO (07:49)
[2021-05-08] MEDS: Morphine Sulfate 2 MG/ML CARTRIDGE IVPUSH ×3 (07:52→20:11)
--- NOTE | 2021-05-08 09:20 | HO.PM.IMPN ---
Subjective Subjective Date of Service: 05/08/21 Interval History: f/u on portal vein thrombosis, SBP and electrolytes abnormalities in setting of cirrhosis of liver--Uncontrolled pain overnight d/t pain med on hold from low BP Review of Systems Gen: no fever Resp: no sob, no cough CV: no chest, no WEI, no leg edema GI: No n/v, no abd pain Neuro: No confusion Physical Exam Vital Signs: Vital Signs: Last Vital Signs Temp 97.9 F 05/08/21 07:42 Pulse 89 05/08/21 07:46 Resp 18 05/08/21 07:42 BP 101/58 L 05/08/21 07:46 Pulse Ox 97 05/08/21 07:42 BMI result Body Mass Index 28.3 Const: Other: General: AO X 3, no acute distress eye--sclear icteris Resp: CTA bilateral CVS: S1,S2,RRR GI: +BS, NT, no distention Skin: No rash Neuro: motor grossly intact Psych: appropriate affect Objective Data Active Medications Benzonatate (Benzonatate 100 Mg Capsule) 100 mg PO TID PRN PRN Reason: Cough Last Admin: 05/06/21 00:16 Dose: 100 mg Documented by: VERONICA Bumetanide (Bumetanide 1 Mg Tablet) 2 mg PO DAILY PRN; Protocol PRN Reason: SWELLING Escitalopram Oxalate (Escitalopram Oxalate 10 Mg Tablet) 10 mg PO DAILY [facility] Last Admin: 05/08/21 07:48 Dose: 10 mg Documented by: DANNY Folic Acid (Folic Acid 1 Mg Tablet) 1 mg PO DAILY [facility] Last Admin: 05/08/21 07:47 Dose: 1 mg Documented by: DANNY Ceftriaxone Sodium 1 gm/ (Sodium Chloride) 50 mls @ 100 mls/hr IV Q24H [facility] Last Infusion: 05/07/21 21:42 Dose: 0 mls/hr Documented by: ANGELICA Lorazepam (Lorazepam 0.5 Mg Tablet) 0.25 mg PO DAILY PRN PRN Reason: anxiety Last Admin: 05/06/21 22:32 Dose: 0.25 mg Documented by: ANGELICA Melatonin (Melatonin 3 Mg Tablet) 6 mg PO BEDTIME PRN PRN Reason: Insomnia Morphine Sulfate (Morphine Sulfate 2 Mg/Ml Cartridge) 2 mg IVPUSH Q4H PRN; Protocol PRN Reason: Pain, Severe (Pain Scale 7-10) Last Admin: 05/08/21 07:52 Dose: 2 mg Documented by: DANNY Multivitamins/Vitamin C (Multivitamin Tablet) 1 tab PO DAILY [facility] Last Admin: 05/08/21 07:48 Dose: 1 tab Documented by: DANNY Nadolol (Nadolol 20 Mg Tablet) 20 mg PO DAILY [facility]; Protocol Last Admin: 05/08/21 07:49 Dose: Not Given Documented by: DANNY Non-Admin Reason: bp too low. hold per Non-Formulary Medication (Ambrisentan) 10 mg PO DAILY [facility] Non-Formulary Medication (Eplerenone) 25 mg PO DAILY [facility] Omeprazole (Omeprazole 20 Mg Capsule.) 20 mg PO DAILY@0630 [facility] Last Admin: 05/08/21 06:15 Dose: 20 mg Documented by: ANGELICA Pharmacy Consult (Consult Rx Perform Med Rec) 1 each MISCELLANE ONCE PRN PRN Reason: Consult order Potassium Chloride (Potassium Chloride Er 20 Meq Tab.Er.Prt) 20 meq PO DAILY [facility] Last Admin: 05/08/21 07:49 Dose: 20 meq Documented by: DANNY Sodium Chloride (0.9 % Sodium Chloride Flush 3 Ml Syringe) 3 ml IVFLUSH QSHIFT [facility] Last Admin: 05/08/21 07:47 Dose: 3 ml Documented by: DANNY Sucralfate (Sucralfate 1 Gm Tablet) 1 gm PO BID [facility] Last Admin: 05/08/21 07:49 Dose: 1 gm Documented by: DANNY Thiamine HCl (Thiamine Hcl 100 Mg Tablet) 100 mg PO DAILY [facility] Last Admin: 05/08/21 07:48 Dose: 100 mg Documented by: DANNY Labs CBC & Chem 7: 05/07/21 10:12 05/07/21 10:12 Labs: Laboratory Results - last 24 hr 05/07/21 05/07/21 05/07/21 10:12 10:12 10:12 MCV 88.0 MCH 27.8 MCHC 31.6 RDW 22.4 H Plt Count 98 L MPV Not Reportable Absolute Nucleated RBC 0.000 Nucleated RBC % (auto) 0.0 Anion Gap 15 Estim Creat Clear Calc 119.7 Estimated GFR > 60 Random Glucose 129 H Calcium 7.7 L Magnesium 1.7 Total Bilirubin 6.6 H Direct Bilirubin 4.7 H AST 173 H ALT 37 H Alkaline Phosphatase 214 H Total Protein 6.2 L Albumin 2.6 L Blood Type A Positive Antibody Screen NEGATIVE Microbiology Microbiology Results: Microbiology 05/05/21 05:57 Blood Culture - Final Blood - Venous Coag negative Staphylococcus 05/05/21 05:57 Blood Culture - Preliminary Blood - Venous No growth after 48 hours. Assessment and Plan (1) Liver cirrhosis: Status: Acute (2) Hypokalemia: Status: Acute (3) Hyponatremia: Status: Acute (4) Portal vein thrombosis: Status: Acute Plan 50/F with chronic alcoholic liver cirrhosis, esophageal varices with recent banding here with abdominal pain and foudn to have the following #? Portal vein thrombosis (PVT) on US but not seen on MRI. No indication for anticoagulation #SBP--continue ceftriaxone and transition to Ceftin at discharge, culture negative. #Hyponatremia--likely from hypervolemia from cirrhosis and ascites and quite possibly alcohol use, worse -continue Fluid restriction, Nephrology consult,recommend fluid restriction-1500 cc/day, she drinks lots of water she said--sodium is trending up #Anemia of chronic disease--recent variceal bleed, H/H is slightly lower, transfuse with Hct < 7 -monitor, avoid heparin, lovenox, ASA #Cirrhosis of liver with ascietes s/p paracentesis of 1.1 L..medical management with diuretics when BPis better and Nadolol #Coagulopathy INR 1.5, monitor, hold of Vitamin K in light of PVT #Hypomagnesemia--Repleted and improved #HyOkalemia--repleted and normalized DVT: avoid chemical DVT prophylaxis in lighf of anemia, high INR Quality Stroke Does the patient have a stroke diagnosis?: No VTE Prior VTE?: No VTE Risk Level:: Medical - low VTE Device Contraindication: N/A - Device Ordered VTE Drug Contraindication: Treatment Not Tolerated (anemia, high iNR, and recent gi bleed)
--- NOTE | 2021-05-08 09:49 | PM.PNNEP ---
Subjective Subjective Date of Service: 05/08/21 Principal diagnosis: seen and examined Interval history: f/u on portal vein thrombosis, SBP and electrolytes abnormalities in setting of cirrhosis of liver--Uncontrolled pain overnight d/t pain med on hold from low BP Physical Exam Vital Signs: Vital Signs: Last Vital Signs Temp 97.9 F 05/08/21 07:42 Pulse 89 05/08/21 07:46 Resp 18 05/08/21 07:42 BP 101/58 L 05/08/21 07:46 Pulse Ox 97 05/08/21 07:42 BMI result Body Mass Index 28.3 Const: General: alert and awake; No acute distress HENMT: Head: Yes normocephalic and Yes atraumatic Neck: Neck: Yes supple Resp: Auscultation: clear to auscultation bilaterally Cardio: Heart sounds: S1 normal heart sound present and S2 normal heart sound present GI: Palpation (GI): Soft to palpation and nontender Extrem: General: No edema Objective Data Labs CBC & Chem 7: 05/07/21 10:12 05/07/21 10:12 Labs: Laboratory Results - last 24 hr 05/07/21 05/07/21 05/07/21 10:12 10:12 10:12 WBC 6.6 RBC 2.59 L Hgb 7.2 L Hct 22.8 L MCV 88.0 MCH 27.8 MCHC 31.6 RDW 22.4 H Plt Count 98 L MPV Not Reportable Absolute Nucleated RBC 0.000 Nucleated RBC % (auto) 0.0 Sodium 127 L Potassium 3.7 Chloride 94 L Carbon Dioxide 22 Anion Gap 15 BUN 12 Creatinine 0.59 Estim Creat Clear Calc 119.7 Estimated GFR > 60 Random Glucose 129 H Calcium 7.7 L Magnesium 1.7 Total Bilirubin 6.6 H Direct Bilirubin 4.7 H AST 173 H ALT 37 H Alkaline Phosphatase 214 H Total Protein 6.2 L Albumin 2.6 L Blood Type A Positive Antibody Screen NEGATIVE Microbiology Microbiology Results: Microbiology 05/05/21 05:57 Blood - Venous Blood Culture - Final Coag negative Staphylococcus 05/05/21 05:57 Blood - Venous Blood Culture - Preliminary No growth after 48 hours. Procedures Date of Service Date of Service: 05/08/21 Assessment & Plan Assessment and plan (1) Hyponatremia: Status: Acute (2) Liver cirrhosis: Status: Acute Plan hypotonic hypervolemic hyponatremia hepatic physiology in the setting of liver cirrhosis combination of poor solute excretion and excessive free water intake exacerbating hyponatremia REC fluid restriction no IVF hold loop diuretics follow kidney function and electrolytes Time Spent With Patient Time: Total time spent is greater than 50% in coordination of care (as documented) at patient's floor/unit and/or counseling patient: Progress Note: Quality Stroke Does the patient have a stroke diagnosis?: No
[2021-05-08] MEDS: Bumetanide 1 MG TABLET 2 MG PO (14:54)
[2021-05-08] MEDS: Melatonin 3 MG TABLET 6 MG PO (20:11)
[2021-05-08] MEDS: cefTRIAXone sodium 1 GM in 0.9 % Sodium Chloride 50 ML IV (20:12)
[2021-05-09] VITALS (11 sets, daily range): BP systolic 86–119; BP diastolic 53–75; PULSE 108–126; RESP 18–22; TEMP 35.6–36.6; O2SAT 91–98
[2021-05-09] MEDS: LORazepam 0.5 MG TABLET 0.25 MG PO (00:38)
[2021-05-09] MEDS: Omeprazole 20 MG CAPSULE.DR PO (05:26)
--- NOTE | 2021-05-09 05:36 | PC.NURSE ---
Pt was noted overnight to be tachycadic on the 1 teens to 120s, CIWA=1, rest of vitals WNL, Dr. Argueta was made aware.
[2021-05-09 05:48] LABS: PLT ABN DIST 1
[2021-05-09 05:50] LABS: Hematocrit 27.8 % (37.0-47.0); Hemoglobin 8.6 g/dl (12.0-16.0); Mean Corpuscular HGB Conc 30.9 g/dl (31.0-35.0); Mean Corpuscular Hemoglobin 27.7 pg (27.0-33.0); Mean Corpuscular Volume 89.7 fL (80.0-98.0); Platelet Count 113 X10*3/uL (160-400); Red Cell Distribution Width 23.6 % (11.0-16.0); White Blood Count 7.6 X10*3/uL (4.8-10.8)
[2021-05-09 06:08] LABS: Anion Gap 19 (12-20); Blood Urea Nitrogen 15 mg/dL (9-16); Calcium 7.6 mg/dL (8.4-10.2); Carbon Dioxide 20 mmol/L (22-29); Chloride 96 mmol/L (96-108); Creatinine Clr Calc Pharmacy 110.3; Estimated Glomerular Filt Rate > 60; Glucose Random 116 mg/dL (60-115); Potassium 3.7 mmol/L (3.3-5.1); Sodium 131 mmol/L (135-145)
[2021-05-09] MEDS: Sucralfate 1 GM TABLET PO ×2 (07:43→20:06)
[2021-05-09] MEDS: Potassium Chloride ER 20 MEQ TAB.ER.PRT PO (07:43)
[2021-05-09] MEDS: Multivitamin TABLET 1 TAB PO (07:43)
[2021-05-09] MEDS: Folic Acid 1 MG TABLET PO (07:43)
[2021-05-09] MEDS: 0.9 % Sodium Chloride Flush 3 ML SYRINGE IVFLUSH ×2 (07:44→16:25)
[2021-05-09] MEDS: Escitalopram Oxalate 10 MG TABLET PO (07:44)
[2021-05-09] MEDS: Thiamine HCL 100 MG TABLET PO (07:44)
[2021-05-09] MEDS: Morphine Sulfate 2 MG/ML CARTRIDGE IVPUSH ×3 (08:08→20:44)
--- NOTE | 2021-05-09 10:14 | PM.PNNEP ---
Subjective Subjective Date of Service: 05/09/21 Principal diagnosis: seen and examined Interval history: seen and examined no complaints Physical Exam Vital Signs: Vital Signs: Last Vital Signs Temp 97.9 F 05/09/21 07:36 Pulse 123 H 05/09/21 07:36 Resp 20 05/09/21 07:36 BP 95/57 L 05/09/21 07:36 Pulse Ox 94 05/09/21 07:36 BMI result Body Mass Index 28.3 Const: General: alert and awake; No acute distress HENMT: Head: Yes normocephalic and Yes atraumatic Neck: Neck: Yes supple Resp: Auscultation: clear to auscultation bilaterally Cardio: Heart sounds: S1 normal heart sound present and S2 normal heart sound present GI: Palpation (GI): Soft to palpation and nontender Extrem: General: No edema Objective Data Labs CBC & Chem 7: 05/09/21 05:21 05/09/21 05:21 Labs: Laboratory Results - last 24 hr 05/09/21 05/09/21 05:21 05:21 WBC 7.6 RBC 3.10 L Hgb 8.6 L Hct 27.8 L D MCV 89.7 MCH 27.7 MCHC 30.9 L RDW 23.6 H Plt Count 113 L MPV TNP Absolute Nucleated RBC 0.000 Nucleated RBC % (auto) 0.0 Sodium 131 L Potassium 3.7 Chloride 96 Carbon Dioxide 20 L Anion Gap 19 BUN 15 Creatinine 0.64 Estim Creat Clear Calc 110.3 Estimated GFR > 60 Random Glucose 116 H Calcium 7.6 L Microbiology Microbiology Results: Microbiology 05/05/21 05:57 Blood - Venous Blood Culture - Final Coag negative Staphylococcus 05/05/21 05:57 Blood - Venous Blood Culture - Preliminary No growth after 48 hours. Procedures Date of Service Date of Service: 05/09/21 Assessment & Plan Assessment and plan (1) Hyponatremia: Status: Acute (2) Liver cirrhosis: Status: Acute Plan sodium level improving hypotonic hypervolemic hyponatremia hepatic physiology in the setting of liver cirrhosis combination of poor solute excretion and excessive free water intake exacerbating hyponatremia REC continue fluid restriction hold loop diuretics follow kidney function and electrolytes Time Spent With Patient Time: Total time spent is greater than 50% in coordination of care (as documented) at patient's floor/unit and/or counseling patient: Progress Note: Quality Stroke Does the patient have a stroke diagnosis?: No
--- NOTE | 2021-05-09 10:54 | P.PNIM_ITS ---
Subjective Subjective Date of Service: 05/09/21 Interval History: f/u on portal vein thrombosis, SBP and electrolytes abnormalities in setting of cirrhosis of liver--She is still c/o abdominal pain Review of Systems Gen: no fever Resp: no sob, no cough CV: no chest, no WEI, no leg edema GI: No n/v, + abd pain Neuro: No confusion Physical Exam Vital Signs: Vital Signs: Last Vital Signs Temp 97.9 F 05/09/21 07:36 Pulse 123 H 05/09/21 07:36 Resp 20 05/09/21 07:36 BP 95/57 L 05/09/21 07:36 Pulse Ox 94 05/09/21 07:36 BMI result Body Mass Index 28.3 Const: Other: General: AO X 3, no acute distress eye--sclear icteris Resp: CTA bilateral CVS: S1,S2,RRR GI: +BS, NT, no distention Skin: No rash Neuro: motor grossly intact Psych: appropriate affect Objective Data Active Medications Benzonatate (Benzonatate 100 Mg Capsule) 100 mg PO TID PRN PRN Reason: Cough Last Admin: 05/06/21 00:16 Dose: 100 mg Documented by: VERONICA Bumetanide (Bumetanide 1 Mg Tablet) 2 mg PO DAILY PRN; Protocol PRN Reason: SWELLING Last Admin: 05/08/21 14:54 Dose: 2 mg Documented by: DANNY Escitalopram Oxalate (Escitalopram Oxalate 10 Mg Tablet) 10 mg PO DAILY [facility] Last Admin: 05/09/21 07:44 Dose: 10 mg Documented by: JAYDEN Folic Acid (Folic Acid 1 Mg Tablet) 1 mg PO DAILY [facility] Last Admin: 05/09/21 07:43 Dose: 1 mg Documented by: JAYDEN Ceftriaxone Sodium 1 gm/ (Sodium Chloride) 50 mls @ 100 mls/hr IV Q24H [facility] Last Infusion: 05/08/21 20:50 Dose: 0 mls/hr Documented by: DELFINO Lorazepam (Lorazepam 0.5 Mg Tablet) 0.25 mg PO DAILY PRN PRN Reason: anxiety Last Admin: 05/09/21 00:38 Dose: 0.25 mg Documented by: DELFINO Melatonin (Melatonin 3 Mg Tablet) 6 mg PO BEDTIME PRN PRN Reason: Insomnia Last Admin: 05/08/21 20:11 Dose: 6 mg Documented by: DELFINO Morphine Sulfate (Morphine Sulfate 2 Mg/Ml Cartridge) 2 mg IVPUSH Q4H PRN; Protocol PRN Reason: Pain, Severe (Pain Scale 7-10) Last Admin: 05/09/21 08:08 Dose: 2 mg Documented by: JAYDEN Multivitamins/Vitamin C (Multivitamin Tablet) 1 tab PO DAILY [facility] Last Admin: 05/09/21 07:43 Dose: 1 tab Documented by: JAYDEN Nadolol (Nadolol 20 Mg Tablet) 20 mg PO DAILY [facility]; Protocol Last Admin: 05/09/21 08:14 Dose: Not Given Documented by: JAYDEN Non-Admin Reason: low bp, physician held Non-Formulary Medication (Ambrisentan) 10 mg PO DAILY [facility] Non-Formulary Medication (Eplerenone) 25 mg PO DAILY [facility] Omeprazole (Omeprazole 20 Mg Capsule.Dr) 20 mg PO DAILY@0630 [facility] Last Admin: 05/09/21 05:26 Dose: 20 mg Documented by: DELFINO Pharmacy Consult (Consult Rx Perform Med Rec) 1 each MISCELLANE ONCE PRN PRN Reason: Consult order Potassium Chloride (Potassium Chloride Er 20 Meq Tab.Er.Prt) 20 meq PO DAILY [facility] Last Admin: 05/09/21 07:43 Dose: 20 meq Documented by: JAYDEN Sodium Chloride (0.9 % Sodium Chloride Flush 3 Ml Syringe) 3 ml IVFLUSH QSHIFT [facility] Last Admin: 05/09/21 07:44 Dose: 3 ml Documented by: JAYDEN Sucralfate (Sucralfate 1 Gm Tablet) 1 gm PO BID [facility] Last Admin: 05/09/21 07:43 Dose: 1 gm Documented by: JAYDEN Thiamine HCl (Thiamine Hcl 100 Mg Tablet) 100 mg PO DAILY [facility] Last Admin: 05/09/21 07:44 Dose: 100 mg Documented by: JAYDEN Labs CBC & Chem 7: 05/09/21 05:21 05/09/21 05:21 Labs: Laboratory Results - last 24 hr 05/09/21 05/09/21 05:21 05:21 MCV 89.7 MCH 27.7 MCHC 30.9 L RDW 23.6 H Plt Count 113 L MPV TNP Absolute Nucleated RBC 0.000 Nucleated RBC % (auto) 0.0 Anion Gap 19 Estim Creat Clear Calc 110.3 Estimated GFR > 60 Random Glucose 116 H Calcium 7.6 L Assessment and Plan (1) Liver cirrhosis: Status: Acute (2) Hypokalemia: Status: Acute (3) Hyponatremia: Status: Acute (4) Portal vein thrombosis: Status: Acute Plan 50/F with chronic alcoholic liver cirrhosis, esophageal varices with recent banding here with abdominal pain and foudn to have the following #? Portal vein thrombosis (PVT) on US but not seen on MRI. No indication for anticoagulation #SBP--continue ceftriaxone and transition to Ceftin at discharge, culture negative. Continue pain management #Hyponatremia--likely from hypervolemia from cirrhosis and ascites and quite possibly alcohol use, worse -continue Fluid restriction, Nephrology consult,recommend fluid restriction-1500 cc/day, improving, continue fluid restriction #Anemia of chronic disease--recent variceal bleed, H/H is slightly lower, ferrara sfuse with Hct < 7 -monitor, avoid heparin, lovenox, ASA #Cirrhosis of liver with ascietes s/p paracentesis of 1.1 L..medical management with diuretics when BPis better and Nadolol #Coagulopathy INR 1.5, monitor, hold of Vitamin K in light of PVT #Hypomagnesemia--Repleted and improved #HyOkalemia--repleted and normalized DVT: avoid chemical DVT prophylaxis in lighf of anemia, high INR Quality Stroke Does the patient have a stroke diagnosis?: No VTE Prior VTE?: No VTE Risk Level:: Medical - low VTE Device Contraindication: N/A - Device Ordered VTE Drug Contraindication: Treatment Not Tolerated (anemia, high iNR, and recent gi bleed)
[2021-05-09 12:56] LABS: Alpha Fetoprotein 3.8 ng/mL
--- NOTE | 2021-05-09 17:12 | PC.NURSE ---
P BP 86/53 after morhine administration, down from 98/63,pulse 108,Sat 88% on RA ,96% on 3L of oxygen,need oxygen order I Dr. Calderon notified of the above E will monitor
[2021-05-09] MEDS: 0.9 % Sodium Chloride 1,000 ML 75 ML IVCONT (18:22)
[2021-05-09] MEDS: cefTRIAXone sodium 1 GM in 0.9 % Sodium Chloride 50 ML IV (20:06)
[2021-05-09] MEDS: Benzonatate 100 MG CAPSULE PO (20:10)
--- NOTE | 2021-05-09 21:38 | PC.NURSE ---
P patient refuses IV fluids because IV is positional and beeping frequently,refuses to have a new one inserted I Dr. Wharton notified E IV fluid disconected,patient aware that if she decides RN can insert a new IV
[2021-05-10] VITALS (18 sets, daily range): BP systolic 77–135; BP diastolic 49–74; PULSE 82–112; RESP 16–31; TEMP 31.7–36.7; O2SAT 91–97
[2021-05-10] MEDS: 0.9 % Sodium Chloride Flush 3 ML SYRINGE IVFLUSH ×3 (00:39→18:25)
[2021-05-10] MEDS: Morphine Sulfate 2 MG/ML CARTRIDGE IVPUSH ×2 (02:53→08:34)
[2021-05-10] MEDS: Omeprazole 20 MG CAPSULE.DR PO (05:43)
--- NOTE | 2021-05-10 07:56 | PM.PNNEP ---
Subjective Subjective Date of Service: 05/10/21 Principal diagnosis: seen and examined Interval history: seen and examined c/o abdominal pain denies CP, SOB Physical Exam Vital Signs: Vital Signs: Last Vital Signs Temp 97.2 F 05/10/21 07:37 Pulse 112 H 05/10/21 07:37 Resp 18 05/10/21 07:37 BP 135/74 05/10/21 07:37 Pulse Ox 94 05/10/21 07:37 BMI result Body Mass Index 28.3 Const: General: alert and awake; No acute distress HENMT: Head: Yes normocephalic and Yes atraumatic Neck: Neck: Yes supple Resp: Auscultation: clear to auscultation bilaterally Cardio: Heart sounds: S1 normal heart sound present and S2 normal heart sound present GI: Palpation (GI): Soft to palpation and nontender Extrem: General: No edema Objective Data Labs CBC & Chem 7: 05/09/21 05:21 05/09/21 05:21 Labs: Laboratory Results - last 24 hr 05/06/21 06:30 Alpha Fetoprotein 3.8 Microbiology Microbiology Results: Microbiology 05/05/21 05:57 Blood - Venous Blood Culture - Final Coag negative Staphylococcus 05/05/21 05:57 Blood - Venous Blood Culture - Preliminary No growth after 48 hours. Procedures Date of Service Date of Service: 05/10/21 Assessment & Plan Assessment and plan (1) Hyponatremia: Status: Acute (2) Liver cirrhosis: Status: Acute Plan sodium level better hypotonic hypervolemic hyponatremia hepatic physiology in the setting of liver cirrhosis combination of poor solute excretion and excessive free water intake (> 1 perez nliquid daily) exacerbating hyponatremia REC continue fluid restriction continue to hold loop diuretics follow kidney function and electrolytes Time Spent With Patient Time: Total time spent is greater than 50% in coordination of care (as documented) at patient's floor/unit and/or counseling patient: Progress Note: Quality Stroke Does the patient have a stroke diagnosis?: No
[2021-05-10] MEDS: nadoloL 20 MG TABLET PO (08:25)
[2021-05-10] MEDS: Folic Acid 1 MG TABLET PO (08:25)
[2021-05-10] MEDS: Multivitamin TABLET 1 TAB PO (08:25)
[2021-05-10] MEDS: Thiamine HCL 100 MG TABLET PO (08:25)
[2021-05-10] MEDS: Sucralfate 1 GM TABLET PO ×2 (08:25→21:48)
[2021-05-10] MEDS: Escitalopram Oxalate 10 MG TABLET PO (08:26)
[2021-05-10] MEDS: Potassium Chloride ER 20 MEQ TAB.ER.PRT PO (08:26)
--- NOTE | 2021-05-10 09:39 | CONS_ITS ---
DATE OF SERVICE: 05/06/2021 HISTORY OF PRESENT ILLNESS: This is a 50-year-old patient with a history of alcoholic liver cirrhosis, presented to hospital with worsening shortness of breath and abdominal pain, noted to have a low serum sodium. The patient complained of abdominal pain, but denies any nausea or vomiting or diarrhea. She tells me she drinks a large amount of fluid sometime more than a gallon of water on a daily basis. The patient states that she has not been drinking alcohol. She did have an ultrasound Doppler of the abdomen, which showed portal vein occlusion in addition to ascites and she underwent a paracentesis of 1.1 L. PAST MEDICAL HISTORY: Remarkable for alcoholic liver cirrhosis, anxiety, anemia, esophageal varices, known rheumatic tricuspid valve insufficiency, pancytopenia, portal pulmonary hypertension. MEDICATIONS: At home include Bumex, pantoprazole, potassium chloride, nadolol. ALLERGIES: SHE IS NOT ALLERGIC TO ANY MEDICATIONS. SOCIAL HISTORY: She has a history of heavy alcohol abuse. FAMILY HISTORY: Negative for kidney disease. REVIEW OF SYSTEMS: 10-point review of system negative except for pertaining to History of Present Illness. PHYSICAL EXAMINATION: VITAL SIGNS: Blood pressure is 111/57, heart rate 102, respiratory rate 22, temperature afebrile. CONSTITUTIONAL: Looks stated age. No acute distress. NEUROLOGIC: Alert, awake. Atraumatic, normocephalic. NECK: Supple. LUNGS: Decreased breath sounds. CARDIOVASCULAR: S1, S2. No rub. ABDOMEN: Soft, distended. EXTREMITIES: With edema. LABORATORY DATA: Showed a sodium 125, potassium 3.1, chloride 90, CO2 of 25, BUN 11, creatinine 0.57. Urinalysis showed a specific gravity of less than 0.005. IMPRESSION: 1. Hyponatremia. 2. Hypokalemia. This is a patient with hyponatremia most likely hypotonic hypovolemic hyponatremia in the setting of liver cirrhosis. This is consistent with hepatic physiology. On the other hand, she has excessive free water intake, which combined with poor solute excretion, may have caused worsening hyponatremia. I would restrict her free water intake and hold of administration of IV fluid. We will check her serum sodium frequently. We will replace her potassium and follow kidney function and electrolytes. Thank you for allowing me to participate in the care of this patient Susy Esqueda MD GF/MODL / [id number]
--- NOTE | 2021-05-10 11:18 | P.DS_ITS ---
DS: Providers Provider Date of admission: 05/05/21 17:10 Primary care physician: Myrtle Lackey MD Consults: 05/05/21 17:13 Consult to Gastroenterology Routine Consulting Provider: Yusuf Vasquez Reason for consultation: portal vein thrombosis Has provider been notified: No 05/06/21 11:08 Consult to Nephrology Routine Consulting Provider: Mateo Guillermo Reason for consultation: HypOnatremia Has provider been notified: No DS: Diagnosis Discharge Diagnosis (1) Hyponatremia: Status: Acute (2) Liver cirrhosis: Status: Acute DS: Summary Hospital Course Hospital Course: Chief Complaint: abdominal pain, sob 50-year-old female with alcoholic liver cirrhosis complicated by bleeding varices which recently required admssion and banding, she claims she has been sobber for at least one month and presents today complaining of? who presents with increasing shortness of breath for 2 weeks and pain to her left sided abdominal area pain with no nausea, vomitting, diarrhea or blood in stool. Essentially says she has not been feeling well since she was discharged at the end of march and states that she has not been drinking alcohol. She has no fever. Work with doppler US of abdomen shows portal vein occlusion, ascietes and underwent? paracentesis of 1.1 liters.? There is no sign of infection. Hospial course: #? Portal vein thrombosis (PVT), Initially Ultra sound suggested possible portal vein throbosis, et anticoagulation was avoided due to low H/H, low platlets and elevated INR. Further investigation with MRI recommended by GI did not show po rtal vein thrombosis and therefore no indication for anticoagulation #SBP--as suggested by paracentesis with high neutrophile, unfortunately sample was not sent for Micro. She was started on ceftriaxone, blood cultures have been negative, 1 out 2 coag negative staph is contamination She has been Ceftriaxone for 6 days now and will transition to Ceftin for 14 days total and to follow by suppresive therapy #Hyponatremia--likely from hypervolemia from cirrhosis and ascites and quite possibly alcohol use, worse -continue Fluid restriction, Nephrology consult,recommend fluid restriction-1500 cc/day, improving, continue fluid restriction. Last sodium is 131 #Anemia of chronic disease--recent variceal bleed. H/H has been stable, #Cirrhosis of liver with ascietes s/p paracentesis of 1.1 L. She is Nadalol and should be considered for diuretics in the future once BP is more stable. #Coagulopathy INR 1.5, no bleeding #Hypomagnesemia--Repleted and improved #HyOkalemia--repleted and normalized #History of Alcohol withdrawal, Strongly advised to avoid alcohol at all cost.. Dispo: Home Time Spent with Patient Time attestation: Total time spent providing and/or coordinating discharge services: Physical Exam Vital Signs: Vital Signs: Last Vital Signs Temp 97.8 F 05/10/21 08:09 Pulse 109 H 05/10/21 08:09 Resp 18 05/10/21 08:09 BP 94/61 05/10/21 08:09 Pulse Ox 94 05/10/21 08:09 BMI result Body Mass Index 28.3 DS: Data Data Completed and Pending Completed studies during hospitalization [Text1]: Procedures Detoxification Services for Substance Abuse Treatment (04/13/21) Drainage of Stomach, Via Natural or Artificial Opening Endoscopic (04/13/21) Occlusion of Esophageal Vein with Extraluminal Device, Via Natural or Artificial Opening Endoscopic (04/13/21) Transfusion of Nonautologous Platelets into Peripheral Vein, Percutaneous Approach (04/13/21) Transfusion of Nonautologous Red Blood Cells into Peripheral Vein, Percutaneous Approach (04/13/21) Labs on day of discharge: Laboratory Results - last 24 hr 05/06/21 06:30 Alpha Fetoprotein 3.8 Discharge Plan Discharge Anticipated Discharge Date/Time: 05/10/21 11:11 Patient Disposition: Home, Self-Care Discharge Diagnosis: Spontaneous bacteria peritonitis Referrals: Myrtle Lackey MD [Primary Care Provider] - 05/19/21 11:30 am (You have a follow up appointment with Dr. Lackey on May 19 at 11:30 am. ) Discharge Medications: Continued eplerenone 25 mg tablet 25 mg PO DAILY Qty: 30 5RF escitalopram oxalate 10 mg tablet 10 mg PO DAILY Qty: 30 3RF lorazepam 0.5 mg tablet 0.25 mg PO DAILY PRN (Reason: anxiety) Qty: 10 0RF ambrisentan 10 mg tablet 10 mg PO DAILY 30 Days Qty: 30 6RF multivitamin [Daily-Rodney] Tablet 1 tab PO DAILY 30 Days Qty: 30 0RF folic acid 1 mg Tablet 1 mg PO DAILY 30 Days Qty: 30 0RF thiamine mononitrate (vit B1) 100 mg Tablet 100 mg PO DAILY 30 Days Qty: 30 0RF pantoprazole 40 mg tablet,delayed release (DR/EC) 40 mg PO DAILY 0RF potassium chloride 20 mEq tablet extended release 20 meq PO DAILY 0RF nadolol 20 mg tablet 20 mg PO DAILY 0RF bumetanide 1 mg tablet 2 mg PO DAILY PRN (Reason: SWELLING) 0RF Protocol: Hold for SBP< HOLD for SBP < : 90 sucralfate [Carafate] 1 gram tablet 1 g PO BID 30 Days Qty: 60 0RF Discontinued amoxicillin-pot clavulanate 875-125 mg tablet 1 tab PO BID 10 Days Qty: 20 0RF Rx Instructions: ORDERED 04/26/21 FOR 10 DAYS Diet: advance to usual diet Activity on Discharge: As tolerated Stand Alone Forms: Patient Portal Discharge page Care Plan Goals: Full recovery from SBP, hyponatremia and Cirrhosis Health Concerns: Cirrhosis of the liver Plan of Treatment: Take Ceftin as recommended for spontaneous bacterial peritonitis Limit water drinking for no more than 2000 cc a day Follow up with Dr. Vasquez Follow up with your primary care doctor in a week Avoid Alcohol at all cost Assessment: As above
--- NOTE | 2021-05-10 12:08 | HO.PM.IMPN ---
Subjective Subjective Date of Service: 05/10/21 Interval History: F/u on SBP in setting of cirrhosis of liver, she's reporting feeling hot, yet hypothermia, Temp of 89 orally, rectal temp is requested, she doesn't seem altered Review of Systems Gen: no fever , feel hot, Resp: no sob, no cough CV: no chest, no WEI, no leg edema GI: No n/v, less abd pain Neuro: No confusion Physical Exam Vital Signs: Vital Signs: Last Vital Signs Temp 89.1 F L 05/10/21 11:42 Pulse 88 05/10/21 11:42 Resp 20 05/10/21 11:42 BP 90/67 05/10/21 11:42 Pulse Ox 95 05/10/21 11:42 BMI result Body Mass Index 28.3 Const: Other: General: AO X 3, no acute distress eye--sclear icteris Resp: CTA bilateral CVS: S1,S2,RRR GI: +BS, NT, no distention Skin: No rash Neuro: motor grossly intact Psych: appropriate affect Objective Data Active Medications Benzonatate (Benzonatate 100 Mg Capsule) 100 mg PO TID PRN PRN Reason: Cough Last Admin: 05/09/21 20:10 Dose: 100 mg Documented by: BERTHA Bumetanide (Bumetanide 1 Mg Tablet) 2 mg PO DAILY PRN; Protocol PRN Reason: SWELLING Last Admin: 05/08/21 14:54 Dose: 2 mg Documented by: DANNY Escitalopram Oxalate (Escitalopram Oxalate 10 Mg Tablet) 10 mg PO DAILY [facility] Last Admin: 05/10/21 08:26 Dose: 10 mg Documented by: DUYEN Folic Acid (Folic Acid 1 Mg Tablet) 1 mg PO DAILY [facility] Last Admin: 05/10/21 08:25 Dose: 1 mg Documented by: DUYEN Sodium Chloride (Ns) 1,000 mls @ 150 mls/hr IVCONT .Q6H40M [facility] Last Admin: 05/10/21 08:23 Dose: Not Given Documented by: DUYEN Non-Admin Reason: to anil Lorazepam (Lorazepam 0.5 Mg Tablet) 0.25 mg PO DAILY PRN PRN Reason: anxiety Last Admin: 05/09/21 00:38 Dose: 0.25 mg Documented by: DELFINO Melatonin (Melatonin 3 Mg Tablet) 6 mg PO BEDTIME PRN PRN Reason: Insomnia Last Admin: 05/08/21 20:11 Dose: 6 mg Documented by: DELFINO Morphine Sulfate (Morphine Sulfate 2 Mg/Ml Cartridge) 2 mg IVPUSH Q4H PRN; Protocol PRN Reason: Pain, Severe (Pain Scale 7-10) Last Admin: 05/10/21 08:34 Dose: 2 mg Documented by: DUYEN Multivitamins/Vitamin C (Multivitamin Tablet) 1 tab PO DAILY [facility] Last Admin: 05/10/21 08:25 Dose: 1 tab Documented by: DUYEN Nadolol (Nadolol 20 Mg Tablet) 20 mg PO DAILY [facility]; Protocol Last Admin: 05/10/21 08:25 Dose: 20 mg Documented by: DUYEN Non-Formulary Medication (Ambrisentan) 10 mg PO DAILY [facility] Non-Formulary Medication (Eplerenone) 25 mg PO DAILY [facility] Omeprazole (Omeprazole 20 Mg Capsule.) 20 mg PO DAILY@0630 [facility] Last Admin: 05/10/21 05:43 Dose: 20 mg Documented by: LETY Pharmacy Consult (Consult Rx Perform Med Rec) 1 each MISCELLANE ONCE PRN PRN Reason: Consult order Potassium Chloride (Potassium Chloride Er 20 Meq Tab.Er.Prt) 20 meq PO DAILY [facility] Last Admin: 05/10/21 08:26 Dose: 20 meq Documented by: DUYEN Sodium Chloride (0.9 % Sodium Chloride Flush 3 Ml Syringe) 3 ml IVFLUSH QSHIFT [facility] Last Admin: 05/10/21 08:26 Dose: 3 ml Documented by: DUYEN Sucralfate (Sucralfate 1 Gm Tablet) 1 gm PO BID [facility] Last Admin: 05/10/21 08:25 Dose: 1 gm Documented by: DUYEN Thiamine HCl (Thiamine Hcl 100 Mg Tablet) 100 mg PO DAILY [facility] Last Admin: 05/10/21 08:25 Dose: 100 mg Documented by: DUYEN Labs CBC & Chem 7: 05/09/21 05:21 05/09/21 05:21 Labs: Laboratory Results - last 24 hr 05/06/21 06:30 Alpha Fetoprotein 3.8 Microbiology Microbiology Results: Microbiology 05/05/21 05:57 Blood Culture - Final Blood - Venous No growth after 5 days. Assessment and Plan (1) Liver cirrhosis: Status: Acute (2) Hypokalemia: Status: Acute (3) Hyponatremia: Status: Acute (4) Portal vein thrombosis: Status: Acute Plan 50/F with chronic alcoholic liver cirrhosis, esophageal varices with recent banding here with abdominal pain and foudn to have the following #? Portal vein thrombosis (PVT), Initially Ultra sound suggested possible portal vein throbosis, et anticoagulation was avoided due to low H/H, low platlets and elevated INR. Further investigation with MRI recommended by GI did not show portal vein thrombosis and therefore? no indication for anticoagulation #SBP--as suggested by paracentesis with high neutrophile, unfortunately sample was not sent for Micro. She was started on ceftriaxone, blood cultures have been negative, 1 out 2 coag negative staph is contamination ? She has been Ceftriaxone for 6 days now and seems to have been improving but now hypothermia and borderline Hypotensive, rectal temp is normal, and Patient had taken off her cloth the time temp was checked. -repeat blood culture, broaden antibiotics to Zosyn, recheck CBC #Hyponatremia--likely from hypervolemia from cirrhosis and ascites and quite possibly alcohol use, worse -continue Fluid restriction, Nephrology consult,recommend fluid restriction-1500 cc/day, improving, continue fluid restriction. Last sodium is 131 #Anemia of chronic disease--recent variceal bleed. H/H has been stable, #Cirrhosis of liver with ascietes s/p paracentesis of 1.1 L. She is Nadalol and should be considered for diuretics in the future once BP is more stable. #Coagulopathy INR 1.5, no bleeding #Hypomagnesemia--Repleted and improved #HyOkalemia--repleted and normalized #History of Alcohol withdrawal,? Strongly advised to avoid alcohol at all cost . Quality Stroke Does the patient have a stroke diagnosis?: No VTE Prior VTE?: No VTE Risk Level:: Medical - low VTE Device Contraindication: N/A - Device Ordered VTE Drug Contraindication: Treatment Not Tolerated (anemia, high iNR, and recent gi bleed)
[2021-05-10] MEDS: 0.9 % Sodium Chloride 500 ML IV (12:38)
[2021-05-10 13:06] LABS: Glucose, Whole Blood 113 mg/dL (60-115)
[2021-05-10 13:11] LABS: Hematocrit 30.9 % (37.0-47.0); Hemoglobin 9.2 g/dl (12.0-16.0); Mean Corpuscular HGB Conc 29.8 g/dl (31.0-35.0); Mean Corpuscular Hemoglobin 27.5 pg (27.0-33.0); Mean Corpuscular Volume 92.5 fL (80.0-98.0); NRBC Pct Auto 0.3 /100WBC (0.0-0.2); Platelet Count 191 X10*3/uL (160-400); Red Blood Count 3.34 X10*6/uL (4.20-5.50); Red Cell Distribution Width 24.6 % (11.0-16.0); White Blood Count 12.2 X10*3/uL (4.8-10.8)
--- NOTE | 2021-05-10 13:17 | PC.NURSE ---
Addendum entered by Shi Amos RN 05/10/21 15:38: Lactic 4.7. Covid neg. Patient awake but drowsy. Denies dizziness. B/P 77/[address] Calderon ordered 1L bolus, currently infusing. CXR ordered. Telemonitor applied. Patient sinus rhythm. B/P 85/52. Order for transfer to [facility]. Report given to Joann. Waiting for C bed. Original Note: Patient found laying in bed with only underware on, blankets off, IV removed appearing more confused. Diaphoretic and cool and clammy. Temp 90.0 orally, b/p 90/60. o2 sat 93% r/a. Patient stated she felt dizzy and got really hot so removed blankets and clothes. Dr. Calderon notified. Septic workup ordered and IV zosyn ordered. IV 500cc bolus administered and IV fluid rate increased to 150/hr. Patient covered with warm blankets. Rectal temp 98.0. Covid swab collected. Patient more awake and feeling better but feels crampy. POC 114. Awaiting labs.
[2021-05-10 13:19] LABS: Anion Gap 20 (12-20); Blood Urea Nitrogen 22 mg/dL (9-16); Calcium 7.9 mg/dL (8.4-10.2); Carbon Dioxide 18 mmol/L (22-29); Chloride 97 mmol/L (96-108); Creatinine Clr Calc Pharmacy 96.7; Estimated Glomerular Filt Rate > 60; Glucose Random 121 mg/dL (60-115); Potassium 4.6 mmol/L (3.3-5.1); Sodium 130 mmol/L (135-145)
[2021-05-10 13:26] LABS: Lactic Acid 4.7 mmol/L (0.5-2.0)
[2021-05-10 13:26] LABS: COVID-19 Test Negative (Negative)
[2021-05-10] MEDS: 0.9 % Sodium Chloride 1,000 ML 150 ML IVCONT ×3 (13:38→22:30)
[2021-05-10] MEDS: Piperacillin Sodium/Tazobactam 3.375 GM in 0.9 % Sodium Chloride 50 ML IV ×2 (13:38→18:22)
[2021-05-10 13:58] LABS: Ammonia 41 umol/L (13-55)
[2021-05-10] MEDS: 0.9 % Sodium Chloride 1,000 ML 1000 ML IV (14:30)
[2021-05-10 15:00] LABS: Reflex Lactate? Lactic Acid Added
[2021-05-10 15:07] LABS: Alanine Aminotransferase 57 U/L (0-31); Albumin Level 2.8 g/dL (3.5-5.0); Alkaline Phosphatase 281 U/L (39-117); Aspartate Amino Transferase 225 U/L (5-31); Bilirubin Direct 4.7 mg/dL (0.0-0.5); Bilirubin Total 6.8 mg/dL (0.0-1.0); Total Protein 6.9 g/dL (6.5-8.0)
[2021-05-10 15:52] LABS: ~Lactic Acid-LAB USE ONLY 5.8 mmol/L (0.5-2.0)
--- NOTE | 2021-05-10 15:52 | PC.NURSE ---
Critical lab Lactic Acid 5.[address] Calderon informed.
[2021-05-10 16:01] LABS: Appearance Urine CLEAR; Color Urine YELLOW; Glucose Urine UA NEG (NEG); Leukocyte Esterase Urine NEG (NEG); Nitrite Urine NEG (NEG); PH 5.5 (5.0-8.0); Specific Gravity - Urine >= 1.030 (1.005-1.025); UACC Culture Trigger NO; Urine Blood NEG (NEG); Urine Ketones NEG (NEG); Urine Protein 1+ MG/DL (NEG-TRACE)
[2021-05-10] MEDS: Midodrine HCl 5 MG TABLET PO (16:03)
[2021-05-10 16:10] LABS: Amorphous Sediment Urine 1+ /LPF; Bacteria Urine TRACE /LPF; RBC Urine 0 /HPF (0); Squamous Epithelial Cell Urine 3+ /LPF; WBC Urine 0-2 /HPF (0-4)
[2021-05-10] MEDS: 0.9 % Sodium Chloride 1,000 ML 999 ML IV (16:18)
--- NOTE | 2021-05-10 16:26 | PHA.PROG ---
Admission Date/Time: May 05, 2021 17:10 Indication: Weight in k.111 kg Adjusted body weight in K kg Proctor body weight in K kg Obesity Dosing Indication % IBW: Serum Creatinine - Last 168 Hours 05/05/21 05/06/21 05/07/21 05:57 06:31 10:12 Creatinine 0.67 0.57 0.59 05/09/21 05/10/21 05:21 12:57 Creatinine 0.64 0.73 Estimated CrCl and GFR - Last 168 Hours 05/05/21 05/06/21 05/07/21 05:57 06:31 10:12 Estim Creat Clear Calc 105.4 123.9 119.7 Estimated GFR > 60 > 60 > 60 05/09/21 05/10/21 05:21 12:57 Estim Creat Clear Calc 110.3 96.7 Estimated GFR > 60 > 60 Vancomycin Loading Dose: 1500 mg x 1 Current Vancomycin Dosing Regimen: 1000 mg q12h Vancomycin Monitoring using AUC goal of 400 - 600 range with trough as surrogate marker: predicted auc 453, trough 13.7 Date and Time for next Vancomycin Level to be drawn: 05/12/21 @0300 Pharmacist Comments on Vancomycin Plan: Vancomycin dosing will take advantage of [employer] as a clinical decision support tool that uses Bayesian modeling to calculate individual patient's pharmacokinetic parameters and forecast the patient's drug concentration time course with the target goal AUC 24 range of 400 - 600 mg/L/hr.
--- NOTE | 2021-05-10 16:35 | PM.EVENT ---
Event Note Date of Service: 05/22/21 Event Note: Patient over the course of the day has developped Hypotension, called and clamy, given IV fluid at boluses with caution not to cause fluid overlad due to underlying cirrhosis, and pulmonary hypertension. Has also given midodrine 5 mgs. WBC is 12. She not tachycardic. Cutlures including UA is negative, blood cultures repeated, Ammonia is normal, hgb is better , sodium stable at 130, bili has trended down since admission, lactic acid is going up from 4.7 to 5.8 now, CXR shows no acute disease. Antibiotics broadened to Zosyn and Vanco given.. No other source of infection isolated other than presumed from earlier SBP.. Given persistent hyPotension with IvF and midodrine will transfer to ICU for closer monitoring and possible vasopressor therapy. I have discussed this with Dr. Euceda. Sepsis Focus exam completed.
[2021-05-10 17:22] LABS: Reflex Lactate? 2 Y
[2021-05-10 18:09] LABS: ~Lactic Acid-LAB USE ONLY 5.6 mmol/L (0.5-2.0)
--- NOTE | 2021-05-10 18:14 | W.PM.CCHP ---
Procedures Date of Service Date of Service: 05/10/21 Central Line Placement Right IJ: Central Line Comments: septic individual with cirrhosis and hepatic failure and a severe portal pulmonary hypertension markedly hypotensive needing central line for CVP measurement and fluid management as well as on inotropic and blood pressure support after sterile preparation and draping utilizing ultrasound guidance gained easy entry into the right internal jugular vein which was markedly distended the end of due to was severe right heart failure passing retrograde with Seldinger technique a J tipped guidewire over which triple-lumen central venous pressure catheter was then placed and noted by x-ray to be in perfect position in the superior vena cava and no pneumothorax no complications no bleeding Consent for Procedure: Elective - informed consent obtained Time out performed: Yes Sterile Technique Used: Yes Patient placed on monitor/pulse ox: Yes prep: mask, gown and gloves Central line prep: Chlorhexidine scrub Local anesthesia used: lidocaine 1% Ultrasound used for placement: Yes Central line lumen inserted: triple Post procedure: sutured in place, good blood return, all ports aspirated, flushed, capped and sterile dressing applied Post procedure x-ray: tip of catheter in good position and no pneumothorax seen Patient tolerated procedure: well and no complications Complications: none
--- NOTE | 2021-05-10 18:18 | P.CONCC_ITS ---
History of Present Illness Data of Consult Service Date: 05/10/21 Requesting physician: Ruben Calderon Primary Care Provider: Myrtle Lackey MD HPI Reason for consult: hypotension and hypothermia with lactic acidemia consistent with sepsis 50-year-old female with alcoholic cirrhosis and both portal hypertension and features of hepatic failure presented with abdominal did discomfort tense ascites and the tap of the peritoneal fluid although not sent for culture did have 4000 white cells with 68% polys and had the last 4 or 5 days of ceftriaxone treatment and today all of a sudden dropped her blood pressure became somewhat tachypneic hypotensive lactic acidemic consistent with a septic picture received 30 cc/kilos IV fluid bolus with persistent systolic pressure of 78 and also has a history of portal pulmonary hypertension with severe chronic and probably now acute on chronic cor pulmonale as well to the probably is a cardiogenic picture contributing to this lactic acidosis as well clearly needs not just vasoconstrictor support for blood pressure but she will need some I inotropic support as well for the right ventricle none and a CVP to be able to follow which clearly is not going to at all reflect left heart involvement but gives us a trend she is on an endothelin relaxing factor and also was on Mercedes all and at this point I am going to use a combination of dobutamine and vasopressin in the hopes that I could also preserve renal function and she will have Dumont catheter placement and the question is whether not there was a back bacteria that was refractory to the ceftriaxone so were going to give her vancomycin and Zosyn as her therapy and then support her circulatory status Review of Systems Review of Systems: Yes all other systems are reviewed and are negative PMFSH Past Medical History Medical History (Updated 05/10/21 @ 18:26 by Tyrell Euceda MD) Abdominal pain Alcohol abuse Alcoholic cirrhosis of liver Anemia Anxiety disorder Chronic cor pulmonale Esophageal varices in alcoholic cirrhosis Nonrheumatic tricuspid (valve) insufficiency Pancytopenia Portopulmonary hypertension Pulmonary hypertensive arterial disease associated with portal hypertension Family History Family History Father HTN (hypertension) Mother HTN (hypertension) Surgical History Surgical History Hx of cardiac cath Social History Social History Household Members: Family Housing: Apartment Do you presently have visiting nurse or other home services: No Alcohol intake: current Alcohol intake frequency: former alcohol drinker Patient Tobacco Use Status: Former Tobacco user Tobacco use type: Cigarette Cigarette Packs Per Day: 1 Years Smoked: 30 years Advance Directives Date on File: 01/30/20 service: No Current occupational status: employed Meds Allergies Allergy/AdvReac Type Severity Reaction Status Date / Time No Known Allergies Allergy Verified 05/05/21 05:32 [No Known Allergies*] Active Medications: Current Medications Sodium Chloride (Ns) 1,000 mls @ 150 mls/hr IVCONT .Q6H40M [facility] Last Infusion: 05/10/21 16:18 Dose: 0 mls/hr Documented by: Piperacillin Sod/Tazobactam (Sod 3.375 gm/ Sodium Chloride) 50 mls @ 100 mls/hr IV Q6H [facility] Last Infusion: 05/10/21 14:17 Dose: Infused Documented by: Vancomycin HCl 1,000 mg/ (Sodium Chloride) 270 mls @ 270 mls/hr IV Q12H [facility] Vasopressin 20 unit/ Sodium (Chloride) 101 mls @ 3.03 mls/hr IVCONT .Q24H [facility] Dobutamine HCl/Dextrose (Dobutrex) 1,000 mg in 250 mls @ 0 mls/hr IVCONT .Q0M [facility]; Protocol Multivitamins/Vitamin C (Multivitamin Tablet) 1 tab PO DAILY [facility] Last Admin: 05/10/21 08:25 Dose: 1 tab Documented by: Pharmacy Consult (Consult Rx Perform Med Rec) 1 each MISCELLANE ONCE PRN PRN Reason: Consult order Pharmacy Consult (Consult Rx Vancomycin Dosing) 1 each MISCELLANE DAILY PRN PRN Reason: Consult order Sodium Chloride (0.9 % Sodium Chloride Flush 3 Ml Syringe) 3 ml IVFLUSH QSHIFT [facility] Last Admin: 05/10/21 08:26 Dose: 3 ml Documented by: Sucralfate (Sucralfate 1 Gm Tablet) 1 gm PO BID [facility] Last Admin: 05/10/21 08:25 Dose: 1 gm Documented by: Home Medications Medication Instructions Recorded Confirmed Last Taken Type nadolol 20 mg tablet 20 mg PO DAILY 01/30/20 05/05/21 01/30/20 History bumetanide 1 mg tablet 2 mg PO DAILY PRN tab 02/15/21 05/05/21 Unknown History pantoprazole 40 mg tablet,delayed 40 mg PO DAILY 05/05/21 05/05/21 Unknown History release potassium chloride 20 mEq 20 meq PO DAILY 05/05/21 05/05/21 Unknown History tablet,extended release Physical Exam Vital Signs: Vital Signs: Last Vital Signs Temp 96.5 F L 05/10/21 15:03 Pulse 85 05/10/21 15:03 Resp 18 05/10/21 15:03 BP 85/52 L 05/10/21 15:03 Pulse Ox 91 L 05/10/21 15:03 BMI result Body Mass Index 28.3 currently she is awake and alert and somewhat hyper phonemic which I believe is related to the acidosis but she does have a productive cough which is new and we repeated COVID status which is negative and this is because of recent exposure to an infected d [place] neurologically intact bedside echo shows normal LV function but markedly dilated and dysfunctional right ventricle right atrium with 4+ tricuspid regurg regurgitation and velocity peaking at 3.5 m/sec for pulmonary artery pressure of at least 50 mmHg no other primary valve or pericardial disea se chest x-ray clear parenchyma but bibasilar atelectasis with elevated hemidiaphragms skin without livedo or acrocyanosis Results Labs CBC & Chem 7: 05/10/21 12:57 05/10/21 12:57 Labs: Short CBC 05/10/21 Range/Units 12:57 WBC 12.2 H (4.8-10.8) X10*3/uL Hgb 9.2 L (12.0-16.0) g/dl Hct 30.9 L (37.0-47.0) % Plt Count 191 D (160-400) X10*3/uL BMP 05/10/21 12:57 Sodium 130 L Potassium 4.6 D Chloride 97 Carbon Dioxide 18 L BUN 22 H Creatinine 0.73 Calcium 7.9 L Liver Function 05/10/21 Range/Units 12:57 Total Bilirubin 6.8 H (0.0-1.0) mg/dL Direct Bilirubin 4.7 H (0.0-0.5) mg/dL AST 225 H (5-31) U/L ALT 57 H (0-31) U/L Alkaline Phosphatase 281 H D (39-117) U/L Albumin 2.8 L (3.5-5.0) g/dL Urine 05/10/21 Range/Units 15:42 Urine Color YELLOW Urine Appearance CLEAR Urine pH 5.5 (5.0-8.0) Ur Specific [place] >= 1.030 H (1.005-1.025) Urine Protein 1+ H (NEG-TRACE) MG/DL Urine Glucose (UA) NEG (NEG) MG/DL Microbiology Microbiology Results: Microbiology 05/05/21 05:57 Blood - Venous Blood Culture - Final No growth after 5 days. 05/05/21 05:57 Blood - Venous Blood Culture - Final Coag negative Staphylococcus Assessment and Plan (1) Liver cirrhosis: Status: Acute (2) Hypokalemia: Status: Acute (3) Hyponatremia: Status: Acute (4) Alcoholic cirrhosis: Status: Acute (5) Shortness of breath: Status: Acute (6) Hypomagnesemia: Status: Acute (7) Abdominal pain: Status: Acute (8) Hypokalemia: Status: Acute (9) Abdominal pain: Status: Acute (10) Hematemesis: Status: Acute (11) Acute on chronic blood loss anemia: Status: Acute (12) Portopulmonary hypertension: Status: Acute (13) Right heart failure due to pulmonary hypertension: Status: Acute (14) Pulmonary hypertensive arterial disease associated with portal hypertension: Status: Acute (15) Enlarged RV (right ventricle): Status: Acute (16) Nonrheumatic tricuspid (valve) insufficiency: Status: Acute (17) Cirrhosis: Qualifiers: Hepatic cirrhosis type: alcoholic cirrhosis Ascites presence: without ascites Qualified Code(s): K70.30 - Alcoholic cirrhosis of liver without ascites Status: Acute (18) Cor pulmonale, acute: Status: Acute (19) Portal vein thrombosis: Status: Acute (20) Chronic cor pulmonale: Status: Acute (21) Sepsis associated hypotension: Status: Acute Plan all cultures are pending antibiotics support will be vancomycin and Zosyn and on going to use a combination of dobutamine to at least minimize any pulmonary vaso constriction as well as vasopressin in the hope of preserving renal perfusion
[2021-05-10] MEDS: vancomycin HCL 1,500 MG in 0.9 % Sodium Chloride 500 ML 333.33 MG IV (18:22)
[2021-05-10 21:38] LABS: VBG Base Excess -3.4 mmol/L; VBG HCO3 19 mmol/L (22-26); VBG pCO2 26 mmHg; VBG pH 7.47 (7.32-7.43); VBG pO2 37 mmHg
[2021-05-10 21:39] LABS: Venous Blood Gas Refer to POC result
[2021-05-10 21:51] LABS: Lactic Acid 2.8 mmol/L (0.5-2.0)
[2021-05-10 21:57] LABS: Alanine Aminotransferase 49 U/L (0-31); Albumin Level 2.3 g/dL (3.5-5.0); Alkaline Phosphatase 224 U/L (39-117); Anion Gap 15 (12-20); Aspartate Amino Transferase 181 U/L (5-31); Bilirubin Total 5.6 mg/dL (0.0-1.0); Blood Urea Nitrogen 28 mg/dL (9-16); Calcium 7.3 mg/dL (8.4-10.2); Carbon Dioxide 19 mmol/L (22-29); Chloride 101 mmol/L (96-108); Creatinine Clr Calc Pharmacy 99.5; Estimated Glomerular Filt Rate > 60; Glucose Random 136 mg/dL (60-115); Potassium 4.5 mmol/L (3.3-5.1); Sodium 130 mmol/L (135-145); Total Protein 5.7 g/dL (6.5-8.0)
[2021-05-10 23:32] LABS: Reflex Lactate? Lactic Acid Added
[2021-05-11] VITALS: BP 111/66; BP 90/69; PULSE 88; PULSE 97; RESP 30; TEMP 36.1; O2SAT 93
[2021-05-11] MEDS: Albumin Human 25 % 100 ML IV ×2 (00:29→00:54)
[2021-05-11] MEDS: 0.9 % Sodium Chloride Flush 3 ML SYRINGE IVFLUSH (00:34)
[2021-05-11 01:06] VITALS: BP 106/59; PULSE 100; RESP 16; TEMP 36.1; O2SAT 92
[2021-05-11] MEDS: Piperacillin Sodium/Tazobactam 3.375 GM in 0.9 % Sodium Chloride 50 ML IV (01:16)
[2021-05-11] MEDS: Atropine Sulfate 1 MG/10 ML SYRINGE IVPUSH ×2 (01:33→02:25)
[2021-05-11] MEDS: LORazepam 2 MG/ML VIAL IVPUSH (01:33)
--- NOTE | 2021-05-11 01:55 | ECG_ITS ---
Test Reason : svt Blood Pressure : / mmHG Vent. Rate : 119 BPM Atrial Rate : 000 BPM P-R Int : 000 ms QRS Dur : 112 ms QT Int : 388 ms P-R-T Axes : 000 101 -39 degrees QTc Int : 545 ms Artifact in tracing Atrial fibrillation with rapid ventricular response Rightward axis ST & T wave abnormality, consider anterior ischemia Abnormal ECG When compared with ECG of 05-MAY-2021 05:36, Rhythm change Inverted T waves have replaced nonspecific T wave abnormality in Inferior leads T wave inversion more evident in Anterior leads Referred By: Kacy Rodriguez Electronically Signed By:BISHOP PARK
[2021-05-11 02:04] LABS: Basophils Percent Auto 0.1 % (0-2); Eosinophils Percent Auto 0.1 % (0-4); Hematocrit 24.3 % (37.0-47.0); Imm Gran Abs Auto 0.23 X10*3/uL (0.00-0.03); Imm Gran Pct Auto 2.9 % (0.0-0.4); Lymphocytes Absolute Auto 2.2 X10*3/uL (1.2-4.9); MANUAL DIFF FLAG SCAN; Mean Corpuscular HGB Conc 29.6 g/dl (31.0-35.0); Mean Corpuscular Hemoglobin 27.9 pg (27.0-33.0); Mean Corpuscular Volume 94.2 fL (80.0-98.0); Monocytes Absolute Auto 0.7 X10*3/uL (0.1-1.2); Monocytes Percent Auto 8.4 % (2-11); NRBC Pct Auto 0.5 /100WBC (0.0-0.2); Neutrophils Absolute Auto 4.8 x10*3/uL (2.0-8.3); Neutrophils Percent Auto 60.5 % (45-73); Platelet Count 132 X10*3/uL (160-400); Red Blood Count 2.58 X10*6/uL (4.20-5.50); Red Cell Distribution Width 24.4 % (11.0-16.0); SCAN SMEAR FLAG 1
[2021-05-11 02:05] LABS: PLT ABN DIST 1
[2021-05-11 02:07] LABS: Hemoglobin 7.2 g/dl (12.0-16.0)
[2021-05-11 02:09] LABS: Ammonia 84 umol/L (13-55)
[2021-05-11 02:21] LABS: SLIDE REVIEW VERIFIED
[2021-05-11 02:25] LABS: Troponin-I High Sensitivity 30.4 ng/L (<3.5-17.0)
[2021-05-11 02:26] LABS: Alanine Aminotransferase 42 U/L (0-31); Albumin Level 2.9 g/dL (3.5-5.0); Alkaline Phosphatase 206 U/L (39-117); Anion Gap 21 (12-20); Aspartate Amino Transferase 152 U/L (5-31); Bilirubin Total 5.4 mg/dL (0.0-1.0); Blood Urea Nitrogen 28 mg/dL (9-16); Calcium 7.5 mg/dL (8.4-10.2); Carbon Dioxide 13 mmol/L (22-29); Chloride 102 mmol/L (96-108); Creatinine Clr Calc Pharmacy 89.4; Estimated Glomerular Filt Rate > 60; Glucose Random 172 mg/dL (60-115); Potassium 4.7 mmol/L (3.3-5.1); Sodium 131 mmol/L (135-145); Total Protein 6.1 g/dL (6.5-8.0)
[2021-05-11 02:40] LABS: VBG Base Excess -20.3 mmol/L; VBG HCO3 11 mmol/L (22-26); VBG O2 % Saturation < 30.0 %; VBG pCO2 55 mmHg; VBG pH 6.91 (7.32-7.43); VBG pO2 25 mmHg
--- NOTE | 2021-05-11 03:06 | PM.CCN ---
Critical Care Event Note Summary Date of Service: 05/11/21 Code activated: Yes Narrative: This case had a high probability of a clinically significant, sudden, or life threatening deterioration of this patient's condition which required my full and direct attention, intervention and personal management. Critical Care Time (minutes): 90 Comment: At approximately 01:30, the patient set bold upright in her bed, yelled loudly and then laid back down, posturing her hands and feet and grunting, foaming at the mouth. Both her nurse and myself were at the bedside immediately. The patient's heart rate immediately dropped to 35 beats per minute. the patient was grunting and moving rhythmicaly, looking like she was having a seizure. we pushed 1 mg of atropine and 2 mg IV Ativan. the rhythmic movements stopped within a minute however patient was still grunting and foaming at the mouth, her lips became cyanotic very quickly. Her heart rate came up momentarily but then came back down and pulse check revealed no pulse, PEA. CPR was started immediately, the Carlos was applied after 2 rounds of CPR. We did CPR for 10 minutes, pushed EPI twice and ROSC was achieved. I intubated the pt and she was started on Fentanyl drip, vasopressin was maxed at 0.4 units/min and levo maxed at 1 mcg/kg/min. EKG revealed afib with RVR. VBG revealed 6.91/55/25/11/<30 base excess -20.3, lactic acid 7.0 mmol/L, troponin 30.4. I consulted with Dr. Euceda, assessment and plan agreed to by him. It is likely with the patient's history of portal vein thrombosis (ABD US 05/05/21), inability to anticoagulate due to recent esophageal variceal bleeding with 6 bands (04/13/21), severe cor pulmonale and pulmonary hypertension that she had a pulmonary embolism and acute right heart ventricular failure leading to cardiogenic shock. Prognosis very poor, I contacted the patient's mother, Ayla Nicole, to advise of her daughters grim prognosis. At approx 2:35am, pt's HR dropped again to 32 beats per min, patient again was found to be pulseless, PEA. At that time CPR was started with Carlos, 1 mg of epinephrine was given. We did this for 2 more rounds, no pulse was detected via doppler, echo revealed no viable cardiac activity, code called at 2:40am. Family at the bedside at 3:30am
--- NOTE | 2021-05-11 03:25 | W.PM.CCHP ---
Procedures Date of Service Date of Service: 05/11/21 Intubation Consent for Procedure: Emergent-no informed consent obtained Time out performed: Yes Sedative: etomidate Mg given: 10 Paralytic: rocuronium Mg given: 50 Laryngoscope: fiber optic video scope ET tube size: 7.5 ET tube uncuffed: No Tube secured depth (cm): 22 Tube secured location: lips Tube placement confirmation: visualized tube passing through cords, equal breath sounds bilaterally, no breath sounds over epigastrium and confirmation by capnometry Patient tolerated procedure: no complications Intubation complications: none
--- NOTE | 2021-05-11 03:26 | P.DN_ITS ---
Discharge Sum: Prov Provider Primary care physician: Myrtle Lackey MD Admitting clinician: Ruben Calderon Attending physician on admission: Ruben Calderon Consults: 05/05/21 17:13 Consult to Gastroenterology Routine Consulting Provider: Yusuf Vasquez Reason for consultation: portal vein thrombosis Has provider been notified: No 05/06/21 11:08 Consult to Nephrology Routine Consulting Provider: Mateo Guillermo Reason for consultation: HypOnatremia Has provider been notified: No Pronouncing clinician: Kacy Rodriguez Discharge Sum: Diag PCOD Cause of : Cardiogenic shock Contributing Factors (1) Liver cirrhosis: (2) Hypokalemia: (3) Hyponatremia: (4) Alcoholic cirrhosis: (5) Shortness of breath: (6) Hypomagnesemia: (7) Abdominal pain: (8) Hypokalemia: (9) Abdominal pain: (10) Hematemesis: (11) Acute on chronic blood loss anemia: (12) Portopulmonary hypertension: (13) Right heart failure due to pulmonary hypertension: (14) Pulmonary hypertensive arterial disease associated with portal hype rtension: (15) Enlarged RV (right ventricle): (16) Nonrheumatic tricuspid (valve) insufficiency: (17) Cirrhosis: (18) Cor pulmonale, acute: (19) Portal vein thrombosis: (20) Chronic cor pulmonale: (21) Sepsis associated hypotension: (22) Pulmonary embolism: Discharge Sum: Summary Date and Time Date of admission: 05/05/21 17:10 Date of : 05/11/21 Time of : 02:40 Summary Details: Patient likely had a pulmonary embolism, with her chronic cor pulmonale, she suffered acute on chronic right heart failure leading to cardiogenic shock. We called the code at 1:31am when pt had an acute event and was found to be in PEA, after multiple rounds of chest compressions and epinephrine, we achieved ROSC but shortly after, the pt was again found to be in PEA, again multiple rounds of chest compressions and epi, we were unable to achieve ROSC, echo revealed no cardiac activity, no pulse, pupils fixed and dilated so we called the code at 2:40am. See Critical Care Progress note from 3:06am with further details. Additional Data Confirmation of as documented by pronouncing clinician: no pulse, no respirations, no heart sounds and pupils fixed and dilated Family: contacted (mother Ayla Nicole, at bedside after pt passed with pt's father) Attending/PCP notified?: Yes Attending physician: Tyrell Euceda MD Was code activated?: Yes Autopsy requested?: No budget examiner notified?: No Organ bank notified?: Yes Advance directives: No Hospice patient?: No
[2021-05-11 03:57] VITALS: BP 61/45; PULSE 86; TEMP 33; O2SAT 91; O2SAT 94
[2021-05-11 03:57] LABS: Reflex Lactate? Lactic Acid Added
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
[2021-05-11 06:22] LABS: Venous Blood Gas Refer to POC result
== END 2021-05-11 06:30 | disposition expired | DRG 280 ==
LOC: HO.ED 16:13 → HO.EDOVER 17:33 → HO.S3 05-06 17:16 → HO.ICU 05-10 16:43
PROVIDERS: Hospitalist; Internal Medicine; Internal Medicine Nephrology; Physician Assistant; Radiology Diagnostic Radiology; Student in an Organized Health Care Education/Training Program; Admitting Provider Internal Medicine; Emergency Provider Emergency Medicine; PCP Internal Medicine; Visit Provider Internal Medicine Cardiovascular Disease
PROC: 0W9G3ZZ Drainage of Peritoneal Cavity, Percutaneous Approach (ICD-10-PCS; principal; 2021-05-05 15:00)
DX: K70.31 Alcoholic cirrhosis of liver with ascites (principal); A41.9 Sepsis, unspecified organism; K65.2 Spontaneous bacterial peritonitis; D68.9 Coagulation defect, unspecified; I95.9 Hypotension, unspecified; D63.8 Anemia in other chronic diseases classified elsewhere; I85.10 Secondary esophageal varices without bleeding; E87.1 Hypo-osmolality and hyponatremia; E87.6 Hypokalemia; E83.42 Hypomagnesemia; Z20.822 Contact with and (suspected) exposure to COVID-19; Z87.891 Personal history of nicotine dependence; Z79.899 Other long term (current) drug therapy
CPT/HCPCS: 36415; 49083; 71045; 71250; 74176; 74183; 76705; 80048; 80051; 80053; 80076; 81001; 82077; 82105; 82140; 82803; 82945; 82947; 83605; 83615; 83690; 83735; 83880; 83930; 84157; 84484; 85025; 85027; 85610; 86850; 86900; 86901; 87040; 87147; 87205; 87635; 89051; 93005; 93975; 94002; 94003; 94799; 96365; 96366; 96367; 96375; 99285; A9585; C1758; J0171; J0461; J0696; J1250; J2060; J2270; J2543; J3370; J3475; P9047